=== PATIENT | male | born 1935 | race Caucasian/White ===

== ENCOUNTER 2018-02-13 16:25 | Emergency (ER) | payer MEDICARE, OTHER, SELFPAY ==
[2018-02-13 16:32] VITALS: BP 156/96; PULSE 71; RESP 20; TEMP 36.6; O2SAT 97
--- NOTE | 2018-02-13 16:36 | DI.RAD.S_ITS ---
PROCEDURE: XR HIP W PEL IF DONE LT 2V INDICATIONS: Fall with lateral hip pain TECHNIQUE: AP pelvis with lateral view(s) of the left hip(s). COMPARISON: None. FINDINGS: Bones: No fractures or dislocations. Pelvic ring appears intact. No suspicious bony lesions. Soft tissues: The visualized bowel gas pattern is normal. No suspicious soft tissue calcifications. IMPRESSION: No acute fracture. No osseous lesion. If clinical suspicion and/or symptoms persist, further assessment with repeat plainfilms, or advanced imaging (e.g., CT, MRI, or bone scan) may be helpful for further assessment. Dictated by: Chase Rich M.D. on 02/13/2018 at 17:01 Approved by: Chase Rich M.D. on 02/13/2018 at 17:01
--- NOTE | 2018-02-13 16:41 | ED.LOWEXIN ---
HPI - Extremity Injury (Lower) General Chief Complaint: Extremity Injury, Lower Stated Complaint: GLF, left side hip pain Time Seen by Provider: 02/13/18 16:32 Source: patient Mode of arrival: ambulatory Limitations: no limitations History of Present Illness HPI Narrative: 82-year-old male here for evaluation of left hip injury after sustaining a fall at a restaurant just prior to arrival. Patient states that he slipped on a wet floor landing on his left hip. Did not hit his head. No loss consciousness. Was able to get up with help afterwards. Has only been ambulatory with help afterwards. Related Data Home Medications Medication Instructions Recorded Confirmed alfuzosin 10 mg PO QDAY #0 09/25/16 amlodipine [Norvasc] 5 mg PO QDAY #0 09/25/16 chlorthalidone 25 mg PO QDAY #0 09/25/16 prazosin [Minipress] 1 mg NG TID #0 09/25/16 Previous Rx's Medication Instructions Recorded azithromycin [Zithromax] 250 - 500 mg PO QDAY #6 tab 05/19/17 Allergies Allergy/AdvReac Type Severity Reaction Status Date / Time iodine [IODINE] Allergy Unknown Verified 02/13/18 17:07 morphine [MORPHINE] Allergy Unknown Verified 02/13/18 17:07 shellfish derived Allergy Unknown Verified 02/13/18 17:07 [SHELLFISH DERIVED] Review of Systems Constitutional Denies frequent falls, Denies headache(s) and Denies lethargy ENT Ears, Nose, Mouth, and Throat: Denies headache(s) Cardiovascular Denies chest pain and Denies dyspnea Respiratory Denies dyspnea Gastrointestinal Gastrointestinal: Denies abdominal pain Musculoskeletal Denies back pain, Denies myalgias, Denies deformity, Reports arthralgias (Left hip), Denies numbness and Denies tingling Integumentary/Breasts Denies lesions and Denies rash Neurologic Denies frequent falls, Denies headache(s), Denies numbness and Denies tingling Hematologic/Lymphatic Comments: Not on anticoagulation PFSH Medical History Hypertension (Acute) Surgical History History of lumbar surgery (Acute) Social History marital status: lives independently: Yes Exam Initial Vital Signs Initial Vital Signs: Vital Signs Temperature 97.9 F 02/13/18 16:32 Pulse Rate 71 02/13/18 16:32 Respiratory Rate 20 02/13/18 16:32 Blood Pressure 156/96 H 12/02/18 16:32 Pulse Oximetry 97 02/13/18 16:32 Const General: cooperative, healthy appearing, comfortable, well developed, well groomed and No acute distress Orientation: alert, awake and oriented x3 HENMT Head: normal to inspection and normocephalic Resp Effort & Inspection: normal respiratory effort Cardio Rate: regular rate GI Inspection: non-distended Palpation: soft, No firm and No tender Back/Spine/Pelvis Back: No CVA tenderness Cervical Spine: No cervical spinal tenderness Thoracic/Lumbar Spine: No thoracic spinal tenderness and No lumbar spinal tenderness Sacroiliac Joints: tender to palpation left Skin Lesions: no lesions Rashes: no rashes Neuro General: alert, awake and oriented x3 Cognition: normal cognition Sensory Exam: no sensory deficits noted Extrem General: normal to inspection and capillary refill normal Left lower extremity: normal to inspection, normal capillary refill and edema Other: Tender to palpation over the SI joint and over the greater trochanter on the left. No gross deformities. No right hip tenderness. Course Orders Ordered: ED Orders 02/13/18 16:36 XR hip w pel if done LT 2V Stat Discontinued Medications Ibuprofen (Advil) 800 mg PO NOW ONE Stop: 02/13/18 17:06 Last Admin: 02/13/18 17:08 Dose: 800 mg Vital Signs - 8 hr 02/13/18 16:32 Temperature 97.9 F Pulse Rate 71 Respiratory Rate 20 Blood Pressure 156/96 H Pulse Oximetry 97 MDM - Extremity Injury (Lower) Imaging Data XR hip: Radiologist's impression: PROCEDURE: XR HIP W PEL IF DONE LT 2V INDICATIONS: Fall with lateral hip pain TECHNIQUE: AP pelvis with lateral view(s) of the left hip(s). COMPARISON: None. FINDINGS: Bones: No fractures or dislocations. Pelvic ring appears intact. No suspicious bony lesions. Soft tissues: The visualized bowel gas pattern is normal. No suspicious soft tissue calcifications. IMPRESSION: No acute fracture. No osseous lesion. If clinical suspicion and/or symptoms persist, further assessment with repeat plainfilms, or advanced imaging (e.g., CT, MRI, or bone scan) may be helpful for further assessment. Dictated by: Chase Rich M.D. on 02/13/2018 at 17:01 Approved by: Chase Rich M.D. on 02/13/2018 at 17:0 MDM Narrative Medical decision making narrative: No fractures on the x-ray. Patient was able to stand and put weight on his left hip at bedside. Will hold on CT scan. He was given ibuprofen here in the emergency department. Will hold on further workup for now. Patient was given care instructions and return precautions. Discharge Plan Departure Patient Disposition: Home Clinical Impression: Contusion of hip, left Instructions: DI for Contusion Activity Restrictions/Additional Instructions: No fractures were seen on the x-rays today. You can place weight on your leg as needed and as tolerated. Your only limited by your discomfort. Take ibuprofen for any discomfort. Return to the emergency department for any new or worsening symptoms Prescriptions: No Action amlodipine [Norvasc] 5 MG tablet 5 mg PO QDAY Qty: 0 RF: 0 alfuzosin 10 MG tablet extended release 24 hr 10 mg PO QDAY Qty: 0 RF: 0 prazosin [Minipress] 1 MG capsule 1 mg NG TID Qty: 0 RF: 0 chlorthalidone 25 MG tablet 25 mg PO QDAY Qty: 0 RF: 0 azithromycin [Zithromax] 250 MG tablet 250 - 500 mg PO QDAY Qty: 6 RF: 0
[2018-02-13] MEDS: IBUPROFEN 400 MG TABLET 800 MG PO (17:08)
--- NOTE | 2018-02-13 17:13 | PC.NURSE ---
slipped and fell on wet floor, occured at 240pm today at [employer] [facility] in [place]. denies loc, denies neck , with tenderness with left hip and lumbar area. pt able to stand from wheelchair to strecther. distal cms intact. spouse at bs.
[2018-02-13 17:14] VITALS: BP 124/63; PULSE 67; RESP 16; O2SAT 100
== END 2018-02-13 17:23 | disposition home or self-care (01) ==
PROVIDERS: Emergency Provider Emergency Medicine; Family Provider Internal Medicine; PCP Internal Medicine
DX: S70.02XA Contusion of left hip, initial encounter (principal); W01.0XXA Fall on same level from slipping, tripping and stumbling without subsequent striking against object, initial encounter
CPT/HCPCS: 73502; 99282; 99283

== ENCOUNTER → 2018-03-01 09:41 | Outpatient (CLI) | payer MEDICARE, OTHER, SELFPAY ==
--- NOTE | 2018-03-01 | DI.RAD.S_ITS ---
PROCEDURE: XR SHOULDER LT MIN 2V INDICATIONS: PAIN IN LEFT SHOULDER TECHNIQUE: 3 views of the shoulder were acquired. COMPARISON: None. FINDINGS: Bones: No fractures or dislocations. No suspicious bony lesions. Visualized ribs appear intact. Subcentimeter loose body projects in the axillary pouch. There is moderate acromioclavicular and glenohumeral degenerative joint disease. Soft tissues: No suspicious soft tissue calcifications. IMPRESSION: Moderate left shoulder joint degeneration. Loose body projects in the axillary pouch. Dictated by: Filippo Medrano M.D. on 03/01/2018 at 12:14 Approved by: Filippo Medrano M.D. on 03/01/2018 at 12:18
--- NOTE | 2018-03-01 | DI.CT.S_ITS ---
PROCEDURE: CT LE LT W CON INDICATIONS: PAIN IN LEFT HIP TECHNIQUE: Noncontrast 3 mm axial sections acquired through the bony pelvis. Additional 3 mm axial sections acquired through the symptomatic hip joint, with coronal and sagittal reformats. COMPARISON: None. FINDINGS: Image quality: Excellent. No fracture or focal osseous destruction. Bilateral chronic L5 pars defects. Anatomic alignment of the sacroiliac joints and pubic symphysis, as well as the hip joints. 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 There is diffuse osteopenia. Intrapelvic contents grossly unremarkable. Incidental colonic diverticulosis. IMPRESSION: No definite or displaced fracture seen. If the patient's pain and symptoms persist, recommend further evaluation with dedicated MRI. Dictated by: Filippo Medrano M.D. on 03/01/2018 at 12:36 Approved by: Filippo Medrano M.D. on 03/01/2018 at 13:05
== END ==
PROVIDERS: PCP Internal Medicine; Visit Provider Student in an Organized Health Care Education/Training Program
DX: M25.552 Pain in left hip (principal); M25.512 Pain in left shoulder; M19.012 Primary osteoarthritis, left shoulder
CPT/HCPCS: 73030; 73700

== ENCOUNTER → 2018-04-22 10:10 | Outpatient (CLI) | payer OTHER, SELFPAY ==
--- NOTE | 2018-04-22 10:11 | DI.RAD.S_ITS ---
PROCEDURE: FL BARIUM SWALLOW INDICATIONS: dysphagia.Post Heller myotomy/diverticulectomy/toupet fundop COMPARISON: None. FINDINGS: Function: There is decreased esophageal peristalsis. There is delayed esophageal clearance. No elicited gastroesophageal reflux. Morphology: Air-contrast images demonstrate numerous lower esophageal diverticula Single contrast views show no esophageal strictures, extrinsic mass effects. Limited images of the stomach demonstrate normal appearance. IMPRESSION: Esophageal dysmotility. Numerous mid to lower esophageal diverticula. Dictated by: Filippo Medrano M.D. on 04/22/2018 at 11:04 Approved by: Filippo Medrano M.D. on 04/22/2018 at 11:08
== END ==
PROVIDERS: PCP Internal Medicine; Visit Provider Specialist
DX: R13.10 Dysphagia, unspecified (principal); K22.4 Dyskinesia of esophagus; K22.5 Diverticulum of esophagus, acquired
CPT/HCPCS: 74220

== ENCOUNTER → 2018-06-11 14:13 | Outpatient (CLI) | payer MEDICARE, OTHER, SELFPAY ==
--- NOTE | 2018-06-11 | DI.MRI.S_ITS ---
PROCEDURE: MR LUMBAR SPINE WO CON INDICATIONS: SPINAL STENOSIS TECHNIQUE: Noncontrast sagittal T1 spin echo and T2 fast echo, sagittal STIR, axial T1 and T2 fast spin echo through the lumbar spine. In cases with scoliosis, additional coronal T2 fast spin echo may be performed. COMPARISON: None. FINDINGS: Image quality: Excellent. Alignment and Curvature: No plain films are available for comparison, for numbering purposes. Thus, for the purposes of this examination, 5 lumbar type vertebral bodies will be presumed, as denoted on the montage panel. This should be confirmed and correlated with plain films, prior to any lumbar spinal intervention. There is mild, grade 1 retrolisthesis of L2 on L3. Mild grade 1 anterolisthesis of L4 on L5. Mild grade 1 anterolisthesis of L5 on S1. Bone Marrow: Marrow is of normal overall signal. No acute vertebral body compression fractures. Schmorl's node invaginates the superior L4 endplate. Mild reactive signal within the endplates adjacent to the L3-L4, L4-L5, and L5-S1 intervertebral discs. Patient appears to be status post left L5-S1 hemilaminotomy. Spinal Cord: Conus medullaris terminates at the mid L2 level. Visualized cord demonstrates normal signal and size. Paraspinous Soft Tissues: No paravertebral masses. L1-L2: Moderate disc desiccation. No significant canal, nor foraminal stenosis. L2-L3: Moderate disc desiccation. Mild diffuse disc bulge. Mild facet hypertrophy. Mild canal stenosis. Mild bilateral foraminal stenosis. L3-L4: Mild disc height loss. Mild disc desiccation. Mild diffuse disc bulge with small superimposed left far lateral protrusion. Mild facet and ligament flavum hypertrophy. Mild canal stenosis. Moderate left and mild right foraminal stenosis. L4-L5: Moderate disc desiccation. Mild diffuse disc bulge with small superimposed broad-based right posterolateral protrusion. Mild bilateral facet and ligament flavum hypertrophy. Mild canal stenosis. Moderate subarticular right and mild left foraminal stenosis. L5-S1: Severe disc height loss and desiccation. Mild diffuse disc bulge. Moderate bilateral facet hypertrophy. Mild canal stenosis. Moderate bilateral foraminal stenosis. IMPRESSION: 1. 5 lumbar type vertebral bodies were presumed for the current report. Plain films of the lumbar spine are recommended for confirmation, prior to any lumbar spinal intervention. 2. Multilevel degenerative disc and facet disease, as well as ligamentum flavum hypertrophy and epidural lipomatosis. 3. Mild multilevel canal stenoses. 4. Multilevel foraminal stenoses, worst on the left at L3-L4, on the right at L4-L5, and bilaterally at L5-S1, where there are moderate foraminal stenoses present. Dictated by: Chase Rich M.D. on 06/13/2018 at 8:39 Approved by: Chase Rich M.D. on 06/13/2018 at 8:43
== END ==
PROVIDERS: PCP Internal Medicine; Visit Provider Internal Medicine
DX: M48.062 Spinal stenosis, lumbar region with neurogenic claudication (principal); M48.07 Spinal stenosis, lumbosacral region; M51.36 Other intervertebral disc degeneration, lumbar region; M51.37 Other intervertebral disc degeneration, lumbosacral region; E88.2 Lipomatosis, not elsewhere classified
CPT/HCPCS: 72148

== ENCOUNTER 2018-10-04 08:57 | Outpatient (CLI) | payer MEDICARE, OTHER, SELFPAY ==
[2018-10-04] VITALS (8 sets, daily range): BP systolic 126–150; BP diastolic 51–75; PULSE 55–63; RESP 16; TEMP 36.1; O2SAT 98–100
--- NOTE | 2018-10-04 09:00 | DI.RAD.S_ITS ---
PROCEDURE: PAIN L/SI FACET INJ/BLK 1STL INDICATIONS: SPONDYLOSIS FINDINGS: Fluoroscopic spot filming was performed to verify placement of spinal needles at the left L4-L5 and L5-S1 level(s), as labeled on the films. Appropriate location(s) of the needle tip(s) was confirmed by injection of iodinated contrast. IMPRESSION: Fluoroscopy for pain management. Dictated by: Sophia Huff M.D. on 10/04/2018 at 11:24 Approved by: Sophia Huff M.D. on 10/04/2018 at 11:25
[2018-10-04] MEDS: MIDAZOLAM 5 MG/5 ML VIAL IV (09:57)
[2018-10-04] MEDS: BETAMETHASONE 30 MG/5 ML MDV 12 MG INJ (09:59)
[2018-10-04] MEDS: LIDOCAINE 1% 20 ML INJ 10 ML INJ (09:59)
--- NOTE | 2018-10-04 10:00 | PC.NURSE ---
ASSISTING PT OFF TABLE AND TRANSPORTING TO POST PROC AREA IN STABLE CONDITION
--- NOTE | 2018-10-04 10:05 | PC.NURSE ---
Pt returned via wheelchair awake and alert and able to transfer from w/c to chair with standby assist. Resumed monitoring from Jana STEWARD.
[2018-10-04] MEDS: BUPIVACAINE 0.5% (PF) VIAL 2 ML INJ (10:08)
--- NOTE | 2018-10-04 10:16 | P.PCN_ITS ---
Procedures Date/Time Date of procedure: 10/04/18 Time of procedure: 10:15 General Procedure description: PREOP DIAGNOSIS 1. FACET ARTHROPATHY, 2. AXIAL LBP, 3. MULTILEVEL DDD, POST OP DIAGNOSIS 1. FACET ARTHROPATHY, 2. AXIAL LBP, 3. MULTILEVEL DDD, PROCEDURES 1. FLUORSCOPICALLY GUIDED CONTRAST CONTROLLED FACET JOINT INJECTIONS LEFT L4/5, L5/S1 SURGEON: Kuldip Glaser, DO INDICATIONS Pa is referred by for treatment of Axial LBP FINDINGS Multilevel Facet Arthropathy with Clinically significant axial LBP DESCRIPTION OF PROCEDURE Fluoroscopically guided, contrast-controlled left L4/5, L5/S1 facet joint inje ctions. Following review of allergy and review of potential side effects and complications, including, but not necessarily limited to, infection, allergic reaction, local tissue breakdown, stroke, temporary or permanent nerve injury, paralysis, and possible , the patient indicated that the patient understood and agreed to proceed. An informed consent document was signed by the patient, witnessed by a nurse, and placed in the patient's chart. Additionally, other treatment options including medications, modalities, and physical therapy were reviewed with the patient. After review of previous anaesthesic history and IV conscious sedation the patient was deemed safe to proceed with todays procedure with IV conscious sedation as ASA class II designation. Safety time-out was performed to confirm patient ID, procedure to be performed and site of procedure. IV sedation was accomplished with a combination of 2mg of Versed was administered by the RN after DO order, titrated to patient comfort during the course of the procedure while the patient remained responsive to all verbal commands. In the prone position, following sterile prep and drape of the lumbar region, the posterior aspect of the left L4/5, L5/S1 facet joints were identified fluoroscopically. The skin was anesthetized via a 25-gauge 1.5-inch needle with 1% lidocaine solution into the corresponding facet joints. At this point, a 22- gauge 3.5-inch spinal needle was atraumatically introduced and advanced under fluoroscopic guidance into the corresponding facet joints. Following negative aspiration, injections of approximately 0.2-cc of Isovue 200 confirmed interarticular placement without vascular uptake. Radiological data, including multiple fluoroscopic views of the lumbosacral spine, reveal a spinal needle at the left L4/5, L5/S1 facet joints. Subsequent views show flow of contrast material both superiorly and inferiorly within the joint space without vascular or intrathecal uptake. At this point, a total of 0.5 cc including a mixture of 0.25cc Marcaine and 0.25cc betamethasone was injected without complication into each of the corresponding facet joints. The procedure tolerated the procedure well without signs or symptoms of complications prior to transfer to the recovery area continued monitoring without incident. The patient was then transferred to the recovery area where they were observed for an appropriate period of time after the injection. The patient reported a VAS score of 7 prior to the procedure and a post-procedure VAS of 0. Total Fluoroscopy Time: 12.7 seconds Total Conscious Sedation Time: 24min POST OP INSTRUCTIONS The patient was provided a Pain Log to continue to record their response to the target-specific procedure prior to follow-up visit with their referring physician. Additionally, specific post-injection care instructions and a contact number to our office were provided if concerns arise regarding possible complications associated with the procedure are suspected. Kuldip Glaser, Complications: none
== END 2018-10-04 10:34 ==
LOC: RAD 08:59
PROVIDERS: PCP Internal Medicine; Visit Provider Physical Medicine & Rehabilitation
DX: M96.1 Postlaminectomy syndrome, not elsewhere classified (principal); M47.896 Other spondylosis, lumbar region
CPT/HCPCS: 64493; 64494; 99152; J0702; J2250; J3010

== ENCOUNTER → 2019-06-11 09:23 | Outpatient (CLI) | payer MEDICARE, OTHER, SELFPAY ==
--- NOTE | 2019-06-11 | DI.RAD.S_ITS ---
PROCEDURE: XR KNEE LT 3V INDICATIONS: PAIN IN LEFT KNEE TECHNIQUE: 3 views of the knee were acquired. COMPARISON: None. FINDINGS: Bones: No fractures or dislocations. No suspicious bony lesions. The joint spaces are relatively well-preserved. Minimal degenerative change is seen. Soft tissues: No joint effusion. No suspicious soft tissue calcifications. IMPRESSION: Unremarkable plain films for age. If there is strong clinical suspicion for internal derangement of this joint, please consider a dedicated MRI for further evaluation (assuming that there is no contraindication to MRI). Dictated by: Humza Gonsales M.D. on 06/11/2019 at 9:05 Approved by: Humza Gonsales M.D. on 06/11/2019 at 9:06
== END ==
PROVIDERS: PCP Internal Medicine; Referring Provider Physician Assistant; Visit Provider Physician Assistant
DX: M25.562 Pain in left knee (principal)
CPT/HCPCS: 73562

== ENCOUNTER 2019-11-06 08:25 | Emergency (ER) | payer OTHER, MEDICARE, SELFPAY ==
[2019-11-06] VITALS (10 sets, daily range): BP systolic 136–172; BP diastolic 64–80; PULSE 58–62; RESP 20–22; TEMP 36.7; O2SAT 96–100
--- NOTE | 2019-11-06 08:49 | DI.CT.S_ITS ---
PROCEDURE: CT HEAD/BRAIN WO CON INDICATIONS: Left side weakness, onset 4pm 11/04 TECHNIQUE: Noncontrast 4.5 mm thick angled axial sections acquired from the foramen magnum to the vertex, with coronal and sagittal reformats. For radiation dose reduction, the following was used: automated exposure control, adjustment of mA and/or kV according to patient size. COMPARISON: None. FINDINGS: Image quality: Excellent. CSF spaces: Basal cisterns are patent. No extra-axial fluid collections. The ventricles are symmetric in size and shape. Brain: No acute intracranial hemorrhage or mass effect. There is cerebral volume loss for age, with resultant ventricular and sulcal prominence. There are periventricular and deep white matter chronic small vessel ischemic changes. There is intracranial internal carotid artery and vertebral artery atherosclerosis. Skull and face: Calvarium and visualized facial bones appear intact, without suspicious lesions. Sinuses: Visualized sinuses and mastoids are clear. IMPRESSION: 1. No acute intracranial hemorrhage or mass effect. No focal parenchymal edema is seen. 2. Chronic microvascular ischemic changes. 3. 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 Dictated by: Patrick Mckinney M.D. on 11/06/2019 at 9:22 Approved by: Patrick Mckinney M.D. on 11/06/2019 at 9:26
--- NOTE | 2019-11-06 08:56 | ED_ITS ---
HPI - Neuro Symptoms/Deficit General Chief Complaint: Neuro Symptoms/Deficit Stated Complaint: Balance is off, head is hazy Time Seen by Provider: 11/06/19 08:30 Source: patient and family Mode of arrival: Ambulatory Limitations: no limitations History of Present Illness HPI Narrative: 84-year-old gentleman who presents today complaining of left- sided weakness in the upper extremity, worsening balance issues and a feeling that his head is slightly hazy. Describes no fevers, chills, cough, dyspnea, palpitations, chest pain, shortness of breath, abdominal pain, nausea/vomiting/diarrhea. Notes that yesterday at approximately 4:00 p.m. in the afternoon he had a fall. He slumped to the ground suffered no injury unknown whether he hit his head or not his did not see the incident but shortly thereafter he was able to get up unaccompanied and he felt that he may have simply stumbled over a piece of driftwood on the lawn. As he went to bed last night he reports feeling just fine and awoke with symptoms as described above. On Anticoagulants: No Related Data Home Medications Medication Instructions Recorded Confirmed prazosin [Minipress] 1 mg NG TID #0 09/25/16 06/11/19 amlodipine 5 mg tablet 10 mg PO QDAY #0 tab 03/30/18 06/11/19 atorvastatin 10 mg tablet 10 mg PO DAILY 03/30/18 06/11/19 carvedilol 12.5 mg tablet 12.5 mg PO BID 03/30/18 06/11/19 losartan 50 mg tablet 50 mg PO BID tab 03/30/18 06/11/19 terbinafine HCl 250 mg tablet 250 mg PO DAILY 03/30/18 06/11/19 trazodone 100 mg tablet 100 mg PO DAILY 03/30/18 06/11/19 venlafaxine 37.5 mg 37.5 mg PO BID cap 03/30/18 06/11/19 capsule,extended release 24 hr epinephrine 0.3 mg/0.3 mL 0.3 mg IM ONCE PRN 08/10/18 06/11/19 injection, auto-injector Previous Rx's Medication Instructions Recorded sulconazole 1 applictn TOP BID #60 gram 11/06/19 Allergies Allergy/AdvReac Type Severity Reaction Status Date / Time bee venom protein (honey bee) Allergy Severe Anaphylaxis Verified 06/11/19 10:04 iodine [IODINE] Allergy Unknown Verified 06/11/19 10:04 morphine [MORPHINE] Allergy Unknown Verified 06/11/19 10:04 shellfish derived Allergy Unknown Verified 06/11/19 10:04 [SHELLFISH DERIVED] bupropion [From Wellbutrin] AdvReac Intermediate Depression Verified 06/11/19 10:04 hydrochlorothiazide AdvReac Unknown Verified 06/11/19 10:04 [From Dyazide] triamterene [From Dyazide] AdvReac Unknown Verified 06/11/19 10:04 Celecoxib Allergy N/V Uncoded 06/11/19 10:04 Review of Systems Review of Systems Narrative: Remainder of review of systems including constitutional, ENT, cardiovascular, respiratory, GI, , musculoskeletal, skin, neurologic and psychiatric systems reviewed and are unremarkable except as noted in HPI. Patient History Medical History Acid reflux (Chronic) Facet arthropathy, lumbosacral (Acute) Hernia (Resolved) Hypertension (Acute) Intramural diverticulosis of esophagus (Resolved) PTSD (post-traumatic stress disorder) (Chronic) Surgical History History of lumbar surgery (Acute) Family History Father Hypertension Grandfather Cancer Social History marital status: lives independently: Yes Smoking Status: Never smoker Smoking Status: Never smoker alcohol intake frequency: 0-2 drinks per day Substance Use Type: does not use Exam Narrative Exam Narrative: General: Healthy appearing, in no acute distress. Able to give a complete and coherent history. Well-nourished well-developed HEENT: Moist mucous membranes, normal sclera with reactive pupils, no facial droop Neck: No JVD, supple Respiratory: Lungs are clear to auscultation, no wheezing no rales no rhonchi. Full and symmetrical air movement Cardiac: Regular rate and rhythm no murmurs no bruits Abdomen: Soft nontender good bowel tones, no flank pain Skin: Warm and dry, large plaque around the umbilicus with serpiginous edges with scaling at the edges central clearing consistent with tinea corporis exacerbated by significant tanning to surrounding skin Neurologic: Slight weakness to left upper extremity question weakness left lower extremity. Ataxia difficulties with left arm and left leg. No sensory deficits. He describes a fuzzy feeling but objective cognitive testing is unremarkable. Extremities: No trauma, well perfused Psych: Cooperative, appropriate insight and affect NIH Stroke Scale/Score (NIHSS) from [employer] on 11/06/2019 RESULT SUMMARY: 3 points NIH Stroke Scale INPUTS: 1A: Level of consciousness ?> 0 = Alert; keenly responsive 1B: Ask month and age ?> 0 = Both questions right 1C: 'Blink eyes' & 'squeeze hands' ?> 0 = Performs both tasks 2: Horizontal extraocular movements ?> 0 = Normal 3: Visual bah ?> 0 = No visual loss 4: Facial palsy ?> 0 = Normal symmetry 5A: Left arm motor drift ?> 1 = Drift, but doesn't hit bed 5B: Right arm motor drift ?> 0 = No drift for 10 seconds 6A: Left leg motor drift ?> 0 = No drift for 5 seconds 6B: Right leg motor drift ?> 0 = No drift for 5 seconds 7: Limb Ataxia ?> 2 = Ataxia in 2 Limbs 8: Sensation ?> 0 = Normal; no sensory loss 9: Language/aphasia ?> 0 = Normal; no aphasia 10: Dysarthria ?> 0 = Normal 11: Extinction/inattention ?> 0 = No abnormality Initial Vital Signs Initial Vital Signs: Vital Signs Temperature 98.0 F 11/06/19 08:36 Pulse Rate 61 11/06/19 08:36 Respiratory Rate 20 11/06/19 08:36 Blood Pressure 172/80 H 11/06/19 08:36 Pulse Oximetry 99 11/06/19 08:36 Course Orders Ordered: ED Orders 11/06/19 08:49 CT head/brain wo con Stat Urinalysis and Microscopic Stat Urine Drug Screen, Rapid Stat 11/06/19 09:00 Complete Blood Count AUTO DIFF Stat Comprehensive Metabolic Panel Stat Ethanol (ETOH) Stat Partial Thromboplastin Time Stat Prothrombin Time INR Stat Troponin & CK Cardiac Panel Stat 11/06/19 09:44 MR stroke Stat Sodium Chloride (Normal Saline 0.9%) 1,000 mls @ 150 mls/hr IV CONT KANG Last Admin: 11/06/19 09:48 Dose: 150 mls/hr Documented by: HEATHER Vital Signs Vital signs: Vital Signs - 8 hr 11/06/19 08:36 11/06/19 09:46 11/06/19 10:00 Temperature 98.0 F Pulse Rate 61 62 Respiratory Rate 20 20 22 Blood Pressure 172/80 H Pulse Oximetry 99 11/06/19 11:20 11/06/19 11:21 11/06/19 11:30 Temperature Pulse Rate 62 61 58 L Respiratory Rate Blood Pressure 136/64 137/67 Pulse Oximetry 96 98 100 11/06/19 12:00 11/06/19 12:30 11/06/19 13:00 Temperature Pulse Rate 59 L 58 L 60 Respiratory Rate Blood Pressure 156/73 H 161/72 H 157/72 H Pulse Oximetry 100 100 100 11/06/19 13:30 Temperature Pulse Rate 61 Respiratory Rate Blood Pressure 165/74 H Pulse Oximetry 99 MDM - Neuro Symptoms/Deficit Medical Records Attestation: I reviewed the patient's medical records. Lab Data Attestation: I reviewed the patient's lab results. Result diagrams: 11/06/19 09:00 11/06/19 09:00 Labs: Lab Results 11/06/19 11/06/19 11/06/19 Range/Units 09:00 09:00 09:00 WBC 7.3 (4.5-11.0) X10^3/uL RBC 4.06 L (4.5-5.9) X10^6/uL Hgb 12.1 L (13.5-17.5) g/dL Hct 35.8 L (41-53) % MCV 88.2 (80-100) fL MCH 29.9 (26-34) PG MCHC 33.8 (30-36) % RDW 13.7 (11.6-14.8) % Plt Count 279 (150-400) X10^3/uL Neut % (Auto) 73.6 (50-75) % Lymph % (Auto) 15.7 L (25-40) % [place] % (Auto) 9.0 (3-14) % Eos % (Auto) 1.1 L (2-4) % Baso % (Auto) 0.6 (0-2) % Neut # (Auto) 5400 (5181-4625) /uL Lymph # (Auto) 1200 (9088-5370) /uL [place] # (Auto) 700 (0-900) /uL Eos # (Auto) 100 (0-450) /uL Baso # (Auto) 0 (0-100) /uL PT 12.8 H (10.1-12.7) SECONDS INR 1.1 (0.9-1.3) APTT 33 (26.4-36.2) SECONDS Sodium 139 (137-145) mmol/L Potassium 4.3 (3.4-5.1) mmol/L Chloride 108 H (98-107) mmol/L Carbon Dioxide 26 (22-32) mmol/L BUN 27 H (9-20) mg/dL Creatinine 0.95 (0.66-1.25) mg/dL Estimated GFR > 60.0 (>60) mL/min BUN/Creatinine Ratio 28.4 H (6-22) Glucose 91 (80-110) mg/dL Calcium 8.8 (8.4-10.2) mg/dL Total Bilirubin 0.5 (0.2-1.3) mg/dL AST 21 (17-59) IU/L ALT 20 (<50) IU/L Alkaline Phosphatase 85 (38-126) U/L Total Creatine Kinase 30 L (55-170) U/L CK-MB (CK-2) TNP CK-MB (CK-2) Rel Index TNP Troponin I < 0.012 (0.01-0.034) ng/mL Total Protein 6.9 (6.3-8.2) g/dL Albumin 4.0 (3.5-5.0) g/dL Globulin 2.9 (1.7-4.1) g/dL Albumin/Globulin Ratio 1.4 (1.0-2.8) Ethyl Alcohol < 10 ( - 10) mg/dL Urine Dip Bedside Urine Glucose Negative Bedside Urine Bilirubin - Negative Bedside Urine Ketone - Negative Urine Specific [place] 1.020 Bedside Urine Occult Blood - Negative Bedside Urine pH 6.0 Bedside Urine Protein +/- 15 Bedside Urine Urobilinogen +/- 1mg Bedside Urine Nitrite - Negative Bedside Urine Leukocytes - Negative Esterase Imaging Data CT scan - head: Radiologist's Impression: FINDINGS: Image quality: Excellent. CSF spaces: Basal cisterns are patent. No extra-axial fluid collections. The ventricles are symmetric in size and shape. Brain: No acute intracranial hemorrhage or mass effect. There is cerebral volume loss for age, with resultant ventricular and sulcal prominence. There are pe riventricular and deep white matter chronic small vessel ischemic changes. There is intracranial internal carotid artery and vertebral artery atherosclerosis. Skull and face: Calvarium and visualized facial bones appear intact, without suspicious lesions. Sinuses: Visualized sinuses and mastoids are clear. IMPRESSION: 1. No acute intracranial hemorrhage or mass effect. No focal parenchymal edema is seen. 2. Chronic microvascular ischemic changes. 3. 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 Dictated by: Patrick Mckinney M.D. on 11/06/2019 at 9:22 Stroke MRI: Radiologist's Impression: IMPRESSION: BRAIN MRI: No findings of acute or subacute infarction can be seen. Remote right peritrigonal region infarction. Note is made of age-appropriate brain parenchymal volume loss and chronic small vessel ischemic changes. No masses or abnormal enhancement can be seen. BRAIN MR ANGIOGRAM: Apparent approximately 50% narrowing can be seen involving the right proximal P2 segment. [id number] anomaly incidentally noted, with a hypoplastic left A1 segment. NECK MR ANGIOGRAM: Within the arteries of the neck, no hemodynamically significant stenosis can be seen. Dictated by: Humza Gonsales M.D. on 11/06/2019 at 11:12 ECG Data Attestation: I personally reviewed and interpreted this ECG as follows: Interpretation: Sinus [place] at a rate of 58 Mild left axis deviation, normal intervals No acute ischemic changes MDM Narrative Medical decision making narrative: Pleasant 84-year-old gentleman presents with haziness minor left-sided weakness after a fall/episode yesterday at 4:00 p.m. that resolved completely with symptoms noted again this morning upon awakening. Most likely initial diagnosis is a stroke with onset 4:[address] scan of the head and stroke orders are all initiated. He has a severe iodine allergy within near anaphylactic reaction to CT contrast at the [facility] a number of years ago so follow-up CT a is not going to be appropriate in this situation. 942am no intracranial hemorrhage. Severe contrast allergy so no CT a. Will move to stroke MR protocol and plans for admission with most likely diagnosis being CVA. Because of the uncertain diagnosis, low NIH score with mild symptoms and the onset sometime around 4:00 p.m. yesterday he is not a tPA candidate 145pm MRI results are she unremarkable in do not suggest an acute or subacute stroke for his current symptoms. At this time with no evidence of acute intracranial pathology or stroke, no signs of infection or significant cardiac event, I believe he is safe for home discharge. Stroke Core Measures Exclusion Criteria TPA in CVA: Unknown Onset of Symptoms Discharge Plan Departure Patient Disposition: Home Clinical Impression: Tinea corporis Fall Qualifiers: Encounter type: initial encounter Qualified Code(s): W19.XXXA - Unspecified fall, initial encounter Concussion Qualifiers: Encounter type: initial encounter Loss of consciousness presence/duration: with LOC of 30 min or less Qualified Code(s): S06.0X1A - Concussion with loss of consciousness of 30 minutes or less, initial encounter Instructions: DI for Concussion, DI for Stroke-Ischemic, DI for Tinea Corporis Activity Restrictions/Additional Instructions: Thank you for coming in today. I am happy to let you know that there is no bleeding inside your head and the MRI suggests no stroke. To treat at discoloration around her belly button I am going to prescribe an antifungal cream, sulconazole, to use 2x/day for 2 2weeks. I believe that this is a mild fungal infection. Once the infection is gone that skin can begin to take hand again but the skin likely will look the same until you of completely lost your oliva and then are exposed to the sun again Please make sure that you are doing all you can to avoid falling. I suspect that the fall yesterday caused a mild concussion and shook things up enough to explain the findings that you are noticing today with the head fullness and the arm weakness. Prescriptions: New sulconazole 1 % cream 1 applictn TOP BID Qty: 60 RF: 0 No Action prazosin [Minipress] 1 MG capsule 1 mg NG TID Qty: 0 RF: 0 amlodipine [Norvasc] 5 mg tablet 10 mg PO QDAY Qty: 0 RF: 0 venlafaxine 37.5 mg capsule,extended release 24hr 37.5 mg PO BID RF: 0 trazodone 100 mg tablet 100 mg PO DAILY RF: 0 terbinafine HCl 250 mg tablet 250 mg PO DAILY RF: 0 losartan 50 mg tablet 50 mg PO BID RF: 0 carvedilol 12.5 mg tablet 12.5 mg PO BID RF: 0 atorvastatin 10 mg tablet 10 mg PO DAILY RF: 0 epinephrine [EpiPen] 0.3 mg/0.3 mL auto-injector 0.3 mg IM ONCE PRNRF: 0 Referrals: Kleber Mann MD [Primary Care Provider] -
[2019-11-06 09:15] LABS: Add Manual Diff / Slide Review NO; Basophils Absolute Auto 0 /uL (0-100); Basophils Percent Auto 0.6 % (0-2); Eosinophils Absolute Auto 100 /uL (0-450); Eosinophils Percent Auto 1.1 % (2-4); Hematocrit 35.8 % (41-53); Hemoglobin 12.1 g/dL (13.5-17.5); Lymphocytes Absolute Auto 1200 /uL (1100-4500); Lymphocytes Percent Auto 15.7 % (25-40); Mean Corpuscular HGB Conc 33.8 % (30-36); Mean Corpuscular Hemoglobin 29.9 PG (26-34); Mean Corpuscular Volume 88.2 fL (80-100); Monocytes Absolute Auto 700 /uL (0-900); Neutrophils Absolute Auto 5400 /uL (1500-7000); Neutrophils Percent Auto 73.6 % (50-75); Platelet Count 279 X10^3/uL (150-400); Red Blood Cell Count 4.06 X10^6/uL (4.5-5.9); Red Cell Distribution Width 13.7 % (11.6-14.8); White Blood Cell Count 7.3 X10^3/uL (4.5-11.0)
[2019-11-06 09:20] LABS: INR 1.1 (0.9-1.3); Prothrombin Time 12.8 SECONDS (10.1-12.7)
--- NOTE | 2019-11-06 09:22 | PC.NURSE ---
pt resting in bed vs on rn cardiac rehab family at bedside pt speaking in full sentences is aa0x3 denies pain.
[2019-11-06 09:23] LABS: PTT Partial Thromboplastin Tim 33 SECONDS (26.4-36.2)
[2019-11-06 09:25] LABS: Alanine Aminotransferase 20 IU/L (<50); Albumin Globulin Ratio 1.4 (1.0-2.8); Alkaline Phosphatase 85 U/L (38-126); Aspartate Aminotransferase 21 IU/L (17-59); BUN Creatinine Ratio 28.4 (6-22); Bilirubin Total 0.5 mg/dL (0.2-1.3); Blood Urea Nitrogen 27 mg/dL (9-20); Calcium 8.8 mg/dL (8.4-10.2); Carbon Dioxide 26 mmol/L (22-32); Chloride 108 mmol/L (98-107); Creatine Kinase 30 U/L (55-170); Estimated Glomerular Filt Rate > 60.0 mL/min (>60); Ethanol (ETOH) < 10 mg/dL; Globulin 2.9 g/dL (1.7-4.1); Glucose 91 mg/dL (80-110); HEMOLYSIS < 15 (0-50); Potassium 4.3 mmol/L (3.4-5.1); Sodium 139 mmol/L (137-145); Total Protein 6.9 g/dL (6.3-8.2)
[2019-11-06 09:36] LABS: Troponin I < 0.012 ng/mL (0.01-0.034)
--- NOTE | 2019-11-06 09:44 | DI.MRI.S_ITS ---
PROCEDURE: MR STROKE Pre- and post-contrast brain MRI, non-contrast brain MR angiogram, pre- and postcontrast neck MR angiogram INDICATIONS: stroke suspected TECHNIQUE: Brain: Noncontrast axial T1 spin echo, axial T2 fast spin echo, sagittal and axial FLAIR, coronal T2 fast spin echo, axial gradient echo, axial diffusion and ADC through the brain. After the administration of contrast, axial 3D VIBE of the cranial vasculature and brain. Brain MRA: Non-contrast 3-D time of flight MR angiogram, with multiple tjhrvov-exsjybkxq-aucgqluemq (MIP) reformats performed. Neck MRA: Axial and sagittal TruFISP through the neck. Coronal dynamic MR angiogram during administration of contrast in the arterial and venous phases, with 3-dimenstional xiabdjq-gcnxgclap-clotokkkom (MIP) reformats constructed from subtraction images. COMPARISON: [facility], CT, CT HEAD/BRAIN WO CON, 11/06/2019, 9:07. FINDINGS: Image quality: Excellent. BRAIN: CSF spaces: Ventricles are normal in size and shape. Basal cisterns are patent. No extra-axial fluid collections. Brain: No intracranial bleeds or mass effects. Swift-white matter interface is normal. Diffusion weighted images show no acute ischemic insults. Brainstem appears normal. A remote infarction can be seen involving the right peritrigonal region, with volume loss and encephalomalacia. Generalized brain parenchymal volume loss and chronic small vessel ischemic change can be seen. Normal intravascular flow voids are present. No abnormal intracranial enhancement. Skull and face: Calvarial marrow signal is normal. Orbits appear normal. Note is made of bilateral lens replacements. Sinuses: Sinuses and mastoids are clear. BRAIN MR ANGIOGRAM: Anterior circulation: Intracranial internal carotid arteries are normal in size and enhancement. There is a hypoplastic left A1 segment, with a corresponding robust right A1 segment. The flow within the paired anterior cerebral arteries is otherwise normal and symmetric. This is considered to be a normal developmental variant of the [place] of [place], of typically no clinical consequence. The flow within the middle cerebral arteries is normal and symmetric. The anterior communicating artery is seen. No stenoses, occlusions, or aneurysms. Posterior circulation: The visualized portions of the vertebral arteries demonstrate normal caliber, and join to form a normal appearing basilar artery. There is an apparent 50% narrowing seen involving the right proximal P2 segment, as on series 11, image 111 and on series 37 image 12. The flow within the posterior cerebral arteries is otherwise normal and symmetric. No stenoses, occlusions, or aneurysms. NECK MR ANGIOGRAM: Carotids: Great vessels demonstrate a conventional anatomy as they arise from the aortic arch. The origins of the common carotid arteries appear patent. The calibers and courses of both common carotid arteries are normal. The bifurcation regions appear normal bilaterally. The internal carotid arteries demonstrate normal course and caliber. Posterior circulation: The origins of the vertebral arteries appear patent. More superior portions of both vertebral arteries demonstrate normal course and caliber, and join to form a normal appearing basilar artery. Miscellaneous: Subclavian arteries appear patent. Pre-contrast images through the neck show no soft tissue abnormalities. IMPRESSION: BRAIN MRI: No findings of acute or subacute infarction can be seen. Remote right peritrigonal region infarction. Note is made of age-appropriate brain parenchymal volume loss and chronic small vessel ischemic changes. No masses or abnormal enhancement can be seen. BRAIN MR ANGIOGRAM: Apparent approximately 50% narrowing can be seen involving the right proximal P2 segment. Ezfyrt-br-[id number] anomaly incidentally noted, with a hypoplastic left A1 segment. NECK MR ANGIOGRAM: Within the arteries of the neck, no hemodynamically significant stenosis can be seen. Dictated by: Humza Gonsales M.D. on 11/06/2019 at 11:12 Approved by: Humza Gonsales M.D. on 11/06/2019 at 11:19
[2019-11-06] MEDS: SODIUM CHLORIDE 0.9% 1,000 ML 150 ML IV (09:48)
--- NOTE | 2019-11-06 09:48 | PC.NURSE ---
ivf infusing as per mdo
--- NOTE | 2019-11-06 11:06 | PC.NURSE ---
pt in mri
--- NOTE | 2019-11-06 11:18 | PC.NURSE ---
pt back from mri
== END 2019-11-06 14:20 | disposition home or self-care (01) ==
PROVIDERS: Emergency Provider Emergency Medicine; PCP Internal Medicine
DX: S06.0X1A Concussion with loss of consciousness of 30 minutes or less, initial encounter (principal); W19.XXXA Unspecified fall, initial encounter; B35.4 Tinea corporis
CPT/HCPCS: 70450; 70548; 70553; 80053; 80320; 81003; 82550; 84484; 85025; 85610; 85730; 93005; 96360; 96361; 99284

== ENCOUNTER → 2020-01-15 09:27 | Outpatient (CLI) | payer MEDICARE, OTHER, SELFPAY ==
--- NOTE | 2020-01-15 09:29 | DI.RAD.S_ITS ---
PROCEDURE: XR LUMBAR SPINE MIN 4V INDICATIONS: lbp TECHNIQUE: 5 views of the lumbar spine were acquired. COMPARISON: [facility], XA, PAIN L/SI FACET INJ/BLK 1STL, 10/04/2018, 9:58. [facility], MR, MR LUMBAR SPINE WO CON, 06/11/2018, 15:01. FINDINGS: Bones: 5 nonrib-bearing vertebrae are present. There is normal bony alignment. No acute vertebral body compression fractures. Moderate multilevel lumbar spondylosis throughout the imaged lumbar spine with severe mid and lower lumbar facet arthropathy. No suspicious bony lesions. Overall, findings appear to have progressed compared to previous evaluation. Soft tissues: Overlying bowel gas pattern is normal. No suspicious soft tissue calcifications. Oblique images: No pars defects. IMPRESSION: Moderate-severe multilevel lumbar spondylosis which appears to have progressed compared to MRI dated June 11, 2018. Appearance may be in part due to differences in imaging modality. No acute compression deformities. Dictated by: Arnie Morales M.D. on 01/15/2020 at 9:53 Approved by: Arnie Morales M.D. on 01/15/2020 at 10:04
== END ==
PROVIDERS: PCP Internal Medicine; Referring Provider Physical Medicine & Rehabilitation; Visit Provider Physical Medicine & Rehabilitation
DX: M47.817 Spondylosis without myelopathy or radiculopathy, lumbosacral region (principal); M47.816 Spondylosis without myelopathy or radiculopathy, lumbar region; M70.62 Trochanteric bursitis, left hip
CPT/HCPCS: 72110; 99214

== ENCOUNTER 2020-01-18 12:00 | Outpatient (RCR) | payer OTHER, SELFPAY ==
--- NOTE | 2019-04-12 16:54 | PT.OIE ---
Current Diagnoses Pain in unspecified hip (04/12/19) Muscle weakness (generalized) (04/12/19) Other abnormalities of gait and mobility (04/12/19) Past Medical History (Last Updated 03/13/19 @ 17:12 by Kuldip Glaser DO) Acid reflux (Chronic) Facet arthropathy, lumbosacral (Acute) Hernia (Resolved) Hypertension (Acute) Intramural diverticulosis of esophagus (Resolved) PTSD (post-traumatic stress disorder) (Chronic) Past Surgical History (Last Reviewed 03/13/19 @ 17:12 by Kuldip Glaser DO) History of lumbar surgery (Acute) Visit Care Team Role Provider Type Kleber Mann MD Primary Care Provider Physician Specialty: Internal Medicine Address: [address] [place] [address], [id number] Email: [email or web address] Tenisha Gutierrez Attending Provider Non-Staff Specialty: Medical Address: [address] [place] [address], [address] Phone: Email: Physical Therapy Initial Evaluation PT-OP-A Visit Information Start: 04/12/19 15:53 Freq: Status: Active Protocol: Document 04/12/19 15:54 AW (Rec: 04/12/19 16:53 AW [id number]) Out-Patient Physical Therapy Visit Information Visit Information Visit Type Initial Evaluation Visit Start Time 14:30 Visit Stop Time 15:15 Total Visit Minutes 45 Visit Number 1 Number of IMPORT/EXPORT FREIGHT FORWARDER Visits 0 Evaluation Information Evaluation Date 04/12/19 PT-OP-B Current Condition Start: 04/12/19 15:53 Freq: Status: Active Protocol: Document 04/12/19 15:54 AW (Rec: 04/12/19 16:53 AW [id number]) Current Condition History of Current Condition Onset Date 02/13/2018 Current Complaints left posterolateral hip pain History of Current Condition On 02/13/2018, Rafael fell on his left hip in a restaurant bathroom. He reports no falls since the precipitating event. Treatment since that time has included PT for the hip and facet injections for low back pain which he feels is resolved. He is under the care of Dr. Glaser. He reports his hip pain is 5/10 at worst and points to his posterolateral hip when describing it. Pain is worst when initiating movement, such as when waking up in the morning and when taking first steps after sitting for a while. He states his pain is sharp and he occasionally feels achiness in the posterior leg down to mid -thigh, but denies shooting pain. He is unable to sleep on his left side due to pain. Prior Treatments and Tests - [facility] PT until ~6 months ago - L4-5, L5-S1 facet joint injections for LBP on 10/04/18 - remote history of lumbar lami - unknown levels Future Testing and Treatments Planned None known Treatment Goals Patient/Caregiver Goals Pt would like to return to prior level of function, specifically being able to pick things up from the floor and carry without pain and to walk more than a block without hip pain. Prior Functional Status Baseline Function- ADL's Independent Baseline Function- Mobility Independent Baseline Function- Gait no AD Baseline Function- Work/School retired Baseline Function- Recreation/Hobbies Able to help out around the house without limitation. Current Functional Impairments (Reported) Functional Limitations- Mobility/Gait Antalgic with decreased LLE stance time Functional Limitations- Recreation/ Difficulty participating in Hobbies househole duties. Personal Factors Other Personal Factors That May Effect + motivated Therapy/Recovery + prior positive experience with PT PT-OP-C Subjective Start: 04/12/19 15:53 Freq: Status: Active Protocol: Document 04/12/19 15:54 AW (Rec: 04/12/19 16:53 AW [id number]) Patient Questionnaires Lower Extremity Functional Scale LEFS Score 31/72 (2 items not answered) LEFS Impairment 40 to 59% Impaired (Score 32- 47) PT-OP-F Manual Assessment Start: 04/12/19 15:53 Freq: Status: Active Protocol: Document 04/12/19 15:54 AW (Rec: 04/12/19 16:53 AW [id number]) Manual Assessments Soft Tissue Assessment Soft Tissue Mobility Assessment No tenderness to palpation at greater trochanter, ischial tuberosity, lateral hip musculature. Increased density noted with left glute med and deep rotators. Joint Mobility Assessment Joint Mobility Assessment No restriction noted in bilateral anterior, posterior, inferior glides. PT-OP-G Mobility & Gait Start: 04/12/19 15:53 Freq: Status: Active Protocol: Document 04/12/19 15:54 AW (Rec: 04/12/19 16:53 AW [id number]) OP Gait Assessment Gait Gait Assistance Required: Independent Assistive Devices Assistive Device None Gait Deviations General Gait Pattern Antalgic,Decreased Stride Length,Decreased Feet Clearance,Narrow Based Gait, Step-to Gait Factors Limiting Gait Function Factors Limiting Gait Function Decreased Strength,Limited Range of Motion,Pain,Poor Balance Comments Gait Comments Pt walks with decreased LLE stance time and mildly scissoring, antalgic gait. PT-OP-K Range of Motion Start: 04/12/19 15:53 Freq: Status: Active Protocol: Document 04/12/19 15:54 AW (Rec: 04/12/19 16:53 AW [id number]) Lumbar Spine Range of Motion Lumbar Spine Active Comments WNL and pain free Hip Goniometric Range of Motion Hip Left Active Flexion w/Knee Flexed 115 Extension 15 Right Active Flexion w/Knee Flexed 124 Extension 15 Hip ROM Limitations Hip ROM Limitations Soft Tissue Tightness,Pain Comments Pt with limited limited internal rotation bilaterally (L more affected than R), indicating short deep external rotators. PT-OP-L Special Tests Start: 04/12/19 15:53 Freq: Status: Active Protocol: Document 04/12/19 15:54 AW (Rec: 04/12/19 16:53 AW [id number]) Special Tests Hip Special Tests Straight Leg Raise Comments 90/90 test for hamstring length: R lacking 30 degrees, L lacking 45 degrees Pillo Test Results positive bilaterally Comments bilateral thighs in abduction and >1 off table with leg straight Scour Test Test Results negative bilaterally Neural Special Tests- Lower Body Sciatic Nerve Tension Test Results negative Comments slump test negative bilaterally PT-OP-M Strength Start: 04/12/19 15:53 Freq: Status: Active Protocol: Document 04/12/19 15:54 AW (Rec: 04/12/19 16:53 AW [id number]) Hip Strength Hip Manual Muscle Testing Left Flexion (L2) 4 Good Extension (S1) 4 Good Abduction 3 Fair Adduction 3+ Fair+ External Rotation 4 Good Internal Rotation 4 Good Comments Painful all planes Right Flexion (L2) 4+ Good+ Extension (S1) 4+ Good+ Abduction 4- Good- Adduction 4- Good- External Rotation 4+ Good+ Internal Rotation 4+ Good+ Knee Strength Knee Manual Muscle Testing Right Flexion (S2) 4 Good Extension (L3) 4+ Good+ Left Flexion (S2) 4 Good Extension (L3) 4+ Good+ PT-OP-T Assessment and Plan Start: 04/12/19 15:53 Freq: Status: Active Protocol: Document 04/12/19 15:54 AW (Rec: 04/12/19 16:53 AW [id number]) Physical Therapy Assessment Rehab Potential Rehabilitation Potential Excellent Evaluation Complexity Number of Personal Factors/Comorbidities 1-2 Number of Body Systems Impaired 1-2 Clinical Presentation at Evaluation Stable Impairments Impairments Activity Tolerance,Balance, Gait,Pain,Posture,ROM,Soft Tissue Mobility,Strength Goals Five Impairment sleep Short Term Goal (STG) Pt will report ability to lie on left hip >1 hour without increase in pain STG Duration 05/03/2019 Primary Teacher Goal (LTG) Pt will report ability to lie on left hip >3 hours without increase in pain LTG Duration 06/21/2019 Four Impairment strength Primary Teacher Goal (LTG) Pt will demonstrate pain-free left hip strength within one- half grade of right hip strength. LTG Duration 06/21/2019 Three Impairment ROM Primary Teacher Goal (LTG) Pt will have left hip AROM within 5 degrees of right hip AROM. LTG Duration 06/21/2019 Two Impairment 43% impairment on LEFS Short Term Goal (STG) Pt will score 30% impairment or less on LEFS to demonstrate decreased difficulty with daily activities STG Duration 05/03/2019 Primary Teacher Goal (LTG) Pt will score 20% impairment or less on LEFS to demonstrate decreased difficulty with daily activities LTG Duration 06/21/2019 One Impairment participation in home duties Short Term Goal (STG) Pt will be able to lift a 10- pound bag of groceries from knee height in either hand and carry 50 feet without increase in pain STG Duration 05/03/2019 Jail Goal (LTG) Pt will be able to lift a 10- pound bag of groceries from the ground in either hand and carry 50 feet without increase in pain LTG Duration 06/21/2019 Assessment Summary Assessment Rafael is an 84 yo man presenting to outpatient PT with complaints of left hip pain which was precipitated by a fall on his left hip in February 2018. He has increased density of the left gluteal and external rotation musculature with point tenderness, decreased left hip strength in all planes, and painful end-range flexion and rotation. Single-leg stance is limited to 2 seconds bilaterally, he is observed with right hip drop in left stance phase of gait, and has decreaed left leg stance time. He will benefit from skilled physical therapy to address these impairments for return to prior level of function. Physical Therapy Plan Frequency and Duration Frequency of Treatment 2x/Week Duration of Treatment 8 weeks Plan of Care Start Date 04/12/19 Plan of Care End Date 06/21/19 Therapeutic Interventions Therapeutic Interventions Balance Training,Gait Training ,Home Exercise Program,Manual Therapy,Neuromuscular Re- education,Patient/Caregiver Education,Soft Tissue Mobilization,Taping, Therapeutic Activities, Therapeutic Exercises Modalities Cold Pack/Ice Massage,Electric Stimulation,Hot Packs Next Visit Focus/Plan Next Note Type Treatment Note Next Visit Plan teach self-release for tight glutes/ERs; manual therapy/STM as tolerated; initiate global hip strengthening
--- NOTE | 2019-04-12 16:55 | PT.OPPOC ---
Physical, Occupational & Speech Therapy At [facility] Current Diagnoses Pain in unspecified hip (04/12/19) Muscle weakness (generalized) (04/12/19) Other abnormalities of gait and mobility (04/12/19) Visit Care Team Role Provider Type Kleber Mann MD Primary Care Provider Physician Specialty: Internal Medicine Address: [address] [place] [address], [address] Email: [email or web address] Tenisha Gutierrez Attending Provider Non-Staff Specialty: Medical Address: [address] [place] [address], [place], [address] Phone: Email: Plan Of Care PT-OP-T Assessment and Plan Start: 04/12/19 15:53 Freq: Status: Active Protocol: Document 04/12/19 15:54 AW (Rec: 04/12/19 16:53 AW [id number]) Physical Therapy Assessment Rehab Potential Rehabilitation Potential Excellent Evaluation Complexity Number of Personal Factors/Comorbidities 1-2 Number of Body Systems Impaired 1-2 Clinical Presentation at Evaluation Stable Impairments Impairments Activity Tolerance,Balance, Gait,Pain,Posture,ROM,Soft Tissue Mobility,Strength Goals Five Impairment sleep Short Term Goal (STG) Pt will report ability to lie on left hip >1 hour without increase in pain STG Duration 05/03/2019 Tube Dispatcher Goal (LTG) Pt will report ability to lie on left hip >3 hours without increase in pain LTG Duration 06/21/2019 Four Impairment strength Tube Dispatcher Goal (LTG) Pt will demonstrate pain-free left hip strength within one- half grade of right hip strength. LTG Duration 06/21/2019 Three Impairment ROM Snf Goal (LTG) Pt will have left hip AROM within 5 degrees of right hip AROM. LTG Duration 06/21/2019 Two Impairment 43% impairment on LEFS Short Term Goal (STG) Pt will score 30% impairment or less on LEFS to demonstrate decreased difficulty with daily activities STG Duration 05/03/2019 Tube Dispatcher Goal (LTG) Pt will score 20% impairment or less on LEFS to demonstrate decreased difficulty with daily activities LTG Duration 06/21/2019 One Impairment participation in home duties Short Term Goal (STG) Pt will be able to lift a 10- pound bag of groceries from knee height in either hand and carry 50 feet without increase in pain STG Duration 05/03/2019 Tube Dispatcher Goal (LTG) Pt will be able to lift a 10- pound bag of groceries from the ground in either hand and carry 50 feet without increase in pain LTG Duration 06/21/2019 Assessment Summary Assessment Rafael is an 84 yo man presenting to outpatient PT with complaints of left hip pain which was precipitated by a fall on his left hip in February 2018. He has increased density of the left gluteal and external rotation musculature with point tenderness, decreased left hip strength in all planes, and painful end-range flexion and rotation. Single-leg stance is limited to 2 seconds bilaterally, he is observed with right hip drop in left stance phase of gait, and has decreaed left leg stance time. He will benefit from skilled physical therapy to address these impairments for return to prior level of function. Physical Therapy Plan Frequency and Duration Frequency of Treatment 2x/Week Duration of Treatment 8 weeks Plan of Care Start Date 04/12/19 Plan of Care End Date 06/21/19 Therapeutic Interventions Therapeutic Interventions Balance Training,Gait Training ,Home Exercise Program,Manual Therapy,Neuromuscular Re- education,Patient/Caregiver Education,Soft Tissue Mobilization,Taping, Therapeutic Activities, Therapeutic Exercises Modalities Cold Pack/Ice Massage,Electric Stimulation,Hot Packs Next Visit Focus/Plan Next Note Type Treatment Note Next Visit Plan teach self-release for tight glutes/ERs; manual therapy/STM as tolerated; initiate global hip strengthening Plan of Care Dates Plan of Care Start Date 04/12/19 Plan of Care End Date 06/21/19 Electronically Signed by: Lore Bah, PT 04/12/19 [id number] Please Sign and Return: I have reviewed this Plan of Care and certify that the skilled therapy services above are required to meet the patient?s needs. Physician Signature Date Printed Name and Credentials Clinical Instructor Signature Printed Name and Credentials
--- NOTE | 2019-04-19 15:20 | PT.OTN ---
Current Diagnoses Pain in unspecified hip (04/19/19) Muscle weakness (generalized) (04/19/19) Other abnormalities of gait and mobility (04/19/19) Physical Therapy Treatment Note PT-OP-A Visit Information Start: 04/12/19 15:53 Freq: Status: Active Protocol: Document 04/19/19 15:20 DLM (Rec: 04/19/19 16:36 DLM [id number]) Out-Patient Physical Therapy Visit Information Visit Information Visit Type Treatment Note Visit Start Time 15:20 Visit Stop Time 16:05 Total Visit Minutes 45 Visit Number 2 Number of MANAGER SOCIAL Visits 0 Evaluation Information Evaluation Date 04/12/19 Precautions Precautions hx lumbar surgery PT-OP-B Current Condition Start: 04/12/19 15:53 Freq: Status: Active Protocol: Document 04/12/19 15:54 AW (Rec: 04/12/19 16:53 AW [id number]) Current Condition History of Current Condition Onset Date 02/13/2018 Current Complaints left posterolateral hip pain History of Current Condition On 02/13/2018, Rafael fell on his left hip in a restaurant bathroom. He reports no falls since the precipitating event. Treatment since that time has included PT for the hip and facet injections for low back pain which he feels is resolved. He is under the care of Dr. Glaser. He reports his hip pain is 5/10 at worst and points to his posterolateral hip when describing it. Pain is worst when initiating movement, such as when waking up in the morning and when taking first steps after sitting for a while. He states his pain is sharp and he occasionally feels achiness in the posterior leg down to mid -thigh, but denies shooting pain. He is unable to sleep on his left side due to pain. Prior Treatments and Tests - [facility] PT until ~6 months ago - L4-5, L5-S1 facet joint injections for LBP on 10/04/18 - remote history of lumbar lami - unknown levels Future Testing and Treatments Planned None known Treatment Goals Patient/Caregiver Goals Pt would like to return to prior level of function, specifically being able to pick things up from the floor and carry without pain and to walk more than a block without hip pain. Prior Functional Status Baseline Function- ADL's Independent Baseline Function- Mobility Independent Baseline Function- Gait no AD Baseline Function- Work/School retired Baseline Function- Recreation/Hobbies Able to help out around the house without limitation. Current Functional Impairments (Reported) Functional Limitations- Mobility/Gait Antalgic with decreased LLE stance time Functional Limitations- Recreation/ Difficulty participating in Hobbies househole duties. Personal Factors Other Personal Factors That May Effect + motivated Therapy/Recovery + prior positive experience with PT PT-OP-C Subjective Start: 04/12/19 15:53 Freq: Status: Active Protocol: Document 04/19/19 15:20 DLM (Rec: 04/19/19 16:36 DLM [id number]) OP-PT Subjective Patient Comments Patient Comments He still has soreness left hip area Patient Reported Progress Same PT-OP-F Manual Assessment Start: 04/12/19 15:53 Freq: Status: Active Protocol: Document 04/12/19 15:54 AW (Rec: 04/12/19 16:53 AW [id number]) Manual Assessments Soft Tissue Assessment Soft Tissue Mobility Assessment No tenderness to palpation at greater trochanter, ischial tuberosity, lateral hip musculature. Increased density noted with left glute med and deep rotators. Joint Mobility Assessment Joint Mobility Assessment No restriction noted in bilateral anterior, posterior, inferior glides. PT-OP-G Mobility & Gait Start: 04/12/19 15:53 Freq: Status: Active Protocol: Document 04/12/19 15:54 AW (Rec: 04/12/19 16:53 AW [id number]) OP Gait Assessment Gait Gait Assistance Required: Independent Assistive Devices Assistive Device None Gait Deviations General Gait Pattern Antalgic,Decreased Stride Length,Decreased Feet Clearance,Narrow Based Gait, Step-to Gait Factors Limiting Gait Function Factors Limiting Gait Function Decreased Strength,Limited Range of Motion,Pain,Poor Balance Comments Gait Comments Pt walks with decreased LLE stance time and mildly scissoring, antalgic gait. PT-OP-K Range of Motion Start: 04/12/19 15:53 Freq: Status: Active Protocol: Document 04/12/19 15:54 AW (Rec: 04/12/19 16:53 AW [id number]) Lumbar Spine Range of Motion Lumbar Spine Active Comments WNL and pain free Hip Goniometric Range of Motion Hip Left Active Flexion w/Knee Flexed 115 Extension 15 Right Active Flexion w/Knee Flexed 124 Extension 15 Hip ROM Limitations Hip ROM Limitations Soft Tissue Tightness,Pain Comments Pt with limited limited internal rotation bilaterally (L more affected than R), indicating short deep external rotators. PT-OP-L Special Tests Start: 04/12/19 15:53 Freq: Status: Active Protocol: Document 04/12/19 15:54 AW (Rec: 04/12/19 16:53 AW [id number]) Special Tests Hip Special Tests Straight Leg Raise Comments 90/90 test for hamstring length: R lacking 30 degrees, L lacking 45 degrees Pillo Test Results positive bilaterally Comments bilateral thighs in abduction and >1 off table with leg straight Scour Test Test Results negative bilaterally Neural Special Tests- Lower Body Sciatic Nerve Tension Test Results negative Comments slump test negative bilaterally PT-OP-M Strength Start: 04/12/19 15:53 Freq: Status: Active Protocol: Document 04/12/19 15:54 AW (Rec: 04/12/19 16:53 AW [id number]) Hip Strength Hip Manual Muscle Testing Left Flexion (L2) 4 Good Extension (S1) 4 Good Abduction 3 Fair Adduction 3+ Fair+ External Rotation 4 Good Internal Rotation 4 Good Comments Painful all planes Right Flexion (L2) 4+ Good+ Extension (S1) 4+ Good+ Abduction 4- Good- Adduction 4- Good- External Rotation 4+ Good+ Internal Rotation 4+ Good+ Knee Strength Knee Manual Muscle Testing Right Flexion (S2) 4 Good Extension (L3) 4+ Good+ Left Flexion (S2) 4 Good Extension (L3) 4+ Good+ PT-OP-Q Treatments Start: 04/12/19 15:53 Freq: Status: Active Protocol: Document 04/19/19 15:20 DLM (Rec: 04/19/19 16:36 DLM [id number]) Therapeutic Exercises Supine Exercises Bridging Reps/Minutes x 10 reps Hip Abduction Supine Exercise Name hooklying Side bilateral Resistance L2 exercise band Reps/Minutes x 10 reps Hip Adduction Supine Exercise Name hooklying Side bilateral Resistance isometric Equipment Used ball between knees Reps/Minutes 5 sec hold x 10 reps Lower Trunk Rotation Supine Exercise Name Hooklying Side bilateral Reps/Minutes 3 reps each side Hip ER Stretch Supine Exercise Name Hooklying with ankle over knee Side bilateral Resistance stretch Reps/Minutes 3 reps each side, 20 sec hold Comments press down on knee Single Knee to Chest Supine Exercise Name stretch Side bilateral Reps/Minutes 3 reps each, 20 sec hold Sidelying Exercises Hip Abduction Side left Reps/Minutes 2 x 10 reps Manual Therapy Treatment Soft Tissue Mobilization 1 Body Location left buttock area Mobilization Type Cross-Friction,Strumming, Sustained Pressure,Trigger Point Release Intensity/Depth Moderate Body Position Prone PT-OP-R Modalities Start: 04/12/19 15:53 Freq: Status: Active Protocol: Document 04/19/19 15:20 DLM (Rec: 04/19/19 16:36 DLM [id number]) Electric Stimulation Electric Stimulation Interferential Current (IFC) Body Location sacral/buttock area Duration (Minutes) 15 Intensity 13 Patient Position Hooklying Combined With Heat/Cold Hot Pack PT-OP-T Assessment and Plan Start: 04/12/19 15:53 Freq: Status: Active Protocol: Document 04/19/19 15:20 DLM (Rec: 04/19/19 16:36 DLM [id number]) Physical Therapy Assessment Impairments Impairments Activity Tolerance,Balance, Gait,Pain,Posture,ROM,Soft Tissue Mobility,Strength Goals Five Impairment sleep Short Term Goal (STG) Pt will report ability to lie on left hip >1 hour without increase in pain STG Duration 05/03/2019 Jail Goal (LTG) Pt will report ability to lie on left hip >3 hours without increase in pain LTG Duration 06/21/2019 Four Impairment strength Jail Goal (LTG) Pt will demonstrate pain-free left hip strength within one- half grade of right hip strength. LTG Duration 06/21/2019 Three Impairment ROM Power And Recovery Supervisor Goal (LTG) Pt will have left hip AROM within 5 degrees of right hip AROM. LTG Duration 06/21/2019 Two Impairment 43% impairment on LEFS Short Term Goal (STG) Pt will score 30% impairment or less on LEFS to demonstrate decreased difficulty with daily activities STG Duration 05/03/2019 Jail Goal (LTG) Pt will score 20% impairment or less on LEFS to demonstrate decreased difficulty with daily activities LTG Duration 06/21/2019 One Impairment participation in home duties Short Term Goal (STG) Pt will be able to lift a 10- pound bag of groceries from knee height in either hand and carry 50 feet without increase in pain STG Duration 05/03/2019 Jail Goal (LTG) Pt will be able to lift a 10- pound bag of groceries from the ground in either hand and carry 50 feet without increase in pain LTG Duration 06/21/2019 Progress Towards Goals Progress Towards Goals Progressing Toward Goals Assessment Summary Assessment He tolerated his exercises well. Significant decrease in left hip ER noted during exercises compared to right. Pt eager to try Estim to assist with pain management. Pt needs supervision while rolling over on mat to assist with safety. Will assess response to treatment next visit. Physical Therapy Plan Frequency and Duration Frequency of Treatment 2x/Week Duration of Treatment 8 weeks Plan of Care Start Date 04/12/19 Plan of Care End Date 06/21/19 Therapeutic Interventions Therapeutic Interventions Balance Training,Gait Training ,Home Exercise Program,Manual Therapy,Neuromuscular Re- education,Patient/Caregiver Education,Soft Tissue Mobilization,Taping, Therapeutic Activities, Therapeutic Exercises Modalities Cold Pack/Ice Massage,Electric Stimulation,Hot Packs Next Visit Focus/Plan Next Note Type Treatment Note Next Visit Plan provide HEP if tolerating ex well, continue manual therapy
--- NOTE | 2019-04-21 09:00 | PT.OTN ---
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 He reports no falls since the precipitating event. Treatment since that time has included PT for the hip and facet injections for low back pain which he feels is resolved. He is under the care of Dr. Glaser. He reports his hip pain is 5/10 at worst and points to his posterolateral hip when describing it. Pain is worst when initiating movement, such as when waking up in the morning and when taking first steps after sitting for a while. He states his pain is sharp and he occasionally feels achiness in the posterior leg down to mid -thigh, but denies shooting pain. He is unable to sleep on his left side due to pain. Prior Treatments and Tests - [facility] PT until ~6 months ago - L4-5, L5-S1 facet joint injections for LBP on 10/04/18 - remote history of lumbar lami - unknown levels Future Testing and Treatments Planned None known Treatment Goals Patient/Caregiver Goals Pt would like to return to prior level of function, specifically being able to pick things up from the floor and carry without pain and to walk more than a block without hip pain. Prior Functional Status Baseline Function- ADL's Independent Baseline Function- Mobility Independent Baseline Function- Gait no AD Baseline Function- Work/School retired Baseline Function- Recreation/Hobbies Able to help out around the house without limitation. Current Functional Impairments (Reported) Functional Limitations- Mobility/Gait Antalgic with decreased LLE stance time Functional Limitations- Recreation/ Difficulty participating in Hobbies househole duties. Personal Factors Other Personal Factors That May Effect + motivated Therapy/Recovery + prior positive experience with PT PT-OP-C Subjective Start: 04/12/19 15:53 Freq: Status: Active Protocol: Document 04/21/19 08:18 SP (Rec: 04/21/19 09:16 SP [id number]) OP-PT Subjective Patient Comments Patient Comments Pt reports little sore L hip. No adverse affect to last tx. PT-OP-F Manual Assessment Start: 04/12/19 15:53 Freq: Status: Active Protocol: Document 04/12/19 15:54 AW (Rec: 04/12/19 16:53 AW [id number]) Manual Assessments Soft Tissue Assessment Soft Tissue Mobility Assessment No tenderness to palpation at greater trochanter, ischial tuberosity, lateral hip musculature. Increased density noted with left glute med and deep rotators. Joint Mobility Assessment Joint Mobility Assessment No restriction noted in bilateral anterior, posterior, inferior glides. PT-OP-G Mobility & Gait Start: 04/12/19 15:53 Freq: Status: Active Protocol: Document 04/12/19 15:54 AW (Rec: 04/12/19 16:53 AW [id number]) OP Gait Assessment Gait Gait Assistance Required: Independent Assistive Devices Assistive Device None Gait Deviations General Gait Pattern Antalgic,Decreased Stride Length,Decreased Feet Clearance,Narrow Based Gait, Step-to Gait Factors Limiting Gait Function Factors Limiting Gait Function Decreased Strength,Limited Range of Motion,Pain,Poor Balance Comments Gait Comments Pt walks with decreased LLE stance time and mildly scissoring, antalgic gait. PT-OP-K Range of Motion Start: 04/12/19 15:53 Freq: Status: Active Protocol: Document 04/12/19 15:54 AW (Rec: 04/12/19 16:53 AW [id number]) Lumbar Spine Range of Motion Lumbar Spine Active Comments WNL and pain free Hip Goniometric Range of Motion Hip Left Active Flexion w/Knee Flexed 115 Extension 15 Right Active Flexion w/Knee Flexed 124 Extension 15 Hip ROM Limitations Hip ROM Limitations Soft Tissue Tightness,Pain Comments Pt with limited limited internal rotation bilaterally (L more affected than R), indicating short deep external rotators. PT-OP-L Special Tests Start: 04/12/19 15:53 Freq: Status: Active Protocol: Document 04/12/19 15:54 AW (Rec: 04/12/19 16:53 AW [id number]) Special Tests Hip Special Tests Straight Leg Raise Comments 90/90 test for hamstring length: R lacking 30 degrees, L lacking 45 degrees Pillo Test Results positive bilaterally Comments bilateral thighs in abduction and >1 off table with leg straight Scour Test Test Results negative bilaterally Neural Special Tests- Lower Body Sciatic Nerve Tension Test Results negative Comments slump test negative bilaterally PT-OP-M Strength Start: 04/12/19 15:53 Freq: Status: Active Protocol: Document 04/12/19 15:54 AW (Rec: 04/12/19 16:53 AW [id number]) Hip Strength Hip Manual Muscle Testing Left Flexion (L2) 4 Good Extension (S1) 4 Good Abduction 3 Fair Adduction 3+ Fair+ External Rotation 4 Good Internal Rotation 4 Good Comments Painful all planes Right Flexion (L2) 4+ Good+ Extension (S1) 4+ Good+ Abduction 4- Good- Adduction 4- Good- External Rotation 4+ Good+ Internal Rotation 4+ Good+ Knee Strength Knee Manual Muscle Testing Right Flexion (S2) 4 Good Extension (L3) 4+ Good+ Left Flexion (S2) 4 Good Extension (L3) 4+ Good+ PT-OP-Q Treatments Start: 04/12/19 15:53 Freq: Status: Active Protocol: Document 04/21/19 08:18 SP (Rec: 04/21/19 09:16 SP [id number]) Therapeutic Exercises Supine Exercises Bridging Reps/Minutes x 10 reps Hip Abduction Supine Exercise Name hooklying Side bilateral Resistance L2 exercise band Reps/Minutes x 10 reps Hip Adduction Supine Exercise Name hooklying Side bilateral Resistance isometric Equipment Used ball between knees Reps/Minutes 5 sec hold x 10 reps Lower Trunk Rotation Supine Exercise Name Hooklying Side bilateral Reps/Minutes 3 reps each side Hip ER Stretch Supine Exercise Name Hooklying with ankle over knee Side bilateral Resistance stretch Reps/Minutes 3 reps each side, 20 sec hold Comments press down on knee Single Knee to Chest Supine Exercise Name stretch Side bilateral Reps/Minutes 3 reps each, 20 sec hold Sidelying Exercises Hip Abduction Side left Reps/Minutes 2 x 10 reps PT-OP-R Modalities Start: 04/12/19 15:53 Freq: Status: Active Protocol: Document 04/19/19 15:20 DLM (Rec: 04/19/19 16:36 DLM [id number]) Electric Stimulation Electric Stimulation Interferential Current (IFC) Body Location sacral/buttock area Duration (Minutes) 15 Intensity 13 Patient Position Hooklying Combined With Heat/Cold Hot Pack PT-OP-T Assessment and Plan Start: 04/12/19 15:53 Freq: Status: Active Protocol: Document 04/21/19 08:18 SP (Rec: 04/21/19 09:16 SP [id number]) Physical Therapy Assessment Goals Five Impairment sleep Short Term Goal (STG) Pt will report ability to lie on left hip >1 hour without increase in pain STG Duration 05/03/2019 Group Home Goal (LTG) Pt will report ability to lie on left hip >3 hours without increase in pain LTG Duration 06/21/2019 Four Impairment strength Lining Strap Closer Goal (LTG) Pt will demonstrate pain-free left hip strength within one- half grade of right hip strength. LTG Duration 06/21/2019 Three Impairment ROM Group Home Goal (LTG) Pt will have left hip AROM within 5 degrees of right hip AROM. LTG Duration 06/21/2019 Two Impairment 43% impairment on LEFS Short Term Goal (STG) Pt will score 30% impairment or less on LEFS to demonstrate decreased difficulty with daily activities STG Duration 05/03/2019 Group Home Goal (LTG) Pt will score 20% impairment or less on LEFS to demonstrate decreased difficulty with daily activities LTG Duration 06/21/2019 One Impairment participation in home duties Short Term Goal (STG) Pt will be able to lift a 10- pound bag of groceries from knee height in either hand and carry 50 feet without increase in pain STG Duration 05/03/2019 Group Home Goal (LTG) Pt will be able to lift a 10- pound bag of groceries from the ground in either hand and carry 50 feet without increase in pain LTG Duration 06/21/2019 Assessment Summary Assessment HEP review and added hand outs for recall and performance, no adverse affects. Pt reported felt L glut working, tolerable and ball at wall and stretching was helpful to make looser. Pt stated does attend standing class at [facility]. Cued for slow muscular control and proper form. Physical Therapy Plan Frequency and Duration Frequency of Treatment 2x/Week Duration of Treatment 8 weeks Plan of Care Start Date 04/12/19 Plan of Care End Date 06/21/19 Therapeutic Interventions Therapeutic Interventions Balance Training,Gait Training ,Home Exercise Program,Manual Therapy,Neuromuscular Re- education,Patient/Caregiver Education,Soft Tissue Mobilization,Taping, Therapeutic Activities, Therapeutic Exercises Modalities Cold Pack/Ice Massage,Electric Stimulation,Hot Packs Next Visit Focus/Plan Next Note Type Treatment Note Next Visit Plan Assess HEP response and recall . COntinue per PT POC: provide HEP if tolerating ex well, continue manual therapy
--- NOTE | 2019-05-01 09:45 | PT.OTN ---
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 He reports no falls since the precipitating event. Treatment since that time has included PT for the hip and facet injections for low back pain which he feels is resolved. He is under the care of Dr. Glaser. He reports his hip pain is 5/10 at worst and points to his posterolateral hip when describing it. Pain is worst when initiating movement, such as when waking up in the morning and when taking first steps after sitting for a while. He states his pain is sharp and he occasionally feels achiness in the posterior leg down to mid -thigh, but denies shooting pain. He is unable to sleep on his left side due to pain. Prior Treatments and Tests - [facility] PT until ~6 months ago - L4-5, L5-S1 facet joint injections for LBP on 10/04/18 - remote history of lumbar lami - unknown levels Future Testing and Treatments Planned None known Treatment Goals Patient/Caregiver Goals Pt would like to return to prior level of function, specifically being able to pick things up from the floor and carry without pain and to walk more than a block without hip pain. Prior Functional Status Baseline Function- ADL's Independent Baseline Function- Mobility Independent Baseline Function- Gait no AD Baseline Function- Work/School retired Baseline Function- Recreation/Hobbies Able to help out around the house without limitation. Current Functional Impairments (Reported) Functional Limitations- Mobility/Gait Antalgic with decreased LLE stance time Functional Limitations- Recreation/ Difficulty participating in Hobbies househole duties. Personal Factors Other Personal Factors That May Effect + motivated Therapy/Recovery + prior positive experience with PT PT-OP-C Subjective Start: 04/12/19 15:53 Freq: Status: Active Protocol: Document 05/01/19 09:10 SP (Rec: 05/01/19 10:12 SP [id number]) OP-PT Subjective Patient Comments Patient Comments Pt reports little work out and uncomfortable soreness after last tx and still today. Stated there was one day didn' t do exercises but otherwise doing well with them. Pt states does use can out in public some days to help with balance. Patient Reported Progress Same PT-OP-F Manual Assessment Start: 04/12/19 15:53 Freq: Status: Active Protocol: Document 04/12/19 15:54 AW (Rec: 04/12/19 16:53 AW [id number]) Manual Assessments Soft Tissue Assessment Soft Tissue Mobility Assessment No tenderness to palpation at greater trochanter, ischial tuberosity, lateral hip musculature. Increased density noted with left glute med and deep rotators. Joint Mobility Assessment Joint Mobility Assessment No restriction noted in bilateral anterior, posterior, inferior glides. PT-OP-G Mobility & Gait Start: 04/12/19 15:53 Freq: Status: Active Protocol: Document 04/12/19 15:54 AW (Rec: 04/12/19 16:53 AW [id number]) OP Gait Assessment Gait Gait Assistance Required: Independent Assistive Devices Assistive Device None Gait Deviations General Gait Pattern Antalgic,Decreased Stride Length,Decreased Feet Clearance,Narrow Based Gait, Step-to Gait Factors Limiting Gait Function Factors Limiting Gait Function Decreased Strength,Limited Range of Motion,Pain,Poor Balance Comments Gait Comments Pt walks with decreased LLE stance time and mildly scissoring, antalgic gait. PT-OP-K Range of Motion Start: 04/12/19 15:53 Freq: Status: Active Protocol: Document 04/12/19 15:54 AW (Rec: 04/12/19 16:53 AW [id number]) Lumbar Spine Range of Motion Lumbar Spine Active Comments WNL and pain free Hip Goniometric Range of Motion Hip Left Active Flexion w/Knee Flexed 115 Extension 15 Right Active Flexion w/Knee Flexed 124 Extension 15 Hip ROM Limitations Hip ROM Limitations Soft Tissue Tightness,Pain Comments Pt with limited limited internal rotation bilaterally (L more affected than R), indicating short deep external rotators. PT-OP-L Special Tests Start: 04/12/19 15:53 Freq: Status: Active Protocol: Document 04/12/19 15:54 AW (Rec: 04/12/19 16:53 AW [id number]) Special Tests Hip Special Tests Straight Leg Raise Comments 90/90 test for hamstring length: R lacking 30 degrees, L lacking 45 degrees Pillo Test Results positive bilaterally Comments bilateral thighs in abduction and >1 off table with leg straight Scour Test Test Results negative bilaterally Neural Special Tests- Lower Body Sciatic Nerve Tension Test Results negative Comments slump test negative bilaterally PT-OP-M Strength Start: 04/12/19 15:53 Freq: Status: Active Protocol: Document 04/12/19 15:54 AW (Rec: 04/12/19 16:53 AW [id number]) Hip Strength Hip Manual Muscle Testing Left Flexion (L2) 4 Good Extension (S1) 4 Good Abduction 3 Fair Adduction 3+ Fair+ External Rotation 4 Good Internal Rotation 4 Good Comments Painful all planes Right Flexion (L2) 4+ Good+ Extension (S1) 4+ Good+ Abduction 4- Good- Adduction 4- Good- External Rotation 4+ Good+ Internal Rotation 4+ Good+ Knee Strength Knee Manual Muscle Testing Right Flexion (S2) 4 Good Extension (L3) 4+ Good+ Left Flexion (S2) 4 Good Extension (L3) 4+ Good+ PT-OP-Q Treatments Start: 04/12/19 15:53 Freq: Status: Active Protocol: Document 05/01/19 09:10 SP (Rec: 05/01/19 10:12 SP [id number]) Therapeutic Exercises Supine Exercises Bridging Supine Exercise Name Review HEP Reps/Minutes x 10 reps Comments cued PPT, heel press glut facilitation with not full LS arch end range Single Knee to Chest Supine Exercise Name stretch Side bilateral Reps/Minutes 2 reps each, 20 sec hold Comments review HEP Sidelying Exercises Hip Abduction Sidelying Exercise Name Review HEP Side left Reps/Minutes 2 x 10 reps Comments cued proper form (side perpendicular to table, hip IR heel lift) Standing Exercises stagger stance Standing Exercise Name add HEP Equipment Used corner, chair Reps/Minutes 10 sec Comments LOB L but self recover holding chair hip abd, ext TB Standing Exercise Name add HEP Resistance YTB Reps/Minutes x5 Comments cued slow glut facilitation Lateral band walk Standing Exercise Name PT ONLY Resistance 1 tb Reps/Minutes 20ft x 2 laps Comments slow eccentric adduction pace for increased stability PT-OP-R Modalities Start: 04/12/19 15:53 Freq: Status: Active Protocol: Document 04/19/19 15:20 DLM (Rec: 04/19/19 16:36 DLM [id number]) Electric Stimulation Electric Stimulation Interferential Current (IFC) Body Location sacral/buttock area Duration (Minutes) 15 Intensity 13 Patient Position Hooklying Combined With Heat/Cold Hot Pack PT-OP-T Assessment and Plan Start: 04/12/19 15:53 Freq: Status: Active Protocol: Document 05/01/19 09:10 SP (Rec: 05/01/19 10:12 SP [id number]) Physical Therapy Assessment Goals Five Impairment sleep Short Term Goal (STG) Pt will report ability to lie on left hip >1 hour without increase in pain STG Duration 05/03/2019 [facility] Goal (LTG) Pt will report ability to lie on left hip >3 hours without increase in pain LTG Duration 06/21/2019 Four Impairment strength [employer] Goal (LTG) Pt will demonstrate pain-free left hip strength within one- half grade of right hip strength. LTG Duration 06/21/2019 Three Impairment ROM [facility] Goal (LTG) Pt will have left hip AROM within 5 degrees of right hip AROM. LTG Duration 06/21/2019 Two Impairment 43% impairment on LEFS Short Term Goal (STG) Pt will score 30% impairment or less on LEFS to demonstrate decreased difficulty with daily activities STG Duration 05/03/2019 [facility] [employer] [facility] Goal (LTG) Pt will score 20% impairment or less on LEFS to demonstrate decreased difficulty with daily activities LTG Duration 06/21/2019 One Impairment participation in home duties Short Term Goal (STG) Pt will be able to lift a 10- pound bag of groceries from knee height in either hand and carry 50 feet without increase in pain STG Duration 05/03/2019 [facility] Goal (LTG) Pt will be able to lift a 10- pound bag of groceries from the ground in either hand and carry 50 feet without increase in pain LTG Duration 06/21/2019 Assessment Summary Assessment 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 Pt responded well to HEP, cued PPT awareness for decrease LB recruitment and proper form, good glut facilitation during hip abd against resistance (no hip depression opposite side), unsteady band walk eccentric adducation, continue in PT but not safe for home. Modified tandem (stagger stance) back to corner and chair in front with hands hover safe for home performance, cued even BLE wt distribution with glut engagement held 10 sec. No adverse reaction to tx today, muscle soreness. Physical Therapy Plan Frequency and Duration Frequency of Treatment 2x/Week Duration of Treatment 8 weeks Plan of Care Start Date 04/12/19 Plan of Care End Date 06/21/19 Therapeutic Interventions Therapeutic Interventions Balance Training,Gait Training ,Home Exercise Program,Manual Therapy,Neuromuscular Re- education,Patient/Caregiver Education,Soft Tissue Mobilization,Taping, Therapeutic Activities, Therapeutic Exercises Modalities Cold Pack/Ice Massage,Electric Stimulation,Hot Packs Next Visit Focus/Plan Next Note Type Treatment Note Next Visit Plan Assess HEP response and recall , continue L>R hip strengthening and balance for safety during gait to lessen need for cane at times. COntinue per PT POC: provide HEP if tolerating ex well, continue manual therapy
--- NOTE | 2019-05-03 10:00 | PT.OTN ---
Current Diagnoses Pain in unspecified hip (05/03/19) Muscle weakness (generalized) (05/03/19) Other abnormalities of gait and mobility (05/03/19) Physical Therapy Treatment Note PT-OP-A Visit Information Start: 04/12/19 15:53 Freq: Status: Active Protocol: Document 05/03/19 08:41 AW (Rec: 05/03/19 11:01 AW [id number]) Out-Patient Physical Therapy Visit Information Visit Information Visit Type Treatment Note Visit Start Time 09:00 Visit Stop Time 09:45 Total Visit Minutes 45 Visit Number 5 Number of ASPHALT RAKER Visits 0 PT-OP-B Current Condition Start: 04/12/19 15:53 Freq: Status: Active Protocol: Document 04/12/19 15:54 AW (Rec: 04/12/19 16:53 AW [id number]) Current Condition History of Current Condition Onset Date 02/13/2018 Current Complaints left posterolateral hip pain History of Current Condition On 02/13/2018, Rafael fell on his left hip in a restaurant bathroom. He reports no falls since the precipitating event. Treatment since that time has included PT for the hip and facet injections for low back pain which he feels is resolved. He is under the care of Dr. Glaser. He reports his hip pain is 5/10 at worst and points to his posterolateral hip when describing it. Pain is worst when initiating movement, such as when waking up in the morning and when taking first steps after sitting for a while. He states his pain is sharp and he occasionally feels achiness in the posterior leg down to mid -thigh, but denies shooting pain. He is unable to sleep on his left side due to pain. Prior Treatments and Tests - [place] PT until ~6 months ago - L4-5, L5-S1 facet joint injections for LBP on 10/04/18 - remote history of lumbar lami - unknown levels Future Testing and Treatments Planned None known Treatment Goals Patient/Caregiver Goals Pt would like to return to prior level of function, specifically being able to pick things up from the floor and carry without pain and to walk more than a block without hip pain. Prior Functional Status Baseline Function- ADL's Independent Baseline Function- Mobility Independent Baseline Function- Gait no AD Baseline Function- Work/School retired Baseline Function- Recreation/Hobbies Able to help out around the house without limitation. Current Functional Impairments (Reported) Functional Limitations- Mobility/Gait Antalgic with decreased LLE stance time Functional Limitations- Recreation/ Difficulty participating in Hobbies househole duties. Personal Factors Other Personal Factors That May Effect + motivated Therapy/Recovery + prior positive experience with PT PT-OP-C Subjective Start: 04/12/19 15:53 Freq: Status: Active Protocol: Document 05/03/19 08:41 AW (Rec: 05/03/19 11:01 AW [id number]) OP-PT Subjective Patient Comments Patient Comments Pt continues to have trouble sleeping. 20 min max on left side. Pt states he feels he is using the cane less frequently. PT-OP-F Manual Assessment Start: 04/12/19 15:53 Freq: Status: Active Protocol: Document 04/12/19 15:54 AW (Rec: 04/12/19 16:53 AW [id number]) Manual Assessments Soft Tissue Assessment Soft Tissue Mobility Assessment No tenderness to palpation at greater trochanter, ischial tuberosity, lateral hip musculature. Increased density noted with left glute med and deep rotators. Joint Mobility Assessment Joint Mobility Assessment No restriction noted in bilateral anterior, posterior, inferior glides. PT-OP-G Mobility & Gait Start: 04/12/19 15:53 Freq: Status: Active Protocol: Document 04/12/19 15:54 AW (Rec: 04/12/19 16:53 AW [id number]) OP Gait Assessment Gait Gait Assistance Required: Independent Assistive Devices Assistive Device None Gait Deviations General Gait Pattern Antalgic,Decreased Stride Length,Decreased Feet Clearance,Narrow Based Gait, Step-to Gait Factors Limiting Gait Function Factors Limiting Gait Function Decreased Strength,Limited Range of Motion,Pain,Poor Balance Comments Gait Comments Pt walks with decreased LLE stance time and mildly scissoring, antalgic gait. PT-OP-K Range of Motion Start: 04/12/19 15:53 Freq: Status: Active Protocol: Document 04/12/19 15:54 AW (Rec: 04/12/19 16:53 AW [id number]) Lumbar Spine Range of Motion Lumbar Spine Active Comments WNL and pain free Hip Goniometric Range of Motion Hip Left Active Flexion w/Knee Flexed 115 Extension 15 Right Active Flexion w/Knee Flexed 124 Extension 15 Hip ROM Limitations Hip ROM Limitations Soft Tissue Tightness,Pain Comments Pt with limited limited internal rotation bilaterally (L more affected than R), indicating short deep external rotators. PT-OP-L Special Tests Start: 04/12/19 15:53 Freq: Status: Active Protocol: Document 04/12/19 15:54 AW (Rec: 04/12/19 16:53 AW [id number]) Special Tests Hip Special Tests Straight Leg Raise Comments 90/90 test for hamstring length: R lacking 30 degrees, L lacking 45 degrees Pillo Test Results positive bilaterally Comments bilateral thighs in abduction and >1 off table with leg straight Scour Test Test Results negative bilaterally Neural Special Tests- Lower Body Sciatic Nerve Tension Test Results negative Comments slump test negative bilaterally PT-OP-M Strength Start: 04/12/19 15:53 Freq: Status: Active Protocol: Document 04/12/19 15:54 AW (Rec: 04/12/19 16:53 AW [id number]) Hip Strength Hip Manual Muscle Testing Left Flexion (L2) 4 Good Extension (S1) 4 Good Abduction 3 Fair Adduction 3+ Fair+ External Rotation 4 Good Internal Rotation 4 Good Comments Painful all planes Right Flexion (L2) 4+ Good+ Extension (S1) 4+ Good+ Abduction 4- Good- Adduction 4- Good- External Rotation 4+ Good+ Internal Rotation 4+ Good+ Knee Strength Knee Manual Muscle Testing Right Flexion (S2) 4 Good Extension (L3) 4+ Good+ Left Flexion (S2) 4 Good Extension (L3) 4+ Good+ PT-OP-Q Treatments Start: 04/12/19 15:53 Freq: Status: Active Protocol: Document 05/03/19 08:41 AW (Rec: 05/03/19 11:01 AW [id number]) Cardio Equipment Recumbent Bicycle Duration (Minutes) 5 Resistance 6 Seat Position 5 Gym Equipment Shuttle Recovery Unilateral Squats Details unilateral squat Resistance 50# Shuttle Recovery Platform Stable Reps/Time 10 reps x 3 Therapeutic Exercises Supine Exercises Bridging Supine Exercise Name bridging with adduction Side bilateral Equipment Used green ball between knees Reps/Minutes 10 reps x 2 Hip Adduction Supine Exercise Name hooklying Side bilateral Resistance isometric Equipment Used ball between knees Reps/Minutes 5 sec hold x 10 reps Lower Trunk Rotation Supine Exercise Name Hooklying Side bilateral Reps/Minutes 3 reps each side Hip ER Stretch Supine Exercise Name Hooklying with ankle over knee Side bilateral Resistance stretch Reps/Minutes 3 reps each side, 20 sec hold Comments press down on knee Standing Exercises isometric glute med wall push Standing Exercise Name isometric glute med wall push Side left Reps/Minutes 10 reps Comments cues for upright posture, 3 sec hold hip hike Standing Exercise Name hip hike Side left Equipment Used 6 step Reps/Minutes 15 reps Comments cues for frontal plane movement only hip abd, ext TB Standing Exercise Name add HEP Resistance YTB Reps/Minutes 10 reps each plane x 2 Comments cued slow glut facilitation, upright posture Lateral band walk Standing Exercise Name PT ONLY Resistance 1 tb Reps/Minutes 20ft x 4 laps Comments slow eccentric adduction pace for increased stability PT-OP-R Modalities Start: 04/12/19 15:53 Freq: Status: Active Protocol: Document 04/19/19 15:20 DLM (Rec: 04/19/19 16:36 DLM [id number]) Electric Stimulation Electric Stimulation Interferential Current (IFC) Body Location sacral/buttock area Duration (Minutes) 15 Intensity 13 Patient Position Hooklying Combined With Heat/Cold Hot Pack PT-OP-T Assessment and Plan Start: 04/12/19 15:53 Freq: Status: Active Protocol: Document 05/03/19 08:41 AW (Rec: 05/03/19 11:01 AW [id number]) Physical Therapy Assessment Goals Five Impairment sleep Short Term Goal (STG) Pt will report ability to lie on left hip >1 hour without increase in pain 05/03/19 NOT MET Pt unable to tolerate >30 minutes left sidelying STG Duration 05/03/2019 Primary Operator Goal (LTG) Pt will report ability to lie on left hip >3 hours without increase in pain LTG Duration 06/21/2019 Three Impairment ROM Snf Goal (LTG) Pt will have left hip AROM within 5 degrees of right hip AROM. LTG Duration 06/21/2019 Two Impairment 43% impairment on LEFS Short Term Goal (STG) Pt will score 30% impairment or less on LEFS to demonstrate decreased difficulty with daily activities 05/03/19 PROGRESSING Pt scored 37.5% impairment STG Duration 05/03/2019 Primary Operator Goal (LTG) Pt will score 20% impairment or less on LEFS to demonstrate decreased difficulty with daily activities LTG Duration 06/21/2019 One Impairment participation in home duties Short Term Goal (STG) Pt will be able to lift a 10- pound bag of groceries from knee height in either hand and carry 50 feet without increase in pain STG Duration 05/03/2019 Primary Operator Goal (LTG) Pt will be able to lift a 10- pound bag of groceries from the ground in either hand and carry 50 feet without increase in pain LTG Duration 06/21/2019 Assessment Summary Assessment Pt tolerated increased focus on left hip strengthening and stretching for rotators. He shows good effort with all activities. Updated his HEP to include hip ER stretch twice daily with handout provided. Physical Therapy Plan Frequency and Duration Frequency of Treatment 2x/Week Duration of Treatment 8 weeks Plan of Care Start Date 04/12/19 Plan of Care End Date 06/21/19 Therapeutic Interventions Therapeutic Interventions Balance Training,Gait Training ,Home Exercise Program,Manual Therapy,Neuromuscular Re- education,Patient/Caregiver Education,Soft Tissue Mobilization,Taping, Therapeutic Activities, Therapeutic Exercises Modalities Cold Pack/Ice Massage,Electric Stimulation,Hot Packs Next Visit Focus/Plan Next Note Type Treatment Note Next Visit Plan Continue L>R hip strengthening and balance for safety during gait to lessen need for cane at times. Assess remaining short term goals. Initiate ther act, including lifting 10 # from knee height COntinue per PT POC: provide HEP if tolerating ex well, continue manual therapy
--- NOTE | 2019-05-08 10:01 | PT.OTN ---
Current Diagnoses Pain in unspecified hip (05/08/19) Muscle weakness (generalized) (05/08/19) Other abnormalities of gait and mobility (05/08/19) Physical Therapy Treatment Note PT-OP-A Visit Information Start: 04/12/19 15:53 Freq: Status: Active Protocol: Document 05/08/19 09:06 SP (Rec: 05/08/19 12:16 SP [id number]) Out-Patient Physical Therapy Visit Information Visit Information Visit Type Treatment Note Visit Start Time 09:06 Visit Stop Time 10:01 Total Visit Minutes 55 Visit Number 6 Number of BILINGUAL INSIDE SALES REPRESENTATIVE Visits 1 PT-OP-B Current Condition Start: 04/12/19 15:53 Freq: Status: Active Protocol: Document 04/12/19 15:54 AW (Rec: 04/12/19 16:53 AW [id number]) Current Condition History of Current Condition Onset Date 02/13/2018 Current Complaints left posterolateral hip pain History of Current Condition On 02/13/2018, Rafael fell on his left hip in a restaurant bathroom. He reports no falls since the precipitating event. Treatment since that time has included PT for the hip and facet injections for low back pain which he feels is resolved. He is under the care of Dr. Glaser. He reports his hip pain is 5/10 at worst and points to his posterolateral hip when describing it. Pain is worst when initiating movement, such as when waking up in the morning and when taking first steps after sitting for a while. He states his pain is sharp and he occasionally feels achiness in the posterior leg down to mid -thigh, but denies shooting pain. He is unable to sleep on his left side due to pain. Prior Treatments and Tests - [place] PT until ~6 months ago - L4-5, L5-S1 facet joint injections for LBP on 10/04/18 - remote history of lumbar lami - unknown levels Future Testing and Treatments Planned None known Treatment Goals Patient/Caregiver Goals Pt would like to return to prior level of function, specifically being able to pick things up from the floor and carry without pain and to walk more than a block without hip pain. Prior Functional Status Baseline Function- ADL's Independent Baseline Function- Mobility Independent Baseline Function- Gait no AD Baseline Function- Work/School retired Baseline Function- Recreation/Hobbies Able to help out around the house without limitation. Current Functional Impairments (Reported) Functional Limitations- Mobility/Gait Antalgic with decreased LLE stance time Functional Limitations- Recreation/ Difficulty participating in Hobbies househole duties. Personal Factors Other Personal Factors That May Effect + motivated Therapy/Recovery + prior positive experience with PT PT-OP-C Subjective Start: 04/12/19 15:53 Freq: Status: Active Protocol: Document 05/08/19 09:06 SP (Rec: 05/08/19 12:16 SP [id number]) OP-PT Subjective Patient Comments Patient Comments Pt. states he had pain in L hip following last tx. Pain contiuned to today's tx. Pt more antalgic gait with increased wt shift over LE stance time with no AD with him. PT-OP-F Manual Assessment Start: 04/12/19 15:53 Freq: Status: Active Protocol: Document 04/12/19 15:54 AW (Rec: 04/12/19 16:53 AW [id number]) Manual Assessments Soft Tissue Assessment Soft Tissue Mobility Assessment No tenderness to palpation at greater trochanter, ischial tuberosity, lateral hip musculature. Increased density noted with left glute med and deep rotators. Joint Mobility Assessment Joint Mobility Assessment No restriction noted in bilateral anterior, posterior, inferior glides. PT-OP-G Mobility & Gait Start: 04/12/19 15:53 Freq: Status: Active Protocol: Document 04/12/19 15:54 AW (Rec: 04/12/19 16:53 AW [id number]) OP Gait Assessment Gait Gait Assistance Required: Independent Assistive Devices Assistive Device None Gait Deviations General Gait Pattern Antalgic,Decreased Stride Length,Decreased Feet Clearance,Narrow Based Gait, Step-to Gait Factors Limiting Gait Function Factors Limiting Gait Function Decreased Strength,Limited Range of Motion,Pain,Poor Balance Comments Gait Comments Pt walks with decreased LLE stance time and mildly scissoring, antalgic gait. PT-OP-K Range of Motion Start: 04/12/19 15:53 Freq: Status: Active Protocol: Document 04/12/19 15:54 AW (Rec: 04/12/19 16:53 AW [id number]) Lumbar Spine Range of Motion Lumbar Spine Active Comments WNL and pain free Hip Goniometric Range of Motion Hip Left Active Flexion w/Knee Flexed 115 Extension 15 Right Active Flexion w/Knee Flexed 124 Extension 15 Hip ROM Limitations Hip ROM Limitations Soft Tissue Tightness,Pain Comments Pt with limited limited internal rotation bilaterally (L more affected than R), indicating short deep external rotators. PT-OP-L Special Tests Start: 04/12/19 15:53 Freq: Status: Active Protocol: Document 04/12/19 15:54 AW (Rec: 04/12/19 16:53 AW [id number]) Special Tests Hip Special Tests Straight Leg Raise Comments 90/90 test for hamstring length: R lacking 30 degrees, L lacking 45 degrees Pillo Test Results positive bilaterally Comments bilateral thighs in abduction and >1 off table with leg straight Scour Test Test Results negative bilaterally Neural Special Tests- Lower Body Sciatic Nerve Tension Test Results negative Comments slump test negative bilaterally PT-OP-M Strength Start: 04/12/19 15:53 Freq: Status: Active Protocol: Document 04/12/19 15:54 AW (Rec: 04/12/19 16:53 AW [id number]) Hip Strength Hip Manual Muscle Testing Left Flexion (L2) 4 Good Extension (S1) 4 Good Abduction 3 Fair Adduction 3+ Fair+ External Rotation 4 Good Internal Rotation 4 Good Comments Painful all planes Right Flexion (L2) 4+ Good+ Extension (S1) 4+ Good+ Abduction 4- Good- Adduction 4- Good- External Rotation 4+ Good+ Internal Rotation 4+ Good+ Knee Strength Knee Manual Muscle Testing Right Flexion (S2) 4 Good Extension (L3) 4+ Good+ Left Flexion (S2) 4 Good Extension (L3) 4+ Good+ PT-OP-Q Treatments Start: 04/12/19 15:53 Freq: Status: Active Protocol: Document 05/08/19 09:06 SP (Rec: 05/08/19 12:16 SP [id number]) Cardio Equipment Recumbent Bicycle Duration (Minutes) 6 Resistance 6 Seat Position 6 Gym Equipment Shuttle Recovery Unilateral Squats Details unilateral squat, cues for slow pace and knee ext locking Resistance 50# Shuttle Recovery Platform Stable Reps/Time 10 reps x 3 each leg Therapeutic Exercises Standing Exercises Air squats Equipment Used back to corner, contact chair in front Reps/Minutes 20 x 2 Comments cue for slow muscular controlpace, knees not locking into ext when upright Step up & down Standing Exercise Name PT ONLY- CGA- Min A (assist LOb recovery) Side bilateral Equipment Used cane R hand, 6 step Reps/Minutes 2x5 leading each leg Comments cued trunk flexion COG over [place] hip hike Standing Exercise Name hip hike Side bilateral Equipment Used 6 step Reps/Minutes 5 reps Comments cues for knee locking stagger stance Equipment Used corner, chair Reps/Minutes 10 sec Comments LOB L but self recover holding chair Lateral band walk Standing Exercise Name PT ONLY Resistance Ytb Equipment Used contact rail more today Reps/Minutes 20ft x 3 laps Comments slow eccentric adduction pace for increased stability PT-OP-R Modalities Start: 04/12/19 15:53 Freq: Status: Active Protocol: Document 05/08/19 09:06 SP (Rec: 05/08/19 12:16 SP [id number]) Hot Pack/Cold Pack Treatment L hip Patient Position Sidelying Treatment Duration (minutes) 10 Patient Tolerance Good Comments feels little better PT-OP-T Assessment and Plan Start: 04/12/19 15:53 Freq: Status: Active Protocol: Document 05/08/19 09:06 SP (Rec: 05/08/19 12:16 SP [id number]) Physical Therapy Assessment Goals Five Impairment sleep Short Term Goal (STG) Pt will report ability to lie on left hip >1 hour without increase in pain 05/03/19 NOT MET Pt unable to tolerate >30 minutes left sidelying STG Duration 05/03/2019 Long-Term Goal (LTG) Pt will report ability to lie on left hip >3 hours without increase in pain LTG Duration 06/21/2019 Four Impairment strength Long-Term Goal (LTG) Pt will demonstrate pain-free left hip strength within one- half grade of right hip strength. LTG Duration 06/21/2019 Three Impairment ROM Marketing Information Analyst Goal (LTG) Pt will have left hip AROM within 5 degrees of right hip AROM. LTG Duration 06/21/2019 Two Impairment 43% impairment on LEFS Short Term Goal (STG) Pt will score 30% impairment or less on LEFS to demonstrate decreased difficulty with daily activities 05/03/19 PROGRESSING Pt scored 37.5% impairment STG Duration 05/03/2019 Marketing Information Analyst Goal (LTG) Pt will score 20% impairment or less on LEFS to demonstrate decreased difficulty with daily activities LTG Duration 06/21/2019 One Impairment participation in home duties Short Term Goal (STG) Pt will be able to lift a 10- pound bag of groceries from knee height in either hand and carry 50 feet without increase in pain STG Duration 05/03/2019 Marketing Information Analyst Goal (LTG) Pt will be able to lift a 10- pound bag of groceries from the ground in either hand and carry 50 feet without increase in pain LTG Duration 06/21/2019 Assessment Summary Assessment Pt demonstration of decreased balance today and suggested for safety using SPC for balance during gait and home step mgt into/ out of house with verbal confirmatiion. Pt tolerated tx well, pt required Min A for recovery LOB during step downs (bottom step HR for support) and step up/downs 6 step use of HR then progressed to SPC for support and cued slow pacing and trunk COG over [place]. Noted patient's L knee > R locking/unlocking quad weakness during shuttle recovery and step up/downs but improved post cuing. LOB with CGA and chair support during NBOS in corner improved post cue for even BLE wt distribution and glut facilitation but stated to leave this activity in PT treatments for safety at this time with verbal confirmation. Physical Therapy Plan Frequency and Duration Frequency of Treatment 2x/Week Duration of Treatment 8 weeks Plan of Care Start Date 04/12/19 Plan of Care End Date 06/21/19 Therapeutic Interventions Therapeutic Interventions Balance Training,Gait Training ,Home Exercise Program,Manual Therapy,Neuromuscular Re- education,Patient/Caregiver Education,Soft Tissue Mobilization,Taping, Therapeutic Activities, Therapeutic Exercises Modalities Cold Pack/Ice Massage,Electric Stimulation,Hot Packs Next Visit Focus/Plan Next Note Type Treatment Note Next Visit Plan Assess response to balance, step up/downs and shuttle recovery and MHP last tx. Next tx assess manual need. Continue per PT POC: L>R hip strengthening and balance for safety during gait to lessen need for cane at times. Assess remaining short term goals. Initiate ther act, including lifting 10 # from knee height COntinue per PT POC: provide HEP if tolerating ex well, continue manual therapy
--- NOTE | 2019-05-10 12:54 | PT.OTN ---
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 He reports no falls since the precipitating event. Treatment since that time has included PT for the hip and facet injections for low back pain which he feels is resolved. He is under the care of Dr. Glaser. He reports his hip pain is 5/10 at worst and points to his posterolateral hip when describing it. Pain is worst when initiating movement, such as when waking up in the morning and when taking first steps after sitting for a while. He states his pain is sharp and he occasionally feels achiness in the posterior leg down to mid -thigh, but denies shooting pain. He is unable to sleep on his left side due to pain. Prior Treatments and Tests - [facility] PT until ~6 months ago - L4-5, L5-S1 facet joint injections for LBP on 10/04/18 - remote history of lumbar lami - unknown levels Future Testing and Treatments Planned None known Treatment Goals Patient/Caregiver Goals Pt would like to return to prior level of function, specifically being able to pick things up from the floor and carry without pain and to walk more than a block without hip pain. Prior Functional Status Baseline Function- ADL's Independent Baseline Function- Mobility Independent Baseline Function- Gait no AD Baseline Function- Work/School retired Baseline Function- Recreation/Hobbies Able to help out around the house without limitation. Current Functional Impairments (Reported) Functional Limitations- Mobility/Gait Antalgic with decreased LLE stance time Functional Limitations- Recreation/ Difficulty participating in Hobbies househole duties. Personal Factors Other Personal Factors That May Effect + motivated Therapy/Recovery + prior positive experience with PT PT-OP-C Subjective Start: 04/12/19 15:53 Freq: Status: Active Protocol: Document 05/10/19 08:56 AW (Rec: 05/10/19 12:54 AW [id number]) OP-PT Subjective Patient Comments Patient Comments Pt feels more fatigued after treatment but does not feel it is interfering with his daily activities. Pt has been keeping a SPC in the car and using it in the community ~30% of the time but less so at home. PT-OP-F Manual Assessment Start: 04/12/19 15:53 Freq: Status: Active Protocol: Document 04/12/19 15:54 AW (Rec: 04/12/19 16:53 AW [id number]) Manual Assessments Soft Tissue Assessment Soft Tissue Mobility Assessment No tenderness to palpation at greater trochanter, ischial tuberosity, lateral hip musculature. Increased density noted with left glute med and deep rotators. Joint Mobility Assessment Joint Mobility Assessment No restriction noted in bilateral anterior, posterior, inferior glides. PT-OP-G Mobility & Gait Start: 04/12/19 15:53 Freq: Status: Active Protocol: Document 04/12/19 15:54 AW (Rec: 04/12/19 16:53 AW [id number]) OP Gait Assessment Gait Gait Assistance Required: Independent Assistive Devices Assistive Device None Gait Deviations General Gait Pattern Antalgic,Decreased Stride Length,Decreased Feet Clearance,Narrow Based Gait, Step-to Gait Factors Limiting Gait Function Factors Limiting Gait Function Decreased Strength,Limited Range of Motion,Pain,Poor Balance Comments Gait Comments Pt walks with decreased LLE stance time and mildly scissoring, antalgic gait. PT-OP-K Range of Motion Start: 04/12/19 15:53 Freq: Status: Active Protocol: Document 04/12/19 15:54 AW (Rec: 04/12/19 16:53 AW [id number]) Lumbar Spine Range of Motion Lumbar Spine Active Comments WNL and pain free Hip Goniometric Range of Motion Hip Left Active Flexion w/Knee Flexed 115 Extension 15 Right Active Flexion w/Knee Flexed 124 Extension 15 Hip ROM Limitations Hip ROM Limitations Soft Tissue Tightness,Pain Comments Pt with limited limited internal rotation bilaterally (L more affected than R), indicating short deep external rotators. PT-OP-L Special Tests Start: 04/12/19 15:53 Freq: Status: Active Protocol: Document 04/12/19 15:54 AW (Rec: 04/12/19 16:53 AW [id number]) Special Tests Hip Special Tests Straight Leg Raise Comments 90/90 test for hamstring length: R lacking 30 degrees, L lacking 45 degrees Pillo Test Results positive bilaterally Comments bilateral thighs in abduction and >1 off table with leg straight Scour Test Test Results negative bilaterally Neural Special Tests- Lower Body Sciatic Nerve Tension Test Results negative Comments slump test negative bilaterally PT-OP-M Strength Start: 04/12/19 15:53 Freq: Status: Active Protocol: Document 04/12/19 15:54 AW (Rec: 04/12/19 16:53 AW [id number]) Hip Strength Hip Manual Muscle Testing Left Flexion (L2) 4 Good Extension (S1) 4 Good Abduction 3 Fair Adduction 3+ Fair+ External Rotation 4 Good Internal Rotation 4 Good Comments Painful all planes Right Flexion (L2) 4+ Good+ Extension (S1) 4+ Good+ Abduction 4- Good- Adduction 4- Good- External Rotation 4+ Good+ Internal Rotation 4+ Good+ Knee Strength Knee Manual Muscle Testing Right Flexion (S2) 4 Good Extension (L3) 4+ Good+ Left Flexion (S2) 4 Good Extension (L3) 4+ Good+ PT-OP-Q Treatments Start: 04/12/19 15:53 Freq: Status: Active Protocol: Document 05/10/19 08:56 AW (Rec: 05/10/19 12:54 AW [id number]) Cardio Equipment Recumbent Bicycle Duration (Minutes) 6 Resistance 6 Seat Position 6 Gym Equipment Shuttle Recovery Bilateral Squats Details bilateral squat Resistance 75# Shuttle Recovery Platform Unstable Reps/Time 10 reps x 2 Unilateral Squats Details unilateral squat Resistance 62.5 Shuttle Recovery Platform Stable Reps/Time 10 reps x 2 each leg Therapeutic Exercises Supine Exercises Bridging Supine Exercise Name bridging with adduction Side bilateral Equipment Used green ball between knees Reps/Minutes 10 reps x 2 Comments 5 sec hold Standing Exercises Air squats Standing Exercise Name sit to stand Equipment Used black table at lowest height; ball between knees Reps/Minutes 10 reps x 2 Comments cues for fwd trunk translation Step up & down Standing Exercise Name PT ONLY- CGA Side bilateral Equipment Used cane R hand, 6 step Reps/Minutes 2x5 leading each leg Comments cued trunk flexion COG over EAGLE Gait Training Gait Activity 1 Description level surface Device Used SPC Level of Assistance SBA Surface level, tile and carpet Distance/Duration 300 feet Treatment Focus sequencing Comments After brief demo, pt able to sequence gait with SPC, able to nearly normalize step lengths. PT-OP-R Modalities Start: 04/12/19 15:53 Freq: Status: Active Protocol: Document 05/10/19 08:56 AW (Rec: 05/10/19 12:54 AW [id number]) Hot Pack/Cold Pack Treatment L hip Location left hip Patient Position Sidelying Treatment Duration (minutes) 10 Patient Tolerance Good PT-OP-T Assessment and Plan Start: 04/12/19 15:53 Freq: Status: Active Protocol: Document 05/10/19 08:56 AW (Rec: 05/10/19 12:54 AW [id number]) Physical Therapy Assessment Goals Five Impairment sleep Short Term Goal (STG) Pt will report ability to lie on left hip >1 hour without increase in pain 05/03/19 NOT MET Pt unable to tolerate >30 minutes left sidelying STG Duration 05/03/2019 [facility] Goal (LTG) Pt will report ability to lie on left hip >3 hours without increase in pain LTG Duration 06/21/2019 Four Impairment strength [facility] Goal (LTG) Pt will demonstrate pain-free left hip strength within one- half grade of right hip strength. LTG Duration 06/21/2019 Three Impairment ROM [facility] Goal (LTG) Pt will have left hip AROM within 5 degrees of right hip AROM. LTG Duration 06/21/2019 Two Impairment 43% impairment on LEFS Short Term Goal (STG) Pt will score 30% impairment or less on LEFS to demonstrate decreased difficulty with daily activities 05/03/19 PROGRESSING Pt scored 37.5% impairment STG Duration 05/03/2019 Vamp Seamer Goal (LTG) Pt will score 20% impairment or less on LEFS to demonstrate decreased difficulty with daily activities LTG Duration 06/21/2019 One Impairment participation in home duties Short Term Goal (STG) Pt will be able to lift a 10- pound bag of groceries from knee height in either hand and carry 50 feet without increase in pain STG Duration 05/03/2019 Vamp Seamer Goal (LTG) Pt will be able to lift a 10- pound bag of groceries from the ground in either hand and carry 50 feet without increase in pain LTG Duration 06/21/2019 Assessment Summary Assessment Pt has been using SPC more in the community. He responded well this date to gait training with SPC with pt able to sequence appropriately. Encouraged pt to practice on level surface at home with the goal of increasing familiarity with gait pattern. Physical Therapy Plan Frequency and Duration Frequency of Treatment 2x/Week Duration of Treatment 8 weeks Plan of Care Start Date 04/12/19 Plan of Care End Date 06/21/19 Therapeutic Interventions Therapeutic Interventions Balance Training,Gait Training ,Home Exercise Program,Manual Therapy,Neuromuscular Re- education,Patient/Caregiver Education,Soft Tissue Mobilization,Taping, Therapeutic Activities, Therapeutic Exercises Modalities Cold Pack/Ice Massage,Electric Stimulation,Hot Packs Next Visit Focus/Plan Next Note Type Treatment Note Next Visit Plan Assess response to balance, step up/downs and shuttle recovery and MHP last tx. Next tx assess manual need. Continue per PT POC: L>R hip strengthening and balance for safety during gait to lessen need for cane at times. Assess remaining short term goals. Initiate ther act, including lifting 10 # from knee height COntinue per PT POC: provide HEP if tolerating ex well, continue manual therapy
--- NOTE | 2019-05-15 12:54 | PT-OP ANOTE ---
Pt stopped by to cancel this morning's appt due to needing to go to bank and stop a check. 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 Reminded next appt 05/17/19 at 9am.
--- NOTE | 2019-05-22 10:03 | PT.OTN ---
Current Diagnoses Pain in unspecified hip (05/22/19) Muscle weakness (generalized) (05/22/19) Other abnormalities of gait and mobility (05/22/19) Physical Therapy Treatment Note PT-OP-A Visit Information Start: 04/12/19 15:53 Freq: Status: Active Protocol: Document 05/22/19 09:03 SP (Rec: 05/22/19 11:43 SP [id number]) Out-Patient Physical Therapy Visit Information Visit Information Visit Type Treatment Note Visit Start Time 09:03 Visit Stop Time 10:03 Total Visit Minutes 60 Visit Number 11/27 Number of CHEF FRENCH Visits 1 PT-OP-B Current Condition Start: 04/12/19 15:53 Freq: Status: Active Protocol: Document 04/12/19 15:54 AW (Rec: 04/12/19 16:53 AW [id number]) Current Condition History of Current Condition Onset Date 02/13/2018 Current Complaints left posterolateral hip pain History of Current Condition On 02/13/2018, Rafael fell on his left hip in a restaurant bathroom. He reports no falls since the precipitating event. Treatment since that time has included PT for the hip and facet injections for low back pain which he feels is resolved. He is under the care of Dr. Glaser. He reports his hip pain is 5/10 at worst and points to his posterolateral hip when describing it. Pain is worst when initiating movement, such as when waking up in the morning and when taking first steps after sitting for a while. He states his pain is sharp and he occasionally feels achiness in the posterior leg down to mid -thigh, but denies shooting pain. He is unable to sleep on his left side due to pain. Prior Treatments and Tests - [facility] PT until ~6 months ago - L4-5, L5-S1 facet joint injections for LBP on 10/04/18 - remote history of lumbar lami - unknown levels Future Testing and Treatments Planned None known Treatment Goals Patient/Caregiver Goals Pt would like to return to prior level of function, specifically being able to pick things up from the floor and carry without pain and to walk more than a block without hip pain. Prior Functional Status Baseline Function- ADL's Independent Baseline Function- Mobility Independent Baseline Function- Gait no AD Baseline Function- Work/School retired Baseline Function- Recreation/Hobbies Able to help out around the house without limitation. Current Functional Impairments (Reported) Functional Limitations- Mobility/Gait Antalgic with decreased LLE stance time Functional Limitations- Recreation/ Difficulty participating in Hobbies househole duties. Personal Factors Other Personal Factors That May Effect + motivated Therapy/Recovery + prior positive experience with PT PT-OP-C Subjective Start: 04/12/19 15:53 Freq: Status: Active Protocol: Document 05/22/19 09:03 SP (Rec: 05/22/19 11:43 SP [id number]) OP-PT Subjective Patient Comments Patient Comments Pt demonstrated increase over wt shift gait challenging balance upon arrival with no AD. Pt stated SPC in the car. Pt reported doing well today, little L glut soreness but otherwise doing well. PT-OP-F Manual Assessment Start: 04/12/19 15:53 Freq: Status: Active Protocol: Document 04/12/19 15:54 AW (Rec: 04/12/19 16:53 AW [id number]) Manual Assessments Soft Tissue Assessment Soft Tissue Mobility Assessment No tenderness to palpation at greater trochanter, ischial tuberosity, lateral hip musculature. Increased density noted with left glute med and deep rotators. Joint Mobility Assessment Joint Mobility Assessment No restriction noted in bilateral anterior, posterior, inferior glides. PT-OP-G Mobility & Gait Start: 04/12/19 15:53 Freq: Status: Active Protocol: Document 04/12/19 15:54 AW (Rec: 04/12/19 16:53 AW [id number]) OP Gait Assessment Gait Gait Assistance Required: Independent Assistive Devices Assistive Device None Gait Deviations General Gait Pattern Antalgic,Decreased Stride Length,Decreased Feet Clearance,Narrow Based Gait, Step-to Gait Factors Limiting Gait Function Factors Limiting Gait Function Decreased Strength,Limited Range of Motion,Pain,Poor Balance Comments Gait Comments Pt walks with decreased LLE stance time and mildly scissoring, antalgic gait. PT-OP-K Range of Motion Start: 04/12/19 15:53 Freq: Status: Active Protocol: Document 04/12/19 15:54 AW (Rec: 04/12/19 16:53 AW [id number]) Lumbar Spine Range of Motion Lumbar Spine Active Comments WNL and pain free Hip Goniometric Range of Motion Hip Left Active Flexion w/Knee Flexed 115 Extension 15 Right Active Flexion w/Knee Flexed 124 Extension 15 Hip ROM Limitations Hip ROM Limitations Soft Tissue Tightness,Pain Comments Pt with limited limited internal rotation bilaterally (L more affected than R), indicating short deep external rotators. PT-OP-L Special Tests Start: 04/12/19 15:53 Freq: Status: Active Protocol: Document 04/12/19 15:54 AW (Rec: 04/12/19 16:53 AW [id number]) Special Tests Hip Special Tests Straight Leg Raise Comments 90/90 test for hamstring length: R lacking 30 degrees, L lacking 45 degrees Pillo Test Results positive bilaterally Comments bilateral thighs in abduction and >1 off table with leg straight Scour Test Test Results negative bilaterally Neural Special Tests- Lower Body Sciatic Nerve Tension Test Results negative Comments slump test negative bilaterally PT-OP-M Strength Start: 04/12/19 15:53 Freq: Status: Active Protocol: Document 04/12/19 15:54 AW (Rec: 04/12/19 16:53 AW [id number]) Hip Strength Hip Manual Muscle Testing Left Flexion (L2) 4 Good Extension (S1) 4 Good Abduction 3 Fair Adduction 3+ Fair+ External Rotation 4 Good Internal Rotation 4 Good Comments Painful all planes Right Flexion (L2) 4+ Good+ Extension (S1) 4+ Good+ Abduction 4- Good- Adduction 4- Good- External Rotation 4+ Good+ Internal Rotation 4+ Good+ Knee Strength Knee Manual Muscle Testing Right Flexion (S2) 4 Good Extension (L3) 4+ Good+ Left Flexion (S2) 4 Good Extension (L3) 4+ Good+ PT-OP-Q Treatments Start: 04/12/19 15:53 Freq: Status: Active Protocol: Document 05/22/19 09:03 SP (Rec: 05/22/19 11:43 SP [id number]) Cardio Equipment Recumbent Bicycle Duration (Minutes) 8 Resistance 6 Seat Position 5 Gym Equipment Shuttle Recovery Bilateral Squats Details bilateral squat Resistance 100# Shuttle Recovery Platform Unstable Reps/Time 10 reps x 2 Unilateral Squats Details unilateral squat Resistance 50 Shuttle Recovery Platform Stable Reps/Time 10 reps x 2 each leg Therapeutic Exercises Supine Exercises Bridging Supine Exercise Name bridging with adduction Side bilateral Equipment Used green ball between knees Reps/Minutes 10 reps x 2 Comments 5 sec hold Standing Exercises L hip self STM ball wall Standing Exercise Name L PF/glut Side left Equipment Used raquetball, wall Reps/Minutes 1 min Comments sustained compression and slow roll to tolerance for L glut discomfort Air squats Standing Exercise Name sit to stand Equipment Used treatment table at 18 and 16 Reps/Minutes 10 reps x 2 Comments cues for fwd trunk translation Step up & down Standing Exercise Name PT ONLY- CGA Side bilateral Equipment Used cane R hand, 6 step Reps/Minutes 2x5 leading each leg Comments cued trunk flexion COG over EAGLE Gait Training Gait Activity gait f/b/side/high knee stepping Description f/b/side/ high knee stepping Device Used SPC initially then no AD Level of Assistance CGA- SBA Surface floor w/ mirror self feedback Distance/Duration 20 ft x2 laps each Treatment Focus improved quality COG over EAGLE balance stair mgt Device Used SPC (initialy set L HR 4 steps ) in RUE x4 sets Level of Assistance CGA-SBA Surface 4 stairs Distance/Duration x6 sets Treatment Focus step to gait using SPC in RUE COG over EAGLE Comments improved balance step to gait, SPC step ahead ascend/ same step descend to maintain upright posture, instructed leading LLE up/RLE descend patterning to assimualate home 2 front steps. 1 Description level surface Device Used SPC RUE Level of Assistance SBA Surface level, tile and carpet Distance/Duration 170 feet x2 Treatment Focus sequencing Comments After brief demo, pt able to sequence gait with SPC, able to nearly normalize step lengths. Cued trunk flexion over EAGLE for decrease retro lean with LE and SPC advancement. PT-OP-R Modalities Start: 04/12/19 15:53 Freq: Status: Active Protocol: Document 05/22/19 09:03 SP (Rec: 05/22/19 11:43 SP [id number]) Hot Pack/Cold Pack Treatment L hip Location left hip Patient Position Sidelying Treatment Duration (minutes) 15 Patient Tolerance Good PT-OP-T Assessment and Plan Start: 04/12/19 15:53 Freq: Status: Active Protocol: Document 05/22/19 09:03 SP (Rec: 05/22/19 11:43 SP [id number]) Physical Therapy Assessment Goals Five Impairment sleep Short Term Goal (STG) Pt will report ability to lie on left hip >1 hour without increase in pain 05/03/19 NOT MET Pt unable to tolerate >30 minutes left sidelying STG Duration 05/03/2019 Brine Tank Separator Operator Goal (LTG) Pt will report ability to lie on left hip >3 hours without increase in pain LTG Duration 06/21/2019 Four Impairment strength Halfway Goal (LTG) Pt will demonstrate pain-free left hip strength within one- half grade of right hip strength. LTG Duration 06/21/2019 Three Impairment ROM Brine Tank Separator Operator Goal (LTG) Pt will have left hip AROM within 5 degrees of right hip AROM. LTG Duration 06/21/2019 Two Impairment 43% impairment on LEFS Short Term Goal (STG) Pt will score 30% impairment or less on LEFS to demonstrate decreased difficulty with daily activities 05/03/19 PROGRESSING Pt scored 37.5% impairment STG Duration 05/03/2019 Halfway Goal (LTG) Pt will score 20% impairment or less on LEFS to demonstrate decreased difficulty with daily activities LTG Duration 06/21/2019 One Impairment participation in home duties Short Term Goal (STG) Pt will be able to lift a 10- pound bag of groceries from knee height in either hand and carry 50 feet without increase in pain STG Duration 05/03/2019 Brine Tank Separator Operator Goal (LTG) Pt will be able to lift a 10- pound bag of groceries from the ground in either hand and carry 50 feet without increase in pain LTG Duration 06/21/2019 Assessment Summary Assessment Pt required decreased resistance during SL shuttle recovery today, it's to hard today, wont be able to walk if do to much as did before. Pt improved stability COG over EAGLE with decreased over wt shift with use of SPC pattern initially then no AD with mirror self visual feedback post ther ex, stair, gait activities. Cued patient COG over mid foot with heel toe gait with glut facilitation during midstance. Physical Therapy Plan Frequency and Duration Frequency of Treatment 2x/Week Duration of Treatment 8 weeks Plan of Care Start Date 04/12/19 Plan of Care End Date 06/21/19 Therapeutic Interventions Therapeutic Interventions Balance Training,Gait Training ,Home Exercise Program,Manual Therapy,Neuromuscular Re- education,Patient/Caregiver Education,Soft Tissue Mobilization,Taping, Therapeutic Activities, Therapeutic Exercises Modalities Cold Pack/Ice Massage,Electric Stimulation,Hot Packs Next Visit Focus/Plan Next Note Type Treatment Note Next Visit Plan Assess response to balance, step up/downs, stair, gait, shuttle recovery and self ball roll L glut at wall with MHP end of last tx. Continue per PT POC: L>R hip strengthening and balance for safety during gait to lessen need for cane at times. Assess remaining short term goals. Initiate ther act, including lifting 10 # from knee height COntinue per PT POC: provide HEP if tolerating ex well, continue manual therapy
--- NOTE | 2019-05-24 09:59 | PT.OTN ---
Current Diagnoses Pain in unspecified hip (05/24/19) Muscle weakness (generalized) (05/24/19) Other abnormalities of gait and mobility (05/24/19) Physical Therapy Treatment Note PT-OP-A Visit Information Start: 04/12/19 15:53 Freq: Status: Active Protocol: Document 05/24/19 08:56 AW (Rec: 05/24/19 09:58 AW [id number]) Out-Patient Physical Therapy Visit Information Visit Information Visit Type Treatment Note Visit Start Time 09:00 Visit Stop Time 10:03 Total Visit Minutes 63 PT-OP-B Current Condition Start: 04/12/19 15:53 Freq: Status: Active Protocol: Document 04/12/19 15:54 AW (Rec: 04/12/19 16:53 AW [id number]) Current Condition History of Current Condition Onset Date 02/13/2018 Current Complaints left posterolateral hip pain History of Current Condition On 02/13/2018, Rafael fell on his left hip in a restaurant bathroom. He reports no falls since the precipitating event. Treatment since that time has included PT for the hip and facet injections for low back pain which he feels is resolved. He is under the care of Dr. Glaser. He reports his hip pain is 5/10 at worst and points to his posterolateral hip when describing it. Pain is worst when initiating movement, such as when waking up in the morning and when taking first steps after sitting for a while. He states his pain is sharp and he occasionally feels achiness in the posterior leg down to mid -thigh, but denies shooting pain. He is unable to sleep on his left side due to pain. Prior Treatments and Tests - [facility] until ~6 months ago - L4-5, L5-S1 facet joint injections for LBP on 10/04/18 - remote history of lumbar lami - unknown levels Future Testing and Treatments Planned None known Treatment Goals Patient/Caregiver Goals Pt would like to return to prior level of function, specifically being able to pick things up from the floor and carry without pain and to walk more than a block without hip pain. Prior Functional Status Baseline Function- ADL's Independent Baseline Function- Mobility Independent Baseline Function- Gait no AD Baseline Function- Work/School retired Baseline Function- Recreation/Hobbies Able to help out around the house without limitation. Current Functional Impairments (Reported) Functional Limitations- Mobility/Gait Antalgic with decreased LLE stance time Functional Limitations- Recreation/ Difficulty participating in Hobbies househole duties. Personal Factors Other Personal Factors That May Effect + motivated Therapy/Recovery + prior positive experience with PT PT-OP-C Subjective Start: 04/12/19 15:53 Freq: Status: Active Protocol: Document 05/24/19 08:56 AW (Rec: 05/24/19 09:58 AW [id number]) OP-PT Subjective Patient Comments Patient Comments Pt has concerns about coronavirus and would like to reduce visits to once per week . He is appreciating subtle improvements in his hip pain and function. He continues to keep the SPC in his truck but reports using it less frequently PT-OP-F Manual Assessment Start: 04/12/19 15:53 Freq: Status: Active Protocol: Document 04/12/19 15:54 AW (Rec: 04/12/19 16:53 AW [id number]) Manual Assessments Soft Tissue Assessment Soft Tissue Mobility Assessment No tenderness to palpation at greater trochanter, ischial tuberosity, lateral hip musculature. Increased density noted with left glute med and deep rotators. Joint Mobility Assessment Joint Mobility Assessment No restriction noted in bilateral anterior, posterior, inferior glides. PT-OP-G Mobility & Gait Start: 04/12/19 15:53 Freq: Status: Active Protocol: Document 04/12/19 15:54 AW (Rec: 04/12/19 16:53 AW [id number]) OP Gait Assessment Gait Gait Assistance Required: Independent Assistive Devices Assistive Device None Gait Deviations General Gait Pattern Antalgic,Decreased Stride Length,Decreased Feet Clearance,Narrow Based Gait, Step-to Gait Factors Limiting Gait Function Factors Limiting Gait Function Decreased Strength,Limited Range of Motion,Pain,Poor Balance Comments Gait Comments Pt walks with decreased LLE stance time and mildly scissoring, antalgic gait. PT-OP-K Range of Motion Start: 04/12/19 15:53 Freq: Status: Active Protocol: Document 04/12/19 15:54 AW (Rec: 04/12/19 16:53 AW [id number]) Lumbar Spine Range of Motion Lumbar Spine Active Comments WNL and pain free Hip Goniometric Range of Motion Hip Left Active Flexion w/Knee Flexed 115 Extension 15 Right Active Flexion w/Knee Flexed 124 Extension 15 Hip ROM Limitations Hip ROM Limitations Soft Tissue Tightness,Pain Comments Pt with limited limited internal rotation bilaterally (L more affected than R), indicating short deep external rotators. PT-OP-L Special Tests Start: 04/12/19 15:53 Freq: Status: Active Protocol: Document 04/12/19 15:54 AW (Rec: 04/12/19 16:53 AW [id number]) Special Tests Hip Special Tests Straight Leg Raise Comments 90/90 test for hamstring length: R lacking 30 degrees, L lacking 45 degrees Pillo Test Results positive bilaterally Comments bilateral thighs in abduction and >1 off table with leg straight Scour Test Test Results negative bilaterally Neural Special Tests- Lower Body Sciatic Nerve Tension Test Results negative Comments slump test negative bilaterally PT-OP-M Strength Start: 04/12/19 15:53 Freq: Status: Active Protocol: Document 04/12/19 15:54 AW (Rec: 04/12/19 16:53 AW [id number]) Hip Strength Hip Manual Muscle Testing Left Flexion (L2) 4 Good Extension (S1) 4 Good Abduction 3 Fair Adduction 3+ Fair+ External Rotation 4 Good Internal Rotation 4 Good Comments Painful all planes Right Flexion (L2) 4+ Good+ Extension (S1) 4+ Good+ Abduction 4- Good- Adduction 4- Good- External Rotation 4+ Good+ Internal Rotation 4+ Good+ Knee Strength Knee Manual Muscle Testing Right Flexion (S2) 4 Good Extension (L3) 4+ Good+ Left Flexion (S2) 4 Good Extension (L3) 4+ Good+ PT-OP-Q Treatments Start: 04/12/19 15:53 Freq: Status: Active Protocol: Document 05/24/19 08:56 AW (Rec: 05/24/19 09:58 AW [id number]) Cardio Equipment Recumbent Bicycle Duration (Minutes) 8 Resistance 6 Seat Position 5 Gym Equipment Cable Column (Body Solid) Hip Abduction Details hip abduction Resistance 30 Reps/Time 8 reps x 2 Shuttle Recovery Bilateral Squats Details bilateral squat Resistance 100# Shuttle Recovery Platform Unstable Reps/Time 10 reps x 2 Unilateral Squats Details unilateral squat Resistance 62.5 Shuttle Recovery Platform Stable Reps/Time 10 reps x 2 each leg Shuttle Balance 1 Details blue pegs Reps/Duration 12 minutes Comments WBOS, NBOS, stagger stance, sideways stance with emphasis on trunk control and glute engagement Sport Cord red cord Exercise Details lateral Cord/Resistance red Reps/Duration 2 laps each direction Comments cues for slow controlled movement, controlling rotation impulse Therapeutic Exercises Supine Exercises single leg bridge Supine Exercise Name single leg bridge Side bilateral Reps/Minutes 5 reps each side Comments cues and manual facilitation for neutral hip rotation/ Bridging Supine Exercise Name bridging with adduction Side bilateral Equipment Used green ball between knees Reps/Minutes 10 reps x 2 Comments 5 sec hold Standing Exercises anti-rotation/paloff press Standing Exercise Name anti-rotation/paloff press Side bilateral Resistance level 1 Equipment Used TB Reps/Minutes 15 reps each side PT-OP-R Modalities Start: 04/12/19 15:53 Freq: Status: Active Protocol: Document 05/24/19 08:56 AW (Rec: 05/24/19 09:58 AW [id number]) Hot Pack/Cold Pack Treatment L hip Location left hip Patient Position Sidelying Treatment Duration (minutes) 15 Patient Tolerance Good Comments [facility] PT-OP-T Assessment and Plan Start: 04/12/19 15:53 Freq: Status: Active Protocol: Document 05/24/19 08:56 AW (Rec: 05/24/19 09:58 AW [id number]) Physical Therapy Assessment Goals Five Impairment sleep Short Term Goal (STG) Pt will report ability to lie on left hip >1 hour without increase in pain 05/03/19 NOT MET Pt unable to tolerate >30 minutes left sidelying STG Duration 05/03/2019 Longterm Goal (LTG) Pt will report ability to lie on left hip >3 hours without increase in pain LTG Duration 06/21/2019 Four Impairment strength Signs [employer] Displays Salesperson Goal (LTG) Pt will demonstrate pain-free left hip strength within one- half grade of right hip strength. LTG Duration 06/21/2019 Three Impairment ROM Longterm Goal (LTG) Pt will have left hip AROM within 5 degrees of right hip AROM. LTG Duration 06/21/2019 Two Impairment 43% impairment on LEFS Short Term Goal (STG) Pt will score 30% impairment or less on LEFS to demonstrate decreased difficulty with daily activities 05/03/19 PROGRESSING Pt scored 37.5% impairment STG Duration 05/03/2019 Longterm Goal (LTG) Pt will score 20% impairment or less on LEFS to demonstrate decreased difficulty with daily activities LTG Duration 06/21/2019 One Impairment participation in home duties Short Term Goal (STG) Pt will be able to lift a 10- pound bag of groceries from knee height in either hand and carry 50 feet without increase in pain STG Duration 05/03/2019 Signs And Displays Salesperson Goal (LTG) Pt will be able to lift a 10- pound bag of groceries from the ground in either hand and carry 50 feet without increase in pain LTG Duration 06/21/2019 Progress Towards Goals Progress Towards Goals Progressing Toward Goals Assessment Summary Assessment Pt tolerated increase in hip strengthening load, stating he was only a little bit sore after Wednesday treatment. He is interested in reducing his treatment frequency to once per week which is appropriate in this therapist's opinion given his independence with HEP and subtle gains in strength and gait. Pt has five remaining [facility]-authorized visits. Physical Therapy Plan Frequency and Duration Frequency of Treatment 2x/Week Duration of Treatment 8 weeks Plan of Care Start Date 04/12/19 Plan of Care End Date 06/21/19 Therapeutic Interventions Therapeutic Interventions Balance Training,Gait Training ,Home Exercise Program,Manual Therapy,Neuromuscular Re- education,Patient/Caregiver Education,Soft Tissue Mobilization,Taping, Therapeutic Activities, Therapeutic Exercises Modalities Cold Pack/Ice Massage,Electric Stimulation,Hot Packs Next Visit Focus/Plan Next Note Type Treatment Note Next Visit Plan Review HEP for appropriate load. Advance balance and gait training as tolerated
--- NOTE | 2019-11-01 17:25 | PT.OTRE ---
Current Diagnoses Pain in unspecified hip (11/01/19) Muscle weakness (generalized) (11/01/19) Other abnormalities of gait and mobility (11/01/19) Past Medical History (Last Updated 03/13/19 @ 17:12 by Kuldip Glaser DO) Acid reflux (Chronic) Facet arthropathy, lumbosacral (Acute) Hernia (Resolved) Hypertension (Acute) Intramural diverticulosis of esophagus (Resolved) PTSD (post-traumatic stress disorder) (Chronic) Surgical History (Last Reviewed 03/13/19 @ 17:12 by Kuldip Glaser DO) History of lumbar surgery (Acute) Visit Care Team Role Provider Type Kleber Mann MD Primary Care Provider Physician Specialty: Internal Medicine Address: [address] [place] [address], [id number] Email: [email or web address] Tenisha Gtuierrez Attending Provider Non-Staff Specialty: Medical Address: [address] [place] [address], [id number] Phone: Email: Physical Therapy Re-Evaluation PT-OP-A Visit Information Start: 04/12/19 15:53 Freq: Status: Active Protocol: Document 11/01/19 16:54 AW (Rec: 11/01/19 17:25 AW [email or web address]) Out-Patient Physical Therapy Visit Information Visit Information Visit Type Re-Evaluation Visit Start Time 16:01 Visit Stop Time 16:46 Total Visit Minutes 45 Visit Number 1/15 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 He denies any falls since that time. Treatment has included PT for the hip and facet injections for low back pain which he states is no longer a problem. He was seen for PT at this clinic which abruptly ended in May 2019 due to COVID19 shutdown. Pt reports not much has changed, either negatively or positively. Pain is worst when initiating movement after periods of inactivity and is typically localized to the left posterolateral hip. Pt describes occasional pain down the posterior left leg which extends below the knee but he has had no such episodes recently. Pt has been unable to sleep on his left side due to pain. Prior Treatments and Tests - One prior episode of PT. - L4-L5 facet injections for LBP - last one year ago - remote history of lumbar laminectomy Future Testing and Treatments Planned none identified Treatment Goals Patient/Caregiver Goals Pt would like to return to prior level of function including ability to pick things up from the floor and to carry without pain and to walk more than a few blocks without pain. He would also like to be able to keep up with his at the grocery store. Prior Functional Status Baseline Function- ADL's Independent Baseline Function- Mobility Independent Baseline Function- Gait no AD Baseline Function- Work/School retired Baseline Function- Recreation/Hobbies Able to help out around the house without limitation. Current Functional Impairments (Reported) Functional Limitations- Mobility/Gait Antalgic with decreased LLE stance time Functional Limitations- Recreation/ Difficulty participating in Hobbies household duties. Personal Factors Other Personal Factors That May Effect + motivated Therapy/Recovery + previous positive experience with PT PT-OP-C Subjective Start: 04/12/19 15:53 Freq: Status: Active Protocol: Document 11/01/19 16:54 AW (Rec: 11/01/19 17:25 AW [email or web address]) OP-PT Subjective Patient Comments Patient Comments Not much has changed for the better or the worse, but I felt I was making progress before COVID shut down the clinic. Patient Reported Progress Same PT-OP-D Balance Start: 04/12/19 15:53 Freq: Status: Active Protocol: Document 11/01/19 16:54 AW (Rec: 11/01/19 17:25 AW [email or web address]) Balance Tests Single Limb Standing Single Limb- Right <2 seconds Single Limb- Left 1 second Tandem Tandem Standing unable to assume position PT-OP-F Manual Assessment Start: 04/12/19 15:53 Freq: Status: Active Protocol: Document 11/01/19 16:54 AW (Rec: 11/01/19 17:25 AW [email or web address]) Manual Assessments Soft Tissue Assessment Soft Tissue Mobility Assessment No tenderness to palpation at greater trochanter, ischial tuberosity, lateral hip musculature. Increased density noted with left glute med and deep rotators. Joint Mobility Assessment Joint Mobility Assessment Good hip joint play bilaterally without restriction. PT-OP-G Mobility & Gait Start: 04/12/19 15:53 Freq: Status: Active Protocol: Document 11/01/19 16:54 AW (Rec: 11/01/19 17:25 AW [email or web address]) OP Gait Assessment Gait Gait Assistance Required: Independent Distance (Feet) 100 Assistive Devices Assistive Device None Gait Deviations General Gait Pattern Antalgic,Decreased Stride Length,Decreased Feet Clearance,Flexed Trunk,Lateral Trunk Lean Factors Limiting Gait Function Factors Limiting Gait Function Decreased Activity Tolerance, Decreased Strength,Pain,Poor Balance,Poor Safety Awareness Comments Gait Comments Decreased LLE stance time and poor weight shifting to the right side. Left lateral lean due to left hip pain. PT-OP-K Range of Motion Start: 04/12/19 15:53 Freq: Status: Active Protocol: Document 11/01/19 16:54 AW (Rec: 11/01/19 17:25 AW [email or web address]) Lumbar Spine Range of Motion Lumbar Spine Active Comments WNL and pain free Hip Goniometric Range of Motion Hip Measured in Degrees Left Active Flexion w/Knee Flexed 115 Extension 15 Right Active Flexion w/Knee Flexed 124 Extension 15 Hip ROM Limitations Hip ROM Limitations Soft Tissue Tightness,Pain Comments Pt with limited limited internal rotation bilaterally (L more affected than R), indicating short deep external rotators. PT-OP-L Special Tests Start: 04/12/19 15:53 Freq: Status: Active Protocol: Document 11/01/19 16:54 AW (Rec: 11/01/19 17:25 AW [email or web address]) Special Tests Hip Special Tests Straight Leg Raise Comments 90/90 test for hamstring length: R lacking 30 degrees, L lacking 45 degrees Pillo Test Results positive bilaterally Comments bilateral thighs in abduction and >1 off table with leg straight Scour Test Test Results negative bilaterally Neural Special Tests- Lower Body Sciatic Nerve Tension Test Results negative Comments slump test negative bilaterally PT-OP-M Strength Start: 04/12/19 15:53 Freq: Status: Active Protocol: Document 11/01/19 16:54 AW (Rec: 11/01/19 17:25 AW [email or web address]) Hip Strength Hip Manual Muscle Testing Left Flexion (L2) 4 Good Extension (S1) 4- Good- Abduction 4- Good- Adduction 4- Good- External Rotation 4 Good Internal Rotation 4 Good Comments Painful all planes Right Flexion (L2) 4+ Good+ Extension (S1) 4- Good- Abduction 4- Good- Adduction 4- Good- External Rotation 4+ Good+ Internal Rotation 4+ Good+ Knee Strength Knee Manual Muscle Testing Right Flexion (S2) 4+ Good+ Extension (L3) 4+ Good+ Left Flexion (S2) 4+ Good+ Extension (L3) 4+ Good+ PT-OP-Q Treatments Start: 04/12/19 15:53 Freq: Status: Active Protocol: Document 11/01/19 16:54 AW (Rec: 11/01/19 17:25 AW [email or web address]) Therapeutic Exercises Supine Exercises supine piriformis stretch Supine Exercise Name supine piriformis stretch Side bilateral Reps/Minutes 30 sec hold x 4 Comments cued to pull knee toward opposite shoulder Bridging Supine Exercise Name bridging with adduction Side bilateral Equipment Used pillow between knees Reps/Minutes 10 reps x 2 Comments 5 sec hold Single Knee to Chest Supine Exercise Name stretch Side bilateral Reps/Minutes 2 reps each, 20 sec hold Manual Therapy Treatment Soft Tissue Mobilization 1 Body Location left buttock area Mobilization Type Cross-Friction,Strumming, Sustained Pressure,Trigger Point Release Intensity/Depth Moderate Body Position Sidelying PT-OP-R Modalities Start: 04/12/19 15:53 Freq: Status: Active Protocol: Document 05/24/19 08:56 AW (Rec: 05/24/19 09:58 AW [id number]) Hot Pack/Cold Pack Treatment L hip Location left hip Patient Position Sidelying Treatment Duration (minutes) 15 Patient Tolerance Good Comments [facility] PT-OP-T Assessment and Plan Start: 04/12/19 15:53 Freq: Status: Active Protocol: Document 11/01/19 16:54 AW (Rec: 11/01/19 17:25 AW [email or web address]) Physical Therapy Assessment Rehab Potential Rehabilitation Potential Good Evaluation Complexity Number of Personal Factors/Comorbidities 1-2 Number of Body Systems Impaired 1-2 Clinical Presentation at Evaluation Stable Impairments Impairments Activity Tolerance,Balance, Gait,Pain,Posture,ROM,Soft Tissue Mobility,Strength Goals Five Impairment sleep Short Term Goal (STG) Pt will report ability to lie on left hip >1 hour without increase in pain STG Duration 11/29/2019 Correction Goal (LTG) Pt will report ability to lie on left hip >3 hours without increase in pain LTG Duration 12/27/2019 Four Impairment strength Correction Goal (LTG) Pt will demonstrate pain-free left hip strength within one- half grade of right hip strength. LTG Duration 12/27/2019 Three Impairment ROM Correction Goal (LTG) Pt will have left hip AROM within 5 degrees of right hip AROM. LTG Duration 12/27/2019 One Impairment participation in home duties Short Term Goal (STG) Pt will be able to lift a 10- pound bag of groceries from knee height in either hand and carry 50 feet without increase in pain STG Duration 11/29/2019 Correction Goal (LTG) Pt will be able to lift a 10- pound bag of groceries from the ground in either hand and carry 50 feet without increase in pain LTG Duration 12/27/2019 Assessment Summary Assessment Rafael returns to outpatient PT with complaints of left hip pain similar to his episode of care which was interrupted due to COVID19 restrictions. His symptoms were precipitated by a fall on his left hip in February 2018. He has increased density of the left gluteal and external rotation musculature with point tenderness, decreased left hip strength in all planes, and painful end-range flexion and rotation. Single-leg stance is limited to 2 seconds bilaterally, he is observedwith right hip drop in left stance phase of gait, and has decreased left leg stance time. He will benefit from skilled physical therapy to address these impairments for return to prior level of function and improved ability to participate in household management. Physical Therapy Plan Frequency and Duration Frequency of Treatment 2x/Week Duration of Treatment 8 weeks Plan of Care Start Date 11/01/19 Plan of Care End Date 12/27/19 Therapeutic Interventions Therapeutic Interventions Balance Training,Gait Training ,Home Exercise Program,Manual Therapy,Neuromuscular Re- education,Patient/Caregiver Education,Soft Tissue Mobilization,Taping, Therapeutic Activities, Therapeutic Exercises Modalities Cold Pack/Ice Massage,Electric Stimulation,Hot Packs Next Visit Focus/Plan Next Note Type Treatment Note Next Visit Plan Review and add to HEP - stretching for hip extension and rotation, hip strengthening. Initiate balance and gait training as tolerated
--- NOTE | 2019-11-01 17:26 | PT.OPPOC ---
Physical, Occupational & Speech Therapy At [facility] Current Diagnoses Pain in unspecified hip (11/01/19) Muscle weakness (generalized) (11/01/19) Other abnormalities of gait and mobility (11/01/19) Visit Care Team Role Provider Type Kleber Mann MD Primary Care Provider Physician Specialty: Internal Medicine Address: [address] [place] [address], [id number] Email: [email or web address] Tenisha Gutierrez Attending Provider Non-Staff Specialty: Medical Address: [address] [place] [address], [place], [address] Phone: Email: Plan Of Care PT-OP-T Assessment and Plan Start: 04/12/19 15:53 Freq: Status: Active Protocol: Document 11/01/19 16:54 AW (Rec: 11/01/19 17:25 AW [email or web address]) Physical Therapy Assessment Rehab Potential Rehabilitation Potential Good Evaluation Complexity Number of Personal Factors/Comorbidities 1-2 Number of Body Systems Impaired 1-2 Clinical Presentation at Evaluation Stable Impairments Impairments Activity Tolerance,Balance, Gait,Pain,Posture,ROM,Soft Tissue Mobility,Strength Goals Five Impairment sleep Short Term Goal (STG) Pt will report ability to lie on left hip >1 hour without increase in pain STG Duration 11/29/2019 Slug Press Operator Goal (LTG) Pt will report ability to lie on left hip >3 hours without increase in pain LTG Duration 12/27/2019 Four Impairment strength Longterm Goal (LTG) Pt will demonstrate pain-free left hip strength within one- half grade of right hip strength. LTG Duration 12/27/2019 Three Impairment ROM Slug Press Operator Goal (LTG) Pt will have left hip AROM within 5 degrees of right hip AROM. LTG Duration 12/27/2019 One Impairment participation in home duties Short Term Goal (STG) Pt will be able to lift a 10- pound bag of groceries from knee height in either hand and carry 50 feet without increase in pain STG Duration 11/29/2019 Slug Press Operator Goal (LTG) Pt will be able to lift a 10- pound bag of groceries from the ground in either hand and carry 50 feet without increase in pain LTG Duration 12/27/2019 Assessment Summary Assessment Rafael returns to outpatient PT with complaints of left hip pain similar to his episode of care which was interrupted due to COVID19 restrictions. His symptoms were precipitated by a fall on his left hip in February 2018. He has increased density of the left gluteal and external rotation musculature with point tenderness, decreased left hip strength in all planes, and painful end-range flexion and rotation. Single-leg stance is limited to 2 seconds bilaterally, he is observedwith right hip drop in left stance phase of gait, and has decreased left leg stance time. He will benefit from skilled physical therapy to address these impairments for return to prior level of function and improved ability to participate in household management. Physical Therapy Plan Frequency and Duration Frequency of Treatment 2x/Week Duration of Treatment 8 weeks Plan of Care Start Date 11/01/19 Plan of Care End Date 12/27/19 Therapeutic Interventions Therapeutic Interventions Balance Training,Gait Training ,Home Exercise Program,Manual Therapy,Neuromuscular Re- education,Patient/Caregiver Education,Soft Tissue Mobilization,Taping, Therapeutic Activities, Therapeutic Exercises Modalities Cold Pack/Ice Massage,Electric Stimulation,Hot Packs Next Visit Focus/Plan Next Note Type Treatment Note Next Visit Plan Review and add to HEP - stretching for hip extension and rotation, hip strengthening. Initiate balance and gait training as tolerated Plan of Care Dates Plan of Care Start Date 11/01/19 Plan of Care End Date 12/27/19 Electronically Signed by: Lore Bah, PT 11/01/19 8550 Please Sign and Return: I have reviewed this Plan of Care and certify that the skilled therapy services above are required to meet the patient?s needs. Physician Signature Date Printed Name and Credentials Clinical Instructor Signature Printed Name and Credentials
--- NOTE | 2019-11-03 10:31 | PT.OTN ---
Current Diagnoses Pain in unspecified hip (11/03/19) Muscle weakness (generalized) (11/03/19) Other abnormalities of gait and mobility (11/03/19) Physical Therapy Treatment Note PT-OP-A Visit Information Start: 04/12/19 15:53 Freq: Status: Active Protocol: Document 11/03/19 09:45 DCW (Rec: 11/03/19 10:31 DCW [id number]) Out-Patient Physical Therapy Visit Information Visit Information Visit Type Treatment Note Visit Start Time 09:45 Visit Stop Time 10:30 Total Visit Minutes 45 Visit Number 04/29 Number of WATER CONTROL STATION ENGINEER Visits 0 Precautions Precautions hx lumbar surgery PT-OP-B Current Condition Start: 04/12/19 15:53 Freq: Status: Active Protocol: Document 11/01/19 16:54 AW (Rec: 11/01/19 17:25 AW [email or web address]) Current Condition History of Current Condition Onset Date 02/13/2018 Current Complaints left posterolateral hip pain History of Current Condition Rafael fell on his left hip in February 2018. He denies any falls since that time. Treatment has included PT for the hip and facet injections for low back pain which he states is no longer a problem. He was seen for PT at this clinic which abruptly ended in May 2019 due to COVID19 shutdown. Pt reports not much has changed, either negatively or positively. Pain is worst when initiating movement after periods of inactivity and is typically localized to the left posterolateral hip. Pt describes occasional pain down the posterior left leg which extends below the knee but he has had no such episodes recently. Pt has been unable to sleep on his left side due to pain. Prior Treatments and Tests - One prior episode of PT. - L4-L5 facet injections for LBP - last one year ago - remote history of lumbar laminectomy Future Testing and Treatments Planned none identified Treatment Goals Patient/Caregiver Goals Pt would like to return to prior level of function including ability to pick things up from the floor and to carry without pain and to walk more than a few blocks without pain. He would also like to be able to keep up with his at the grocery store. Prior Functional Status Baseline Function- ADL's Independent Baseline Function- Mobility Independent Baseline Function- Gait no AD Baseline Function- Work/School retired Baseline Function- Recreation/Hobbies Able to help out around the house without limitation. Current Functional Impairments (Reported) Functional Limitations- Mobility/Gait Antalgic with decreased LLE stance time Functional Limitations- Recreation/ Difficulty participating in Hobbies household duties. Personal Factors Other Personal Factors That May Effect + motivated Therapy/Recovery + previous positive experience with PT PT-OP-C Subjective Start: 04/12/19 15:53 Freq: Status: Active Protocol: Document 11/03/19 09:45 DCW (Rec: 11/03/19 10:31 DCW [id number]) OP-PT Subjective Patient Comments Patient Comments Pt reports he's having left hip pain today. PT-OP-D Balance Start: 04/12/19 15:53 Freq: Status: Active Protocol: Document 11/01/19 16:54 AW (Rec: 11/01/19 17:25 AW [email or web address]) Balance Tests Single Limb Standing Single Limb- Right <2 seconds Single Limb- Left 1 second Tandem Tandem Standing unable to assume position PT-OP-F Manual Assessment Start: 04/12/19 15:53 Freq: Status: Active Protocol: Document 11/01/19 16:54 AW (Rec: 11/01/19 17:25 AW [email or web address]) Manual Assessments Soft Tissue Assessment Soft Tissue Mobility Assessment No tenderness to palpation at greater trochanter, ischial tuberosity, lateral hip musculature. Increased density noted with left glute med and deep rotators. Joint Mobility Assessment Joint Mobility Assessment Good hip joint play bilaterally without restriction. PT-OP-G Mobility & Gait Start: 04/12/19 15:53 Freq: Status: Active Protocol: Document 11/01/19 16:54 AW (Rec: 11/01/19 17:25 AW [email or web address]) OP Gait Assessment Gait Gait Assistance Required: Independent Distance (Feet) 100 Assistive Devices Assistive Device None Gait Deviations General Gait Pattern Antalgic,Decreased Stride Length,Decreased Feet Clearance,Flexed Trunk,Lateral Trunk Lean Factors Limiting Gait Function Factors Limiting Gait Function Decreased Activity Tolerance, Decreased Strength,Pain,Poor Balance,Poor Safety Awareness Comments Gait Comments Decreased LLE stance time and poor weight shifting to the right side. Left lateral lean due to left hip pain. PT-OP-K Range of Motion Start: 04/12/19 15:53 Freq: Status: Active Protocol: Document 11/01/19 16:54 AW (Rec: 11/01/19 17:25 AW [email or web address]) Lumbar Spine Range of Motion Lumbar Spine Active Comments WNL and pain free Hip Goniometric Range of Motion Hip Left Active Flexion w/Knee Flexed 115 Extension 15 Right Active Flexion w/Knee Flexed 124 Extension 15 Hip ROM Limitations Hip ROM Limitations Soft Tissue Tightness,Pain Comments Pt with limited limited internal rotation bilaterally (L more affected than R), indicating short deep external rotators. PT-OP-L Special Tests Start: 04/12/19 15:53 Freq: Status: Active Protocol: Document 11/01/19 16:54 AW (Rec: 11/01/19 17:25 AW [email or web address]) Special Tests Hip Special Tests Straight Leg Raise Comments 90/90 test for hamstring length: R lacking 30 degrees, L lacking 45 degrees Pillo Test Results positive bilaterally Comments bilateral thighs in abduction and >1 off table with leg straight Scour Test Test Results negative bilaterally Neural Special Tests- Lower Body Sciatic Nerve Tension Test Results negative Comments slump test negative bilaterally PT-OP-M Strength Start: 04/12/19 15:53 Freq: Status: Active Protocol: Document 11/01/19 16:54 AW (Rec: 11/01/19 17:25 AW [email or web address]) Hip Strength Hip Manual Muscle Testing Left Flexion (L2) 4 Good Extension (S1) 4- Good- Abduction 4- Good- Adduction 4- Good- External Rotation 4 Good Internal Rotation 4 Good Comments Painful all planes Right Flexion (L2) 4+ Good+ Extension (S1) 4- Good- Abduction 4- Good- Adduction 4- Good- External Rotation 4+ Good+ Internal Rotation 4+ Good+ Knee Strength Knee Manual Muscle Testing Right Flexion (S2) 4+ Good+ Extension (L3) 4+ Good+ Left Flexion (S2) 4+ Good+ Extension (L3) 4+ Good+ PT-OP-Q Treatments Start: 04/12/19 15:53 Freq: Status: Active Protocol: Document 11/03/19 09:45 DCW (Rec: 11/03/19 10:31 DCW [id number]) Cardio Equipment Recumbent Bicycle Duration (Minutes) 6 Resistance 6 Seat Position 5 Gym Equipment Shuttle Recovery Bilateral Squats Details bilateral squat Resistance 87# Shuttle Recovery Platform Unstable Reps/Time 10x1, 5x1 Unilateral Squats Details unilateral squat Resistance 50# Shuttle Recovery Platform Stable Reps/Time 10 reps x 2 each leg Shuttle Balance 1 Details blue pegs Reps/Duration 12 minutes Comments WBOS, NBOS, stagger stance, sideways stance with emphasis on trunk control and glute engagement Sport Cord red cord Exercise Details lateral Cord/Resistance red Reps/Duration 3 laps each direction Comments cues for slow controlled movement, controlling rotation impulse Therapeutic Exercises Supine Exercises supine piriformis stretch Supine Exercise Name supine piriformis stretch Side bilateral Reps/Minutes 30 x 2 Comments knee toward opposite shoulder Manual Therapy Treatment Soft Tissue Mobilization 1 Body Location left buttock area Mobilization Type Cross-Friction,Strumming, Sustained Pressure,Trigger Point Release Intensity/Depth Moderate Body Position Sidelying PT-OP-R Modalities Start: 04/12/19 15:53 Freq: Status: Active Protocol: Document 11/03/19 09:45 DCW (Rec: 11/03/19 10:31 DCW [id number]) Hot Pack/Cold Pack Treatment L hip Location left hip Patient Position Sidelying Treatment Duration (minutes) 10 Patient Tolerance Good Comments [facility] PT-OP-T Assessment and Plan Start: 04/12/19 15:53 Freq: Status: Active Protocol: Document 11/03/19 09:45 DCW (Rec: 11/03/19 10:31 DCW [id number]) Physical Therapy Assessment Impairments Impairments Activity Tolerance,Balance, Gait,Pain,Posture,ROM,Soft Tissue Mobility,Strength Goals Five Impairment sleep Short Term Goal (STG) Pt will report ability to lie on left hip >1 hour without increase in pain STG Duration 11/29/2019 Correction Goal (LTG) Pt will report ability to lie on left hip >3 hours without increase in pain LTG Duration 12/27/2019 Four Impairment strength Correction Goal (LTG) Pt will demonstrate pain-free left hip strength within one- half grade of right hip strength. LTG Duration 12/27/2019 Three Impairment ROM Correction Goal (LTG) Pt will have left hip AROM within 5 degrees of right hip AROM. LTG Duration 12/27/2019 One Impairment participation in home duties Short Term Goal (STG) Pt will be able to lift a 10- pound bag of groceries from knee height in either hand and carry 50 feet without increase in pain STG Duration 11/29/2019 Home Appliance Technician Goal (LTG) Pt will be able to lift a 10- pound bag of groceries from the ground in either hand and carry 50 feet without increase in pain LTG Duration 12/27/2019 Assessment Summary Assessment Pt experiencing general soreness and weakness in left hip today with most activities , but responded well to STM and piriformis stretching. Physical Therapy Plan Frequency and Duration Frequency of Treatment 2x/Week Duration of Treatment 8 weeks Plan of Care Start Date 11/01/19 Plan of Care End Date 12/27/19 Therapeutic Interventions Therapeutic Interventions Balance Training,Gait Training ,Home Exercise Program,Manual Therapy,Neuromuscular Re- education,Patient/Caregiver Education,Soft Tissue Mobilization,Taping, Therapeutic Activities, Therapeutic Exercises Modalities Cold Pack/Ice Massage,Electric Stimulation,Hot Packs Next Visit Focus/Plan Next Note Type Treatment Note Next Visit Plan Review and add to HEP - stretching for hip extension and rotation, hip strengthening. Initiate balance and gait training as tolerated
--- NOTE | 2019-11-06 16:16 | PT-OP ANOTE ---
Cancelled PT appointment due to in hospital with c/o dizziness
--- NOTE | 2019-11-14 12:40 | PT.OTN ---
Current Diagnoses Pain in unspecified hip (11/14/19) Muscle weakness (generalized) (11/14/19) Other abnormalities of gait and mobility (11/14/19) Physical Therapy Treatment Note PT-OP-A Visit Information Start: 04/12/19 15:53 Freq: Status: Active Protocol: Document 11/14/19 12:00 DCW (Rec: 11/14/19 12:37 DCW [id number]) Out-Patient Physical Therapy Visit Information Visit Information Visit Type Treatment Note Visit Start Time 12:00 Visit Stop Time 12:45 Total Visit Minutes 45 Visit Number 3/15 Number of SUBSTATION OPERATOR CHIEF Visits 0 Precautions Precautions hx lumbar surgery PT-OP-B Current Condition Start: 04/12/19 15:53 Freq: Status: Active Protocol: Document 11/01/19 16:54 AW (Rec: 11/01/19 17:25 AW [email or web address]) Current Condition History of Current Condition Onset Date 02/13/2018 Current Complaints left posterolateral hip pain History of Current Condition Rafael fell on his left hip in February 2018. He denies any falls since that time. Treatment has included PT for the hip and facet injections for low back pain which he states is no longer a problem. He was seen for PT at this clinic which abruptly ended in May 2019 due to COVID19 shutdown. Pt reports not much has changed, either negatively or positively. Pain is worst when initiating movement after periods of inactivity and is typically localized to the left posterolateral hip. Pt describes occasional pain down the posterior left leg which extends below the knee but he has had no such episodes recently. Pt has been unable to sleep on his left side due to pain. Prior Treatments and Tests - One prior episode of PT. - L4-L5 facet injections for LBP - last one year ago - remote history of lumbar laminectomy Future Testing and Treatments Planned none identified Treatment Goals Patient/Caregiver Goals Pt would like to return to prior level of function including ability to pick things up from the floor and to carry without pain and to walk more than a few blocks without pain. He would also like to be able to keep up with his at the grocery store. Prior Functional Status Baseline Function- ADL's Independent Baseline Function- Mobility Independent Baseline Function- Gait no AD Baseline Function- Work/School retired Baseline Function- Recreation/Hobbies Able to help out around the house without limitation. Current Functional Impairments (Reported) Functional Limitations- Mobility/Gait Antalgic with decreased LLE stance time Functional Limitations- Recreation/ Difficulty participating in Hobbies household duties. Personal Factors Other Personal Factors That May Effect + motivated Therapy/Recovery + previous positive experience with PT PT-OP-C Subjective Start: 04/12/19 15:53 Freq: Status: Active Protocol: Document 11/14/19 12:00 DCW (Rec: 11/14/19 12:37 DCW [id number]) OP-PT Subjective Patient Comments Patient Comments Pt reports that everything is fine following his recent trip to the ER, he was very happy with how everything went , no further symptoms to speak of. PT-OP-D Balance Start: 04/12/19 15:53 Freq: Status: Active Protocol: Document 11/01/19 16:54 AW (Rec: 11/01/19 17:25 AW [email or web address]) Balance Tests Single Limb Standing Single Limb- Right <2 seconds Single Limb- Left 1 second Tandem Tandem Standing unable to assume position PT-OP-F Manual Assessment Start: 04/12/19 15:53 Freq: Status: Active Protocol: Document 11/01/19 16:54 AW (Rec: 11/01/19 17:25 AW [email or web address]) Manual Assessments Soft Tissue Assessment Soft Tissue Mobility Assessment No tenderness to palpation at greater trochanter, ischial tuberosity, lateral hip musculature. Increased density noted with left glute med and deep rotators. Joint Mobility Assessment Joint Mobility Assessment Good hip joint play bilaterally without restriction. PT-OP-G Mobility & Gait Start: 04/12/19 15:53 Freq: Status: Active Protocol: Document 11/01/19 16:54 AW (Rec: 11/01/19 17:25 AW [email or web address]) OP Gait Assessment Gait Gait Assistance Required: Independent Distance (Feet) 100 Assistive Devices Assistive Device None Gait Deviations General Gait Pattern Antalgic,Decreased Stride Length,Decreased Feet Clearance,Flexed Trunk,Lateral Trunk Lean Factors Limiting Gait Function Factors Limiting Gait Function Decreased Activity Tolerance, Decreased Strength,Pain,Poor Balance,Poor Safety Awareness Comments Gait Comments Decreased LLE stance time and poor weight shifting to the right side. Left lateral lean due to left hip pain. PT-OP-K Range of Motion Start: 04/12/19 15:53 Freq: Status: Active Protocol: Document 11/01/19 16:54 AW (Rec: 11/01/19 17:25 AW [email or web address]) Lumbar Spine Range of Motion Lumbar Spine Active Comments WNL and pain free Hip Goniometric Range of Motion Hip Left Active Flexion w/Knee Flexed 115 Extension 15 Right Active Flexion w/Knee Flexed 124 Extension 15 Hip ROM Limitations Hip ROM Limitations Soft Tissue Tightness,Pain Comments Pt with limited limited internal rotation bilaterally (L more affected than R), indicating short deep external rotators. PT-OP-L Special Tests Start: 04/12/19 15:53 Freq: Status: Active Protocol: Document 11/01/19 16:54 AW (Rec: 11/01/19 17:25 AW [email or web address]) Special Tests Hip Special Tests Straight Leg Raise Comments 90/90 test for hamstring length: R lacking 30 degrees, L lacking 45 degrees Pillo Test Results positive bilaterally Comments bilateral thighs in abduction and >1 off table with leg straight Scour Test Test Results negative bilaterally Neural Special Tests- Lower Body Sciatic Nerve Tension Test Results negative Comments slump test negative bilaterally PT-OP-M Strength Start: 04/12/19 15:53 Freq: Status: Active Protocol: Document 11/01/19 16:54 AW (Rec: 11/01/19 17:25 AW [email or web address]) Hip Strength Hip Manual Muscle Testing Left Flexion (L2) 4 Good Extension (S1) 4- Good- Abduction 4- Good- Adduction 4- Good- External Rotation 4 Good Internal Rotation 4 Good Comments Painful all planes Right Flexion (L2) 4+ Good+ Extension (S1) 4- Good- Abduction 4- Good- Adduction 4- Good- External Rotation 4+ Good+ Internal Rotation 4+ Good+ Knee Strength Knee Manual Muscle Testing Right Flexion (S2) 4+ Good+ Extension (L3) 4+ Good+ Left Flexion (S2) 4+ Good+ Extension (L3) 4+ Good+ PT-OP-Q Treatments Start: 04/12/19 15:53 Freq: Status: Active Protocol: Document 11/14/19 12:00 DCW (Rec: 11/14/19 12:37 DCW [id number]) Gym Equipment Shuttle Recovery Bilateral Squats Details bilateral squat Resistance 87# Shuttle Recovery Platform Unstable Reps/Time 10x2 Unilateral Squats Details unilateral squat Resistance 50# Shuttle Recovery Platform Stable Reps/Time 10 reps x 2 each leg Shuttle Balance 1 Details Red Comments Wide EAGLE, Narrow EAGLE, Staggered Therapeutic Exercises Supine Exercises supine piriformis stretch Supine Exercise Name supine piriformis stretch Side bilateral Reps/Minutes 30 x 2 Comments knee toward opposite shoulder Manual Therapy Treatment Soft Tissue Mobilization 1 Body Location left buttock area Mobilization Type Cross-Friction,Strumming, Sustained Pressure,Trigger Point Release Intensity/Depth Moderate Body Position Sidelying PT-OP-R Modalities Start: 04/12/19 15:53 Freq: Status: Active Protocol: Document 11/14/19 12:00 DCW (Rec: 11/14/19 12:37 DCW [id number]) Hot Pack/Cold Pack Treatment L hip Location left hip Patient Position Sidelying Treatment Duration (minutes) 10 Patient Tolerance Good Comments MHP PT-OP-T Assessment and Plan Start: 04/12/19 15:53 Freq: Status: Active Protocol: Document 11/14/19 12:00 DCW (Rec: 11/14/19 12:37 DCW [id number]) Physical Therapy Assessment Impairments Impairments Activity Tolerance,Balance, Gait,Pain,Posture,ROM,Soft Tissue Mobility,Strength Goals Five Impairment sleep Short Term Goal (STG) Pt will report ability to lie on left hip >1 hour without increase in pain STG Duration 11/29/2019 Manager Market Goal (LTG) Pt will report ability to lie on left hip >3 hours without increase in pain LTG Duration 12/27/2019 Four Impairment strength Group Home Goal (LTG) Pt will demonstrate pain-free left hip strength within one- half grade of right hip strength. LTG Duration 12/27/2019 Three Impairment ROM Group Home Goal (LTG) Pt will have left hip AROM within 5 degrees of right hip AROM. LTG Duration 12/27/2019 One Impairment participation in home duties Short Term Goal (STG) Pt will be able to lift a 10- pound bag of groceries from knee height in either hand and carry 50 feet without increase in pain STG Duration 11/29/2019 Manager Market Goal (LTG) Pt will be able to lift a 10- pound bag of groceries from the ground in either hand and carry 50 feet without increase in pain LTG Duration 12/27/2019 Assessment Summary Assessment Pt L hip much better today, no longer limiting activity. Tolerated TherEx well today. Physical Therapy Plan Frequency and Duration Frequency of Treatment 2x/Week Duration of Treatment 8 weeks Plan of Care Start Date 11/01/19 Plan of Care End Date 12/27/19 Therapeutic Interventions Therapeutic Interventions Balance Training,Gait Training ,Home Exercise Program,Manual Therapy,Neuromuscular Re- education,Patient/Caregiver Education,Soft Tissue Mobilization,Taping, Therapeutic Activities, Therapeutic Exercises Modalities Cold Pack/Ice Massage,Electric Stimulation,Hot Packs Next Visit Focus/Plan Next Note Type Treatment Note Next Visit Plan Review and add to HEP - stretching for hip extension and rotation, hip strengthening. Initiate balance and gait training as tolerated
--- NOTE | 2019-11-17 09:58 | PT.OTN ---
Current Diagnoses Pain in unspecified hip (11/17/19) Muscle weakness (generalized) (11/17/19) Other abnormalities of gait and mobility (11/17/19) Physical Therapy Treatment Note PT-OP-A Visit Information Start: 04/12/19 15:53 Freq: Status: Active Protocol: Document 11/17/19 09:02 DCW (Rec: 11/17/19 09:57 DCW [id number]) Out-Patient Physical Therapy Visit Information Visit Information Visit Type Treatment Note Visit Start Time 09:02 Visit Stop Time 09:52 Total Visit Minutes 50 Visit Number 4/15 Number of VICE PRESIDENT OF RECRUITING Visits 0 Precautions Precautions hx lumbar surgery PT-OP-B Current Condition Start: 04/12/19 15:53 Freq: Status: Active Protocol: Document 11/01/19 16:54 AW (Rec: 11/01/19 17:25 AW [email or web address]) Current Condition History of Current Condition Onset Date 02/13/2018 Current Complaints left posterolateral hip pain History of Current Condition Rafael fell on his left hip in February 2018. He denies any falls since that time. Treatment has included PT for the hip and facet injections for low back pain which he states is no longer a problem. He was seen for PT at this clinic which abruptly ended in May 2019 due to COVID19 shutdown. Pt reports not much has changed, either negatively or positively. Pain is worst when initiating movement after periods of inactivity and is typically localized to the left posterolateral hip. Pt describes occasional pain down the posterior left leg which extends below the knee but he has had no such episodes recently. Pt has been unable to sleep on his left side due to pain. Prior Treatments and Tests - One prior episode of PT. - L4-L5 facet injections for LBP - last one year ago - remote history of lumbar laminectomy Future Testing and Treatments Planned none identified Treatment Goals Patient/Caregiver Goals Pt would like to return to prior level of function including ability to pick things up from the floor and to carry without pain and to walk more than a few blocks without pain. He would also like to be able to keep up with his at the grocery store. Prior Functional Status Baseline Function- ADL's Independent Baseline Function- Mobility Independent Baseline Function- Gait no AD Baseline Function- Work/School retired Baseline Function- Recreation/Hobbies Able to help out around the house without limitation. Current Functional Impairments (Reported) Functional Limitations- Mobility/Gait Antalgic with decreased LLE stance time Functional Limitations- Recreation/ Difficulty participating in Hobbies household duties. Personal Factors Other Personal Factors That May Effect + motivated Therapy/Recovery + previous positive experience with PT PT-OP-C Subjective Start: 04/12/19 15:53 Freq: Status: Active Protocol: Document 11/17/19 09:02 DCW (Rec: 11/17/19 09:57 DCW [id number]) OP-PT Subjective Patient Comments Patient Comments Pt reports he is pretty tired after working himself hard yesterday doing gardening work in his yard. PT-OP-D Balance Start: 04/12/19 15:53 Freq: Status: Active Protocol: Document 11/01/19 16:54 AW (Rec: 11/01/19 17:25 AW [email or web address]) Balance Tests Single Limb Standing Single Limb- Right <2 seconds Single Limb- Left 1 second Tandem Tandem Standing unable to assume position PT-OP-F Manual Assessment Start: 04/12/19 15:53 Freq: Status: Active Protocol: Document 11/01/19 16:54 AW (Rec: 11/01/19 17:25 AW [email or web address]) Manual Assessments Soft Tissue Assessment Soft Tissue Mobility Assessment No tenderness to palpation at greater trochanter, ischial tuberosity, lateral hip musculature. Increased density noted with left glute med and deep rotators. Joint Mobility Assessment Joint Mobility Assessment Good hip joint play bilaterally without restriction. PT-OP-G Mobility & Gait Start: 04/12/19 15:53 Freq: Status: Active Protocol: Document 11/01/19 16:54 AW (Rec: 11/01/19 17:25 AW [email or web address]) OP Gait Assessment Gait Gait Assistance Required: Independent Distance (Feet) 100 Assistive Devices Assistive Device None Gait Deviations General Gait Pattern Antalgic,Decreased Stride Length,Decreased Feet Clearance,Flexed Trunk,Lateral Trunk Lean Factors Limiting Gait Function Factors Limiting Gait Function Decreased Activity Tolerance, Decreased Strength,Pain,Poor Balance,Poor Safety Awareness Comments Gait Comments Decreased LLE stance time and poor weight shifting to the right side. Left lateral lean due to left hip pain. PT-OP-K Range of Motion Start: 04/12/19 15:53 Freq: Status: Active Protocol: Document 08/19/20 16:54 AW (Rec: 11/01/19 17:25 AW [email or web address]) Lumbar Spine Range of Motion Lumbar Spine Active Comments WNL and pain free Hip Goniometric Range of Motion Hip Left Active Flexion w/Knee Flexed 115 Extension 15 Right Active Flexion w/Knee Flexed 124 Extension 15 Hip ROM Limitations Hip ROM Limitations Soft Tissue Tightness,Pain Comments Pt with limited limited internal rotation bilaterally (L more affected than R), indicating short deep external rotators. PT-OP-L Special Tests Start: 04/12/19 15:53 Freq: Status: Active Protocol: Document 11/01/19 16:54 AW (Rec: 11/01/19 17:25 AW [email or web address]) Special Tests Hip Special Tests Straight Leg Raise Comments 90/90 test for hamstring length: R lacking 30 degrees, L lacking 45 degrees Pillo Test Results positive bilaterally Comments bilateral thighs in abduction and >1 off table with leg straight Scour Test Test Results negative bilaterally Neural Special Tests- Lower Body Sciatic Nerve Tension Test Results negative Comments slump test negative bilaterally PT-OP-M Strength Start: 04/12/19 15:53 Freq: Status: Active Protocol: Document 11/01/19 16:54 AW (Rec: 11/01/19 17:25 AW [email or web address]) Hip Strength Hip Manual Muscle Testing Left Flexion (L2) 4 Good Extension (S1) 4- Good- Abduction 4- Good- Adduction 4- Good- External Rotation 4 Good Internal Rotation 4 Good Comments Painful all planes Right Flexion (L2) 4+ Good+ Extension (S1) 4- Good- Abduction 4- Good- Adduction 4- Good- External Rotation 4+ Good+ Internal Rotation 4+ Good+ Knee Strength Knee Manual Muscle Testing Right Flexion (S2) 4+ Good+ Extension (L3) 4+ Good+ Left Flexion (S2) 4+ Good+ Extension (L3) 4+ Good+ PT-OP-Q Treatments Start: 04/12/19 15:53 Freq: Status: Active Protocol: Document 11/17/19 09:02 DCW (Rec: 11/17/19 09:57 DCW [id number]) Cardio Equipment Recumbent Bicycle Duration (Minutes) 6 Resistance 6 Seat Position 7 Gym Equipment Shuttle Recovery Bilateral Squats Details bilateral squat Resistance 100# Shuttle Recovery Platform Unstable Reps/Time 10x2 Unilateral Squats Details unilateral squat Resistance 50# Shuttle Recovery Platform Stable Reps/Time 10 reps x 2 each leg Shuttle Balance 1 Details Red Comments Staggered stance, Lateral weight shift Sport Cord red cord Exercise Details lateral Cord/Resistance red Reps/Duration 3 laps each direction Comments cues for slow controlled movement, controlling rotation impulse Manual Therapy Treatment Soft Tissue Mobilization 1 Body Location left buttock area Mobilization Type Cross-Friction,Strumming, Sustained Pressure,Trigger Point Release Intensity/Depth Moderate Body Position Sidelying PT-OP-R Modalities Start: 04/12/19 15:53 Freq: Status: Active Protocol: Document 11/17/19 09:02 DCW (Rec: 11/17/19 09:57 DCW [id number]) Hot Pack/Cold Pack Treatment L hip Location left hip Patient Position Sidelying Treatment Duration (minutes) 10 Patient Tolerance Good Comments P PT-OP-T Assessment and Plan Start: 04/12/19 15:53 Freq: Status: Active Protocol: Document 11/17/19 09:02 DCW (Rec: 11/17/19 09:57 DCW [id number]) Physical Therapy Assessment Impairments Impairments Activity Tolerance,Balance, Gait,Pain,Posture,ROM,Soft Tissue Mobility,Strength Goals Five Impairment sleep Short Term Goal (STG) Pt will report ability to lie on left hip >1 hour without increase in pain STG Duration 11/29/2019 Electron Beam Photo Mask Maker Goal (LTG) Pt will report ability to lie on left hip >3 hours without increase in pain LTG Duration 12/27/2019 Four Impairment strength Electron Beam Photo Mask Maker Goal (LTG) Pt will demonstrate pain-free left hip strength within one- half grade of right hip strength. LTG Duration 12/27/2019 Three Impairment ROM Electron Beam Photo Mask Maker Goal (LTG) Pt will have left hip AROM within 5 degrees of right hip AROM. LTG Duration 12/27/2019 One Impairment participation in home duties Short Term Goal (STG) Pt will be able to lift a 10- pound bag of groceries from knee height in either hand and carry 50 feet without increase in pain STG Duration 11/29/2019 Electron Beam Photo Mask Maker Goal (LTG) Pt will be able to lift a 10- pound bag of groceries from the ground in either hand and carry 50 feet without increase in pain LTG Duration 12/27/2019 Assessment Summary Assessment Pt slightly more sore today, but overall doing very well, even tolerating his yardwork with significantly less pain. Continue to focus on hip strength and stability, as well as STM to decrease tone. Physical Therapy Plan Frequency and Duration Frequency of Treatment 2x/Week Duration of Treatment 8 weeks Plan of Care Start Date 11/01/19 Plan of Care End Date 12/27/19 Therapeutic Interventions Therapeutic Interventions Balance Training,Gait Training ,Home Exercise Program,Manual Therapy,Neuromuscular Re- education,Patient/Caregiver Education,Soft Tissue Mobilization,Taping, Therapeutic Activities, Therapeutic Exercises Modalities Cold Pack/Ice Massage,Electric Stimulation,Hot Packs Next Visit Focus/Plan Next Note Type Treatment Note Next Visit Plan Review and add to HEP - stretching for hip extension and rotation, hip strengthening. Initiate balance and gait training as tolerated
--- NOTE | 2019-11-23 12:48 | PT.OTN ---
Current Diagnoses Pain in unspecified hip (11/23/19) Muscle weakness (generalized) (11/23/19) Other abnormalities of gait and mobility (11/23/19) Physical Therapy Treatment Note PT-OP-A Visit Information Start: 04/12/19 15:53 Freq: Status: Active Protocol: Document 11/23/19 12:02 DCW (Rec: 11/23/19 12:48 DCW [id number]) Out-Patient Physical Therapy Visit Information Visit Information Visit Type Treatment Note Visit Start Time 12:02 Visit Stop Time 12:52 Total Visit Minutes 50 Visit Number 08/27 Number of BRUSH TRIMMING MACHINE SETTER Visits 0 Precautions Precautions hx lumbar surgery PT-OP-B Current Condition Start: 04/12/19 15:53 Freq: Status: Active Protocol: Document 11/01/19 16:54 AW (Rec: 11/01/19 17:25 AW [email or web address]) Current Condition History of Current Condition Onset Date 02/13/2018 Current Complaints left posterolateral hip pain History of Current Condition Rafael fell on his left hip in February 2018. He denies any falls since that time. Treatment has included PT for the hip and facet injections for low back pain which he states is no longer a problem. He was seen for PT at this clinic which abruptly ended in May 2019 due to COVID19 shutdown. Pt reports not much has changed, either negatively or positively. Pain is worst when initiating movement after periods of inactivity and is typically localized to the left posterolateral hip. Pt describes occasional pain down the posterior left leg which extends below the knee but he has had no such episodes recently. Pt has been unable to sleep on his left side due to pain. Prior Treatments and Tests - One prior episode of PT. - L4-L5 facet injections for LBP - last one year ago - remote history of lumbar laminectomy Future Testing and Treatments Planned none identified Treatment Goals Patient/Caregiver Goals Pt would like to return to prior level of function including ability to pick things up from the floor and to carry without pain and to walk more than a few blocks without pain. He would also like to be able to keep up with his at the grocery store. Prior Functional Status Baseline Function- ADL's Independent Baseline Function- Mobility Independent Baseline Function- Gait no AD Baseline Function- Work/School retired Baseline Function- Recreation/Hobbies Able to help out around the house without limitation. Current Functional Impairments (Reported) Functional Limitations- Mobility/Gait Antalgic with decreased LLE stance time Functional Limitations- Recreation/ Difficulty participating in Hobbies household duties. Personal Factors Other Personal Factors That May Effect + motivated Therapy/Recovery + previous positive experience with PT PT-OP-C Subjective Start: 04/12/19 15:53 Freq: Status: Active Protocol: Document 11/23/19 12:02 DCW (Rec: 11/23/19 12:48 DCW [id number]) OP-PT Subjective Patient Comments Patient Comments I was a little sore after all the trigger point stuff you were doing last time, but I'm alright today. PT-OP-D Balance Start: 04/12/19 15:53 Freq: Status: Active Protocol: Document 11/01/19 16:54 AW (Rec: 11/01/19 17:25 AW [email or web address]) Balance Tests Single Limb Standing Single Limb- Right <2 seconds Single Limb- Left 1 second Tandem Tandem Standing unable to assume position PT-OP-F Manual Assessment Start: 04/12/19 15:53 Freq: Status: Active Protocol: Document 11/01/19 16:54 AW (Rec: 11/01/19 17:25 AW [email or web address]) Manual Assessments Soft Tissue Assessment Soft Tissue Mobility Assessment No tenderness to palpation at greater trochanter, ischial tuberosity, lateral hip musculature. Increased density noted with left glute med and deep rotators. Joint Mobility Assessment Joint Mobility Assessment Good hip joint play bilaterally without restriction. PT-OP-G Mobility & Gait Start: 04/12/19 15:53 Freq: Status: Active Protocol: Document 11/01/19 16:54 AW (Rec: 11/01/19 17:25 AW [email or web address]) OP Gait Assessment Gait Gait Assistance Required: Independent Distance (Feet) 100 Assistive Devices Assistive Device None Gait Deviations General Gait Pattern Antalgic,Decreased Stride Length,Decreased Feet Clearance,Flexed Trunk,Lateral Trunk Lean Factors Limiting Gait Function Factors Limiting Gait Function Decreased Activity Tolerance, Decreased Strength,Pain,Poor Balance,Poor Safety Awareness Comments Gait Comments Decreased LLE stance time and poor weight shifting to the right side. Left lateral lean due to left hip pain. PT-OP-K Range of Motion Start: 04/12/19 15:53 Freq: Status: Active Protocol: Document 11/01/19 16:54 AW (Rec: 08/19/20 17:25 AW [email or web address]) Lumbar Spine Range of Motion Lumbar Spine Active Comments WNL and pain free Hip Goniometric Range of Motion Hip Left Active Flexion w/Knee Flexed 115 Extension 15 Right Active Flexion w/Knee Flexed 124 Extension 15 Hip ROM Limitations Hip ROM Limitations Soft Tissue Tightness,Pain Comments Pt with limited limited internal rotation bilaterally (L more affected than R), indicating short deep external rotators. PT-OP-L Special Tests Start: 04/12/19 15:53 Freq: Status: Active Protocol: Document 11/01/19 16:54 AW (Rec: 11/01/19 17:25 AW [email or web address]) Special Tests Hip Special Tests Straight Leg Raise Comments 90/90 test for hamstring length: R lacking 30 degrees, L lacking 45 degrees Pillo Test Results positive bilaterally Comments bilateral thighs in abduction and >1 off table with leg straight Scour Test Test Results negative bilaterally Neural Special Tests- Lower Body Sciatic Nerve Tension Test Results negative Comments slump test negative bilaterally PT-OP-M Strength Start: 04/12/19 15:53 Freq: Status: Active Protocol: Document 11/01/19 16:54 AW (Rec: 11/01/19 17:25 AW [email or web address]) Hip Strength Hip Manual Muscle Testing Left Flexion (L2) 4 Good Extension (S1) 4- Good- Abduction 4- Good- Adduction 4- Good- External Rotation 4 Good Internal Rotation 4 Good Comments Painful all planes Right Flexion (L2) 4+ Good+ Extension (S1) 4- Good- Abduction 4- Good- Adduction 4- Good- External Rotation 4+ Good+ Internal Rotation 4+ Good+ Knee Strength Knee Manual Muscle Testing Right Flexion (S2) 4+ Good+ Extension (L3) 4+ Good+ Left Flexion (S2) 4+ Good+ Extension (L3) 4+ Good+ PT-OP-Q Treatments Start: 04/12/19 15:53 Freq: Status: Active Protocol: Document 11/23/19 12:02 DCW (Rec: 11/23/19 12:48 DCW [id number]) Cardio Equipment Recumbent Bicycle Duration (Minutes) 6 Resistance 6 Seat Position 7 Gym Equipment Shuttle Recovery Bilateral Squats Details bilateral squat Resistance 100# Shuttle Recovery Platform Unstable Reps/Time 10x2 Unilateral Squats Details unilateral squat Resistance 50# Shuttle Recovery Platform Stable Reps/Time 10 reps x 2 each leg Shuttle Balance 1 Details Red Comments Staggered stance, Lateral weight shift Sport Cord red cord Exercise Details lateral Cord/Resistance red Reps/Duration 3 laps each direction Comments cues for slow controlled movement, controlling rotation impulse Manual Therapy Treatment Soft Tissue Mobilization 1 Body Location left buttock area Mobilization Type Cross-Friction,Strumming, Sustained Pressure,Trigger Point Release Intensity/Depth Moderate Body Position Sidelying PT-OP-R Modalities Start: 04/12/19 15:53 Freq: Status: Active Protocol: Document 11/23/19 12:02 DCW (Rec: 11/23/19 12:48 DCW [id number]) Hot Pack/Cold Pack Treatment L hip Location left hip Patient Position Sidelying Treatment Duration (minutes) 10 Patient Tolerance Good Comments P PT-OP-T Assessment and Plan Start: 04/12/19 15:53 Freq: Status: Active Protocol: Document 11/23/19 12:02 DCW (Rec: 11/23/19 12:48 DCW [id number]) Physical Therapy Assessment Impairments Impairments Activity Tolerance,Balance, Gait,Pain,Posture,ROM,Soft Tissue Mobility,Strength Goals Five Impairment sleep Short Term Goal (STG) Pt will report ability to lie on left hip >1 hour without increase in pain STG Duration 11/29/2019 [facility] Goal (LTG) Pt will report ability to lie on left hip >3 hours without increase in pain LTG Duration 12/27/2019 Four Impairment strength [facility] Goal (LTG) Pt will demonstrate pain-free left hip strength within one- half grade of right hip strength. LTG Duration 12/27/2019 Three Impairment ROM [facility] Goal (LTG) Pt will have left hip AROM within 5 degrees of right hip AROM. LTG Duration 12/27/2019 One Impairment participation in home duties Short Term Goal (STG) Pt will be able to lift a 10- pound bag of groceries from knee height in either hand and carry 50 feet without increase in pain STG Duration 11/29/2019 [facility] Goal (LTG) Pt will be able to lift a 10- pound bag of groceries from the ground in either hand and carry 50 feet without increase in pain LTG Duration 12/27/2019 Assessment Summary Assessment Pt tolerated treatment very well today, no complaints of pain or difficulty during his session today. Responding well to [facility] Physical Therapy Plan Frequency and Duration Frequency of Treatment 2x/Week Duration of Treatment 8 weeks Plan of Care Start Date 11/01/19 Plan of Care End Date 12/27/19 Therapeutic Interventions Therapeutic Interventions Balance Training,Gait Training ,Home Exercise Program,Manual Therapy,Neuromuscular Re- education,Patient/Caregiver Education,Soft Tissue Mobilization,Taping, Therapeutic Activities, Therapeutic Exercises Modalities Cold Pack/Ice Massage,Electric Stimulation,Hot Packs Next Visit Focus/Plan Next Note Type Treatment Note Next Visit Plan Review and add to HEP - stretching for hip extension and rotation, hip strengthening. Initiate balance and gait training as tolerated
--- NOTE | 2019-11-28 16:46 | PT.OTN ---
Current Diagnoses Pain in unspecified hip (11/28/19) Muscle weakness (generalized) (11/28/19) Other abnormalities of gait and mobility (11/28/19) Physical Therapy Treatment Note PT-OP-A Visit Information Start: 04/12/19 15:53 Freq: Status: Active Protocol: Document 11/28/19 16:00 DCW (Rec: 11/28/19 16:46 DCW [id number]) Out-Patient Physical Therapy Visit Information Visit Information Visit Type Treatment Note Visit Start Time 16:00 Visit Stop Time 16:45 Total Visit Minutes 45 Visit Number 09/26 Number of HEALTH CARE LAW SPECIALIST Visits 0 Precautions Precautions hx lumbar surgery PT-OP-B Current Condition Start: 04/12/19 15:53 Freq: Status: Active Protocol: Document 11/01/19 16:54 AW (Rec: 11/01/19 17:25 AW [email or web address]) Current Condition History of Current Condition Onset Date 02/13/2018 Current Complaints left posterolateral hip pain History of Current Condition Rafael fell on his left hip in February 2018. He denies any falls since that time. Treatment has included PT for the hip and facet injections for low back pain which he states is no longer a problem. He was seen for PT at this clinic which abruptly ended in May 2019 due to COVID19 shutdown. Pt reports not much has changed, either negatively or positively. Pain is worst when initiating movement after periods of inactivity and is typically localized to the left posterolateral hip. Pt describes occasional pain down the posterior left leg which extends below the knee but he has had no such episodes recently. Pt has been unable to sleep on his left side due to pain. Prior Treatments and Tests - One prior episode of PT. - L4-L5 facet injections for LBP - last one year ago - remote history of lumbar laminectomy Future Testing and Treatments Planned none identified Treatment Goals Patient/Caregiver Goals Pt would like to return to prior level of function including ability to pick things up from the floor and to carry without pain and to walk more than a few blocks without pain. He would also like to be able to keep up with his at the grocery store. Prior Functional Status Baseline Function- ADL's Independent Baseline Function- Mobility Independent Baseline Function- Gait no AD Baseline Function- Work/School retired Baseline Function- Recreation/Hobbies Able to help out around the house without limitation. Current Functional Impairments (Reported) Functional Limitations- Mobility/Gait Antalgic with decreased LLE stance time Functional Limitations- Recreation/ Difficulty participating in Hobbies household duties. Personal Factors Other Personal Factors That May Effect + motivated Therapy/Recovery + previous positive experience with PT PT-OP-C Subjective Start: 04/12/19 15:53 Freq: Status: Active Protocol: Document 11/28/19 16:00 DCW (Rec: 11/28/19 16:46 DCW [id number]) OP-PT Subjective Patient Comments Patient Comments I think I'm getting better, but I think I'm going to be stuck with at least some of this pain for a while. PT-OP-D Balance Start: 04/12/19 15:53 Freq: Status: Active Protocol: Document 11/01/19 16:54 AW (Rec: 11/01/19 17:25 AW [email or web address]) Balance Tests Single Limb Standing Single Limb- Right <2 seconds Single Limb- Left 1 second Tandem Tandem Standing unable to assume position PT-OP-F Manual Assessment Start: 04/12/19 15:53 Freq: Status: Active Protocol: Document 11/01/19 16:54 AW (Rec: 11/01/19 17:25 AW [email or web address]) Manual Assessments Soft Tissue Assessment Soft Tissue Mobility Assessment No tenderness to palpation at greater trochanter, ischial tuberosity, lateral hip musculature. Increased density noted with left glute med and deep rotators. Joint Mobility Assessment Joint Mobility Assessment Good hip joint play bilaterally without restriction. PT-OP-G Mobility & Gait Start: 04/12/19 15:53 Freq: Status: Active Protocol: Document 11/01/19 16:54 AW (Rec: 11/01/19 17:25 AW [email or web address]) OP Gait Assessment Gait Gait Assistance Required: Independent Distance (Feet) 100 Assistive Devices Assistive Device None Gait Deviations General Gait Pattern Antalgic,Decreased Stride Length,Decreased Feet Clearance,Flexed Trunk,Lateral Trunk Lean Factors Limiting Gait Function Factors Limiting Gait Function Decreased Activity Tolerance, Decreased Strength,Pain,Poor Balance,Poor Safety Awareness Comments Gait Comments Decreased LLE stance time and poor weight shifting to the right side. Left lateral lean due to left hip pain. PT-OP-K Range of Motion Start: 04/12/19 15:53 Freq: Status: Active Protocol: Document 11/01/19 16:54 AW (Rec: 11/01/19 17:25 AW [email or web address]) Lumbar Spine Range of Motion Lumbar Spine Active Comments WNL and pain free Hip Goniometric Range of Motion Hip Left Active Flexion w/Knee Flexed 115 Extension 15 Right Active Flexion w/Knee Flexed 124 Extension 15 Hip ROM Limitations Hip ROM Limitations Soft Tissue Tightness,Pain Comments Pt with limited limited internal rotation bilaterally (L more affected than R), indicating short deep external rotators. PT-OP-L Special Tests Start: 04/12/19 15:53 Freq: Status: Active Protocol: Document 11/01/19 16:54 AW (Rec: 11/01/19 17:25 AW [email or web address]) Special Tests Hip Special Tests Straight Leg Raise Comments 90/90 test for hamstring length: R lacking 30 degrees, L lacking 45 degrees Pillo Test Results positive bilaterally Comments bilateral thighs in abduction and >1 off table with leg straight Scour Test Test Results negative bilaterally Neural Special Tests- Lower Body Sciatic Nerve Tension Test Results negative Comments slump test negative bilaterally PT-OP-M Strength Start: 04/12/19 15:53 Freq: Status: Active Protocol: Document 11/01/19 16:54 AW (Rec: 11/01/19 17:25 AW [email or web address]) Hip Strength Hip Manual Muscle Testing Left Flexion (L2) 4 Good Extension (S1) 4- Good- Abduction 4- Good- Adduction 4- Good- External Rotation 4 Good Internal Rotation 4 Good Comments Painful all planes Right Flexion (L2) 4+ Good+ Extension (S1) 4- Good- Abduction 4- Good- Adduction 4- Good- External Rotation 4+ Good+ Internal Rotation 4+ Good+ Knee Strength Knee Manual Muscle Testing Right Flexion (S2) 4+ Good+ Extension (L3) 4+ Good+ Left Flexion (S2) 4+ Good+ Extension (L3) 4+ Good+ PT-OP-Q Treatments Start: 04/12/19 15:53 Freq: Status: Active Protocol: Document 11/28/19 16:00 DCW (Rec: 11/28/19 16:46 DCW [id number]) Cardio Equipment Recumbent Stepper (Sci-Fit) Duration (Minutes) 6 Resistance 5 Seat Position 12 Gym Equipment Shuttle Recovery Bilateral Squats Details bilateral squat Resistance 100# Shuttle Recovery Platform Unstable Reps/Time 10x2 Unilateral Squats Details unilateral squat Resistance 62# Shuttle Recovery Platform Stable Reps/Time 10 reps x 2 each leg Sport Cord red cord Exercise Details lateral Cord/Resistance red Reps/Duration 3 laps each direction Comments cues for slow controlled movement, controlling rotation impulse Therapeutic Exercises Supine Exercises supine piriformis stretch Supine Exercise Name supine piriformis stretch Side bilateral Reps/Minutes 30 x 2 Comments knee toward opposite shoulder Manual Therapy Treatment Soft Tissue Mobilization 1 Body Location left buttock area Mobilization Type Cross-Friction,Strumming, Sustained Pressure,Trigger Point Release Intensity/Depth Moderate Body Position Sidelying PT-OP-R Modalities Start: 04/12/19 15:53 Freq: Status: Active Protocol: Document 11/23/19 12:02 DCW (Rec: 11/23/19 12:48 DCW [id number]) Hot Pack/Cold Pack Treatment L hip Location left hip Patient Position Sidelying Treatment Duration (minutes) 10 Patient Tolerance Good Comments MHP PT-OP-T Assessment and Plan Start: 04/12/19 15:53 Freq: Status: Active Protocol: Document 11/28/19 16:00 DCW (Rec: 11/28/19 16:46 DCW [id number]) Physical Therapy Assessment Impairments Impairments Activity Tolerance,Balance, Gait,Pain,Posture,ROM,Soft Tissue Mobility,Strength Goals Five Impairment sleep Short Term Goal (STG) Pt will report ability to lie on left hip >1 hour without increase in pain STG Duration 11/29/2019 [facility] Goal (LTG) Pt will report ability to lie on left hip >3 hours without increase in pain LTG Duration 12/27/2019 Four Impairment strength Cardiology Manager Goal (LTG) Pt will demonstrate pain-free left hip strength within one- half grade of right hip strength. LTG Duration 12/27/2019 Three Impairment ROM Cardiology Manager Goal (LTG) Pt will have left hip AROM within 5 degrees of right hip AROM. LTG Duration 12/27/2019 One Impairment participation in home duties Short Term Goal (STG) Pt will be able to lift a 10- pound bag of groceries from knee height in either hand and carry 50 feet without increase in pain STG Duration 11/29/2019 [facility] Living Goal (LTG) Pt will be able to lift a 10- pound bag of groceries from the ground in either hand and carry 50 feet without increase in pain LTG Duration 12/27/2019 Assessment Summary Assessment Pt continuing to progress well , decreasing tone and stiffness in hip and low back. Pt should benefit from focus on improving strength in extensors and external rotators. Physical Therapy Plan Frequency and Duration Frequency of Treatment 2x/Week Duration of Treatment 8 weeks Plan of Care Start Date 11/01/19 Plan of Care End Date 12/27/19 Therapeutic Interventions Therapeutic Interventions Balance Training,Gait Training ,Home Exercise Program,Manual Therapy,Neuromuscular Re- education,Patient/Caregiver Education,Soft Tissue Mobilization,Taping, Therapeutic Activities, Therapeutic Exercises Modalities Cold Pack/Ice Massage,Electric Stimulation,Hot Packs Next Visit Focus/Plan Next Note Type Treatment Note Next Visit Plan Strengthening for hip extension and rotation. Continue increasing balance and gait challenges as tolerated
--- NOTE | 2019-12-01 12:28 | PT-OP ANOTE ---
Did not show
--- NOTE | 2019-12-05 16:00 | PT.OTN ---
Current Diagnoses Pain in unspecified hip (12/05/19) Muscle weakness (generalized) (12/05/19) Other abnormalities of gait and mobility (12/05/19) Physical Therapy Treatment Note PT-OP-A Visit Information Start: 04/12/19 15:53 Freq: Status: Active Protocol: Document 12/05/19 15:15 DCW (Rec: 12/05/19 15:59 DCW [id number]) Out-Patient Physical Therapy Visit Information Visit Information Visit Type Treatment Note Visit Start Time 15:15 Visit Stop Time 16:05 Total Visit Minutes 50 Visit Number 10/27 Number of SMOOTH STUCCO RESURFACER Visits 0 Precautions Precautions hx lumbar surgery PT-OP-B Current Condition Start: 04/12/19 15:53 Freq: Status: Active Protocol: Document 11/01/19 16:54 AW (Rec: 11/01/19 17:25 AW [email or web address]) Current Condition History of Current Condition Onset Date 02/13/2018 Current Complaints left posterolateral hip pain History of Current Condition Rafael fell on his left hip in February 2018. He denies any falls since that time. Treatment has included PT for the hip and facet injections for low back pain which he states is no longer a problem. He was seen for PT at this clinic which abruptly ended in May 2019 due to COVID19 shutdown. Pt reports not much has changed, either negatively or positively. Pain is worst when initiating movement after periods of inactivity and is typically localized to the left posterolateral hip. Pt describes occasional pain down the posterior left leg which extends below the knee but he has had no such episodes recently. Pt has been unable to sleep on his left side due to pain. Prior Treatments and Tests - One prior episode of PT. - L4-L5 facet injections for LBP - last one year ago - remote history of lumbar laminectomy Future Testing and Treatments Planned none identified Treatment Goals Patient/Caregiver Goals Pt would like to return to prior level of function including ability to pick things up from the floor and to carry without pain and to walk more than a few blocks without pain. He would also like to be able to keep up with his at the grocery store. Prior Functional Status Baseline Function- ADL's Independent Baseline Function- Mobility Independent Baseline Function- Gait no AD Baseline Function- Work/School retired Baseline Function- Recreation/Hobbies Able to help out around the house without limitation. Current Functional Impairments (Reported) Functional Limitations- Mobility/Gait Antalgic with decreased LLE stance time Functional Limitations- Recreation/ Difficulty participating in Hobbies household duties. Personal Factors Other Personal Factors That May Effect + motivated Therapy/Recovery + previous positive experience with PT PT-OP-C Subjective Start: 04/12/19 15:53 Freq: Status: Active Protocol: Document 12/05/19 15:15 DCW (Rec: 12/05/19 15:59 DCW [id number]) OP-PT Subjective Patient Comments Patient Comments Pt very apologetic for missing his last appointment, [facility], and just completely missed his appointment. PT-OP-D Balance Start: 04/12/19 15:53 Freq: Status: Active Protocol: Document 11/01/19 16:54 AW (Rec: 11/01/19 17:25 AW [email or web address]) Balance Tests Single Limb Standing Single Limb- Right <2 seconds Single Limb- Left 1 second Tandem Tandem Standing unable to assume position PT-OP-F Manual Assessment Start: 04/12/19 15:53 Freq: Status: Active Protocol: Document 11/01/19 16:54 AW (Rec: 11/01/19 17:25 AW [email or web address]) Manual Assessments Soft Tissue Assessment Soft Tissue Mobility Assessment No tenderness to palpation at greater trochanter, ischial tuberosity, lateral hip musculature. Increased density noted with left glute med and deep rotators. Joint Mobility Assessment Joint Mobility Assessment Good hip joint play bilaterally without restriction. PT-OP-G Mobility & Gait Start: 04/12/19 15:53 Freq: Status: Active Protocol: Document 11/01/19 16:54 AW (Rec: 11/01/19 17:25 AW [email or web address]) OP Gait Assessment Gait Gait Assistance Required: Independent Distance (Feet) 100 Assistive Devices Assistive Device None Gait Deviations General Gait Pattern Antalgic,Decreased Stride Length,Decreased Feet Clearance,Flexed Trunk,Lateral Trunk Lean Factors Limiting Gait Function Factors Limiting Gait Function Decreased Activity Tolerance, Decreased Strength,Pain,Poor Balance,Poor Safety Awareness Comments Gait Comments Decreased LLE stance time and poor weight shifting to the right side. Left lateral lean due to left hip pain. PT-OP-K Range of Motion Start: 04/12/19 15:53 Freq: Status: Active Protocol: Document 11/01/19 16:54 AW (Rec: 11/01/19 17:25 AW [email or web address]) Lumbar Spine Range of Motion Lumbar Spine Active Comments WNL and pain free Hip Goniometric Range of Motion Hip Left Active Flexion w/Knee Flexed 115 Extension 15 Right Active Flexion w/Knee Flexed 124 Extension 15 Hip ROM Limitations Hip ROM Limitations Soft Tissue Tightness,Pain Comments Pt with limited limited internal rotation bilaterally (L more affected than R), indicating short deep external rotators. PT-OP-L Special Tests Start: 04/12/19 15:53 Freq: Status: Active Protocol: Document 11/01/19 16:54 AW (Rec: 11/01/19 17:25 AW [email or web address]) Special Tests Hip Special Tests Straight Leg Raise Comments 90/90 test for hamstring length: R lacking 30 degrees, L lacking 45 degrees Pillo Test Results positive bilaterally Comments bilateral thighs in abduction and >1 off table with leg straight Scour Test Test Results negative bilaterally Neural Special Tests- Lower Body Sciatic Nerve Tension Test Results negative Comments slump test negative bilaterally PT-OP-M Strength Start: 04/12/19 15:53 Freq: Status: Active Protocol: Document 11/01/19 16:54 AW (Rec: 11/01/19 17:25 AW [email or web address]) Hip Strength Hip Manual Muscle Testing Left Flexion (L2) 4 Good Extension (S1) 4- Good- Abduction 4- Good- Adduction 4- Good- External Rotation 4 Good Internal Rotation 4 Good Comments Painful all planes Right Flexion (L2) 4+ Good+ Extension (S1) 4- Good- Abduction 4- Good- Adduction 4- Good- External Rotation 4+ Good+ Internal Rotation 4+ Good+ Knee Strength Knee Manual Muscle Testing Right Flexion (S2) 4+ Good+ Extension (L3) 4+ Good+ Left Flexion (S2) 4+ Good+ Extension (L3) 4+ Good+ PT-OP-Q Treatments Start: 04/12/19 15:53 Freq: Status: Active Protocol: Document 12/05/19 15:15 DCW (Rec: 12/05/19 15:59 DCW [id number]) Cardio Equipment Recumbent Elliptical (Biodex) Duration (Minutes) 6 Resistance 4 Seat Position 10 Gym Equipment Shuttle Recovery Bilateral Squats Details bilateral squat Resistance 100# Shuttle Recovery Platform Unstable Reps/Time x20 Unilateral Squats Details unilateral squat Resistance 62# Shuttle Recovery Platform Stable Reps/Time 10 reps x 2 each leg Shuttle Balance 1 Details Red Comments Staggered stance Therapeutic Exercises Standing Exercises Lateral band walk Standing Exercise Name Resisted side-stepping Resistance Green Equipment Used T-band Reps/Minutes length of rail x4 Manual Therapy Treatment Soft Tissue Mobilization 1 Body Location left buttock area Mobilization Type Cross-Friction,Strumming, Sustained Pressure,Trigger Point Release Intensity/Depth Moderate Body Position Sidelying PT-OP-R Modalities Start: 04/12/19 15:53 Freq: Status: Active Protocol: Document 12/05/19 15:15 DCW (Rec: 12/05/19 16:00 DCW [id number]) Hot Pack/Cold Pack Treatment L hip Location left hip Patient Position Sidelying Treatment Duration (minutes) 10 Patient Tolerance Good Comments MHP PT-OP-T Assessment and Plan Start: 04/12/19 15:53 Freq: Status: Active Protocol: Document 12/05/19 15:15 DCW (Rec: 12/05/19 15:59 DCW [id number]) Physical Therapy Assessment Impairments Impairments Activity Tolerance,Balance, Gait,Pain,Posture,ROM,Soft Tissue Mobility,Strength Goals Five Impairment sleep Short Term Goal (STG) Pt will report ability to lie on left hip >1 hour without increase in pain STG Duration 11/29/2019 Senior Living Goal (LTG) Pt will report ability to lie on left hip >3 hours without increase in pain LTG Duration 12/27/2019 Four Impairment strength Senior Living Goal (LTG) Pt will demonstrate pain-free left hip strength within one- half grade of right hip strength. LTG Duration 12/27/2019 Three Impairment ROM Senior Living Goal (LTG) Pt will have left hip AROM within 5 degrees of right hip AROM. LTG Duration 12/27/2019 One Impairment participation in home duties Short Term Goal (STG) Pt will be able to lift a 10- pound bag of groceries from knee height in either hand and carry 50 feet without increase in pain STG Duration 11/29/2019 Senior Living Goal (LTG) Pt will be able to lift a 10- pound bag of groceries from the ground in either hand and carry 50 feet without increase in pain LTG Duration 12/27/2019 Assessment Summary Assessment Pt doing very well, making good progress with mobility and pain. Physical Therapy Plan Frequency and Duration Frequency of Treatment 2x/Week Duration of Treatment 8 weeks Plan of Care Start Date 11/01/19 Plan of Care End Date 12/27/19 Therapeutic Interventions Therapeutic Interventions Balance Training,Gait Training ,Home Exercise Program,Manual Therapy,Neuromuscular Re- education,Patient/Caregiver Education,Soft Tissue Mobilization,Taping, Therapeutic Activities, Therapeutic Exercises Modalities Cold Pack/Ice Massage,Electric Stimulation,Hot Packs Next Visit Focus/Plan Next Note Type Treatment Note Next Visit Plan Strengthening for hip extension and rotation. Continue increasing balance and gait challenges as tolerated
--- NOTE | 2019-12-08 15:58 | PT.OTN ---
Current Diagnoses Pain in unspecified hip (12/08/19) Muscle weakness (generalized) (12/08/19) Other abnormalities of gait and mobility (12/08/19) Physical Therapy Treatment Note PT-OP-A Visit Information Start: 04/12/19 15:53 Freq: Status: Active Protocol: Document 12/08/19 15:15 DCW (Rec: 12/08/19 15:58 DCW [id number]) Out-Patient Physical Therapy Visit Information Visit Information Visit Type Treatment Note Visit Start Time 15:15 Visit Stop Time 16:05 Total Visit Minutes 50 Visit Number 11/27 Number of LIMNOLOGY TEACHER Visits 0 Precautions Precautions hx lumbar surgery PT-OP-B Current Condition Start: 04/12/19 15:53 Freq: Status: Active Protocol: Document 11/01/19 16:54 AW (Rec: 11/01/19 17:25 AW [email or web address]) Current Condition History of Current Condition Onset Date 02/13/2018 Current Complaints left posterolateral hip pain History of Current Condition Rafael fell on his left hip in February 2018. He denies any falls since that time. Treatment has included PT for the hip and facet injections for low back pain which he states is no longer a problem. He was seen for PT at this clinic which abruptly ended in May 2019 due to COVID19 shutdown. Pt reports not much has changed, either negatively or positively. Pain is worst when initiating movement after periods of inactivity and is typically localized to the left posterolateral hip. Pt describes occasional pain down the posterior left leg which extends below the knee but he has had no such episodes recently. Pt has been unable to sleep on his left side due to pain. Prior Treatments and Tests - One prior episode of PT. - L4-L5 facet injections for LBP - last one year ago - remote history of lumbar laminectomy Future Testing and Treatments Planned none identified Treatment Goals Patient/Caregiver Goals Pt would like to return to prior level of function including ability to pick things up from the floor and to carry without pain and to walk more than a few blocks without pain. He would also like to be able to keep up with his at the grocery store. Prior Functional Status Baseline Function- ADL's Independent Baseline Function- Mobility Independent Baseline Function- Gait no AD Baseline Function- Work/School retired Baseline Function- Recreation/Hobbies Able to help out around the house without limitation. Current Functional Impairments (Reported) Functional Limitations- Mobility/Gait Antalgic with decreased LLE stance time Functional Limitations- Recreation/ Difficulty participating in Hobbies household duties. Personal Factors Other Personal Factors That May Effect + motivated Therapy/Recovery + previous positive experience with PT PT-OP-C Subjective Start: 04/12/19 15:53 Freq: Status: Active Protocol: Document 12/08/19 15:15 DCW (Rec: 12/08/19 15:58 DCW [id number]) OP-PT Subjective Patient Comments Patient Comments Pt is pretty good today. PT-OP-D Balance Start: 04/12/19 15:53 Freq: Status: Active Protocol: Document 11/01/19 16:54 AW (Rec: 11/01/19 17:25 AW [email or web address]) Balance Tests Single Limb Standing Single Limb- Right <2 seconds Single Limb- Left 1 second Tandem Tandem Standing unable to assume position PT-OP-F Manual Assessment Start: 04/12/19 15:53 Freq: Status: Active Protocol: Document 11/01/19 16:54 AW (Rec: 11/01/19 17:25 AW [email or web address]) Manual Assessments Soft Tissue Assessment Soft Tissue Mobility Assessment No tenderness to palpation at greater trochanter, ischial tuberosity, lateral hip musculature. Increased density noted with left glute med and deep rotators. Joint Mobility Assessment Joint Mobility Assessment Good hip joint play bilaterally without restriction. PT-OP-G Mobility & Gait Start: 04/12/19 15:53 Freq: Status: Active Protocol: Document 11/01/19 16:54 AW (Rec: 11/01/19 17:25 AW [email or web address]) OP Gait Assessment Gait Gait Assistance Required: Independent Distance (Feet) 100 Assistive Devices Assistive Device None Gait Deviations General Gait Pattern Antalgic,Decreased Stride Length,Decreased Feet Clearance,Flexed Trunk,Lateral Trunk Lean Factors Limiting Gait Function Factors Limiting Gait Function Decreased Activity Tolerance, Decreased Strength,Pain,Poor Balance,Poor Safety Awareness Comments Gait Comments Decreased LLE stance time and poor weight shifting to the right side. Left lateral lean due to left hip pain. PT-OP-K Range of Motion Start: 04/12/19 15:53 Freq: Status: Active Protocol: Document 11/01/19 16:54 AW (Rec: 11/01/19 17:25 AW [email or web address]) Lumbar Spine Range of Motion Lumbar Spine Active Comments WNL and pain free Hip Goniometric Range of Motion Hip Left Active Flexion w/Knee Flexed 115 Extension 15 Right Active Flexion w/Knee Flexed 124 Extension 15 Hip ROM Limitations Hip ROM Limitations Soft Tissue Tightness,Pain Comments Pt with limited limited internal rotation bilaterally (L more affected than R), indicating short deep external rotators. PT-OP-L Special Tests Start: 04/12/19 15:53 Freq: Status: Active Protocol: Document 11/01/19 16:54 AW (Rec: 11/01/19 17:25 AW [email or web address]) Special Tests Hip Special Tests Straight Leg Raise Comments 90/90 test for hamstring length: R lacking 30 degrees, L lacking 45 degrees Pillo Test Results positive bilaterally Comments bilateral thighs in abduction and >1 off table with leg straight Scour Test Test Results negative bilaterally Neural Special Tests- Lower Body Sciatic Nerve Tension Test Results negative Comments slump test negative bilaterally PT-OP-M Strength Start: 04/12/19 15:53 Freq: Status: Active Protocol: Document 11/01/19 16:54 AW (Rec: 11/01/19 17:25 AW [email or web address]) Hip Strength Hip Manual Muscle Testing Left Flexion (L2) 4 Good Extension (S1) 4- Good- Abduction 4- Good- Adduction 4- Good- External Rotation 4 Good Internal Rotation 4 Good Comments Painful all planes Right Flexion (L2) 4+ Good+ Extension (S1) 4- Good- Abduction 4- Good- Adduction 4- Good- External Rotation 4+ Good+ Internal Rotation 4+ Good+ Knee Strength Knee Manual Muscle Testing Right Flexion (S2) 4+ Good+ Extension (L3) 4+ Good+ Left Flexion (S2) 4+ Good+ Extension (L3) 4+ Good+ PT-OP-Q Treatments Start: 04/12/19 15:53 Freq: Status: Active Protocol: Document 12/08/19 15:15 DCW (Rec: 12/08/19 15:58 DCW [id number]) Cardio Equipment Recumbent Elliptical (Biodex) Duration (Minutes) 6 Resistance 4 Seat Position 10 Gym Equipment Shuttle Recovery Bilateral Squats Details bilateral squat Resistance 100# Shuttle Recovery Platform Unstable Reps/Time x20 Unilateral Squats Details unilateral squat Resistance 62# Shuttle Recovery Platform Stable Reps/Time 10 reps x 2 each leg Shuttle Balance 1 Details Red Comments Staggered stance Therapeutic Exercises Standing Exercises Lunge Standing Exercise Name Lunge onto BOSU Side bilateral Equipment Used Blue BOSU Lateral band walk Standing Exercise Name Resisted side-stepping Resistance Green Equipment Used T-band Reps/Minutes length of rail x4 Manual Therapy Treatment Soft Tissue Mobilization 1 Body Location left buttock area Mobilization Type Cross-Friction,Strumming, Sustained Pressure,Trigger Point Release Intensity/Depth Moderate Body Position Sidelying PT-OP-R Modalities Start: 04/12/19 15:53 Freq: Status: Active Protocol: Document 12/08/19 15:15 DCW (Rec: 12/08/19 15:58 DCW [id number]) Hot Pack/Cold Pack Treatment L hip Location left hip Patient Position Sidelying Treatment Duration (minutes) 10 Patient Tolerance Good Comments P PT-OP-T Assessment and Plan Start: 04/12/19 15:53 Freq: Status: Active Protocol: Document 12/08/19 15:15 DCW (Rec: 12/08/19 15:58 DCW [id number]) Physical Therapy Assessment Impairments Impairments Activity Tolerance,Balance, Gait,Pain,Posture,ROM,Soft Tissue Mobility,Strength Goals Five Impairment sleep Short Term Goal (STG) Pt will report ability to lie on left hip >1 hour without increase in pain STG Duration 11/29/2019 Kiln Firer Helper Goal (LTG) Pt will report ability to lie on left hip >3 hours without increase in pain LTG Duration 12/27/2019 Four Impairment strength Kiln Firer Helper Goal (LTG) Pt will demonstrate pain-free left hip strength within one- half grade of right hip strength. LTG Duration 12/27/2019 Three Impairment ROM Kiln Firer Helper Goal (LTG) Pt will have left hip AROM within 5 degrees of right hip AROM. LTG Duration 12/27/2019 One Impairment participation in home duties Short Term Goal (STG) Pt will be able to lift a 10- pound bag of groceries from knee height in either hand and carry 50 feet without increase in pain STG Duration 11/29/2019 Kiln Firer Helper Goal (LTG) Pt will be able to lift a 10- pound bag of groceries from the ground in either hand and carry 50 feet without increase in pain LTG Duration 12/27/2019 Assessment Summary Assessment Pt showing a little more antalgia today during ambulation, unclear of any specific cause, although he did admit he did a lot of walking today. Pt overall tolerated treatment well, no new complaints. Physical Therapy Plan Frequency and Duration Frequency of Treatment 2x/Week Duration of Treatment 8 weeks Plan of Care Start Date 11/01/19 Plan of Care End Date 12/27/19 Therapeutic Interventions Therapeutic Interventions Balance Training,Gait Training ,Home Exercise Program,Manual Therapy,Neuromuscular Re- education,Patient/Caregiver Education,Soft Tissue Mobilization,Taping, Therapeutic Activities, Therapeutic Exercises Modalities Cold Pack/Ice Massage,Electric Stimulation,Hot Packs Next Visit Focus/Plan Next Note Type Treatment Note Next Visit Plan Strengthening for hip extension and rotation. Continue increasing balance and gait challenges as tolerated
--- NOTE | 2019-12-14 16:01 | PT.OTN ---
Current Diagnoses Pain in unspecified hip (12/14/19) Muscle weakness (generalized) (12/14/19) Other abnormalities of gait and mobility (12/14/19) Physical Therapy Treatment Note PT-OP-A Visit Information Start: 04/12/19 15:53 Freq: Status: Active Protocol: Document 12/14/19 15:15 DCW (Rec: 12/14/19 16:01 DCW [id number]) Out-Patient Physical Therapy Visit Information Visit Information Visit Type Treatment Note Visit Start Time 15:15 Visit Stop Time 16:00 Total Visit Minutes 45 Visit Number 12/27 Number of COMPUTER PROGRAMMER CHIEF Visits 0 Precautions Precautions hx lumbar surgery PT-OP-B Current Condition Start: 04/12/19 15:53 Freq: Status: Active Protocol: Document 11/01/19 16:54 AW (Rec: 11/01/19 17:25 AW [email or web address]) Current Condition History of Current Condition Onset Date 02/13/2018 Current Complaints left posterolateral hip pain History of Current Condition Rafael fell on his left hip in February 2018. He denies any falls since that time. Treatment has included PT for the hip and facet injections for low back pain which he states is no longer a problem. He was seen for PT at this clinic which abruptly ended in May 2019 due to COVID19 shutdown. Pt reports not much has changed, either negatively or positively. Pain is worst when initiating movement after periods of inactivity and is typically localized to the left posterolateral hip. Pt describes occasional pain down the posterior left leg which extends below the knee but he has had no such episodes recently. Pt has been unable to sleep on his left side due to pain. Prior Treatments and Tests - One prior episode of PT. - L4-L5 facet injections for LBP - last one year ago - remote history of lumbar laminectomy Future Testing and Treatments Planned none identified Treatment Goals Patient/Caregiver Goals Pt would like to return to prior level of function including ability to pick things up from the floor and to carry without pain and to walk more than a few blocks without pain. He would also like to be able to keep up with his at the grocery store. Prior Functional Status Baseline Function- ADL's Independent Baseline Function- Mobility Independent Baseline Function- Gait no AD Baseline Function- Work/School retired Baseline Function- Recreation/Hobbies Able to help out around the house without limitation. Current Functional Impairments (Reported) Functional Limitations- Mobility/Gait Antalgic with decreased LLE stance time Functional Limitations- Recreation/ Difficulty participating in Hobbies household duties. Personal Factors Other Personal Factors That May Effect + motivated Therapy/Recovery + previous positive experience with PT PT-OP-C Subjective Start: 04/12/19 15:53 Freq: Status: Active Protocol: Document 12/14/19 15:15 DCW (Rec: 12/14/19 16:01 DCW [id number]) OP-PT Subjective Patient Comments Patient Comments I can still hardly lay on my left side because of the pain. It gets up to a 5-6/10 when I 'm laying on it. PT-OP-D Balance Start: 04/12/19 15:53 Freq: Status: Active Protocol: Document 11/01/19 16:54 AW (Rec: 11/01/19 17:25 AW [email or web address]) Balance Tests Single Limb Standing Single Limb- Right <2 seconds Single Limb- Left 1 second Tandem Tandem Standing unable to assume position PT-OP-F Manual Assessment Start: 04/12/19 15:53 Freq: Status: Active Protocol: Document 11/01/19 16:54 AW (Rec: 11/01/19 17:25 AW [email or web address]) Manual Assessments Soft Tissue Assessment Soft Tissue Mobility Assessment No tenderness to palpation at greater trochanter, ischial tuberosity, lateral hip musculature. Increased density noted with left glute med and deep rotators. Joint Mobility Assessment Joint Mobility Assessment Good hip joint play bilaterally without restriction. PT-OP-G Mobility & Gait Start: 04/12/19 15:53 Freq: Status: Active Protocol: Document 11/01/19 16:54 AW (Rec: 11/01/19 17:25 AW [email or web address]) OP Gait Assessment Gait Gait Assistance Required: Independent Distance (Feet) 100 Assistive Devices Assistive Device None Gait Deviations General Gait Pattern Antalgic,Decreased Stride Length,Decreased Feet Clearance,Flexed Trunk,Lateral Trunk Lean Factors Limiting Gait Function Factors Limiting Gait Function Decreased Activity Tolerance, Decreased Strength,Pain,Poor Balance,Poor Safety Awareness Comments Gait Comments Decreased LLE stance time and poor weight shifting to the right side. Left lateral lean due to left hip pain. PT-OP-K Range of Motion Start: 04/12/19 15:53 Freq: Status: Active Protocol: Document 11/01/19 16:54 AW (Rec: 11/01/19 17:25 AW [email or web address]) Lumbar Spine Range of Motion Lumbar Spine Active Comments WNL and pain free Hip Goniometric Range of Motion Hip Left Active Flexion w/Knee Flexed 115 Extension 15 Right Active Flexion w/Knee Flexed 124 Extension 15 Hip ROM Limitations Hip ROM Limitations Soft Tissue Tightness,Pain Comments Pt with limited limited internal rotation bilaterally (L more affected than R), indicating short deep external rotators. PT-OP-L Special Tests Start: 04/12/19 15:53 Freq: Status: Active Protocol: Document 11/01/19 16:54 AW (Rec: 11/01/19 17:25 AW [email or web address]) Special Tests Hip Special Tests Straight Leg Raise Comments 90/90 test for hamstring length: R lacking 30 degrees, L lacking 45 degrees Pillo Test Results positive bilaterally Comments bilateral thighs in abduction and >1 off table with leg straight Scour Test Test Results negative bilaterally Neural Special Tests- Lower Body Sciatic Nerve Tension Test Results negative Comments slump test negative bilaterally PT-OP-M Strength Start: 04/12/19 15:53 Freq: Status: Active Protocol: Document 11/01/19 16:54 AW (Rec: 11/01/19 17:25 AW [email or web address]) Hip Strength Hip Manual Muscle Testing Left Flexion (L2) 4 Good Extension (S1) 4- Good- Abduction 4- Good- Adduction 4- Good- External Rotation 4 Good Internal Rotation 4 Good Comments Painful all planes Right Flexion (L2) 4+ Good+ Extension (S1) 4- Good- Abduction 4- Good- Adduction 4- Good- External Rotation 4+ Good+ Internal Rotation 4+ Good+ Knee Strength Knee Manual Muscle Testing Right Flexion (S2) 4+ Good+ Extension (L3) 4+ Good+ Left Flexion (S2) 4+ Good+ Extension (L3) 4+ Good+ PT-OP-Q Treatments Start: 04/12/19 15:53 Freq: Status: Active Protocol: Document 12/14/19 15:15 DCW (Rec: 12/14/19 16:01 DCW [id number]) Cardio Equipment Recumbent Elliptical (Biodex) Duration (Minutes) 6 Resistance 4 Seat Position 10 Gym Equipment Shuttle Recovery Bilateral Squats Details bilateral squat Resistance 100# Shuttle Recovery Platform Unstable Reps/Time x20 Unilateral Squats Details unilateral squat Resistance 62# Shuttle Recovery Platform Stable Reps/Time 10 reps x 2 each leg Shuttle Balance 1 Details Red Comments Staggered stance Therapeutic Exercises Standing Exercises Lateral band walk Standing Exercise Name Resisted side-stepping Resistance Green Equipment Used T-band Reps/Minutes length of rail x4 Manual Therapy Treatment Soft Tissue Mobilization 1 Body Location left buttock area Mobilization Type Cross-Friction,Strumming, Sustained Pressure,Trigger Point Release Intensity/Depth Moderate Body Position Sidelying PT-OP-R Modalities Start: 04/12/19 15:53 Freq: Status: Active Protocol: Document 12/08/19 15:15 DCW (Rec: 12/08/19 15:58 DCW [id number]) Hot Pack/Cold Pack Treatment L hip Location left hip Patient Position Sidelying Treatment Duration (minutes) 10 Patient Tolerance Good Comments MHP PT-OP-T Assessment and Plan Start: 04/12/19 15:53 Freq: Status: Active Protocol: Document 12/14/19 15:15 DCW (Rec: 12/14/19 16:01 DCW [id number]) Physical Therapy Assessment Impairments Impairments Activity Tolerance,Balance, Gait,Pain,Posture,ROM,Soft Tissue Mobility,Strength Goals Five Impairment sleep Short Term Goal (STG) Pt will report ability to lie on left hip >1 hour without increase in pain STG Duration 11/29/2019 Roof Truss Machine Tender Goal (LTG) Pt will report ability to lie on left hip >3 hours without increase in pain LTG Duration 12/27/2019 Four Impairment strength Senior Living Goal (LTG) Pt will demonstrate pain-free left hip strength within one- half grade of right hip strength. LTG Duration 12/27/2019 Three Impairment ROM Senior Living Goal (LTG) Pt will have left hip AROM within 5 degrees of right hip AROM. LTG Duration 12/27/2019 One Impairment participation in home duties Short Term Goal (STG) Pt will be able to lift a 10- pound bag of groceries from knee height in either hand and carry 50 feet without increase in pain STG Duration 11/29/2019 Senior Living Goal (LTG) Pt will be able to lift a 10- pound bag of groceries from the ground in either hand and carry 50 feet without increase in pain LTG Duration 12/27/2019 Assessment Summary Assessment Pt still presenting with increased antalgia with gait today. Overall feels like he is doing better, but complaints are still fairly similar to initial complaints. Physical Therapy Plan Frequency and Duration Frequency of Treatment 2x/Week Duration of Treatment 8 weeks Plan of Care Start Date 11/01/19 Plan of Care End Date 12/27/19 Therapeutic Interventions Therapeutic Interventions Balance Training,Gait Training ,Home Exercise Program,Manual Therapy,Neuromuscular Re- education,Patient/Caregiver Education,Soft Tissue Mobilization,Taping, Therapeutic Activities, Therapeutic Exercises Modalities Cold Pack/Ice Massage,Electric Stimulation,Hot Packs Next Visit Focus/Plan Next Note Type Treatment Note Next Visit Plan Strengthening for hip extension and rotation. Continue increasing balance and gait challenges as tolerated
--- NOTE | 2019-12-19 11:17 | PT.OTN ---
Current Diagnoses Pain in unspecified hip (12/19/19) Muscle weakness (generalized) (12/19/19) Other abnormalities of gait and mobility (12/19/19) Physical Therapy Treatment Note PT-OP-A Visit Information Start: 04/12/19 15:53 Freq: Status: Active Protocol: Document 12/19/19 10:35 DCW (Rec: 12/19/19 11:16 DCW [id number]) Out-Patient Physical Therapy Visit Information Visit Information Visit Type Treatment Note Visit Start Time 10:35 Visit Stop Time 11:15 Total Visit Minutes 40 Visit Number 01/27 Number of HEAD BANDER AND LINER OPERATOR Visits 0 Precautions Precautions hx lumbar surgery PT-OP-B Current Condition Start: 04/12/19 15:53 Freq: Status: Active Protocol: Document 11/01/19 16:54 AW (Rec: 11/01/19 17:25 AW [email or web address]) Current Condition History of Current Condition Onset Date 02/13/2018 Current Complaints left posterolateral hip pain History of Current Condition Rafael fell on his left hip in February 2018. He denies any falls since that time. Treatment has included PT for the hip and facet injections for low back pain which he states is no longer a problem. He was seen for PT at this clinic which abruptly ended in May 2019 due to COVID19 shutdown. Pt reports not much has changed, either negatively or positively. Pain is worst when initiating movement after periods of inactivity and is typically localized to the left posterolateral hip. Pt describes occasional pain down the posterior left leg which extends below the knee but he has had no such episodes recently. Pt has been unable to sleep on his left side due to pain. Prior Treatments and Tests - One prior episode of PT. - L4-L5 facet injections for LBP - last one year ago - remote history of lumbar laminectomy Future Testing and Treatments Planned none identified Treatment Goals Patient/Caregiver Goals Pt would like to return to prior level of function including ability to pick things up from the floor and to carry without pain and to walk more than a few blocks without pain. He would also like to be able to keep up with his at the grocery store. Prior Functional Status Baseline Function- ADL's Independent Baseline Function- Mobility Independent Baseline Function- Gait no AD Baseline Function- Work/School retired Baseline Function- Recreation/Hobbies Able to help out around the house without limitation. Current Functional Impairments (Reported) Functional Limitations- Mobility/Gait Antalgic with decreased LLE stance time Functional Limitations- Recreation/ Difficulty participating in Hobbies household duties. Personal Factors Other Personal Factors That May Effect + motivated Therapy/Recovery + previous positive experience with PT PT-OP-C Subjective Start: 04/12/19 15:53 Freq: Status: Active Protocol: Document 12/19/19 10:35 DCW (Rec: 12/19/19 11:16 DCW [id number]) OP-PT Subjective Patient Comments Patient Comments I'm actually doing pretty good today. PT-OP-D Balance Start: 04/12/19 15:53 Freq: Status: Active Protocol: Document 11/01/19 16:54 AW (Rec: 11/01/19 17:25 AW [email or web address]) Balance Tests Single Limb Standing Single Limb- Right <2 seconds Single Limb- Left 1 second Tandem Tandem Standing unable to assume position PT-OP-F Manual Assessment Start: 04/12/19 15:53 Freq: Status: Active Protocol: Document 11/01/19 16:54 AW (Rec: 11/01/19 17:25 AW [email or web address]) Manual Assessments Soft Tissue Assessment Soft Tissue Mobility Assessment No tenderness to palpation at greater trochanter, ischial tuberosity, lateral hip musculature. Increased density noted with left glute med and deep rotators. Joint Mobility Assessment Joint Mobility Assessment Good hip joint play bilaterally without restriction. PT-OP-G Mobility & Gait Start: 04/12/19 15:53 Freq: Status: Active Protocol: Document 11/01/19 16:54 AW (Rec: 11/01/19 17:25 AW [email or web address]) OP Gait Assessment Gait Gait Assistance Required: Independent Distance (Feet) 100 Assistive Devices Assistive Device None Gait Deviations General Gait Pattern Antalgic,Decreased Stride Length,Decreased Feet Clearance,Flexed Trunk,Lateral Trunk Lean Factors Limiting Gait Function Factors Limiting Gait Function Decreased Activity Tolerance, Decreased Strength,Pain,Poor Balance,Poor Safety Awareness Comments Gait Comments Decreased LLE stance time and poor weight shifting to the right side. Left lateral lean due to left hip pain. PT-OP-K Range of Motion Start: 04/12/19 15:53 Freq: Status: Active Protocol: Document 11/01/19 16:54 AW (Rec: 11/01/19 17:25 AW [email or web address]) Lumbar Spine Range of Motion Lumbar Spine Active Comments WNL and pain free Hip Goniometric Range of Motion Hip Left Active Flexion w/Knee Flexed 115 Extension 15 Right Active Flexion w/Knee Flexed 124 Extension 15 Hip ROM Limitations Hip ROM Limitations Soft Tissue Tightness,Pain Comments Pt with limited limited internal rotation bilaterally (L more affected than R), indicating short deep external rotators. PT-OP-L Special Tests Start: 04/12/19 15:53 Freq: Status: Active Protocol: Document 11/01/19 16:54 AW (Rec: 11/01/19 17:25 AW [email or web address]) Special Tests Hip Special Tests Straight Leg Raise Comments 90/90 test for hamstring length: R lacking 30 degrees, L lacking 45 degrees Pillo Test Results positive bilaterally Comments bilateral thighs in abduction and >1 off table with leg straight Scour Test Test Results negative bilaterally Neural Special Tests- Lower Body Sciatic Nerve Tension Test Results negative Comments slump test negative bilaterally PT-OP-M Strength Start: 04/12/19 15:53 Freq: Status: Active Protocol: Document 11/01/19 16:54 AW (Rec: 11/01/19 17:25 AW [email or web address]) Hip Strength Hip Manual Muscle Testing Left Flexion (L2) 4 Good Extension (S1) 4- Good- Abduction 4- Good- Adduction 4- Good- External Rotation 4 Good Internal Rotation 4 Good Comments Painful all planes Right Flexion (L2) 4+ Good+ Extension (S1) 4- Good- Abduction 4- Good- Adduction 4- Good- External Rotation 4+ Good+ Internal Rotation 4+ Good+ Knee Strength Knee Manual Muscle Testing Right Flexion (S2) 4+ Good+ Extension (L3) 4+ Good+ Left Flexion (S2) 4+ Good+ Extension (L3) 4+ Good+ PT-OP-Q Treatments Start: 04/12/19 15:53 Freq: Status: Active Protocol: Document 12/19/19 10:35 DCW (Rec: 12/19/19 11:16 DCW [id number]) Cardio Equipment Recumbent Stepper (Sci-Fit) Duration (Minutes) 6 Resistance 3 Seat Position 11 Gym Equipment Shuttle Recovery Bilateral Squats Details bilateral squat Resistance 100# Shuttle Recovery Platform Unstable Reps/Time x20 Unilateral Squats Details unilateral squat Resistance 62# Shuttle Recovery Platform Stable Reps/Time 10 reps x 2 each leg Therapeutic Exercises Sidelying Exercises Reverse Clamshell Sidelying Exercise Name Reverse Clamshell Side bilateral Reps/Minutes 2x10 Clamshell Sidelying Exercise Name Clamshell Side bilateral Reps/Minutes 2x10 Manual Therapy Treatment Soft Tissue Mobilization 1 Body Location left buttock area Mobilization Type Cross-Friction,Strumming, Sustained Pressure,Trigger Point Release Intensity/Depth Moderate Body Position Sidelying PT-OP-R Modalities Start: 04/12/19 15:53 Freq: Status: Active Protocol: Document 12/08/19 15:15 DCW (Rec: 12/08/19 15:58 DCW [id number]) Hot Pack/Cold Pack Treatment L hip Location left hip Patient Position Sidelying Treatment Duration (minutes) 10 Patient Tolerance Good Comments MHP PT-OP-T Assessment and Plan Start: 04/12/19 15:53 Freq: Status: Active Protocol: Document 12/19/19 10:35 DCW (Rec: 12/19/19 11:16 DCW [id number]) Physical Therapy Assessment Impairments Impairments Activity Tolerance,Balance, Gait,Pain,Posture,ROM,Soft Tissue Mobility,Strength Goals Five Impairment sleep Short Term Goal (STG) Pt will report ability to lie on left hip >1 hour without increase in pain STG Duration 11/29/2019 Assisted Goal (LTG) Pt will report ability to lie on left hip >3 hours without increase in pain LTG Duration 12/27/2019 Four Impairment strength Assisted Goal (LTG) Pt will demonstrate pain-free left hip strength within one- half grade of right hip strength. LTG Duration 12/27/2019 Three Impairment ROM Assisted Goal (LTG) Pt will have left hip AROM within 5 degrees of right hip AROM. LTG Duration 12/27/2019 One Impairment participation in home duties Short Term Goal (STG) Pt will be able to lift a 10- pound bag of groceries from knee height in either hand and carry 50 feet without increase in pain STG Duration 11/29/2019 New Order Clerk Goal (LTG) Pt will be able to lift a 10- pound bag of groceries from the ground in either hand and carry 50 feet without increase in pain LTG Duration 12/27/2019 Assessment Summary Assessment Pt doing better today, tolerated treatment well, minimal complaints of pain or stiffness. Physical Therapy Plan Frequency and Duration Frequency of Treatment 2x/Week Duration of Treatment 8 weeks Plan of Care Start Date 11/01/19 Plan of Care End Date 12/27/19 Therapeutic Interventions Therapeutic Interventions Balance Training,Gait Training ,Home Exercise Program,Manual Therapy,Neuromuscular Re- education,Patient/Caregiver Education,Soft Tissue Mobilization,Taping, Therapeutic Activities, Therapeutic Exercises Modalities Cold Pack/Ice Massage,Electric Stimulation,Hot Packs Next Visit Focus/Plan Next Note Type Progress Note Next Visit Plan Strengthening for hip extension and rotation. Continue increasing balance and gait challenges as tolerated
--- NOTE | 2019-12-21 12:44 | PT.OTN ---
Current Diagnoses Pain in unspecified hip (12/21/19) Muscle weakness (generalized) (12/21/19) Other abnormalities of gait and mobility (12/21/19) Physical Therapy Treatment Note PT-OP-A Visit Information Start: 04/12/19 15:53 Freq: Status: Active Protocol: Document 12/21/19 12:00 DCW (Rec: 12/21/19 12:44 DCW [id number]) Out-Patient Physical Therapy Visit Information Visit Information Visit Type Treatment Note Visit Start Time 12:00 Visit Stop Time 12:50 Total Visit Minutes 50 Visit Number 02/26 Number of TRACK HELPER Visits 0 Precautions Precautions hx lumbar surgery PT-OP-B Current Condition Start: 04/12/19 15:53 Freq: Status: Active Protocol: Document 11/01/19 16:54 AW (Rec: 11/01/19 17:25 AW [email or web address]) Current Condition History of Current Condition Onset Date 02/13/2018 Current Complaints left posterolateral hip pain History of Current Condition Rafael fell on his left hip in February 2018. He denies any falls since that time. Treatment has included PT for the hip and facet injections for low back pain which he states is no longer a problem. He was seen for PT at this clinic which abruptly ended in May 2019 due to COVID19 shutdown. Pt reports not much has changed, either negatively or positively. Pain is worst when initiating movement after periods of inactivity and is typically localized to the left posterolateral hip. Pt describes occasional pain down the posterior left leg which extends below the knee but he has had no such episodes recently. Pt has been unable to sleep on his left side due to pain. Prior Treatments and Tests - One prior episode of PT. - L4-L5 facet injections for LBP - last one year ago - remote history of lumbar laminectomy Future Testing and Treatments Planned none identified Treatment Goals Patient/Caregiver Goals Pt would like to return to prior level of function including ability to pick things up from the floor and to carry without pain and to walk more than a few blocks without pain. He would also like to be able to keep up with his at the grocery store. Prior Functional Status Baseline Function- ADL's Independent Baseline Function- Mobility Independent Baseline Function- Gait no AD Baseline Function- Work/School retired Baseline Function- Recreation/Hobbies Able to help out around the house without limitation. Current Functional Impairments (Reported) Functional Limitations- Mobility/Gait Antalgic with decreased LLE stance time Functional Limitations- Recreation/ Difficulty participating in Hobbies household duties. Personal Factors Other Personal Factors That May Effect + motivated Therapy/Recovery + previous positive experience with PT PT-OP-C Subjective Start: 04/12/19 15:53 Freq: Status: Active Protocol: Document 12/21/19 12:00 DCW (Rec: 12/21/19 12:44 DCW [id number]) OP-PT Subjective Patient Comments Patient Comments Pt overall doing pretty well, still experiences some hip and back problems with extended walking and when sleeping at night. PT-OP-D Balance Start: 04/12/19 15:53 Freq: Status: Active Protocol: Document 11/01/19 16:54 AW (Rec: 11/01/19 17:25 AW [email or web address]) Balance Tests Single Limb Standing Single Limb- Right <2 seconds Single Limb- Left 1 second Tandem Tandem Standing unable to assume position PT-OP-F Manual Assessment Start: 04/12/19 15:53 Freq: Status: Active Protocol: Document 11/01/19 16:54 AW (Rec: 11/01/19 17:25 AW [email or web address]) Manual Assessments Soft Tissue Assessment Soft Tissue Mobility Assessment No tenderness to palpation at greater trochanter, ischial tuberosity, lateral hip musculature. Increased density noted with left glute med and deep rotators. Joint Mobility Assessment Joint Mobility Assessment Good hip joint play bilaterally without restriction. PT-OP-G Mobility & Gait Start: 04/12/19 15:53 Freq: Status: Active Protocol: Document 11/01/19 16:54 AW (Rec: 11/01/19 17:25 AW [email or web address]) OP Gait Assessment Gait Gait Assistance Required: Independent Distance (Feet) 100 Assistive Devices Assistive Device None Gait Deviations General Gait Pattern Antalgic,Decreased Stride Length,Decreased Feet Clearance,Flexed Trunk,Lateral Trunk Lean Factors Limiting Gait Function Factors Limiting Gait Function Decreased Activity Tolerance, Decreased Strength,Pain,Poor Balance,Poor Safety Awareness Comments Gait Comments Decreased LLE stance time and poor weight shifting to the right side. Left lateral lean due to left hip pain. PT-OP-K Range of Motion Start: 04/12/19 15:53 Freq: Status: Active Protocol: Document 11/01/19 16:54 AW (Rec: 11/01/19 17:25 AW [email or web address]) Lumbar Spine Range of Motion Lumbar Spine Active Comments WNL and pain free Hip Goniometric Range of Motion Hip Left Active Flexion w/Knee Flexed 115 Extension 15 Right Active Flexion w/Knee Flexed 124 Extension 15 Hip ROM Limitations Hip ROM Limitations Soft Tissue Tightness,Pain Comments Pt with limited limited internal rotation bilaterally (L more affected than R), indicating short deep external rotators. PT-OP-L Special Tests Start: 04/12/19 15:53 Freq: Status: Active Protocol: Document 11/01/19 16:54 AW (Rec: 11/01/19 17:25 AW [email or web address]) Special Tests Hip Special Tests Straight Leg Raise Comments 90/90 test for hamstring length: R lacking 30 degrees, L lacking 45 degrees Pillo Test Results positive bilaterally Comments bilateral thighs in abduction and >1 off table with leg straight Scour Test Test Results negative bilaterally Neural Special Tests- Lower Body Sciatic Nerve Tension Test Results negative Comments slump test negative bilaterally PT-OP-M Strength Start: 04/12/19 15:53 Freq: Status: Active Protocol: Document 11/01/19 16:54 AW (Rec: 11/01/19 17:25 AW [email or web address]) Hip Strength Hip Manual Muscle Testing Left Flexion (L2) 4 Good Extension (S1) 4- Good- Abduction 4- Good- Adduction 4- Good- External Rotation 4 Good Internal Rotation 4 Good Comments Painful all planes Right Flexion (L2) 4+ Good+ Extension (S1) 4- Good- Abduction 4- Good- Adduction 4- Good- External Rotation 4+ Good+ Internal Rotation 4+ Good+ Knee Strength Knee Manual Muscle Testing Right Flexion (S2) 4+ Good+ Extension (L3) 4+ Good+ Left Flexion (S2) 4+ Good+ Extension (L3) 4+ Good+ PT-OP-Q Treatments Start: 04/12/19 15:53 Freq: Status: Active Protocol: Document 12/21/19 12:00 DCW (Rec: 12/21/19 12:44 DCW [id number]) Cardio Equipment Recumbent Elliptical (Biodex) Duration (Minutes) 6 Resistance 5 Seat Position 9 Gym Equipment Shuttle Recovery Bilateral Squats Details bilateral squat Resistance 100# Shuttle Recovery Platform Unstable Reps/Time 2x10 Unilateral Squats Details unilateral squat Resistance 62# Shuttle Recovery Platform Stable Reps/Time 10 reps x 2 each leg Shuttle Balance 1 Details Red Comments Staggered stance Therapeutic Exercises Standing Exercises Lateral band walk Standing Exercise Name Resisted side-stepping, fwd, bkwd Resistance Green Equipment Used T-band Reps/Minutes length of rail x4 Manual Therapy Treatment Soft Tissue Mobilization 1 Body Location left buttock area Mobilization Type Cross-Friction,Strumming, Sustained Pressure,Trigger Point Release Intensity/Depth Moderate Body Position Sidelying PT-OP-R Modalities Start: 04/12/19 15:53 Freq: Status: Active Protocol: Document 12/21/19 12:00 DCW (Rec: 12/21/19 12:44 DCW [id number]) Hot Pack/Cold Pack Treatment L hip Location left hip Patient Position Sidelying Treatment Duration (minutes) 10 Patient Tolerance Good Comments MHP PT-OP-T Assessment and Plan Start: 04/12/19 15:53 Freq: Status: Active Protocol: Document 12/21/19 12:00 DCW (Rec: 12/21/19 12:44 DCW [id number]) Physical Therapy Assessment Impairments Impairments Activity Tolerance,Balance, Gait,Pain,Posture,ROM,Soft Tissue Mobility,Strength Goals Five Impairment sleep Short Term Goal (STG) Pt will report ability to lie on left hip >1 hour without increase in pain STG Duration 11/29/2019 Social Service Liaison Goal (LTG) Pt will report ability to lie on left hip >3 hours without increase in pain LTG Duration 12/27/2019 Four Impairment strength Prison Goal (LTG) Pt will demonstrate pain-free left hip strength within one- half grade of right hip strength. LTG Duration 12/27/2019 Three Impairment ROM Social Service Liaison Goal (LTG) Pt will have left hip AROM within 5 degrees of right hip AROM. LTG Duration 12/27/2019 One Impairment participation in home duties Short Term Goal (STG) Pt will be able to lift a 10- pound bag of groceries from knee height in either hand and carry 50 feet without increase in pain STG Duration 11/29/2019 Social Service Liaison Goal (LTG) Pt will be able to lift a 10- pound bag of groceries from the ground in either hand and carry 50 feet without increase in pain LTG Duration 12/27/2019 Assessment Summary Assessment Pt still complains of some occasional pain, mainly with walking. Has been experiencing it less frequently. Pt tolerated activities today with no difficulty. Physical Therapy Plan Frequency and Duration Frequency of Treatment 2x/Week Duration of Treatment 8 weeks Plan of Care Start Date 11/01/19 Plan of Care End Date 12/27/19 Therapeutic Interventions Therapeutic Interventions Balance Training,Gait Training ,Home Exercise Program,Manual Therapy,Neuromuscular Re- education,Patient/Caregiver Education,Soft Tissue Mobilization,Taping, Therapeutic Activities, Therapeutic Exercises Modalities Cold Pack/Ice Massage,Electric Stimulation,Hot Packs Next Visit Focus/Plan Next Note Type Progress Note Next Visit Plan Strengthening for hip extension and rotation. Continue increasing balance and gait challenges as tolerated
--- NOTE | 2019-12-29 12:50 | PT.OTN ---
Current Diagnoses Pain in unspecified hip (12/29/19) Muscle weakness (generalized) (12/29/19) Other abnormalities of gait and mobility (12/29/19) Physical Therapy Treatment Note PT-OP-A Visit Information Start: 04/12/19 15:53 Freq: Status: Active Protocol: Document 12/29/19 12:00 DCW (Rec: 12/29/19 12:50 DCW [id number]) Out-Patient Physical Therapy Visit Information Visit Information Visit Type Progress Note Visit Start Time 12:00 Visit Stop Time 12:50 Total Visit Minutes 50 Visit Number 13/15 Number of RADIO MACHINIST Visits 0 Precautions Precautions hx lumbar surgery PT-OP-B Current Condition Start: 04/12/19 15:53 Freq: Status: Active Protocol: Document 11/01/19 16:54 AW (Rec: 11/01/19 17:25 AW [email or web address]) Current Condition History of Current Condition Onset Date 02/13/2018 Current Complaints left posterolateral hip pain History of Current Condition Rafael fell on his left hip in February 2018. He denies any falls since that time. Treatment has included PT for the hip and facet injections for low back pain which he states is no longer a problem. He was seen for PT at this clinic which abruptly ended in May 2019 due to COVID19 shutdown. Pt reports not much has changed, either negatively or positively. Pain is worst when initiating movement after periods of inactivity and is typically localized to the left posterolateral hip. Pt describes occasional pain down the posterior left leg which extends below the knee but he has had no such episodes recently. Pt has been unable to sleep on his left side due to pain. Prior Treatments and Tests - One prior episode of PT. - L4-L5 facet injections for LBP - last one year ago - remote history of lumbar laminectomy Future Testing and Treatments Planned none identified Treatment Goals Patient/Caregiver Goals Pt would like to return to prior level of function including ability to pick things up from the floor and to carry without pain and to walk more than a few blocks without pain. He would also like to be able to keep up with his at the grocery store. Prior Functional Status Baseline Function- ADL's Independent Baseline Function- Mobility Independent Baseline Function- Gait no AD Baseline Function- Work/School retired Baseline Function- Recreation/Hobbies Able to help out around the house without limitation. Current Functional Impairments (Reported) Functional Limitations- Mobility/Gait Antalgic with decreased LLE stance time Functional Limitations- Recreation/ Difficulty participating in Hobbies household duties. Personal Factors Other Personal Factors That May Effect + motivated Therapy/Recovery + previous positive experience with PT PT-OP-C Subjective Start: 04/12/19 15:53 Freq: Status: Active Protocol: Document 12/29/19 12:00 DCW (Rec: 12/29/19 12:50 DCW [id number]) OP-PT Subjective Patient Comments Patient Comments Pt reports he is doing better in a lot of ways, and feels more knowledgeable, but still feels limited with ambulating and getting into/out of his truck. PT-OP-D Balance Start: 04/12/19 15:53 Freq: Status: Active Protocol: Document 12/29/19 12:00 DCW (Rec: 12/29/19 12:32 DCW [id number]) Balance Tests Single Limb Standing Single Limb- Right 2 seconds Single Limb- Left 3 seconds Tandem Tandem Standing 2 seconds PT-OP-F Manual Assessment Start: 04/12/19 15:53 Freq: Status: Active Protocol: Document 12/29/19 12:00 DCW (Rec: 12/29/19 12:32 DCW [id number]) Manual Assessments Soft Tissue Assessment Soft Tissue Mobility Assessment Continues to display increased tone along left hip rotators and glute med PT-OP-G Mobility & Gait Start: 04/12/19 15:53 Freq: Status: Active Protocol: Document 12/29/19 12:00 DCW (Rec: 12/29/19 12:32 DCW [id number]) OP Gait Assessment Gait Gait Assistance Required: Independent Distance (Feet) 340 Assistive Devices Assistive Device None Gait Deviations General Gait Pattern Antalgic,Decreased Stride Length,Decreased Feet Clearance,Flexed Trunk,Lateral Trunk Lean Factors Limiting Gait Function Factors Limiting Gait Function Decreased Activity Tolerance, Decreased Strength,Pain,Poor Balance,Poor Safety Awareness Comments Gait Comments Decreased LLE stance time and poor weight shifting to the right side. Left lateral lean due to left hip pain. PT-OP-K Range of Motion Start: 04/12/19 15:53 Freq: Status: Active Protocol: Document 12/29/19 12:00 DCW (Rec: 12/29/19 12:32 DCW [id number]) Hip Goniometric Range of Motion Hip Left Active Flexion w/Knee Flexed 119 Extension 15 Internal Rotation 18 External Rotation 32 Right Active Flexion w/Knee Flexed 122 Extension 15 Internal Rotation 25 External Rotation 40 Hip ROM Limitations Hip ROM Limitations Soft Tissue Tightness,Pain Comments Pt with limited limited internal rotation bilaterally (L more affected than R), indicating short deep external rotators. PT-OP-L Special Tests Start: 04/12/19 15:53 Freq: Status: Active Protocol: Document 12/29/19 12:00 DCW (Rec: 12/29/19 12:32 DCW [id number]) Special Tests Hip Special Tests Straight Leg Raise Comments 90/90 test for hamstring length: R lacking 32 degrees, L lacking 30 degrees Pillo Test Results positive bilaterally Comments bilateral thighs in abduction and >1 off table with leg straight PT-OP-M Strength Start: 04/12/19 15:53 Freq: Status: Active Protocol: Document 12/29/19 12:00 DCW (Rec: 12/29/19 12:32 DCW [id number]) Hip Strength Hip Manual Muscle Testing Left Flexion (L2) 4+ Good+ Extension (S1) 4+ Good+ Abduction 4 Good Adduction 4 Good External Rotation 5 Normal Internal Rotation 4+ Good+ Right Flexion (L2) 4+ Good+ Extension (S1) 5 Normal Abduction 4+ Good+ Adduction 4+ Good+ External Rotation 5 Normal Internal Rotation 5 Normal Knee Strength Knee Manual Muscle Testing Right Flexion (S2) 5 Normal Extension (L3) 5 Normal Left Flexion (S2) 5 Normal Extension (L3) 4+ Good+ PT-OP-Q Treatments Start: 04/12/19 15:53 Freq: Status: Active Protocol: Document 12/29/19 12:00 DCW (Rec: 12/29/19 12:50 DCW [id number]) Gym Equipment Shuttle Recovery Bilateral Squats Details bilateral squat Resistance 100# Shuttle Recovery Platform Unstable Reps/Time 2x10 Unilateral Squats Details unilateral squat Resistance 62# Shuttle Recovery Platform Stable Reps/Time 10 reps x 2 each leg Manual Therapy Treatment Soft Tissue Mobilization 1 Body Location left buttock area Mobilization Type Cross-Friction,Strumming, Sustained Pressure,Trigger Point Release Intensity/Depth Moderate Body Position Sidelying PT-OP-R Modalities Start: 04/12/19 15:53 Freq: Status: Active Protocol: Document 12/29/19 12:00 DCW (Rec: 12/29/19 12:50 DCW [id number]) Hot Pack/Cold Pack Treatment L hip Location left hip Patient Position Sidelying Treatment Duration (minutes) 10 Patient Tolerance Good Comments MHP PT-OP-T Assessment and Plan Start: 04/12/19 15:53 Freq: Status: Active Protocol: Document 12/29/19 12:00 DCW (Rec: 12/29/19 12:50 DCW [id number]) Physical Therapy Assessment Impairments Impairments Activity Tolerance,Balance, Gait,Pain,Posture,ROM,Soft Tissue Mobility,Strength Goals Five Impairment sleep Short Term Goal (STG) Pt will report ability to lie on left hip >1 hour without increase in pain STG Duration 01/29/20 Longterm Goal (LTG) Pt will report ability to lie on left hip >3 hours without increase in pain LTG Duration 02/28/2020 Four Impairment strength Hair Rooting Machine Operator Goal (LTG) Pt will demonstrate pain-free left hip strength within one- half grade of right hip strength. LTG Duration Met Three Impairment ROM Longterm Goal (LTG) Pt will have left hip AROM within 5 degrees of right hip AROM. LTG Duration Met One Impairment participation in home duties Short Term Goal (STG) Pt will be able to lift a 10- pound bag of groceries from knee height in either hand and carry 50 feet without increase in pain STG Duration 01/29/20 Hair Rooting Machine Operator Goal (LTG) Pt will be able to lift a 10- pound bag of groceries from the ground in either hand and carry 50 feet without increase in pain LTG Duration 02/28/2020 Assessment Summary Assessment Pt has made progress in most areas, such as ROM and strength, however still exhibits an antalgic gait with a limited stance time on the left secondary to pain, and is still unable to spend any time lying on his left side. Pt would likely benefit from continued therapy in order to decrease pain and improve gait and balance on left leg. Physical Therapy Plan Frequency and Duration Frequency of Treatment 2x/Week Duration of Treatment 2 months Plan of Care Start Date 12/29/19 Plan of Care End Date 02/28/20 Therapeutic Interventions Therapeutic Interventions Balance Training,Gait Training ,Home Exercise Program,Manual Therapy,Neuromuscular Re- education,Patient/Caregiver Education,Soft Tissue Mobilization,Taping, Therapeutic Activities, Therapeutic Exercises Modalities Cold Pack/Ice Massage,Electric Stimulation,Hot Packs Next Visit Focus/Plan Next Note Type Treatment Note Next Visit Plan Strengthening for hip extension and rotation. Continue increasing balance and gait challenges as tolerated
--- NOTE | 2019-12-29 12:51 | PT.OPPOC ---
Physical, Occupational & Speech Therapy At [facility] Current Diagnoses Pain in unspecified hip (12/29/19) Muscle weakness (generalized) (12/29/19) Other abnormalities of gait and mobility (12/29/19) Visit Care Team Role Provider Type Kleber Mann MD Primary Care Provider Physician Specialty: Internal Medicine Address: [address] [place] [address], [address] Email: [email or web address] Tenisha Gutierrez Attending Provider Non-Staff Specialty: Medical Address: [address] [place] [address], [place], [address] Phone: Email: Plan Of Care PT-OP-T Assessment and Plan Start: 04/12/19 15:53 Freq: Status: Active Protocol: Document 12/29/19 12:00 DCW (Rec: 12/29/19 12:50 DCW [id number]) Physical Therapy Assessment Impairments Impairments Activity Tolerance,Balance, Gait,Pain,Posture,ROM,Soft Tissue Mobility,Strength Goals Five Impairment sleep Short Term Goal (STG) Pt will report ability to lie on left hip >1 hour without increase in pain STG Duration 01/29/20 Nursing Home Goal (LTG) Pt will report ability to lie on left hip >3 hours without increase in pain LTG Duration 02/28/2020 Four Impairment strength Roller Maker Goal (LTG) Pt will demonstrate pain-free left hip strength within one- half grade of right hip strength. LTG Duration Met Three Impairment ROM Nursing Home Goal (LTG) Pt will have left hip AROM within 5 degrees of right hip AROM. LTG Duration Met One Impairment participation in home duties Short Term Goal (STG) Pt will be able to lift a 10- pound bag of groceries from knee height in either hand and carry 50 feet without increase in pain STG Duration 01/29/20 Roller Maker Goal (LTG) Pt will be able to lift a 10- pound bag of groceries from the ground in either hand and carry 50 feet without increase in pain LTG Duration 02/28/2020 Assessment Summary Assessment Pt has made progress in most areas, such as ROM and strength, however still exhibits an antalgic gait with a limited stance time on the left secondary to pain, and is still unable to spend any time lying on his left side. Pt would likely benefit from continued therapy in order to decrease pain and improve gait and balance on left leg. Physical Therapy Plan Frequency and Duration Frequency of Treatment 2x/Week Duration of Treatment 2 months Plan of Care Start Date 12/29/19 Plan of Care End Date 02/28/20 Therapeutic Interventions Therapeutic Interventions Balance Training,Gait Training ,Home Exercise Program,Manual Therapy,Neuromuscular Re- education,Patient/Caregiver Education,Soft Tissue Mobilization,Taping, Therapeutic Activities, Therapeutic Exercises Modalities Cold Pack/Ice Massage,Electric Stimulation,Hot Packs Next Visit Focus/Plan Next Note Type Treatment Note Next Visit Plan Strengthening for hip extension and rotation. Continue increasing balance and gait challenges as tolerated Plan of Care Dates Plan of Care Start Date 12/29/19 Plan of Care End Date 02/28/20 Electronically Signed by: Rodrigue Crocker, PT 12/29/19 2086 Please Sign and Return: I have reviewed this Plan of Care and certify that the skilled therapy services above are required to meet the patient?s needs. Physician Signature Date Printed Name and Credentials Clinical Instructor Signature Printed Name and Credentials
--- NOTE | 2020-01-12 10:32 | PT.OTN ---
Current Diagnoses Pain in unspecified hip (01/12/20) Muscle weakness (generalized) (01/12/20) Other abnormalities of gait and mobility (01/12/20) Physical Therapy Treatment Note PT-OP-A Visit Information Start: 04/12/19 15:53 Freq: Status: Active Protocol: Document 01/12/20 09:45 DCW (Rec: 01/12/20 10:32 DCW [id number]) Out-Patient Physical Therapy Visit Information Visit Information Visit Type Treatment Note Visit Start Time 09:45 Visit Stop Time 10:35 Total Visit Minutes 50 Visit Number 14/15 Number of PLUG SHAPER HAND Visits 0 Precautions Precautions hx lumbar surgery PT-OP-B Current Condition Start: 04/12/19 15:53 Freq: Status: Active Protocol: Document 11/01/19 16:54 AW (Rec: 11/01/19 17:25 AW [id number]) Current Condition History of Current Condition Onset Date 02/13/2018 Current Complaints left posterolateral hip pain History of Current Condition Rafael fell on his left hip in February 2018. He denies any falls since that time. Treatment has included PT for the hip and facet injections for low back pain which he states is no longer a problem. He was seen for PT at this clinic which abruptly ended in May 2019 due to COVID19 shutdown. Pt reports not much has changed, either negatively or positively. Pain is worst when initiating movement after periods of inactivity and is typically localized to the left posterolateral hip. Pt describes occasional pain down the posterior left leg which extends below the knee but he has had no such episodes recently. Pt has been unable to sleep on his left side due to pain. Prior Treatments and Tests - One prior episode of PT. - L4-L5 facet injections for LBP - last one year ago - remote history of lumbar laminectomy Future Testing and Treatments Planned none identified Treatment Goals Patient/Caregiver Goals Pt would like to return to prior level of function including ability to pick things up from the floor and to carry without pain and to walk more than a few blocks without pain. He would also like to be able to keep up with his at the grocery store. Prior Functional Status Baseline Function- ADL's Independent Baseline Function- Mobility Independent Baseline Function- Gait no AD Baseline Function- Work/School retired Baseline Function- Recreation/Hobbies Able to help out around the house without limitation. Current Functional Impairments (Reported) Functional Limitations- Mobility/Gait Antalgic with decreased LLE stance time Functional Limitations- Recreation/ Difficulty participating in Hobbies household duties. Personal Factors Other Personal Factors That May Effect + motivated Therapy/Recovery + previous positive experience with PT PT-OP-C Subjective Start: 04/12/19 15:53 Freq: Status: Active Protocol: Document 01/12/20 09:45 DCW (Rec: 01/12/20 10:32 DCW [id number]) OP-PT Subjective Patient Comments Patient Comments Pt notes he is a little stiff and sore today, is hopeful that he will be getting an injection on Wednesday when he has a follow-up with his PCP. PT-OP-D Balance Start: 04/12/19 15:53 Freq: Status: Active Protocol: Document 12/29/19 12:00 DCW (Rec: 12/29/19 12:32 DCW [id number]) Balance Tests Single Limb Standing Single Limb- Right 2 seconds Single Limb- Left 3 seconds Tandem Tandem Standing 2 seconds PT-OP-F Manual Assessment Start: 04/12/19 15:53 Freq: Status: Active Protocol: Document 12/29/19 12:00 DCW (Rec: 12/29/19 12:32 DCW [id number]) Manual Assessments Soft Tissue Assessment Soft Tissue Mobility Assessment Continues to display increased tone along left hip rotators and glute med PT-OP-G Mobility & Gait Start: 04/12/19 15:53 Freq: Status: Active Protocol: Document 12/29/19 12:00 DCW (Rec: 12/29/19 12:32 DCW [id number]) OP Gait Assessment Gait Gait Assistance Required: Independent Distance (Feet) 340 Assistive Devices Assistive Device None Gait Deviations General Gait Pattern Antalgic,Decreased Stride Length,Decreased Feet Clearance,Flexed Trunk,Lateral Trunk Lean Factors Limiting Gait Function Factors Limiting Gait Function Decreased Activity Tolerance, Decreased Strength,Pain,Poor Balance,Poor Safety Awareness Comments Gait Comments Decreased LLE stance time and poor weight shifting to the right side. Left lateral lean due to left hip pain. PT-OP-K Range of Motion Start: 04/12/19 15:53 Freq: Status: Active Protocol: Document 12/29/19 12:00 DCW (Rec: 12/29/19 12:32 DCW [id number]) Hip Goniometric Range of Motion Hip Left Active Flexion w/Knee Flexed 119 Extension 15 Internal Rotation 18 External Rotation 32 Right Active Flexion w/Knee Flexed 122 Extension 15 Internal Rotation 25 External Rotation 40 Hip ROM Limitations Hip ROM Limitations Soft Tissue Tightness,Pain Comments Pt with limited limited internal rotation bilaterally (L more affected than R), indicating short deep external rotators. PT-OP-L Special Tests Start: 04/12/19 15:53 Freq: Status: Active Protocol: Document 12/29/19 12:00 DCW (Rec: 12/29/19 12:32 DCW [id number]) Special Tests Hip Special Tests Straight Leg Raise Comments 90/90 test for hamstring length: R lacking 32 degrees, L lacking 30 degrees Pillo Test Results positive bilaterally Comments bilateral thighs in abduction and >1 off table with leg straight PT-OP-M Strength Start: 04/12/19 15:53 Freq: Status: Active Protocol: Document 12/29/19 12:00 DCW (Rec: 12/29/19 12:32 DCW [id number]) Hip Strength Hip Manual Muscle Testing Left Flexion (L2) 4+ Good+ Extension (S1) 4+ Good+ Abduction 4 Good Adduction 4 Good External Rotation 5 Normal Internal Rotation 4+ Good+ Right Flexion (L2) 4+ Good+ Extension (S1) 5 Normal Abduction 4+ Good+ Adduction 4+ Good+ External Rotation 5 Normal Internal Rotation 5 Normal Knee Strength Knee Manual Muscle Testing Right Flexion (S2) 5 Normal Extension (L3) 5 Normal Left Flexion (S2) 5 Normal Extension (L3) 4+ Good+ PT-OP-Q Treatments Start: 04/12/19 15:53 Freq: Status: Active Protocol: Document 01/12/20 09:45 DCW (Rec: 01/12/20 10:32 DCW [id number]) Cardio Equipment Recumbent Elliptical ([employer]) Duration (Minutes) 6 Resistance 5 Seat Position 9 Gym Equipment Shuttle Recovery Bilateral Squats Details bilateral squat Resistance 100# Shuttle Recovery Platform Unstable Reps/Time 2x10 Unilateral Squats Details unilateral squat Resistance 62# Shuttle Recovery Platform Stable Reps/Time x10 each leg Shuttle Balance 1 Details Red Comments Staggered stance Therapeutic Exercises Standing Exercises Lateral band walk Standing Exercise Name Resisted side-stepping, fwd, bkwd Resistance Green Equipment Used T-band Reps/Minutes length of rail x4 Manual Therapy Treatment Soft Tissue Mobilization 1 Body Location left buttock area Mobilization Type Cross-Friction,Strumming, Sustained Pressure,Trigger Point Release Intensity/Depth Moderate Body Position Sidelying PT-OP-R Modalities Start: 04/12/19 15:53 Freq: Status: Active Protocol: Document 01/12/20 09:45 DCW (Rec: 01/12/20 10:32 DCW [id number]) Hot Pack/Cold Pack Treatment L hip Location left hip Patient Position Sidelying Treatment Duration (minutes) 10 Patient Tolerance Good Comments MHP PT-OP-T Assessment and Plan Start: 04/12/19 15:53 Freq: Status: Active Protocol: Document 01/12/20 09:45 DCW (Rec: 01/12/20 10:32 DCW [id number]) Physical Therapy Assessment Impairments Impairments Activity Tolerance,Balance, Gait,Pain,Posture,ROM,Soft Tissue Mobility,Strength Goals Five Impairment sleep Short Term Goal (STG) Pt will report ability to lie on left hip >1 hour without increase in pain STG Duration 01/29/20 [employer] Licensee Goal (LTG) Pt will report ability to lie on left hip >3 hours without increase in pain LTG Duration 02/28/2020 Four Impairment strength [employer]e Goal (LTG) Pt will demonstrate pain-free left hip strength within one- half grade of right hip strength. LTG Duration Met Three Impairment ROM [employer] Licensee Goal (LTG) Pt will have left hip AROM within 5 degrees of right hip AROM. LTG Duration Met One Impairment participation in home duties Short Term Goal (STG) Pt will be able to lift a 10- pound bag of groceries from knee height in either hand and carry 50 feet without increase in pain STG Duration 01/29/20 Real Estate Agency Licensee Goal (LTG) Pt will be able to lift a 10- pound bag of groceries from the ground in either hand and carry 50 feet without increase in pain LTG Duration 02/28/2020 Assessment Summary Assessment Pt has one appointment remaining on current insurance authorization, will likely discharge from skilled therapy following his appointment next week. Pt largely unchanged from two weeks ago, still maintains that his hip is limiting his mobility. Physical Therapy Plan Frequency and Duration Frequency of Treatment 2x/Week Duration of Treatment 2 months Plan of Care Start Date 12/29/19 Plan of Care End Date 02/28/20 Therapeutic Interventions Therapeutic Interventions Balance Training,Gait Training ,Home Exercise Program,Manual Therapy,Neuromuscular Re- education,Patient/Caregiver Education,Soft Tissue Mobilization,Taping, Therapeutic Activities, Therapeutic Exercises Modalities Cold Pack/Ice Massage,Electric Stimulation,Hot Packs Next Visit Focus/Plan Next Note Type Treatment Note Next Visit Plan Strengthening for hip extension and rotation. Continue increasing balance and gait challenges as tolerated
--- NOTE | 2020-01-18 12:47 | PT.OTN ---
Current Diagnoses Pain in unspecified hip (01/18/20) Muscle weakness (generalized) (01/18/20) Other abnormalities of gait and mobility (01/18/20) Physical Therapy Treatment Note PT-OP-A Visit Information Start: 04/12/19 15:53 Freq: Status: Active Protocol: Document 01/18/20 12:00 DCW (Rec: 01/18/20 12:47 DCW [id number]) Out-Patient Physical Therapy Visit Information Visit Information Visit Type Treatment Note Visit Start Time 12:00 Visit Stop Time 12:50 Total Visit Minutes 50 Visit Number 15/ Number of HOT TOP LINER HELPER Visits 0 Precautions Precautions hx lumbar surgery PT-OP-B Current Condition Start: 04/12/19 15:53 Freq: Status: Active Protocol: Document 11/01/19 16:54 AW (Rec: 11/01/19 17:25 AW [id number]) Current Condition History of Current Condition Onset Date 02/13/2018 Current Complaints left posterolateral hip pain History of Current Condition Rafael fell on his left hip in February 2018. He denies any falls since that time. Treatment has included PT for the hip and facet injections for low back pain which he states is no longer a problem. He was seen for PT at this clinic which abruptly ended in May 2019 due to COVID19 shutdown. Pt reports not much has changed, either negatively or positively. Pain is worst when initiating movement after periods of inactivity and is typically localized to the left posterolateral hip. Pt describes occasional pain down the posterior left leg which extends below the knee but he has had no such episodes recently. Pt has been unable to sleep on his left side due to pain. Prior Treatments and Tests - One prior episode of PT. - L4-L5 facet injections for LBP - last one year ago - remote history of lumbar laminectomy Future Testing and Treatments Planned none identified Treatment Goals Patient/Caregiver Goals Pt would like to return to prior level of function including ability to pick things up from the floor and to carry without pain and to walk more than a few blocks without pain. He would also like to be able to keep up with his at the grocery store. Prior Functional Status Baseline Function- ADL's Independent Baseline Function- Mobility Independent Baseline Function- Gait no AD Baseline Function- Work/School retired Baseline Function- Recreation/Hobbies Able to help out around the house without limitation. Current Functional Impairments (Reported) Functional Limitations- Mobility/Gait Antalgic with decreased LLE stance time Functional Limitations- Recreation/ Difficulty participating in Hobbies household duties. Personal Factors Other Personal Factors That May Effect + motivated Therapy/Recovery + previous positive experience with PT PT-OP-C Subjective Start: 04/12/19 15:53 Freq: Status: Active Protocol: Document 01/18/20 12:00 DCW (Rec: 01/18/20 12:47 DCW [id number]) OP-PT Subjective Patient Comments Patient Comments Pt admits that trying a heavier weight last session caused some increased pain. PT-OP-D Balance Start: 04/12/19 15:53 Freq: Status: Active Protocol: Document 12/29/19 12:00 DCW (Rec: 12/29/19 12:32 DCW [id number]) Balance Tests Single Limb Standing Single Limb- Right 2 seconds Single Limb- Left 3 seconds Tandem Tandem Standing 2 seconds PT-OP-F Manual Assessment Start: 04/12/19 15:53 Freq: Status: Active Protocol: Document 12/29/19 12:00 DCW (Rec: 12/29/19 12:32 DCW [id number]) Manual Assessments Soft Tissue Assessment Soft Tissue Mobility Assessment Continues to display increased tone along left hip rotators and glute med PT-OP-G Mobility & Gait Start: 04/12/19 15:53 Freq: Status: Active Protocol: Document 12/29/19 12:00 DCW (Rec: 12/29/19 12:32 DCW [id number]) OP Gait Assessment Gait Gait Assistance Required: Independent Distance (Feet) 340 Assistive Devices Assistive Device None Gait Deviations General Gait Pattern Antalgic,Decreased Stride Length,Decreased Feet Clearance,Flexed Trunk,Lateral Trunk Lean Factors Limiting Gait Function Factors Limiting Gait Function Decreased Activity Tolerance, Decreased Strength,Pain,Poor Balance,Poor Safety Awareness Comments Gait Comments Decreased LLE stance time and poor weight shifting to the right side. Left lateral lean due to left hip pain. PT-OP-K Range of Motion Start: 04/12/19 15:53 Freq: Status: Active Protocol: Document 12/29/19 12:00 DCW (Rec: 12/29/19 12:32 DCW [id number]) Hip Goniometric Range of Motion Hip Left Active Flexion w/Knee Flexed 119 Extension 15 Internal Rotation 18 External Rotation 32 Right Active Flexion w/Knee Flexed 122 Extension 15 Internal Rotation 25 External Rotation 40 Hip ROM Limitations Hip ROM Limitations Soft Tissue Tightness,Pain Comments Pt with limited limited internal rotation bilaterally (L more affected than R), indicating short deep external rotators. PT-OP-L Special Tests Start: 04/12/19 15:53 Freq: Status: Active Protocol: Document 12/29/19 12:00 DCW (Rec: 12/29/19 12:32 DCW [id number]) Special Tests Hip Special Tests Straight Leg Raise Comments 90/90 test for hamstring length: R lacking 32 degrees, L lacking 30 degrees Pillo Test Results positive bilaterally Comments bilateral thighs in abduction and >1 off table with leg straight PT-OP-M Strength Start: 04/12/19 15:53 Freq: Status: Active Protocol: Document 12/29/19 12:00 DCW (Rec: 12/29/19 12:32 DCW [id number]) Hip Strength Hip Manual Muscle Testing Left Flexion (L2) 4+ Good+ Extension (S1) 4+ Good+ Abduction 4 Good Adduction 4 Good External Rotation 5 Normal Internal Rotation 4+ Good+ Right Flexion (L2) 4+ Good+ Extension (S1) 5 Normal Abduction 4+ Good+ Adduction 4+ Good+ External Rotation 5 Normal Internal Rotation 5 Normal Knee Strength Knee Manual Muscle Testing Right Flexion (S2) 5 Normal Extension (L3) 5 Normal Left Flexion (S2) 5 Normal Extension (L3) 4+ Good+ PT-OP-Q Treatments Start: 04/12/19 15:53 Freq: Status: Active Protocol: Document 01/18/20 12:00 DCW (Rec: 01/18/20 12:47 DCW [id number]) Cardio Equipment Recumbent Elliptical ([employer]) Duration (Minutes) 6 Resistance 5 Seat Position 9 Gym Equipment Shuttle Recovery Bilateral Squats Details bilateral squat Resistance 87# Shuttle Recovery Platform Stable Reps/Time 2x10 Unilateral Squats Details unilateral squat Resistance 50# Shuttle Recovery Platform Stable Reps/Time x10 each leg Shuttle Balance 1 Details Red Comments Staggered stance Therapeutic Exercises Standing Exercises Lateral band walk Standing Exercise Name Resisted side-stepping, fwd, bkwd Resistance Green Equipment Used T-band Reps/Minutes length of rail x4 Manual Therapy Treatment Soft Tissue Mobilization 1 Body Location left buttock area Mobilization Type Cross-Friction,Strumming, Sustained Pressure,Trigger Point Release Intensity/Depth Moderate Body Position Sidelying PT-OP-R Modalities Start: 04/12/19 15:53 Freq: Status: Active Protocol: Document 01/18/20 12:00 DCW (Rec: 01/18/20 12:47 DCW [id number]) Hot Pack/Cold Pack Treatment L hip Location left hip Patient Position Sidelying Treatment Duration (minutes) 10 Patient Tolerance Good Comments MHP PT-OP-T Assessment and Plan Start: 04/12/19 15:53 Freq: Status: Active Protocol: Document 01/18/20 12:00 DCW (Rec: 01/18/20 12:47 DCW [id number]) Physical Therapy Assessment Impairments Impairments Activity Tolerance,Balance, Gait,Pain,Posture,ROM,Soft Tissue Mobility,Strength Goals Five Impairment sleep Short Term Goal (STG) Pt will report ability to lie on left hip >1 hour without increase in pain STG Duration 01/29/20 Ironer Machine Goal (LTG) Pt will report ability to lie on left hip >3 hours without increase in pain LTG Duration 02/28/2020 Four Impairment strength Snf Goal (LTG) Pt will demonstrate pain-free left hip strength within one- half grade of right hip strength. LTG Duration Met Three Impairment ROM Snf Goal (LTG) Pt will have left hip AROM within 5 degrees of right hip AROM. LTG Duration Met One Impairment participation in home duties Short Term Goal (STG) Pt will be able to lift a 10- pound bag of groceries from knee height in either hand and carry 50 feet without increase in pain STG Duration 01/29/20 Snf Goal (LTG) Pt will be able to lift a 10- pound bag of groceries from the ground in either hand and carry 50 feet without increase in pain LTG Duration 02/28/2020 Assessment Summary Assessment Pt continues to be symptomatic and have difficulty with ambulation. Unfortunately, pt has a hard limit on insurance authorization, and needs a new referral from his PCP to continue. Per pt, this will not happen for a number of months, and he is agreeable to discharge at this time, with hopesa that he will be able to return at some point next year. Physical Therapy Plan Frequency and Duration Frequency of Treatment 2x/Week Duration of Treatment 2 months Plan of Care Start Date 12/29/19 Plan of Care End Date 02/28/20 Therapeutic Interventions Therapeutic Interventions Balance Training,Gait Training ,Home Exercise Program,Manual Therapy,Neuromuscular Re- education,Patient/Caregiver Education,Soft Tissue Mobilization,Taping, Therapeutic Activities, Therapeutic Exercises Modalities Cold Pack/Ice Massage,Electric Stimulation,Hot Packs Discharge Physical Therapy Discharge Reasons Patient Request Next Visit Focus/Plan Next Note Type Discharge Summary
== END 2020-01-22 08:31 ==
LOC: PHYS 12:00
PROVIDERS: PCP Internal Medicine; Visit Provider Internal Medicine
DX: M25.559 Pain in unspecified hip (principal); R26.89 Other abnormalities of gait and mobility; M62.81 Muscle weakness (generalized)
CPT/HCPCS: 97010; 97014; 97110; 97112; 97116; 97140; 97161; 97164; G0283

== ENCOUNTER → 2020-08-07 15:20 | Outpatient (CLI) | payer MEDICARE, OTHER, SELFPAY ==
[2020-08-07 16:28] LABS: Alanine Aminotransferase 22 IU/L (<50); Albumin Globulin Ratio 1.5 (1.0-2.8); Alkaline Phosphatase 76 U/L (38-126); Aspartate Aminotransferase 23 IU/L (17-59); BUN Creatinine Ratio 20.9 (6-22); Bilirubin Total 0.4 mg/dL (0.2-1.3); Blood Urea Nitrogen 19 mg/dL (9-20); Calcium 8.8 mg/dL (8.4-10.2); Carbon Dioxide 27 mmol/L (22-32); Chloride 108 mmol/L (98-107); Estimated Glomerular Filt Rate > 60.0 mL/min (>60); Globulin 2.7 g/dL (1.7-4.1); Glucose 102 mg/dL (80-110); HEMOLYSIS < 15 (0-50); Potassium 4.2 mmol/L (3.4-5.1); Sodium 141 mmol/L (137-145); Total Protein 6.7 g/dL (6.3-8.2)
== END ==
PROVIDERS: PCP Internal Medicine; Referring Provider Internal Medicine; Visit Provider Internal Medicine
DX: I10 Essential (primary) hypertension (principal)
CPT/HCPCS: 36415; 80053

== ENCOUNTER 2020-08-29 15:00 | Emergency (ER) | payer OTHER, MEDICARE, SELFPAY ==
[2020-08-29 15:28] VITALS: BP 119/62; PULSE 64; RESP 16; TEMP 36.6; O2SAT 97; BMI 25.5
--- NOTE | 2020-08-29 15:52 | PC.NURSE ---
Also c/o lower L back pain. Pt is ambulatory.
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
== END 2020-08-29 16:47 | disposition home or self-care (01) ==
PROVIDERS: Emergency Provider Emergency Medicine; PCP Internal Medicine
DX: S16.1XXA Strain of muscle, fascia and tendon at neck level, initial encounter (principal); S39.012A Strain of muscle, fascia and tendon of lower back, initial encounter; V89.2XXA Person injured in unspecified motor-vehicle accident, traffic, initial encounter
CPT/HCPCS: 99281

== ENCOUNTER 2020-10-11 12:34 | Emergency (ER) | payer MEDICARE, OTHER, SELFPAY ==
[2020-10-11 13:01] VITALS: BP 155/71; PULSE 61; RESP 16; TEMP 36.9; O2SAT 97; BMI 28.1
--- NOTE | 2020-10-11 13:01 | DI.US.S_ITS ---
PROCEDURE: US PERIPH VENOUS LOW EXTREM LT INDICATIONS: PAIN AND SWELLING POSTERIOR KNEE TECHNIQUE: Real-time imaging, as well as color and pulse Doppler interrogation, were performed of the lower extremity deep veins from the inguinal ligament to the popliteal fossa. COMPARISON: None. FINDINGS: The common femoral, femoral and popliteal veins are normally compressible, and free of intraluminal thrombus. Color and pulse Doppler demonstrate normal phasic intraluminal flow. There is normal augmentation response to distal compression maneuver. Duplicated mid femoral vein incidentally noted. IMPRESSION: 1. No evidence of deep venous thrombosis in the left lower extremity Dictated by: Yoan Alba M.D. on 10/11/2020 at 13:52 Approved by: Yoan Alba M.D. on 10/11/2020 at 13:53
--- NOTE | 2020-10-11 13:20 | ED.LOWEXIN ---
HPI - Extremity Injury (Lower) General Chief Complaint: Extremity Injury, Lower Stated Complaint: Left Leg Pain Time Seen by Provider: 10/11/20 12:43 History of Present Illness HPI Narrative: 85-year-old male nonsmoker with history of hypertension and hyperlipidemia presents with a chief complaint of a sudden-onset left posterior knee pain while out mowing the lawn earlier today. He denies any injury, states he did not fall, bent awkwardly or twist. He has increased pain with ambulation and improvement with rest. He denies numbness, tingling or weakness. He has had no fever chills. He states that he has never had a blood clot, denies any recent travel and no history of cancer. Related Data Home Medications Medication Instructions Recorded Confirmed amlodipine 5 mg tablet (Norvasc) 10 mg PO QDAY #0 tab 03/30/18 07/24/20 atorvastatin 10 mg tablet 10 mg PO DAILY 03/30/18 07/24/20 carvedilol 12.5 mg tablet 12.5 mg PO BID 03/30/18 07/24/20 losartan 50 mg tablet 50 mg PO BID tab 03/30/18 07/24/20 terbinafine HCl 250 mg tablet 250 mg PO DAILY 03/30/18 07/24/20 venlafaxine 37.5 mg 37.5 mg PO BID cap 03/30/18 07/24/20 capsule,extended release 24 hr epinephrine 0.3 mg/0.3 mL 0.3 mg IM ONCE PRN 08/10/18 07/24/20 injection, auto-injector (EpiPen) omeprazole 20 mg capsule,delayed 20 mg PO BID 02/28/20 07/24/20 release Previous Rx's Medication Instructions Recorded sulconazole 1 % topical cream 1 applictn TOP BID #60 gram 11/06/19 hydroxyzine pamoate 25 mg capsule 25 mg PO TID PRN #60 cap 02/28/20 (Vistaril) diazepam 5 mg tablet (Valium) 5 mg PO TID PRN #10 tab 08/29/20 Allergies Allergy/AdvReac Type Severity Reaction Status Date / Time bee venom protein (honey bee) Allergy Severe Anaphylaxis Verified 08/29/20 15:28 Sulfa (Sulfonamide Allergy Severe Difficulty Verified 08/29/20 15:28 Antibiotics) Breathing iodine [IODINE] Allergy Unknown Verified 08/29/20 15:28 morphine [MORPHINE] Allergy Unknown Verified 08/29/20 15:28 shellfish derived Allergy Unknown Verified 08/29/20 15:28 [SHELLFISH DERIVED] bupropion [From Wellbutrin] AdvReac Intermediate Depression Verified 08/29/20 15:28 hydrochlorothiazide AdvReac Unknown Verified 08/29/20 15:28 [From Dyazide] triamterene [From Dyazide] AdvReac Unknown Verified 08/29/20 15:28 Celecoxib Allergy N/V Uncoded 07/24/20 13:07 Review of Systems Review of Systems Narrative: GENERAL: Denies chills, fatigue, malaise, fever, sweats. HEENT: Denies sinus pain, ear pain, sore throat, difficulty swallowing, dizziness. RESPIRATORY: Denies dyspnea, cough, wheezing, hemoptysis, sputum. CARDIOVASCULAR: Denies chest pain, palpitations, orthopnea, edema, GASTROINTESTINAL: Denies nausea, vomiting, abdominal pain, diarrhea, constipation, melena. : Denies dysuria, frequency, incontinence, hematuria, urinary retention. MUSCULOSKELETAL: denies weakness, joint pain, or bony pain SKIN: Denies rash, skin lesions, or other NEUROLOGIC: Denies weakness, headache, numbness, change in speech, confusion, seizures, incoordination. PSYCHIATRIC: No concerning psychosocial issues. 12 point review of systems is negative except for those stated above Patient History Medical History (Updated 10/11/20 @ 14:26 by Franck Cooney DO) Acid reflux Facet arthropathy, lumbosacral Hernia Hypertension Intramural diverticulosis of esophagus PTSD (post-traumatic stress disorder) Surgical History History of lumbar surgery Family History Father Hypertension Grandfather Cancer Social History marital status: lives independently: Yes Smoking Status: Never smoker Smoking Status: Never smoker alcohol intake frequency: 0-2 drinks per day Substance Use Type: does not use Exam Narrative Exam Narrative: GEN: AOx3 and in mild distress EYES: Pupils are equal, round, and reactive to light and accommodation. Extraoccular muscles are intact bilaterally. There is no subconjunctival hemorrhage or exudate. CHEST: Lungs are clear to auscultation bilaterally and free of wheezes, rales, or rhonchi. Heart rate is regular rhythm, there are no murmurs, clicks, rubs, or gallops. There is no chest wall tenderness. ABD: Abdomen is soft and nontender. There is no guarding or rebound. Bowel sounds are normal in all 4 quadrants. There is no mass or organomegaly. EXT: Patient has no obvious external manifestation of injury, no effusion, redness or warmth. No bony point tenderness. No ligamentous instability, no medial or lateral joint line tenderness. Mild pain to palp of popliteal fossa. Full strength of hamstrings. Pain on ambulation in popliteal fossa SKIN: Warm, pink, and dry. No erythema or rash Initial Vital Signs Initial Vital Signs: Vital Signs Temperature 98.4 F 10/11/20 13:01 Pulse Rate 61 10/11/20 13:01 Respiratory Rate 16 10/11/20 13:01 Blood Pressure 155/71 H 10/11/20 13:01 Pulse Oximetry 97 10/11/20 13:01 Course Orders Ordered: ED Orders 10/11/20 13:01 US periph venous low extrem lt Stat Vital Signs Vital signs: Vital Signs - 8 hr 10/11/20 13:01 10/11/20 13:53 10/11/20 14:00 Temperature 98.4 F Pulse Rate 61 64 64 Respiratory Rate 16 Blood Pressure 155/71 H Pulse Oximetry 97 99 98 10/11/20 14:30 Temperature Pulse Rate 64 Respiratory Rate Blood Pressure Pulse Oximetry 98 MDM - Extremity Injury (Lower) Imaging Data US - DVT: Radiologist's Impression: [address] [id number] ReportSigned Patient: Pa Zuniga WMR#: [id number]: 1935cct:[id number]/Sex: 85 / MDate of Service: 10/11/20Loc: EDAccession Number: [id number] Procedure: US periph venous low extrem lt Ordering Provider: Franck Cooney D.O. PROCEDURE: US PERIPH VENOUS LOW EXTREM LT INDICATIONS: PAIN AND SWELLING POSTERIOR KNEE TECHNIQUE: Real-time imaging, as well as color and pulse Doppler interrogation, were performed of the lower extremity deep veins from the inguinal ligament to the popliteal fossa. COMPARISON: None. FINDINGS: The common femoral, femoral and popliteal veins are normally compressible, and free of intraluminal thrombus. Color and pulse Doppler demonstrate normal phasic intraluminal flow. There is normal augmentation response to distal compression maneuver. Duplicated mid femoral vein incidentally noted. IMPRESSION: 1. No evidence of deep venous thrombosis in the left lower extremity Dictated by: Yoan Alba M.D. on 10/11/2020 at 13:52 Approved by: Yoan Alba M.D. on 10/11/2020 at 13:53 [facility] Narrative Medical decision making narrative: patient has no traumatic injury, very reassuring history and physical exam and ultrasound shows no DVT or Fisher cyst. Other diagnoses such as cellulitis an occult fracture considered, however there is no erythema, warmth and minimal swelling. Patient has no bony tenderness whatsoever and no ligamentous instability. Patient admits to being a bit clot see and it seems likely that he misstepped and caused a bit of a sprain or strain. extensive return precautions were discussed and questions were answered to his apparent satisfaction. Discharge Plan Departure Patient Disposition: Home Clinical Impression: Acute knee pain Qualifiers: Laterality: left Qualified Code(s): M25.562 - Pain in left knee Instructions: DI for Knee Pain Activity Restrictions/Additional Instructions: *You have been diagnosed with [left knee pain, physical exam is very reassuring. Ultrasound shows no clot or other abnormal findings such as Fisher cyst.] *What to do: *Please continue to take your regular medications as directed. [ ] New medication prescriptions sent to your pharmacy: [ ] [ ] New medication written as a paper prescription [x ] No new medications given *Please follow up with your primary care provider in 2-3 days, call for an appointment. Let them know you were seen in the Emergency Department and that we ask that you be seen in follow up. We will electronically transmit a record of today's note if your PCP is in our system *If you do not have a primary care provider please contact [facility] Resource line at [phone]. They will ask some questions about your medical history and help get you set up with a doctor in the community. *Return to Emergency Department if you should have any new, worsening or concerning symptoms, such as [fever greater than 101 F, shaking chills, worsening pain, persistent vomiting or other bothersome symptoms] Prescriptions: No Action amlodipine [Norvasc] 5 mg tablet 10 mg PO QDAY Qty: 0 RF: 0 venlafaxine 37.5 mg capsule,extended release 24hr 37.5 mg PO BID RF: 0 terbinafine HCl 250 mg tablet 250 mg PO DAILY RF: 0 losartan 50 mg tablet 50 mg PO BID RF: 0 carvedilol 12.5 mg tablet 12.5 mg PO BID RF: 0 atorvastatin 10 mg tablet 10 mg PO DAILY RF: 0 sulconazole 1 % cream 1 applictn TOP BID Qty: 60 RF: 0 diazepam [Valium] 5 mg tablet 5 mg PO TID PRN (Reason: muscle spasm) Qty: 10 RF: 0 epinephrine [EpiPen] 0.3 mg/0.3 mL auto-injector 0.3 mg IM ONCE PRNRF: 0 omeprazole 20 mg capsule,delayed release(DR/EC) 20 mg PO BID RF: 0 hydroxyzine pamoate [Vistaril] 25 mg capsule 25 mg PO TID PRN (Reason: pain (scale score 4-6)) Qty: 60 RF: 1 Referrals: Kleber Mann MD [Primary Care Provider] -
[2020-10-11 13:53] VITALS: PULSE 64; O2SAT 99
[2020-10-11 14:00] VITALS: PULSE 64; O2SAT 98
[2020-10-11 14:30] VITALS: PULSE 64; O2SAT 98
== END 2020-10-11 14:46 | disposition home or self-care (01) ==
PROVIDERS: Emergency Provider Emergency Medicine; PCP Internal Medicine
DX: M25.562 Pain in left knee (principal)
CPT/HCPCS: 93971; 99283

== ENCOUNTER 2021-02-06 10:30 | Emergency (ER) | payer OTHER, SELFPAY ==
[2021-02-06 10:46] VITALS: BP 145/67; PULSE 66; RESP 18; TEMP 36.7; O2SAT 95; BMI 26.2
--- NOTE | 2021-02-06 10:59 | ED_ITS ---
HPI - Extremity Injury (Upper) General Chief Complaint: Extremity Injury, Upper Stated Complaint: injury to left arm, swelling/bruising Time Seen by Provider: 02/06/21 10:59 Source: patient Mode of arrival: Family Vehicle Limitations: no limitations History of Present Illness HPI narrative: 85-year-old gentleman with a history of hypertension, hyperlipidemia presents with left bicipital pain and bruising. He notes that a week ago he stumbled while out on a walk and landed on his left arm. There is some minor tenderness over the bicipital area and over the intervening week he has noticed periods of increasing pain. Yesterday he began to notice superficial bruising. He is able to use the arm without difficulty. He describes no bony pain or injury and no other difficulties after his stumble a week ago. He has had no to chest pain, palpitations, dyspnea, abdominal pain, vomiting, diarrhea. Related Data Home Medications Medication Instructions Recorded Confirmed amlodipine 5 mg tablet (Norvasc) 10 mg PO QDAY #0 tab 03/30/18 12/11/20 atorvastatin 10 mg tablet 10 mg PO DAILY 03/30/18 12/11/20 carvedilol 12.5 mg tablet 12.5 mg PO BID 03/30/18 12/11/20 losartan 50 mg tablet 50 mg PO BID tab 03/30/18 12/11/20 terbinafine HCl 250 mg tablet 250 mg PO DAILY 03/30/18 12/11/20 venlafaxine 37.5 mg 37.5 mg PO BID cap 03/30/18 12/11/20 capsule,extended release 24 hr epinephrine 0.3 mg/0.3 mL 0.3 mg IM ONCE PRN 08/10/18 12/11/20 injection, auto-injector (EpiPen) omeprazole 20 mg capsule,delayed 20 mg PO BID 02/28/20 12/11/20 release Previous Rx's Medication Instructions Recorded sulconazole 1 % topical cream 1 applictn TOP BID #60 gram 11/06/19 hydroxyzine pamoate 25 mg capsule 25 mg PO TID PRN #60 cap 02/28/20 (Vistaril) piroxicam 20 mg capsule (Feldene) 20 mg PO DAILY #30 cap 10/23/20 Allergies Allergy/AdvReac Type Severity Reaction Status Date / Time bee venom protein (honey bee) Allergy Severe Anaphylaxis Verified 12/11/20 08:17 Sulfa (Sulfonamide Allergy Severe Difficulty Verified 12/11/20 08:17 Antibiotics) Breathing iodine [IODINE] Allergy Unknown Verified 12/11/20 08:17 morphine [MORPHINE] Allergy Unknown Verified 12/11/20 08:17 shellfish derived Allergy Unknown Verified 12/11/20 08:17 [SHELLFISH DERIVED] bupropion [From Wellbutrin] AdvReac Intermediate Depression Verified 12/11/20 08:17 hydrochlorothiazide AdvReac Unknown Verified 12/11/20 08:17 [From Dyazide] triamterene [From Dyazide] AdvReac Unknown Verified 12/11/20 08:17 Celecoxib Allergy N/V Uncoded 12/11/20 08:17 Review of Systems Review of Systems Narrative: Remainder of complete review of systems is otherwise unremarkable except for that included in the HPI. Patient History Medical History (Updated 02/06/21 @ 11:18 by Georgia Petty MD) Acid reflux Biceps muscle tear Facet arthropathy, lumbosacral Hernia Hypertension Intramural diverticulosis of esophagus PTSD (post-traumatic stress disorder) Surgical History History of lumbar surgery Family History Father Hypertension Grandfather Cancer Social History marital status: lives independently: Yes Smoking Status: Former smoker Smoking Status: Former smoker tobacco type: cigarettes alcohol intake frequency: holidays/special occasions only Substance Use Type: does not use Exam Narrative Exam Narrative: General: Alert appropriate in no acute distress Respiratory: Able to speak in full sentences, no obvious respiratory distress Skin: No obvious rashes, warm and dry Neurologic: Grossly intact no obvious asymmetries or abnormalities Psych: appropriate insight and affect, cooperative Extremity: Left bicep with contracted muscle appreciated just proximal to the antecubital fossa. The distal 3rd of the upper arm he does have a 4 x 4 cm bruise developing. He has full range of motion at the elbow. Minimal tenderness. No wrist or shoulder pain. No abrasions or contusions. Neurovascularly intact. Initial Vital Signs Initial Vital Signs: Vital Signs Temperature 98.1 F 11/25/21 10:46 Pulse Rate 66 02/06/21 10:46 Respiratory Rate 18 02/06/21 10:46 Blood Pressure 145/67 H 02/06/21 10:46 Pulse Oximetry 95 02/06/21 10:46 Procedures Orthopedic Splinting/Casting Left arm sling: Time of procedure: 11:19 Side: left Upper Extremity Injury Location: shoulder Upper Extremity Immobilizer: sling/shoulder immobilizer Post splinting neuro exam: intact Post splinting vascular exam: intact Placed by: Nursing Course Vital Signs Vital signs: Vital Signs - 8 hr 02/06/21 10:46 Temperature 98.1 F Pulse Rate 66 Respiratory Rate 18 Blood Pressure 145/67 H Pulse Oximetry 95 Discharge Plan Departure Patient Disposition: Home Clinical Impression: Biceps rupture, proximal Instructions: DI for Arm Pain Activity Restrictions/Additional Instructions: Thank you for coming in today You have torn your bicep muscle on the left side. The bruising that your noticing is blood that is working its way up from deeper in the muscle. This is not an emergency and may not need any additional treatment however I do want you to schedule an appointment with one of our orthopedic surgeons for their opinion on how to best treat this for you. You can use the sling for comfort. Tylenol can also be helpful. [facility] phone number is [phone]. Please call either Wednesday or Wednesday to schedule an appointment for further evaluation of bicipital tendon rupture If you have worsening symptoms or issues, please return to the ER Prescriptions: No Action amlodipine [Norvasc] 5 mg tablet 10 mg PO QDAY Qty: 0 0RF venlafaxine 37.5 mg capsule,extended release 24hr 37.5 mg PO BID 0RF terbinafine HCl 250 mg tablet 250 mg PO DAILY 0RF losartan 50 mg tablet 50 mg PO BID 0RF carvedilol 12.5 mg tablet 12.5 mg PO BID 0RF atorvastatin 10 mg tablet 10 mg PO DAILY 0RF sulconazole 1 % cream 1 applictn TOP BID Qty: 60 0RF epinephrine [EpiPen] 0.3 mg/0.3 mL auto-injector 0.3 mg IM ONCE PRN0RF omeprazole 20 mg capsule,delayed release(DR/EC) 20 mg PO BID 0RF hydroxyzine pamoate [Vistaril] 25 mg capsule 25 mg PO TID PRN (Reason: pain (scale score 4-6)) Qty: 60 1RF piroxicam [Feldene] 20 mg capsule 20 mg PO DAILY Qty: 30 2RF Referrals: Kleber Mann MD [Primary Care Provider] -
== END 2021-02-06 11:19 | disposition home or self-care (01) ==
PROVIDERS: Emergency Provider Emergency Medicine; PCP Internal Medicine
DX: S49.92XA Unspecified injury of left shoulder and upper arm, initial encounter (principal)
CPT/HCPCS: 99282

== ENCOUNTER → 2021-02-13 11:05 | Outpatient (CLI) | payer OTHER, SELFPAY ==
--- NOTE | 2021-02-13 11:09 | DI.MRI.S_ITS ---
PROCEDURE: MR LUMBAR SPINE WO CON INDICATIONS: Spinal stenosis, lumbar region TECHNIQUE: Noncontrast sagittal T1 spin echo and T2 fast echo, sagittal STIR, axial T1 and T2 fast spin echo through the lumbar spine. In cases with scoliosis, additional coronal T2 fast spin echo may be performed. COMPARISON: [facility], MR, MR LUMBAR SPINE WO CON, 06/11/2018, 15:01. FINDINGS: Image quality: Excellent. Alignment and Curvature: Trace anterolisthesis of L5 on S1. Bone Marrow: Marrow is of normal overall signal. No acute vertebral body compression fractures. Schmorl's node involving the superior endplate of L4 as before Spinal Cord: Conus medullaris terminates at the L1 level. Visualized cord demonstrates normal signal and size. Paraspinous Soft Tissues: No paravertebral masses. T12-L1: Normal appearance. L1-L2: Normal appearance. L2-L3: Minimal central canal narrowing. Lateral recesses appear grossly patent. No definite foraminal stenosis. L3-L4: Mild canal narrowing. Partial effacement of both lateral recesses with bilaterally symmetric appearance. Mild bilateral foraminal stenoses which appear grossly unchanged L4-L5: Mild canal narrowing. Prominent ligamentum flavum hypertrophy and facet disease although grossly unchanged appearance Partial effacement of both lateral recesses with bilaterally symmetric appearance. Mild bilateral foraminal stenoses which appear grossly unchanged L5-S1: No canal stenosis. Partial effacement of both lateral recesses with bilaterally symmetric appearance. Moderate bilateral foraminal stenosis with borderline nerve root compression on both sides however grossly unchanged appearance IMPRESSION: Lumbar spondylosis and facet disease as above. No interval progression since 06/11/18 as detailed by spinal level. Dictated by: Filippo Medrano M.D. on 02/13/2021 at 11:51 Approved by: Filippo Medrano M.D. on 02/13/2021 at 11:55
== END ==
PROVIDERS: PCP Internal Medicine; Referring Provider Physical Medicine & Rehabilitation Pain Medicine; Visit Provider Physical Medicine & Rehabilitation Pain Medicine
DX: M48.062 Spinal stenosis, lumbar region with neurogenic claudication (principal); M47.816 Spondylosis without myelopathy or radiculopathy, lumbar region
CPT/HCPCS: 72148

== ENCOUNTER → 2021-05-17 08:37 | Outpatient (CLI) | payer OTHER, SELFPAY ==
--- NOTE | 2021-05-17 | DI.MRI.S_ITS ---
PROCEDURE: MR HEAD/BRAIN WO/W CON INDICATIONS: TIA,GAIT INSTABILITY,MEMORY LOSS TECHNIQUE: Noncontrast axial T1 spin echo, axial T2 fast spin echo, sagittal and axial FLAIR, coronal T2 fast spin echo, axial gradient echo, axial diffusion and ADC through the brain. After the administration of contrast, axial and coronal 3D VIBE or T1 spin echo with fat saturation through the brain. COMPARISON: None. FINDINGS: Image quality: Excellent. CSF Spaces: Basal cisterns are patent. No extra-axial fluid collections. Ventricles are normal in size and shape. Brain: There is global cerebral volume loss along with severe chronic microvascular ischemic change. Remote right frontoparietal infarct adjacent to the atrium of the right lateral ventricle, with encephalomalacia and gliosis. No restricted diffusion to indicate recent ischemia. The major intracranial vascular flow-related signal voids are maintained. Midline structures are normal in configuration. No abnormal intracranial enhancement or susceptibility. Skull and face: Calvarial marrow is normal in signal. Orbits appear normal. Sinuses: Sinuses and mastoids appear clear. IMPRESSION: No acute intracranial abnormality. Severe chronic microvascular ischemic changes with advanced global cerebral volume loss. 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 Dictated by: Jovanny Kumar M.D. on 05/19/2021 at 8:38 Approved by: Jovanny Kumar M.D. on 05/19/2021 at 8:41
== END ==
PROVIDERS: PCP Internal Medicine; Referring Provider Internal Medicine; Visit Provider Internal Medicine
DX: I63.9 Cerebral infarction, unspecified (principal); G93.89 Other specified disorders of brain
CPT/HCPCS: 70553; A9579

== ENCOUNTER → 2022-02-02 13:02 | Outpatient (CLI) | payer OTHER, SELFPAY | PROVIDERS: PCP Internal Medicine; Referring Provider Internal Medicine Geriatric Medicine; Visit Provider Internal Medicine Geriatric Medicine | DX: R26.89 Other abnormalities of gait and mobility (principal); Z13.820 Encounter for screening for osteoporosis; M81.0 Age-related osteoporosis without current pathological fracture | CPT/HCPCS: 77080 ==

== ENCOUNTER → 2022-07-08 09:17 | Outpatient (CLI) | payer MEDICARE, OTHER, SELFPAY ==
--- NOTE | 2022-07-08 09:21 | DI.RAD.S_ITS ---
PROCEDURE: XR FOOT LT MIN 3V INDICATIONS: Left distal first metatarsal pain TECHNIQUE: 3 views of the foot were acquired. COMPARISON: None. FINDINGS: Bones: No fractures or dislocations. No suspicious bony lesions. Severe 1st metatarsophalangeal joint degeneration. Soft tissues: No tibiotalar joint effusion. Achilles tendon appears normal. IMPRESSION: 1. 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 Dictated by: Sophia Huff M.D. on 07/08/2022 at 10:48 Approved by: Sophia Huff M.D. on 07/08/2022 at 10:49
== END ==
PROVIDERS: Family Provider Internal Medicine; PCP Internal Medicine; Referring Provider Physician Assistant; Visit Provider Physician Assistant
DX: M19.072 Primary osteoarthritis, left ankle and foot (principal); M79.672 Pain in left foot; G89.29 Other chronic pain
CPT/HCPCS: 73630

== ENCOUNTER 2022-09-23 11:00 | Outpatient (RCR) | payer OTHER, SELFPAY ==
--- NOTE | 2022-08-04 13:30 | PT.OIE ---
Current Diagnoses Ataxic gait (08/04/22) Unsteadiness on feet (08/04/22) Other abnormalities of gait and mobility (08/04/22) Other reduced mobility (08/04/22) History of falling (08/04/22) Past Medical History (Last Reviewed 07/07/22 @ 16:25 by Lali Ledezma PA-C) Acid reflux Biceps muscle tear Facet arthropathy, lumbosacral Hernia Hypertension Intramural diverticulosis of esophagus PTSD (post-traumatic stress disorder) Past Surgical History (Last Reviewed 07/07/22 @ 16:25 by Lali Ledezma PA-C) History of lumbar surgery Visit Care Team Role Provider Type Tenisha Gutierrez MD Attending Provider Non-Staff Family Provider Primary Care Provider Referring Provider Specialty: Internal Medicine Address: [address] [place] [address],[facility] [address], [place], [address] Email: Physical Therapy Initial Evaluation PT-OP-A Visit Information Start: 08/04/22 17:20 Freq: Status: Active Protocol: Document 08/04/22 12:45 DCW (Rec: 08/04/22 17:36 [facility] [id number]) Out-Patient Physical Therapy Visit Information Visit Information Visit Type Initial Evaluation Visit Start Time 12:45 Visit Stop Time 13:30 Total Visit Minutes 45 Visit Number 1 Number of 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 Pt does have a history of falling, but admits it has been a few years since the last fall, I've become quite cautious. Notes he uses his cane most of the time, although he did not bring it today. Was previously seen at this clinic for instability and hip pain, discharged ~2.5 years ago, and I've just gotten worse since then. Notes he struggles with walking faster due to increased fear of falling, and feels very unstable when walking. Is planning to go on a family trip with his grand kids after his granddaughter gets out of school this year, hoping to drive to [facility] and the [place], is worried about his balance during this trip. PT-OP-C Subjective Start: 08/04/22 17:20 Freq: Status: Active Protocol: Document 08/04/22 12:45 DCW (Rec: 08/04/22 17:36 DCW [id number]) OP-PT Subjective Patient Comments Patient Comments I do usually use a cane, I know it's better for me, I feel more stable with it. Patient Reported Progress Worse PT-OP-D Balance Start: 08/04/22 17:20 Freq: Status: Active Protocol: Document 08/04/22 12:45 DCW (Rec: 08/04/22 17:36 DCW [id number]) Balance Tests Stone Balance Test Stone Balance Test Score 43/56 Stone Impairment Rating 20 to 39% Impaired (Score 34- 44) Stone Balance Assessment Evaluation Sitting to Standing Ability Independent w/out Hands Unsupported Stance Safely- 2 minutes Sitting Unsupported, Feet on Floor Safely- 2 minutes Standing to Sitting Ability Safely, Minimal Hand Use Transfer Ability Safely, Minimal Hand Use Unsupported Stance- Eyes Closed Supervision, 10 seconds Unsupported Stance- Eyes Open Independent, <30 seconds Reaching Forward Standing Safely, 5 inches Pick- Up Object From Floor Supervision Look Behind Shoulder - Standing Shifts Weight Unilateral Turning 360 Degrees Turns slowly, but safely Unsupported Stance, Alternating Feet on 4 Steps w/Supervision Stair Unsupported Tandem Stance Holds Tandem- 30 seconds Unilateral Leg Stance Lifts Leg/Holds > 3 secs Total Score Stone Total Score (out of 56 points) 43 Stone Impairment Rating 20 to 39% Impaired (Score 34- 44) PT-OP-E Functional Tests Start: 08/04/22 17:20 Freq: Status: Active Protocol: Document 08/04/22 12:45 DCW (Rec: 08/04/22 17:36 DCW [id number]) Functional Tests 2 Minute Walk Test Distance 313' Device Used None Comments 2.61 ft/sec Timed Up and Go (TUG) Score 11.74 Comments Three-trial average (12.68, 11 .02, 11.52) TUG Impairment Rating 1 to <20% Impaired (Score 11) PT-OP-G Mobility & Gait Start: 08/04/22 17:20 Freq: Status: Active Protocol: Document 08/04/22 12:45 DCW (Rec: 08/04/22 17:36 DCW [id number]) OP Gait Assessment Gait Gait Assistance Required: Standby Assistance Distance (Feet) 313 Assistive Devices Assistive Device Gait Belt Gait Deviations General Gait Pattern Antalgic,Ataxic,Decreased Feet Clearance,Lateral Trunk Lean, Narrow Based Gait Comments Gait Comments Pt ambulates with significant gait deviation, occasionally exhibits an almost ataxic/ scissoring gait, but not with any regularity. Antalgic L LE, with appears to often result in poor right foot clearance/ scuffing his right shoe on the floor. PT-OP-T Assessment and Plan Start: 08/04/22 17:20 Freq: Status: Active Protocol: Document 08/04/22 12:45 DCW (Rec: 08/05/22 16:00 DCW [id number]) Physical Therapy Assessment Rehab Potential Rehabilitation Potential Fair Evaluation Complexity Number of Personal Factors/Comorbidities 3 or More Number of Body Systems Impaired 3 Clinical Presentation at Evaluation Unstable Impairments Impairments Activity Tolerance,Balance, Functional Activities, Functional Mobility,Gait, Posture,Strength Goals Two Impairment Pt presents with increased falls risk, per Stone (43/56) and DGI () Short Term Goal (STG) Pt to demonstrate decreased risk of falls by increasing Stone Balance score by at least 4 points to 47/56 STG Duration 09/04/22 Usp Goal (LTG) Pt to demonstrate decreased risk of falls by increasing DGI score by at least 4 points to LTG Duration 11/02/22 One Impairment Pt does not have an appropriate home exercise program Short Term Goal (STG) Pt to be independent and compliant with an appropriate HEP STG Duration 09/04/22 Assessment Summary Assessment Pt presents with a history of multi-factorial balance deficiencies. Pt has a distant history of falls, with no recent falls, but scores as an increased falls risk in both Stone (43/56) and DGI (). Exhibits an occasional instability in his gait, resulting in a left-veering path deviation, which almost looks like a scissoring, ataxic gait, but it comes and goes. Additionally displays a frequent right foot drag, likely due to left hip pain, which causes him to oneal his right swing phase. Should benefit from skilled therapy focusing on gait training, balance, LE strength to improve eccentric portion of stand->sit. Physical Therapy Plan Frequency and Duration Frequency of Treatment 2x/Week Plan of Care Start Date 08/04/22 Plan of Care End Date 11/02/22 Therapeutic Interventions Therapeutic Interventions Balance Training,Coordination Training,Gait Training,Home Exercise Program,Joint Mobilizations,Manual Therapy, Neuromuscular Re-education, Patient/Caregiver Education, Self-Care/Home Management,Soft Tissue Mobilization, Therapeutic Activities, Therapeutic Exercises Modalities Cold Pack/Ice Massage,Electric Stimulation,Hot Packs, Ultrasound Next Visit Focus/Plan Next Note Type Treatment Note Next Visit Plan Gait training, balance training, LE strengthening
--- NOTE | 2022-08-04 13:30 | PT.OPPOC ---
Physical, Occupational & Speech Therapy At [facility] Current Diagnoses Ataxic gait (08/04/22) Unsteadiness on feet (08/04/22) Other abnormalities of gait and mobility (08/04/22) Other reduced mobility (08/04/22) History of falling (08/04/22) Visit Care Team Role Provider Type Tenisha Gutierrez MD Attending Provider Non-Staff Family Provider Primary Care Provider Referring Provider Specialty: Internal Medicine Address: [address] [place] [address],[address], [place], [address] Email: Plan Of Care PT-OP-T Assessment and Plan Start: 08/04/22 17:20 Freq: Status: Active Protocol: Document 08/04/22 12:45 DCW (Rec: 08/05/22 16:00 DCW [id number]) Physical Therapy Assessment Rehab Potential Rehabilitation Potential Fair Evaluation Complexity Number of Personal Factors/Comorbidities 3 or More Number of Body Systems Impaired 3 Clinical Presentation at Evaluation Unstable Impairments Impairments Activity Tolerance,Balance, Functional Activities, Functional Mobility,Gait, Posture,Strength Goals Two Impairment Pt presents with increased falls risk, per Stone (43/56) and DGI () Short Term Goal (STG) Pt to demonstrate decreased risk of falls by increasing Stone Balance score by at least 4 points to 47/56 STG Duration 09/04/22 Bindery Supervisor Goal (LTG) Pt to demonstrate decreased risk of falls by increasing DGI score by at least 4 points to LTG Duration 11/02/22 One Impairment Pt does not have an appropriate home exercise program Short Term Goal (STG) Pt to be independent and compliant with an appropriate HEP STG Duration 09/04/22 Assessment Summary Assessment Pt presents with a history of multi-factorial balance deficiencies. Pt has a distant history of falls, with no recent falls, but scores as an increased falls risk in both Stone (43/56) and DGI (). Exhibits an occasional instability in his gait, resulting in a left-veering path deviation, which almost looks like a scissoring, ataxic gait, but it comes and goes. Additionally displays a frequent right foot drag, likely due to left hip pain, which causes him to oneal his right swing phase. Should benefit from skilled therapy focusing on gait training, balance, LE strength to improve eccentric portion of stand->sit. Physical Therapy Plan Frequency and Duration Frequency of Treatment 2x/Week Plan of Care Start Date 08/04/22 Plan of Care End Date 11/02/22 Therapeutic Interventions Therapeutic Interventions Balance Training,Coordination Training,Gait Training,Home Exercise Program,Joint Mobilizations,Manual Therapy, Neuromuscular Re-education, Patient/Caregiver Education, Self-Care/Home Management,Soft Tissue Mobilization, Therapeutic Activities, Therapeutic Exercises Modalities Cold Pack/Ice Massage,Electric Stimulation,Hot Packs, Ultrasound Next Visit Focus/Plan Next Note Type Treatment Note Next Visit Plan Gait training, balance training, LE strengthening Plan of Care Dates Plan of Care Start Date 08/04/22 Plan of Care End Date 11/02/22 Electronically Signed by: Rodrigue Crocker, PT 08/05/22 [id number] If you are in agreement with this Plan of Care, please return a signed and dated copy. I have reviewed this Plan of Care and certify that the skilled therapy services above are required to meet the patient?s needs. Physician Signature Date Printed Name and Credentials Clinical Instructor Signature Printed Name and Credentials
--- NOTE | 2022-08-07 12:59 | PT.OTN ---
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) Unsteadiness on feet (08/07/22) Other abnormalities of gait and mobility (08/07/22) Other reduced mobility (08/07/22) History of falling (08/07/22) Physical Therapy Treatment Note PT-OP-A Visit Information Start: 08/04/22 17:20 Freq: Status: Active Protocol: Document 08/07/22 12:16 DCW (Rec: 08/07/22 12:59 DCW [id number]) Out-Patient Physical Therapy Visit Information Visit Information Visit Type Treatment Note Visit Start Time 12:16 Visit Stop Time 13:00 Total Visit Minutes 44 Visit Number 2 Number of DIE DEVELOPER Visits 0 Evaluation Information Evaluation Date 08/04/22 PT-OP-B Current Condition Start: 08/04/22 17:20 Freq: Status: Active Protocol: Document 08/04/22 12:45 DCW (Rec: 08/04/22 17:36 DCW [id number]) Current Condition History of Current Condition Onset Date Multi-year history Current Complaints Poor balance, fear of falling, gait disturbances History of Current Condition Pt is an 87 year old male presenting with a multi-year history of poor balance, gait difficulty, and instability. Pt does have a history of falling, but admits it has been a few years since the last fall, I've become quite cautious. Notes he uses his cane most of the time, although he did not bring it today. Was previously seen at this clinic for instability and hip pain, discharged ~2.5 years ago, and I've just gotten worse since then. Notes he struggles with walking faster due to increased fear of falling, and feels very unstable when walking. Is planning to go on a family trip with his grandkids after his granddaughter gets out of school this year, hoping to drive to [facility] and the [place], is worried about his balance during this trip. PT-OP-C Subjective Start: 08/04/22 17:20 Freq: Status: Active Protocol: Document 08/07/22 12:16 DCW (Rec: 08/07/22 12:59 DCW [id number]) OP-PT Subjective Patient Comments Patient Comments I'm still waking up. I fell asleep in my chair this morning. PT-OP-D Balance Start: 08/04/22 17:20 Freq: Status: Active Protocol: Document 08/04/22 12:45 DCW (Rec: 08/04/22 17:36 [facility] [id number]) Balance Tests Stone Balance Test Stone Balance Test Score 43/56 Stone Impairment Rating 20 to 39% Impaired (Score 34- 44) Stone Balance Assessment Evaluation Sitting to Standing Ability Independent w/out Hands Unsupported Stance Safely- 2 minutes Sitting Unsupported, Feet on Floor Safely- 2 minutes Standing to Sitting Ability Safely, Minimal Hand Use Transfer Ability Safely, Minimal Hand Use Unsupported Stance- Eyes Closed Supervision, 10 seconds Unsupported Stance- Eyes Open Independent, <30 seconds Reaching Forward Standing Safely, 5 inches Pick- Up Object From Floor Supervision Look Behind Shoulder - Standing Shifts Weight Unilateral Turning 360 Degrees Turns slowly, but safely Unsupported Stance, Alternating Feet on 4 Steps w/Supervision Stair Unsupported Tandem Stance Holds Tandem- 30 seconds Unilateral Leg Stance Lifts Leg/Holds > 3 secs Total Score Stone Total Score (out of 56 points) 43 Stone Impairment Rating 20 to 39% Impaired (Score 34- 44) PT-OP-E Functional Tests Start: 08/04/22 17:20 Freq: Status: Active Protocol: Document 08/04/22 12:45 DCW (Rec: 08/04/22 17:36 [facility] [id number]) Functional Tests 2 Minute Walk Test Distance 313' Device Used None Comments 2.61 ft/sec Timed Up and Go (TUG) Score 11.74 Comments Three-trial average (12.68, 11 .02, 11.52) TUG Impairment Rating 1 to <20% Impaired (Score 11) PT-OP-G Mobility & Gait Start: 08/04/22 17:20 Freq: Status: Active Protocol: Document 08/04/22 12:45 DCW (Rec: 08/04/22 17:36 [facility] [id number]) OP Gait Assessment Gait Gait Assistance Required: Standby Assistance Distance (Feet) 313 Assistive Devices Assistive Device Gait Belt Gait Deviations General Gait Pattern Antalgic,Ataxic,Decreased Feet Clearance,Lateral Trunk Lean, Narrow Based Gait Comments Gait Comments Pt ambulates with significant gait deviation, occasionally exhibits an almost ataxic/ scissoring gait, but not with any regularity. Antalgic L LE, with appears to often result in poor right foot clearance/ scuffing his right shoe on the floor. PT-OP-Q Treatments Start: 08/04/22 17:20 Freq: Status: Active Protocol: Document 08/07/22 12:16 DCW (Rec: 08/07/22 12:59 DCW [id number]) Cardio Equipment Recumbent Elliptical (Biodex) Duration (Minutes) 5 Resistance 5 Seat Position 10 Gym Equipment Shuttle Recovery Bilateral Squats Details bilateral squat Resistance 87# (three new) Shuttle Recovery Platform Stable Reps/Time 2x10 Unilateral Squats Details unilateral squat Resistance 50# (two new) Shuttle Recovery Platform Stable Reps/Time x10 each leg Therapeutic Exercises Sitting Exercises Ankle flexion Sitting Exercise Name 4-way ankle flexion Side bilateral Resistance [place]isco Standing Exercises Toe-taps Standing Exercise Name Toe-taps Side bilateral Resistance 5# Reps/Minutes x20 each Hamstring Curls Standing Exercise Name HS curls Side bilateral Resistance 5# Reps/Minutes 2x10 Hip Extension Standing Exercise Name Hip Extension Side bilateral Resistance Green loop Other Exercises Resisted Ambulation Other Exercise Name Side-stepping Resistance Green loop Neuro Re-Education Treatment Balance Activities Foam Stance Details Foam stance Surface Blue Balance Tandem Stance Details Tandem Stance Equipment // bars PT-OP-T Assessment and Plan Start: 08/04/22 17:20 Freq: Status: Active Protocol: Document 08/07/22 12:16 DCW (Rec: 08/07/22 12:59 DCW [id number]) Physical Therapy Assessment Impairments Impairments Activity Tolerance,Balance, Functional Activities, Functional Mobility,Gait, Posture,Strength Goals Two Impairment Pt presents with increased falls risk, per Stone (43/56) and DGI () Short Term Goal (STG) Pt to demonstrate decreased risk of falls by increasing Stone Balance score by at least 4 points to 47/56 STG Duration 09/04/22 Exhibition Specialist Goal (LTG) Pt to demonstrate decreased risk of falls by increasing DGI score by at least 4 points to / LTG Duration 11/02/22 One Impairment Pt does not have an appropriate home exercise program Short Term Goal (STG) Pt to be independent and compliant with an appropriate HEP STG Duration 09/04/22 Assessment Summary Assessment Pt did very well with TherEx, although clearly struggled more with balance challenges, needed near-constant UE support to maintain balance in tandem, slightly better with foam stance. Physical Therapy Plan Frequency and Duration Frequency of Treatment 2x/Week Plan of Care Start Date 08/04/22 Plan of Care End Date 11/02/22 Therapeutic Interventions Therapeutic Interventions Balance Training,Coordination Training,Gait Training,Home Exercise Program,Joint Mobilizations,Manual Therapy, Neuromuscular Re-education, Patient/Caregiver Education, Self-Care/Home Management,Soft Tissue Mobilization, Therapeutic Activities, Therapeutic Exercises Modalities Cold Pack/Ice Massage,Electric Stimulation,Hot Packs, Ultrasound Next Visit Focus/Plan Next Note Type Treatment Note Next Visit Plan Gait training, balance training, LE strengthening
--- NOTE | 2022-08-14 16:01 | PT.OTN ---
Current Diagnoses Ataxic gait (08/14/22) Unsteadiness on feet (08/14/22) Other abnormalities of gait and mobility (08/14/22) Other reduced mobility (08/14/22) History of falling (08/14/22) Physical Therapy Treatment Note PT-OP-A Visit Information Start: 08/04/22 17:20 Freq: Status: Active Protocol: Document 08/14/22 15:15 DCW (Rec: 08/14/22 16:01 DCW [id number]) Out-Patient Physical Therapy Visit Information Visit Information Visit Type Treatment Note Visit Start Time 15:15 Visit Stop Time 16:00 Total Visit Minutes 45 Visit Number 3 Number of PAPER CONE MACHINE TENDER Visits 0 Evaluation Information Evaluation Date 08/04/22 PT-OP-B Current Condition Start: 08/04/22 17:20 Freq: Status: Active Protocol: Document 08/04/22 12:45 DCW (Rec: 08/04/22 17:36 DCW [id number]) Current Condition History of Current Condition Onset Date Multi-year history Current Complaints Poor balance, fear of falling, gait disturbances History of Current Condition Pt is an 87 year old male presenting with a multi-year history of poor balance, gait difficulty, and instability. Pt does have a history of falling, but admits it has been a few years since the last fall, I've become quite cautious. Notes he uses his cane most of the time, although he did not bring it today. Was previously seen at this clinic for instability and hip pain, discharged ~2.5 years ago, and I've just gotten worse since then. Notes he struggles with walking faster due to increased fear of falling, and feels very unstable when walking. Is planning to go on a family trip with his grandkids after his granddaughter gets out of school this year, hoping to drive to [facility] and the [place], is worried about his balance during this trip. PT-OP-C Subjective Start: 08/04/22 17:20 Freq: Status: Active Protocol: Document 08/14/22 15:15 DCW (Rec: 08/14/22 16:01 DCW [id number]) OP-PT Subjective Patient Comments Patient Comments I had a great night of sleep last night. PT-OP-D Balance Start: 08/04/22 17:20 Freq: Status: Active Protocol: Document 08/04/22 12:45 DCW (Rec: 08/04/22 17:36 [facility] [id number]) Balance Tests Stone Balance Test Stone Balance Test Score 43/56 Stone Impairment Rating 20 to 39% Impaired (Score 34- 44) Stone Balance Assessment Evaluation Sitting to Standing Ability Independent w/out Hands Unsupported Stance Safely- 2 minutes Sitting Unsupported, Feet on Floor Safely- 2 minutes Standing to Sitting Ability Safely, Minimal Hand Use Transfer Ability Safely, Minimal Hand Use Unsupported Stance- Eyes Closed Supervision, 10 seconds Unsupported Stance- Eyes Open Independent, <30 seconds Reaching Forward Standing Safely, 5 inches Pick- Up Object From Floor Supervision Look Behind Shoulder - Standing Shifts Weight Unilateral Turning 360 Degrees Turns slowly, but safely Unsupported Stance, Alternating Feet on 4 Steps w/Supervision Stair Unsupported Tandem Stance Holds Tandem- 30 seconds Unilateral Leg Stance Lifts Leg/Holds > 3 secs Total Score Stone Total Score (out of 56 points) 43 Stone Impairment Rating 20 to 39% Impaired (Score 34- 44) PT-OP-E Functional Tests Start: 08/04/22 17:20 Freq: Status: Active Protocol: Document 08/04/22 12:45 DCW (Rec: 08/04/22 17:36 [facility] [id number]) Functional Tests 2 Minute Walk Test Distance 313' Device Used None Comments 2.61 ft/sec Timed Up and Go (TUG) Score 11.74 Comments Three-trial average (12.68, 11 .02, 11.52) TUG Impairment Rating 1 to <20% Impaired (Score 11) PT-OP-G Mobility & Gait Start: 08/04/22 17:20 Freq: Status: Active Protocol: Document 08/04/22 12:45 DCW (Rec: 08/04/22 17:36 [facility] [id number]) OP Gait Assessment Gait Gait Assistance Required: Standby Assistance Distance (Feet) 313 Assistive Devices Assistive Device Gait Belt Gait Deviations General Gait Pattern Antalgic,Ataxic,Decreased Feet Clearance,Lateral Trunk Lean, Narrow Based Gait Comments Gait Comments Pt ambulates with significant gait deviation, occasionally exhibits an almost ataxic/ scissoring gait, but not with any regularity. Antalgic L LE, with appears to often result in poor right foot clearance/ scuffing his right shoe on the floor. PT-OP-Q Treatments Start: 08/04/22 17:20 Freq: Status: Active Protocol: Document 08/14/22 15:15 DCW (Rec: 08/14/22 16:01 [facility] [id number]) Cardio Equipment Recumbent Elliptical (Biodex) Duration (Minutes) 5 Resistance 5 Seat Position 12 Gym Equipment Shuttle Recovery Bilateral Squats Details bilateral squat Resistance 87# (three new) Shuttle Recovery Platform Stable Reps/Time 2x10 Unilateral Squats Details unilateral squat Resistance 50# (two new) Shuttle Recovery Platform Stable Reps/Time x10 each leg Therapeutic Exercises Standing Exercises Toe-taps Standing Exercise Name Toe-taps Side bilateral Resistance 5# Equipment Used 6 step Reps/Minutes x20 each Hamstring Curls Standing Exercise Name HS curls Side bilateral Resistance 5# Reps/Minutes 2x10 Hip Extension Standing Exercise Name Hip Extension Side bilateral Resistance Green loop Other Exercises Resisted Ambulation Other Exercise Name Side-stepping Resistance Green loop Therapeutic Activity Therapeutic Activity Sit<->Stand Name Sit<->Stand Comments VCs for positioning, nose over toes Neuro Re-Education Treatment Balance Activities Hurdles Details Hurdles Equipment @rail SLS Details SLS Equipment @Rail Tandem Stance Details Tandem Stance Equipment // bars PT-OP-T Assessment and Plan Start: 08/04/22 17:20 Freq: Status: Active Protocol: Document 08/14/22 15:15 DCW (Rec: 08/14/22 16:01 [facility] [id number]) Physical Therapy Assessment Impairments Impairments Activity Tolerance,Balance, Functional Activities, Functional Mobility,Gait, Posture,Strength Goals Two Impairment Pt presents with increased falls risk, per Stone (43/56) and DGI () Short Term Goal (STG) Pt to demonstrate decreased risk of falls by increasing Stone Balance score by at least 4 points to 47/56 STG Duration 09/04/22 Spiritual Care Coordinator Goal (LTG) Pt to demonstrate decreased risk of falls by increasing DGI score by at least 4 points to LTG Duration 11/02/22 One Impairment Pt does not have an appropriate home exercise program Short Term Goal (STG) Pt to be independent and compliant with an appropriate HEP STG Duration 09/04/22 Assessment Summary Assessment Pt picked up on sit<->stand technique very quickly with verbal cuing, happy with increase ease of transfer. Tolerated treatment well, but continues to struggle with balance challenges. Physical Therapy Plan Frequency and Duration Frequency of Treatment 2x/Week Plan of Care Start Date 08/04/22 Plan of Care End Date 11/02/22 Therapeutic Interventions Therapeutic Interventions Balance Training,Coordination Training,Gait Training,Home Exercise Program,Joint Mobilizations,Manual Therapy, Neuromuscular Re-education, Patient/Caregiver Education, Self-Care/Home Management,Soft Tissue Mobilization, Therapeutic Activities, Therapeutic Exercises Modalities Cold Pack/Ice Massage,Electric Stimulation,Hot Packs, Ultrasound Next Visit Focus/Plan Next Note Type Treatment Note Next Visit Plan Gait training, balance training, LE strengthening
--- NOTE | 2022-08-21 16:48 | PT.OTN ---
Current Diagnoses Ataxic gait (08/21/22) Unsteadiness on feet (08/21/22) Other abnormalities of gait and mobility (08/21/22) Other reduced mobility (08/21/22) History of falling (08/21/22) Physical Therapy Treatment Note PT-OP-A Visit Information Start: 08/04/22 17:20 Freq: Status: Active Protocol: Document 08/21/22 16:00 DCW (Rec: 08/21/22 16:48 DCW [id number]) Out-Patient Physical Therapy Visit Information Visit Information Visit Type Treatment Note Visit Start Time 16:00 Visit Stop Time 16:45 Total Visit Minutes 45 Visit Number 4 Number of BUSINESS OFFICE SPECIALIST Visits 0 Evaluation Information Evaluation Date 08/04/22 PT-OP-B Current Condition Start: 08/04/22 17:20 Freq: Status: Active Protocol: Document 08/04/22 12:45 DCW (Rec: 08/04/22 17:36 DCW [id number]) Current Condition History of Current Condition Onset Date Multi-year history Current Complaints Poor balance, fear of falling, gait disturbances History of Current Condition Pt is an 87 year old male presenting with a multi-year history of poor balance, gait difficulty, and instability. Pt does have a history of falling, but admits it has been a few years since the last fall, I've become quite cautious. Notes he uses his cane most of the time, although he did not bring it today. Was previously seen at this clinic for instability and hip pain, discharged ~2.5 years ago, and I've just gotten worse since then. Notes he struggles with walking faster due to increased fear of falling, and feels very unstable when walking. Is planning to go on a family trip with his grandkids after his granddaughter gets out of school this year, hoping to drive to [facility] and the [place], is worried about his balance during this trip. PT-OP-C Subjective Start: 08/04/22 17:20 Freq: Status: Active Protocol: Document 08/21/22 16:00 DCW (Rec: 08/21/22 16:48 DCW [id number]) OP-PT Subjective Patient Comments Patient Comments Pt reports he is feeling pretty good this afternoon. PT-OP-D Balance Start: 08/04/22 17:20 Freq: Status: Active Protocol: Document 08/04/22 12:45 DCW (Rec: 08/04/22 17:36 [facility] [id number]) Balance Tests Stone Balance Test Stone Balance Test Score 43/56 Stone Impairment Rating 20 to 39% Impaired (Score 34- 44) Stone Balance Assessment Evaluation Sitting to Standing Ability Independent w/out Hands Unsupported Stance Safely- 2 minutes Sitting Unsupported, Feet on Floor Safely- 2 minutes Standing to Sitting Ability Safely, Minimal Hand Use Transfer Ability Safely, Minimal Hand Use Unsupported Stance- Eyes Closed Supervision, 10 seconds Unsupported Stance- Eyes Open Independent, <30 seconds Reaching Forward Standing Safely, 5 inches Pick- Up Object From Floor Supervision Look Behind Shoulder - Standing Shifts Weight Unilateral Turning 360 Degrees Turns slowly, but safely Unsupported Stance, Alternating Feet on 4 Steps w/Supervision Stair Unsupported Tandem Stance Holds Tandem- 30 seconds Unilateral Leg Stance Lifts Leg/Holds > 3 secs Total Score Stone Total Score (out of 56 points) 43 Stone Impairment Rating 20 to 39% Impaired (Score 34- 44) PT-OP-E Functional Tests Start: 08/04/22 17:20 Freq: Status: Active Protocol: Document 08/04/22 12:45 DCW (Rec: 08/04/22 17:36 [facility] [id number]) Functional Tests 2 Minute Walk Test Distance 313' Device Used None Comments 2.61 ft/sec Timed Up and Go (TUG) Score 11.74 Comments Three-trial average (12.68, 11 .02, 11.52) TUG Impairment Rating 1 to <20% Impaired (Score 11) PT-OP-G Mobility & Gait Start: 08/04/22 17:20 Freq: Status: Active Protocol: Document 08/04/22 12:45 DCW (Rec: 08/04/22 17:36 [facility] [id number]) OP Gait Assessment Gait Gait Assistance Required: Standby Assistance Distance (Feet) 313 Assistive Devices Assistive Device Gait Belt Gait Deviations General Gait Pattern Antalgic,Ataxic,Decreased Feet Clearance,Lateral Trunk Lean, Narrow Based Gait Comments Gait Comments Pt ambulates with significant gait deviation, occasionally exhibits an almost ataxic/ scissoring gait, but not with any regularity. Antalgic L LE, with appears to often result in poor right foot clearance/ scuffing his right shoe on the floor. PT-OP-Q Treatments Start: 08/04/22 17:20 Freq: Status: Active Protocol: Document 08/21/22 16:00 DCW (Rec: 08/21/22 16:48 [facility] [id number]) Cardio Equipment Recumbent Elliptical (Biodex) Duration (Minutes) 5 Resistance 5 Seat Position 12 Gym Equipment Shuttle Recovery Bilateral Squats Details bilateral squat Resistance 87# (three new) Shuttle Recovery Platform Stable Reps/Time 2x10 Unilateral Squats Details unilateral squat Resistance 50# (two new) Shuttle Recovery Platform Stable Reps/Time x10 each leg Therapeutic Exercises Standing Exercises Toe-taps Standing Exercise Name Toe-taps Side bilateral Resistance 7# Equipment Used 6 step Reps/Minutes x20 each Hamstring Curls Standing Exercise Name HS curls Side bilateral Resistance 7# Reps/Minutes 2x10 Hip Extension Standing Exercise Name Hip Extension Side bilateral Resistance Green loop Other Exercises Resisted Ambulation Other Exercise Name Side-stepping Resistance Green loop Therapeutic Activity Therapeutic Activity Sit<->Stand Name Sit<->Stand Reps/Minutes x10 Comments VCs for positioning, nose over toes Neuro Re-Education Treatment Balance Activities Hurdles Details Hurdles Equipment @rail Comments Fwd, Side-stepping Foam Stance Details Foam stance Surface Blue Balance Tandem Stance Details Tandem Stance Equipment // bars PT-OP-T Assessment and Plan Start: 08/04/22 17:20 Freq: Status: Active Protocol: Document 08/21/22 16:00 DCW (Rec: 08/21/22 16:48 [facility] [id number]) Physical Therapy Assessment Impairments Impairments Activity Tolerance,Balance, Functional Activities, Functional Mobility,Gait, Posture,Strength Goals Two Impairment Pt presents with increased falls risk, per Stone (43/56) and DGI () Short Term Goal (STG) Pt to demonstrate decreased risk of falls by increasing Stone Balance score by at least 4 points to 47/56 STG Duration 09/04/22 Mcc Goal (LTG) Pt to demonstrate decreased risk of falls by increasing DGI score by at least 4 points to LTG Duration 11/02/22 One Impairment Pt does not have an appropriate home exercise program Short Term Goal (STG) Pt to be independent and compliant with an appropriate HEP STG Duration 09/04/22 Assessment Summary Assessment Pt did well with sit<->stand recall, tolerated increased resistance well. Continues to fatigue with requests for rest breaks fairly often. Physical Therapy Plan Frequency and Duration Frequency of Treatment 2x/Week Plan of Care Start Date 08/04/22 Plan of Care End Date 11/02/22 Therapeutic Interventions Therapeutic Interventions Balance Training,Coordination Training,Gait Training,Home Exercise Program,Joint Mobilizations,Manual Therapy, Neuromuscular Re-education, Patient/Caregiver Education, Self-Care/Home Management,Soft Tissue Mobilization, Therapeutic Activities, Therapeutic Exercises Modalities Cold Pack/Ice Massage,Electric Stimulation,Hot Packs, Ultrasound Next Visit Focus/Plan Next Note Type Treatment Note Next Visit Plan Gait training, balance training, LE strengthening
--- NOTE | 2022-08-26 16:57 | PT.OTN ---
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 Pt does have a history of falling, but admits it has been a few years since the last fall, I've become quite cautious. Notes he uses his cane most of the time, although he did not bring it today. Was previously seen at this clinic for instability and hip pain, discharged ~2.5 years ago, and I've just gotten worse since then. Notes he struggles with walking faster due to increased fear of falling, and feels very unstable when walking. Is planning to go on a family trip with his grandkids after his granddaughter gets out of school this year, hoping to drive to [facility] and the [place], is worried about his balance during this trip. PT-OP-C Subjective Start: 08/04/22 17:20 Freq: Status: Active Protocol: Document 08/26/22 14:53 SW (Rec: 08/26/22 16:56 SW [id number]) OP-PT Subjective Patient Comments Patient Comments Pt reports after last session feeling good, I came back. PT-OP-D Balance Start: 08/04/22 17:20 Freq: Status: Active Protocol: Document 08/04/22 12:45 DCW (Rec: 08/04/22 17:36 [facility] [id number]) Balance Tests Stone Balance Test Stone Balance Test Score 43/56 Stone Impairment Rating 20 to 39% Impaired (Score 34- 44) Stone Balance Assessment Evaluation Sitting to Standing Ability Independent w/out Hands Unsupported Stance Safely- 2 minutes Sitting Unsupported, Feet on Floor Safely- 2 minutes Standing to Sitting Ability Safely, Minimal Hand Use Transfer Ability Safely, Minimal Hand Use Unsupported Stance- Eyes Closed Supervision, 10 seconds Unsupported Stance- Eyes Open Independent, <30 seconds Reaching Forward Standing Safely, 5 inches Pick- Up Object From Floor Supervision Look Behind Shoulder - Standing Shifts Weight Unilateral Turning 360 Degrees Turns slowly, but safely Unsupported Stance, Alternating Feet on 4 Steps w/Supervision Stair Unsupported Tandem Stance Holds Tandem- 30 seconds Unilateral Leg Stance Lifts Leg/Holds > 3 secs Total Score Stone Total Score (out of 56 points) 43 Stone Impairment Rating 20 to 39% Impaired (Score 34- 44) PT-OP-E Functional Tests Start: 08/04/22 17:20 Freq: Status: Active Protocol: Document 08/04/22 12:45 DCW (Rec: 08/04/22 17:36 [facility] [id number]) Functional Tests 2 Minute Walk Test Distance 313' Device Used None Comments 2.61 ft/sec Timed Up and Go (TUG) Score 11.74 Comments Three-trial average (12.68, 11 .02, 11.52) TUG Impairment Rating 1 to <20% Impaired (Score 11) PT-OP-G Mobility & Gait Start: 08/04/22 17:20 Freq: Status: Active Protocol: Document 08/04/22 12:45 DCW (Rec: 08/04/22 17:36 [facility] [id number]) OP Gait Assessment Gait Gait Assistance Required: Standby Assistance Distance (Feet) 313 Assistive Devices Assistive Device Gait Belt Gait Deviations General Gait Pattern Antalgic,Ataxic,Decreased Feet Clearance,Lateral Trunk Lean, Narrow Based Gait Comments Gait Comments Pt ambulates with significant gait deviation, occasionally exhibits an almost ataxic/ scissoring gait, but not with any regularity. Antalgic L LE, with appears to often result in poor right foot clearance/ scuffing his right shoe on the floor. PT-OP-Q Treatments Start: 08/04/22 17:20 Freq: Status: Active Protocol: Document 08/26/22 14:53 SW (Rec: 08/26/22 16:56 [id number]) Cardio Equipment Recumbent Elliptical (Biodex) Duration (Minutes) 5 Resistance 5 Seat Position 12 Gym Equipment Shuttle Recovery Bilateral Squats Details bilateral squat Resistance 87# (three new) Shuttle Recovery Platform Stable Reps/Time 2x10 Unilateral Squats Details unilateral squat Resistance 50# (two new) Shuttle Recovery Platform Stable Reps/Time x10 each leg Therapeutic Exercises Standing Exercises Toe-taps Standing Exercise Name Toe-taps Side bilateral Resistance 7# Equipment Used 6 step Reps/Minutes x20 each Hamstring Curls Standing Exercise Name HS curls Side bilateral Resistance 7# Reps/Minutes 2x10 Hip Extension Standing Exercise Name Hip Extension Side bilateral Resistance Green loop Other Exercises Resisted Ambulation Other Exercise Name Side-stepping Resistance Green loop Neuro Re-Education Treatment Balance Activities Corner balance Details Weight shifts, perturbations Surface stable Equipment Corner Comments perturbations- reactionary response training for balance Step taps Surface stable Equipment // bars Reps/Duration x 10 ea Hurdles Details Hurdles Equipment // bars Comments Fwd, Side-stepping heavy cues required for weight shifting Foam Stance Details Foam stance Surface Blue Balance Tandem Stance Details Tandem Stance Equipment // bars PT-OP-T Assessment and Plan Start: 08/04/22 17:20 Freq: Status: Active Protocol: Document 08/26/22 14:53 SW (Rec: 08/26/22 16:56 [id number]) Physical Therapy Assessment Impairments Impairments Activity Tolerance,Balance, Functional Activities, Functional Mobility,Gait, Posture,Strength Goals Two Impairment Pt presents with increased falls risk, per Stone (43/56) and DGI () Short Term Goal (STG) Pt to demonstrate decreased risk of falls by increasing Stone Balance score by at least 4 points to 47/56 STG Duration 09/04/22 Health Diagnostics Teacher Goal (LTG) Pt to demonstrate decreased risk of falls by increasing DGI score by at least 4 points to LTG Duration 11/02/22 One Impairment Pt does not have an appropriate home exercise program Short Term Goal (STG) Pt to be independent and compliant with an appropriate HEP STG Duration 09/04/22 Assessment Summary Assessment Pt challenged with balance activities, difficulty maintaining stability and evenly shifting weight into LEs, multiple LOB toward left side throughout session today. Required multiple seated rest breaks d/t fatigue, vc for nose over toes when ascending from sit to stand to avoid LOB back into chair. Physical Therapy Plan Frequency and Duration Frequency of Treatment 2x/Week Plan of Care Start Date 08/04/22 Plan of Care End Date 11/02/22 Therapeutic Interventions Therapeutic Interventions Balance Training,Coordination Training,Gait Training,Home Exercise Program,Joint Mobilizations,Manual Therapy, Neuromuscular Re-education, Patient/Caregiver Education, Self-Care/Home Management,Soft Tissue Mobilization, Therapeutic Activities, Therapeutic Exercises Modalities Cold Pack/Ice Massage,Electric Stimulation,Hot Packs, Ultrasound Next Visit Focus/Plan Next Note Type Treatment Note Next Visit Plan Gait training, balance training, LE strengthening
--- NOTE | 2022-09-16 11:43 | PT.OTN ---
Current Diagnoses Ataxic gait (09/16/22) Unsteadiness on feet (09/16/22) Other abnormalities of gait and mobility (09/16/22) Other reduced mobility (09/16/22) History of falling (09/16/22) Physical Therapy Treatment Note PT-OP-A Visit Information Start: 08/04/22 17:20 Freq: Status: Active Protocol: Document 09/16/22 11:00 DCW (Rec: 09/16/22 11:43 DCW [id number]) Out-Patient Physical Therapy Visit Information Visit Information Visit Type Treatment Note Visit Start Time 11:00 Visit Stop Time 11:45 Total Visit Minutes 45 Visit Number 6 Number of HEADER DOCK Visits 0 Evaluation Information Evaluation Date 08/04/22 PT-OP-B Current Condition Start: 08/04/22 17:20 Freq: Status: Active Protocol: Document 08/04/22 12:45 DCW (Rec: 08/04/22 17:36 DCW [id number]) Current Condition History of Current Condition Onset Date Multi-year history Current Complaints Poor balance, fear of falling, gait disturbances History of Current Condition Pt is an 87 year old male presenting with a multi-year history of poor balance, gait difficulty, and instability. Pt does have a history of falling, but admits it has been a few years since the last fall, I've become quite cautious. Notes he uses his cane most of the time, although he did not bring it today. Was previously seen at this clinic for instability and hip pain, discharged ~2.5 years ago, and I've just gotten worse since then. Notes he struggles with walking faster due to increased fear of falling, and feels very unstable when walking. Is planning to go on a family trip with his grandkids after his granddaughter gets out of school this year, hoping to drive to [facility] and the [place], is worried about his balance during this trip. PT-OP-C Subjective Start: 08/04/22 17:20 Freq: Status: Active Protocol: Document 09/16/22 11:00 DCW (Rec: 09/16/22 11:43 DCW [id number]) OP-PT Subjective Patient Comments Patient Comments I was at my [employer] exercise class this morning, so I already got some workout. PT-OP-D Balance Start: 08/04/22 17:20 Freq: Status: Active Protocol: Document 08/04/22 12:45 DCW (Rec: 08/04/22 17:36 [facility] [id number]) Balance Tests Stone Balance Test Stone Balance Test Score 43/56 Stone Impairment Rating 20 to 39% Impaired (Score 34- 44) Stone Balance Assessment Evaluation Sitting to Standing Ability Independent w/out Hands Unsupported Stance Safely- 2 minutes Sitting Unsupported, Feet on Floor Safely- 2 minutes Standing to Sitting Ability Safely, Minimal Hand Use Transfer Ability Safely, Minimal Hand Use Unsupported Stance- Eyes Closed Supervision, 10 seconds Unsupported Stance- Eyes Open Independent, <30 seconds Reaching Forward Standing Safely, 5 inches Pick- Up Object From Floor Supervision Look Behind Shoulder - Standing Shifts Weight Unilateral Turning 360 Degrees Turns slowly, but safely Unsupported Stance, Alternating Feet on 4 Steps w/Supervision Stair Unsupported Tandem Stance Holds Tandem- 30 seconds Unilateral Leg Stance Lifts Leg/Holds > 3 secs Total Score Stone Total Score (out of 56 points) 43 Stone Impairment Rating 20 to 39% Impaired (Score 34- 44) PT-OP-E Functional Tests Start: 08/04/22 17:20 Freq: Status: Active Protocol: Document 08/04/22 12:45 DCW (Rec: 08/04/22 17:36 [facility] [id number]) Functional Tests 2 Minute Walk Test Distance 313' Device Used None Comments 2.61 ft/sec Timed Up and Go (TUG) Score 11.74 Comments Three-trial average (12.68, 11 .02, 11.52) TUG Impairment Rating 1 to <20% Impaired (Score 11) PT-OP-G Mobility & Gait Start: 08/04/22 17:20 Freq: Status: Active Protocol: Document 08/04/22 12:45 DCW (Rec: 08/04/22 17:36 [facility] [id number]) OP Gait Assessment Gait Gait Assistance Required: Standby Assistance Distance (Feet) 313 Assistive Devices Assistive Device Gait Belt Gait Deviations General Gait Pattern Antalgic,Ataxic,Decreased Feet Clearance,Lateral Trunk Lean, Narrow Based Gait Comments Gait Comments Pt ambulates with significant gait deviation, occasionally exhibits an almost ataxic/ scissoring gait, but not with any regularity. Antalgic L LE, with appears to often result in poor right foot clearance/ scuffing his right shoe on the floor. PT-OP-Q Treatments Start: 08/04/22 17:20 Freq: Status: Active Protocol: Document 09/16/22 11:00 DCW (Rec: 09/16/22 11:43 DCW [id number]) Cardio Equipment Recumbent Elliptical (Biodex) Duration (Minutes) 5 Resistance 5 Seat Position 12 Gym Equipment Shuttle Recovery Bilateral Squats Details bilateral squat Resistance 100# (three new) Shuttle Recovery Platform Stable Reps/Time 2x10 Unilateral Squats Details unilateral squat Resistance 50# (two new) Shuttle Recovery Platform Stable Reps/Time x10 each leg Therapeutic Exercises Standing Exercises Hip Extension Standing Exercise Name Hip Extension Side bilateral Resistance Green loop Other Exercises Resisted Ambulation Other Exercise Name Side-stepping Resistance Green loop Neuro Re-Education Treatment Balance Activities Hurdles Details Hurdles Equipment @rail Comments Fwd, Side-stepping SLS Details SLS Equipment @Rail Foam Stance Details Foam stance Surface Blue Tandem Stance Details Tandem Stance Equipment // bars PT-OP-T Assessment and Plan Start: 08/04/22 17:20 Freq: Status: Active Protocol: Document 09/16/22 11:00 DCW (Rec: 09/16/22 11:43 DCW [id number]) Physical Therapy Assessment Impairments Impairments Activity Tolerance,Balance, Functional Activities, Functional Mobility,Gait, Posture,Strength Goals Two Impairment Pt presents with increased falls risk, per Stone (43/56) and DGI () Short Term Goal (STG) Pt to demonstrate decreased risk of falls by increasing Stone Balance score by at least 4 points to 47/56 STG Duration 09/04/22 Skilled Nursing Goal (LTG) Pt to demonstrate decreased risk of falls by increasing DGI score by at least 4 points to 24 LTG Duration 11/02/22 One Impairment Pt does not have an appropriate home exercise program Short Term Goal (STG) Pt to be independent and compliant with an appropriate HEP STG Duration 09/04/22 Assessment Summary Assessment Pt continues to required repeated instruction, mildly impulsive with some of his activities, but does put in good effort over the course of his PT session. Physical Therapy Plan Frequency and Duration Frequency of Treatment 2x/Week Plan of Care Start Date 08/04/22 Plan of Care End Date 11/02/22 Therapeutic Interventions Therapeutic Interventions Balance Training,Coordination Training,Gait Training,Home Exercise Program,Joint Mobilizations,Manual Therapy, Neuromuscular Re-education, Patient/Caregiver Education, Self-Care/Home Management,Soft Tissue Mobilization, Therapeutic Activities, Therapeutic Exercises Modalities Cold Pack/Ice Massage,Electric Stimulation,Hot Packs, Ultrasound Next Visit Focus/Plan Next Note Type Treatment Note Next Visit Plan Gait training, balance training, LE strengthening
--- NOTE | 2022-09-18 12:59 | PT.OTN ---
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 Pt does have a history of falling, but admits it has been a few years since the last fall, I've become quite cautious. Notes he uses his cane most of the time, although he did not bring it today. Was previously seen at this clinic for instability and hip pain, discharged ~2.5 years ago, and I've just gotten worse since then. Notes he struggles with walking faster due to increased fear of falling, and feels very unstable when walking. Is planning to go on a family trip with his grandkids after his granddaughter gets out of school this year, hoping to drive to [facility] and the [place], is worried about his balance during this trip. PT-OP-C Subjective Start: 08/04/22 17:20 Freq: Status: Active Protocol: Document 09/18/22 12:15 DCW (Rec: 09/18/22 12:59 DCW [id number]) OP-PT Subjective Patient Comments Patient Comments Pt feeling pretty good today , denies any recent falls. PT-OP-D Balance Start: 08/04/22 17:20 Freq: Status: Active Protocol: Document 08/04/22 12:45 DCW (Rec: 08/04/22 17:36 [facility] [id number]) Balance Tests Stone Balance Test Stone Balance Test Score 43/56 Stone Impairment Rating 20 to 39% Impaired (Score 34- 44) Stone Balance Assessment Evaluation Sitting to Standing Ability Independent w/out Hands Unsupported Stance Safely- 2 minutes Sitting Unsupported, Feet on Floor Safely- 2 minutes Standing to Sitting Ability Safely, Minimal Hand Use Transfer Ability Safely, Minimal Hand Use Unsupported Stance- Eyes Closed Supervision, 10 seconds Unsupported Stance- Eyes Open Independent, <30 seconds Reaching Forward Standing Safely, 5 inches Pick- Up Object From Floor Supervision Look Behind Shoulder - Standing Shifts Weight Unilateral Turning 360 Degrees Turns slowly, but safely Unsupported Stance, Alternating Feet on 4 Steps w/Supervision Stair Unsupported Tandem Stance Holds Tandem- 30 seconds Unilateral Leg Stance Lifts Leg/Holds > 3 secs Total Score Stone Total Score (out of 56 points) 43 Stone Impairment Rating 20 to 39% Impaired (Score 34- 44) PT-OP-E Functional Tests Start: 08/04/22 17:20 Freq: Status: Active Protocol: Document 08/04/22 12:45 DCW (Rec: 08/04/22 17:36 [facility] [id number]) Functional Tests 2 Minute Walk Test Distance 313' Device Used None Comments 2.61 ft/sec Timed Up and Go (TUG) Score 11.74 Comments Three-trial average (12.68, 11 .02, 11.52) TUG Impairment Rating 1 to <20% Impaired (Score 11) PT-OP-G Mobility & Gait Start: 08/04/22 17:20 Freq: Status: Active Protocol: Document 08/04/22 12:45 DCW (Rec: 08/04/22 17:36 [facility] [id number]) OP Gait Assessment Gait Gait Assistance Required: Standby Assistance Distance (Feet) 313 Assistive Devices Assistive Device Gait Belt Gait Deviations General Gait Pattern Antalgic,Ataxic,Decreased Feet Clearance,Lateral Trunk Lean, Narrow Based Gait Comments Gait Comments Pt ambulates with significant gait deviation, occasionally exhibits an almost ataxic/ scissoring gait, but not with any regularity. Antalgic L LE, with appears to often result in poor right foot clearance/ scuffing his right shoe on the floor. PT-OP-Q Treatments Start: 08/04/22 17:20 Freq: Status: Active Protocol: Document 09/18/22 12:15 DCW (Rec: 09/18/22 12:59 DCW [id number]) Cardio Equipment Recumbent Stepper (Sci-Fit) Duration (Minutes) 6 Resistance 4 Seat Position 11 Gym Equipment Shuttle Recovery Bilateral Squats Details bilateral squat Resistance 100# (three new) Shuttle Recovery Platform Stable Reps/Time 2x10 Unilateral Squats Details unilateral squat Resistance 50# (two new) Shuttle Recovery Platform Stable Reps/Time x10 each leg Therapeutic Exercises Standing Exercises Toe-taps Standing Exercise Name Toe-taps Side bilateral Resistance 7# Equipment Used 6 step Reps/Minutes x20 each Hamstring Curls Standing Exercise Name HS curls Side bilateral Resistance 7# Reps/Minutes 2x10 Hip Extension Standing Exercise Name Hip Extension Side bilateral Resistance Green loop Other Exercises Resisted Ambulation Other Exercise Name Side-stepping Resistance Green loop Neuro Re-Education Treatment Balance Activities Foam Stance Details Foam stance Surface Blue Tandem Stance Details Tandem Stance Equipment // bars PT-OP-T Assessment and Plan Start: 08/04/22 17:20 Freq: Status: Active Protocol: Document 09/18/22 12:15 DCW (Rec: 09/18/22 12:59 DCW [id number]) Physical Therapy Assessment Impairments Impairments Activity Tolerance,Balance, Functional Activities, Functional Mobility,Gait, Posture,Strength Goals Two Impairment Pt presents with increased falls risk, per Stone (43/56) and DGI (/24) Short Term Goal (STG) Pt to demonstrate decreased risk of falls by increasing Stone Balance score by at least 4 points to 47/56 STG Duration 09/04/22 Skilled Nursing Goal (LTG) Pt to demonstrate decreased risk of falls by increasing DGI score by at least 4 points to 21/24 LTG Duration 11/02/22 One Impairment Pt does not have an appropriate home exercise program Short Term Goal (STG) Pt to be independent and compliant with an appropriate HEP STG Duration 09/04/22 Assessment Summary Assessment Added hamstring curls for HEP, pt did well with them today, balance still very challenging for him. Physical Therapy Plan Frequency and Duration Frequency of Treatment 2x/Week Plan of Care Start Date 08/04/22 Plan of Care End Date 11/02/22 Therapeutic Interventions Therapeutic Interventions Balance Training,Coordination Training,Gait Training,Home Exercise Program,Joint Mobilizations,Manual Therapy, Neuromuscular Re-education, Patient/Caregiver Education, Self-Care/Home Management,Soft Tissue Mobilization, Therapeutic Activities, Therapeutic Exercises Modalities Cold Pack/Ice Massage,Electric Stimulation,Hot Packs, Ultrasound Next Visit Focus/Plan Next Note Type Treatment Note Next Visit Plan Gait training, balance training, LE strengthening
--- NOTE | 2022-09-23 15:14 | PT.OTN ---
Current Diagnoses Ataxic gait (09/23/22) Unsteadiness on feet (09/23/22) Other abnormalities of gait and mobility (09/23/22) Other reduced mobility (09/23/22) History of falling (09/23/22) Physical Therapy Treatment Note PT-OP-A Visit Information Start: 08/04/22 17:20 Freq: Status: Active Protocol: Document 09/23/22 10:56 SW (Rec: 09/23/22 11:50 SW [id number]) Out-Patient Physical Therapy Visit Information Visit Information Visit Type Treatment Note Visit Start Time 11:00 Visit Stop Time 11:45 Total Visit Minutes 45 Visit Number 8 Number of PSYCHOLOGIST SOCIAL Visits 1 PT-OP-B Current Condition Start: 08/04/22 17:20 Freq: Status: Active Protocol: Document 08/04/22 12:45 DCW (Rec: 08/04/22 17:36 DCW [id number]) Current Condition History of Current Condition Onset Date Multi-year history Current Complaints Poor balance, fear of falling, gait disturbances History of Current Condition Pt is an 87 year old male presenting with a multi-year history of poor balance, gait difficulty, and instability. Pt does have a history of falling, but admits it has been a few years since the last fall, I've become quite cautious. Notes he uses his cane most of the time, although he did not bring it today. Was previously seen at this clinic for instability and hip pain, discharged ~2.5 years ago, and I've just gotten worse since then. Notes he struggles with walking faster due to increased fear of falling, and feels very unstable when walking. Is planning to go on a family trip with his grandkids after his granddaughter gets out of school this year, hoping to drive to [facility] and the [place], is worried about his balance during this trip. PT-OP-C Subjective Start: 08/04/22 17:20 Freq: Status: Active Protocol: Document 09/23/22 10:56 SW (Rec: 09/23/22 11:50 SW [id number]) OP-PT Subjective Patient Comments Patient Comments Pt he is doing pretty good today. Reports balance is a little bit off today. PT-OP-D Balance Start: 08/04/22 17:20 Freq: Status: Active Protocol: Document 08/04/22 12:45 DCW (Rec: 08/04/22 17:36 [facility] [id number]) Balance Tests Stone Balance Test Stone Balance Test Score 43/56 Stone Impairment Rating 20 to 39% Impaired (Score 34- 44) Stone Balance Assessment Evaluation Sitting to Standing Ability Independent w/out Hands Unsupported Stance Safely- 2 minutes Sitting Unsupported, Feet on Floor Safely- 2 minutes Standing to Sitting Ability Safely, Minimal Hand Use Transfer Ability Safely, Minimal Hand Use Unsupported Stance- Eyes Closed Supervision, 10 seconds Unsupported Stance- Eyes Open Independent, <30 seconds Reaching Forward Standing Safely, 5 inches Pick- Up Object From Floor Supervision Look Behind Shoulder - Standing Shifts Weight Unilateral Turning 360 Degrees Turns slowly, but safely Unsupported Stance, Alternating Feet on 4 Steps w/Supervision Stair Unsupported Tandem Stance Holds Tandem- 30 seconds Unilateral Leg Stance Lifts Leg/Holds > 3 secs Total Score Stone Total Score (out of 56 points) 43 Stone Impairment Rating 20 to 39% Impaired (Score 34- 44) PT-OP-E Functional Tests Start: 08/04/22 17:20 Freq: Status: Active Protocol: Document 08/04/22 12:45 DCW (Rec: 08/04/22 17:36 [facility] [id number]) Functional Tests 2 Minute Walk Test Distance 313' Device Used None Comments 2.61 ft/sec Timed Up and Go (TUG) Score 11.74 Comments Three-trial average (12.68, 11 .02, 11.52) TUG Impairment Rating 1 to <20% Impaired (Score 11) PT-OP-G Mobility & Gait Start: 08/04/22 17:20 Freq: Status: Active Protocol: Document 08/04/22 12:45 DCW (Rec: 08/04/22 17:36 [facility] [id number]) OP Gait Assessment Gait Gait Assistance Required: Standby Assistance Distance (Feet) 313 Assistive Devices Assistive Device Gait Belt Gait Deviations General Gait Pattern Antalgic,Ataxic,Decreased Feet Clearance,Lateral Trunk Lean, Narrow Based Gait Comments Gait Comments Pt ambulates with significant gait deviation, occasionally exhibits an almost ataxic/ scissoring gait, but not with any regularity. Antalgic L LE, with appears to often result in poor right foot clearance/ scuffing his right shoe on the floor. PT-OP-Q Treatments Start: 08/04/22 17:20 Freq: Status: Active Protocol: Document 09/23/22 10:56 SW (Rec: 09/23/22 11:50 SW [id number]) Cardio Equipment Recumbent Stepper (Sci-Fit) Duration (Minutes) 8 Resistance 4 Seat Position 11 Gym Equipment Shuttle Recovery Bilateral Squats Details bilateral squat Resistance 100# (three new) Shuttle Recovery Platform Stable Reps/Time 2x10 Unilateral Squats Details unilateral squat Resistance 50# (two new) Shuttle Recovery Platform Stable Reps/Time x10 each leg Therapeutic Exercises Standing Exercises Side steps Side bilateral Resistance Green loop Reps/Minutes 2 x 6 ft Toe-taps Standing Exercise Name Toe-taps Side bilateral Resistance 7# Equipment Used 6 step Reps/Minutes x20 each Hamstring Curls Standing Exercise Name HS curls Side bilateral Resistance 7# Reps/Minutes 2x10 Hip Extension Standing Exercise Name Hip Extension Side bilateral Resistance Green loop Neuro Re-Education Treatment Balance Activities Hurdles Details Hurdles Equipment // bars Comments Fwd, Side-stepping Foam Stance Details Foam stance NBOS, head turns Tandem Stance Details Tandem Stance Equipment // bars PT-OP-T Assessment and Plan Start: 08/04/22 17:20 Freq: Status: Active Protocol: Document 09/23/22 10:56 SW (Rec: 09/23/22 11:50 SW [id number]) Physical Therapy Assessment Goals Two Impairment Pt presents with increased falls risk, per Stone (43/56) and DGI () Short Term Goal (STG) Pt to demonstrate decreased risk of falls by increasing [place] Balance score by at least 4 points to 47/56 STG Duration 09/04/22 Personal Chef Goal (LTG) Pt to demonstrate decreased risk of falls by increasing DGI score by at least 4 points to 21/24 LTG Duration 11/02/22 One Impairment Pt does not have an appropriate home exercise program Short Term Goal (STG) Pt to be independent and compliant with an appropriate HEP STG Duration 09/04/22 Assessment Summary Assessment Pt had difficulty with balance challenges today, frequent LOB to left posterior/lateral. Frequent verbal cues required for postural awareness to prevent LOB. Discussed use of cane and reccommended patient use for safety. Physical Therapy Plan Frequency and Duration Frequency of Treatment 2x/Week Plan of Care Start Date 08/04/22 Plan of Care End Date 11/02/22 Therapeutic Interventions Therapeutic Interventions Balance Training,Coordination Training,Gait Training,Home Exercise Program,Joint Mobilizations,Manual Therapy, Neuromuscular Re-education, Patient/Caregiver Education, Self-Care/Home Management,Soft Tissue Mobilization, Therapeutic Activities, Therapeutic Exercises Modalities Cold Pack/Ice Massage,Electric Stimulation,Hot Packs, Ultrasound Next Visit Focus/Plan Next Note Type Treatment Note Next Visit Plan Gait training, balance training, LE strengthening
--- NOTE | 2022-11-17 11:16 | PT.OPDS ---
Current Diagnoses Ataxic gait (09/23/22) Unsteadiness on feet (09/23/22) Other abnormalities of gait and mobility (09/23/22) Other reduced mobility (09/23/22) History of falling (09/23/22) Visit Care Team Role Provider Type Tenisha Gutierrez MD Attending Provider Non-Staff Family Provider Primary Care Provider Referring Provider Specialty: Internal Medicine Address: [address] [place] [address],[address], [place], [address] Email: Visit Number Visit Number 8 Discharge Summary PT-OP-B Current Condition Start: 08/04/22 17:20 Freq: Status: Active Protocol: Document 08/04/22 12:45 DCW (Rec: 08/04/22 17:36 DCW [id number]) Current Condition History of Current Condition Onset Date Multi-year history Current Complaints Poor balance, fear of falling, gait disturbances History of Current Condition Pt is an 87 year old male presenting with a multi-year history of poor balance, gait difficulty, and instability. Pt does have a history of falling, but admits it has been a few years since the last fall, I've become quite cautious. Notes he uses his cane most of the time, although he did not bring it today. Was previously seen at this clinic for instability and hip pain, discharged ~2.5 years ago, and I've just gotten worse since then. Notes he struggles with walking faster due to increased fear of falling, and feels very unstable when walking. Is planning to go on a family trip with his grandkids after his granddaughter gets out of school this year, hoping to drive to [facility] and the [place], is worried about his balance during this trip. PT-OP-C Subjective Start: 08/04/22 17:20 Freq: Status: Active Protocol: Document 09/23/22 10:56 SW (Rec: 09/23/22 11:50 SW [id number]) OP-PT Subjective Patient Comments Patient Comments Pt he is doing pretty good today. Reports balance is a little bit off today. PT-OP-D Balance Start: 08/04/22 17:20 Freq: Status: Active Protocol: Document 08/04/22 12:45 DCW (Rec: 08/04/22 17:36 [facility] [id number]) Balance Tests Stone Balance Test Stone Balance Test Score 43/56 Stone Impairment Rating 20 to 39% Impaired (Score 34- 44) Stone Balance Assessment Evaluation Sitting to Standing Ability Independent w/out Hands Unsupported Stance Safely- 2 minutes Sitting Unsupported, Feet on Floor Safely- 2 minutes Standing to Sitting Ability Safely, Minimal Hand Use Transfer Ability Safely, Minimal Hand Use Unsupported Stance- Eyes Closed Supervision, 10 seconds Unsupported Stance- Eyes Open Independent, <30 seconds Reaching Forward Standing Safely, 5 inches Pick- Up Object From Floor Supervision Look Behind Shoulder - Standing Shifts Weight Unilateral Turning 360 Degrees Turns slowly, but safely Unsupported Stance, Alternating Feet on 4 Steps w/Supervision Stair Unsupported Tandem Stance Holds Tandem- 30 seconds Unilateral Leg Stance Lifts Leg/Holds > 3 secs Total Score Stone Total Score (out of 56 points) 43 Stone Impairment Rating 20 to 39% Impaired (Score 34- 44) PT-OP-E Functional Tests Start: 08/04/22 17:20 Freq: Status: Active Protocol: Document 08/04/22 12:45 DCW (Rec: 08/04/22 17:36 [facility] [id number]) Functional Tests 2 Minute Walk Test Distance 313' Device Used None Comments 2.61 ft/sec Timed Up and Go (TUG) Score 11.74 Comments Three-trial average (12.68, 11 .02, 11.52) TUG Impairment Rating 1 to <20% Impaired (Score 11) PT-OP-G Mobility & Gait Start: 08/04/22 17:20 Freq: Status: Active Protocol: Document 08/04/22 12:45 DCW (Rec: 08/04/22 17:36 [facility] [id number]) OP Gait Assessment Gait Gait Assistance Required: Standby Assistance Distance (Feet) 313 Assistive Devices Assistive Device Gait Belt Gait Deviations General Gait Pattern Antalgic,Ataxic,Decreased Feet Clearance,Lateral Trunk Lean, Narrow Based Gait Comments Gait Comments Pt ambulates with significant gait deviation, occasionally exhibits an almost ataxic/ scissoring gait, but not with any regularity. Antalgic L LE, with appears to often result in poor right foot clearance/ scuffing his right shoe on the floor. PT-OP-T Assessment and Plan Start: 08/04/22 17:20 Freq: Status: Active Protocol: Document 11/17/22 11:14 DCW (Rec: 11/17/22 11:16 DCW [id number]) Physical Therapy Assessment Goals Two Impairment Pt presents with increased falls risk, per Stone (43/56) and DGI () Short Term Goal (STG) Pt to demonstrate decreased risk of falls by increasing Stone Balance score by at least 4 points to 47/56 STG Duration 09/04/22 Electronics Engineering Technician Goal (LTG) Pt to demonstrate decreased risk of falls by increasing DGI score by at least 4 points to LTG Duration 11/02/22 One Impairment Pt does not have an appropriate home exercise program Short Term Goal (STG) Pt to be independent and compliant with an appropriate HEP STG Duration 09/04/22 Assessment Summary Assessment Pt unfortunately suffered a fall at some point following his last PT visit, which resulted in multiple rib fractures. Due to this change in medical status, pt is discharged from skilled PT, will require a new referral in order to return to therapy at a later date. Physical Therapy Plan Frequency and Duration Frequency of Treatment 2x/Week Plan of Care Start Date 08/04/22 Plan of Care End Date 11/02/22 Discharge Physical Therapy Discharge Reasons Change in Medical Status Next Visit Focus/Plan Next Note Type Discharge Summary
== END 2022-11-19 15:44 | disposition home or self-care (01) ==
LOC: PHYS 11:00
PROVIDERS: Family Provider Internal Medicine; PCP Internal Medicine; Referring Provider Internal Medicine; Visit Provider Internal Medicine
DX: Z74.09 Other reduced mobility (principal); Z91.81 History of falling; R26.89 Other abnormalities of gait and mobility; R26.0 Ataxic gait; R26.81 Unsteadiness on feet
CPT/HCPCS: 97110; 97112; 97162

== ENCOUNTER 2022-09-25 15:14 | Emergency (ER) | payer OTHER, MEDICARE, SELFPAY ==
[2022-09-25 15:32] VITALS: BP 120/58; PULSE 68; RESP 16; TEMP 37.2; O2SAT 97; BMI 24.7
--- NOTE | 2022-09-25 15:36 | DI.RAD.S_ITS ---
PROCEDURE: XR HIP W PEL IF DONE RT 2V INDICATIONS: fall with pain TECHNIQUE: AP pelvis with lateral view(s) of the right hip(s). COMPARISON: [facility], CT, CT CHEST ABD PEL WO CON, 09/25/2022, 16:26. [facility], CR, XR HIP W PEL IF DONE LT 2V, 02/13/2018, 16:45. FINDINGS: Bones: No fractures or dislocations. Pelvic ring appears intact. 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 No suspicious bony lesions. Soft tissues: The visualized bowel gas pattern is normal. No suspicious soft tissue calcifications. IMPRESSION: No acute osseous abnormality. Dictated by: Colin Mercedes M.D. on 09/25/2022 at 16:37 Approved by: Colin Mercedes M.D. on 09/25/2022 at 16:39
--- NOTE | 2022-09-25 15:36 | DI.RAD.S_ITS ---
PROCEDURE: XR RIBS RT MIN 3V W CXR 1V INDICATIONS: fall with pain TECHNIQUE: 2 views of the right ribs were acquired, along with a single view chest. COMPARISON: [facility], CT, CT CHEST ABD PEL WO CON, 09/25/2022, 16:26. FINDINGS: Surgical changes and devices: None. Bones and chest wall: Nondisplaced right posterior lateral 5th rib fracture. No dislocations. No suspicious bony lesions. Overlying soft tissues appear unremarkable. Lungs and pleura: No pleural effusions or pneumothorax. Lungs appear clear. Mediastinum: Mediastinal contours appear normal. Heart size is normal. IMPRESSION: Nondisplaced right posterior lateral 5th rib fracture. Dictated by: Colin Mercedes M.D. on 09/25/2022 at 16:39 Approved by: Colin Mercedes M.D. on 09/25/2022 at 16:41
--- NOTE | 2022-09-25 15:54 | ED_ITS ---
HPI - Fall <Lucero ROSITA GeP - Last Filed: 09/25/22 17:03> General Chief Complaint: Fall Stated Complaint: Fall Time Seen by Provider: 09/25/22 15:54 Source: patient and family Mode of arrival: Wheelchair History of Present Illness HPI Narrative: This is a 87-year-old gentleman who presents to the emergency department reporting a fall between 10 and 1030 onto concrete, did not hit his head, complains of right-sided pain and hip pain, sided rib pain. Denies difficulty walking, denies loss of consciousness, vomiting or neck pain. Complains of right-sided rib pain, midthoracic pain right hip pain states that he landed on his hip, denies any back pain. Denies hitting his head, he is not anticoagulated, denies shortness of breath, difficulty breathing or wheezing. States painful with deep inspiration, and if he pushes into his right-sided ribs. Related Data Home Medications Medication Instructions Recorded Confirmed amlodipine 5 mg tablet (Norvasc) 10 mg PO QDAY #0 tabs 03/30/18 05/29/22 atorvastatin 10 mg tablet 10 mg PO DAILY 03/30/18 05/29/22 carvedilol 12.5 mg tablet 12.5 mg PO BID 03/30/18 05/29/22 losartan 50 mg tablet 50 mg PO BID 03/30/18 05/29/22 terbinafine HCl 250 mg tablet 250 mg PO DAILY 03/30/18 05/29/22 venlafaxine 37.5 mg 37.5 mg PO BID 03/30/18 05/29/22 capsule,extended release 24 hr epinephrine 0.3 mg/0.3 mL 0.3 mg IM ONCE PRN 08/10/18 05/29/22 injection, auto-injector (EpiPen) omeprazole 20 mg capsule,delayed 20 mg PO BID 02/28/20 05/29/22 release Previous Rx's Medication Instructions Recorded sulconazole 1 % topical cream 1 applictn topical BID #60 grams 11/06/19 hydroxyzine pamoate 25 mg capsule 25 mg PO TID PRN pain (scale score 02/28/20 (Vistaril) 4-6) #60 caps piroxicam 20 mg capsule (Feldene) 20 mg PO DAILY #30 caps 10/23/20 hydrocodone 5 mg-acetaminophen 325 1 tab PO Q6H PRN pain #14 tabs 09/25/22 mg tablet lidocaine 5 % topical patch 2 patch topical DAILY PRN pain #30 09/25/22 (Lidoderm) ea polyethylene glycol 3350 17 17 g PO DAILY PRN constipation 09/25/22 gram/dose oral powder (Miralax) #238 grams Allergies Allergy/AdvReac Type Severity Reaction Status Date / Time bee venom protein (honey bee) Allergy Severe Anaphylaxis Verified 09/25/22 15:32 Sulfa (Sulfonamide Allergy Severe Difficulty Verified 09/25/22 15:32 Antibiotics) Breathing iodine [IODINE] Allergy Unknown Verified 09/25/22 15:32 morphine [MORPHINE] Allergy Unknown Verified 09/25/22 15:32 shellfish derived Allergy Unknown Verified 09/25/22 15:32 [SHELLFISH DERIVED] bupropion [From Wellbutrin] AdvReac Intermediate Depression Verified 09/25/22 15:32 hydrochlorothiazide AdvReac Unknown Verified 09/25/22 15:32 [From Dyazide] triamterene [From Dyazide] AdvReac Unknown Verified 09/25/22 15:32 Celecoxib Allergy N/V Uncoded 05/29/22 08:43 Review of Systems <GRABIEL Mccoy - Last Filed: 09/25/22 17:03> Review of Systems ROS Unobtainable: All systems reviewed & are unremarkable except as noted in HPI and below Patient History <GRABIEL Mccoy - Last Filed: 09/25/22 17:03> Medical History Acid reflux Biceps muscle tear Facet arthropathy, lumbosacral Hernia Hypertension Intramural diverticulosis of esophagus PTSD (post-traumatic stress disorder) Surgical History History of lumbar surgery Family History Father Hypertension Grandfather Cancer Social History marital status: lives independently: Yes Smoking Status: Former smoker Smoking Status: Former smoker tobacco type: cigarettes alcohol intake frequency: holidays/special occasions only Substance Use Type: does not use Exam <GRABIEL Mccoy - Last Filed: 09/25/22 17:03> Narrative Exam Narrative: Reviewed vitals signs and nursing notes. General: Pleasant, sitting upright, in no acute distress, well groomed, afebrile HEENT: symmetrical facial expressions, moist mucous membranes, neck is supple CV: regular rate and rhythm, warm extremities Respiratory: normal work of breathing, without tachypnea or hypoxia. Patient has tenderness over the 5th and 6th ribs on the right lateral side and tenderness to the upper thoracic spine to palpation, no other vertebral point tenderness on palpation normal range of motion of his neck and his head is atraumatic. Patient is ambulatory with steady gait. GI: abdomen soft, nondistended, without CVA tenderness bilaterally. MSK: moves all extremities, no weakness, normal tone, ambulatory without deficit Skin: brisk capillary refill, without rash or wound Neuro: clear speech and normal cognition, A&O x3, GCS 15, no focal motor or sens ation deficits Initial Vital Signs Initial Vital Signs: Vital Signs Temperature 98.9 F 09/25/22 15:32 Pulse Rate 68 09/25/22 15:32 Respiratory Rate 16 09/25/22 15:32 Blood Pressure 120/58 L 09/25/22 15:32 Pulse Oximetry 97 09/25/22 15:32 Oxygen Delivery Method Room Air 09/25/22 15:32 <Elisa Lamas DO - Last Filed: 09/25/22 19:51> Initial Vital Signs Initial Vital Signs: Vital Signs Temperature 98.9 F 09/25/22 15:32 Pulse Rate 68 09/25/22 15:32 Respiratory Rate 16 09/25/22 15:32 Blood Pressure 120/58 L 09/25/22 15:32 Pulse Oximetry 97 09/25/22 15:32 Oxygen Delivery Method Room Air 09/25/22 15:32 Course <GRABIEL Mccoy - Last Filed: 09/25/22 17:03> Orders Ordered: ED Orders 09/25/22 15:36 XR hip w pel if done RT 2V Stat XR ribs RT min 3V w CXR1V Stat 09/25/22 16:17 CT chest abd pel wo con Stat Discontinued Medications Lidocaine (Lidocaine Patch 1 Each Adh..Patch) 1 each TOP NOW ONE Stop: 09/25/22 16:16 Last Admin: 09/25/22 16:34 Dose: 1 each Documented By: RLS Vital Signs Vital signs: Vital Signs - 8 hr 09/25/22 15:32 09/25/22 16:56 09/25/22 16:10 Temperature 98.9 F Pulse Rate 68 64 55 L Respiratory Rate 16 16 14 Blood Pressure 120/58 L 167/72 H 159/76 H Pulse Oximetry 97 99 98 Oxygen Delivery Method Room Air Room Air Room Air <Elisa Lamas DO - Last Filed: 09/25/22 19:51> Orders Ordered: ED Orders 09/25/22 15:36 XR hip w pel if done RT 2V Stat XR ribs RT min 3V w CXR1V Stat 09/25/22 16:17 CT chest abd pel wo con Stat Discontinued Medications Lidocaine (Lidocaine Patch 1 Each Adh..Patch) 1 each TOP NOW ONE Stop: 09/25/22 16:16 Last Admin: 09/25/22 16:34 Dose: 1 each Documented By: RLS Vital Signs Vital signs: Vital Signs - 8 hr 09/25/22 15:32 09/25/22 16:56 09/25/22 16:10 Temperature 98.9 F Pulse Rate 68 64 55 L Respiratory Rate 16 16 14 Blood Pressure 120/58 L 167/72 H 159/76 H Pulse Oximetry 97 99 98 Oxygen Delivery Method Room Air Room Air Room Air MDM - Fall <Lucero Li [facility] - Last Filed: 09/25/22 17:03> Imaging Data Extremity x-ray #1: Radiologist's Impression: PROCEDURE:? XR HIP W PEL IF DONE RT 2V ? INDICATIONS:? fall with pain ? TECHNIQUE:? AP pelvis with lateral view(s) of the right hip(s).? ? COMPARISON:? [facility], CT, CT CHEST ABD PEL WO CON, 09/25/2022, 16:26.? [facility], CR, XR HIP W PEL IF DONE LT 2V, 02/13/2018, 16:45. ? FINDINGS:? ? Bones:? No fractures or dislocations.? Pelvic ring appears intact.? 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 No suspicious bony lesions.? ? Soft tissues:? The visualized bowel gas pattern is normal.? No suspicious soft tissue calcifications.? ? ? IMPRESSION:? No acute osseous abnormality. ? ? Dictated by: Colin Mercedes M.D. on 09/25/2022 at 16:37 ? ? Approved by: Colin Mercedes M.D. on 09/25/2022 at 16:39 ? CT C/A/P: Radiologist's Impression: [address] [address] [address] Scan Report Signed Patient: Pa Zuniga MR#: [id number] : 1935 Acct:[id number] Age/Sex: 87 / M Date of Service: 09/25/22 Loc: ED Accession Number: [id number] ?? Procedure: CT chest abd pel wo con Ordering Provider: Luecro Li PROCEDURE:? CT CHEST ABD PEL WO CON ? INDICATIONS:? Trauma, left-sided upper rib pain, midthoracic tenderness ? TECHNIQUE:? After the administration of oral contrast, 5 mm thick sections acquired from the lung apices to the symphysis pubis.? 5 mm thick coronal and sagittal reformats acquired, with additional 7 mm coronal MIP reformats through the lungs.? For radiation dose reduction, the following was used:? automated exposure control, adjustment of mA and/or kV according to patient size.? ? COMPARISON:? None. ? FINDINGS:? Image quality:? Excellent.? ? CHEST:? Lungs and pleura:? No acute pulmonary opacities.? No pleural effusions or pneumothorax.? Central and peripheral airways are patent are normal in caliber.? A few solid pulmonary nodules, largest measuring 5 millimeters in the anterior right middle lobe (series 5, image 173).? ? Mediastinum:? Heart size is enlarged.? Three-vessel coronary calcifications.? No pericardial effusion.? No mediastinal adenopathy by CT size criteria.? Thoracic aorta and central pulmonary arteries are normal in size.? Esophagus is normal in caliber.? Small hiatal hernia.? ? Chest wall:? No axillary or supraclavicular adenopathy by size criteria.? Thyroid gland is unremarkable .? ? ? ABDOMEN:? Solid organs:? Liver is normal in size. Scattered subcentimeter hepatic hypoattenuating lesions, too small to characterize by CT but probably small cysts.? Gallbladder is unremarkable .? Pancreas is normal in contours.? Spleen is normal in size.? No adrenal nodules.? Both kidneys are normal in size, without hydronephrosis or nephrolithiasis.? Cystic lesion with thin internal septation on the inferior pole of the left kidney, likely benign. ? Peritoneum and bowel:? Small and large bowel loops are normal in caliber and wall thickness.? No free fluid or air.? Colonic diverticulosis without evidence of diverticulitis.? Fecal debris within the small bowel. ? Nodes and vessels:? No retroperitoneal or mesenteric adenopathy by size criteria.? Aorta and inferior vena cava are normal in size.? ? Miscellaneous:? No ventral hernias.? ? ? PELVIS:? Genitourinary:? Bladder wall thickness is normal.? ? Miscellaneous:? No inguinal hernias or adenopathy.? ? Bones:? Mildly displaced right lateral 4th, 5th and 6th rib fractures.? Healed right inferior rib fracture deformities.? Chronic vertebral body height loss at T4, without endplate retropulsion.? No hip fracture. ? IMPRESSION:? Mildly displaced right lateral 4th through 6th rib fractures.? No pneumothorax or effusions. ? No hip fracture. ? A few solid pulmonary nodules, largest measuring 5 millimeters.? Consider 12 month follow-up if at high risk for developing lung cancer, per Fleischner Society guidelines. ? Fecal debris within the small-bowel, usually indicating small intestinal b acterial overgrowth versus slow transit. ? Dictated by: Werner Sagastume M.D. on 09/25/2022 at 16:40 ? ? Approved by: Werner Sagastume M.D. on 09/25/2022 at 16:45 ? Chest x-ray: Radiologist's Impression: XRay Report Signed Patient: Pa Zuniga MR#: [id number] : 1935 Acct:[id number] Age/Sex: 87 / M Date of Service: 09/25/22 Loc: ED Accession Number: [id number] ?? Procedure: XR ribs RT min 3V w CXR1V Ordering Provider: Elisa Lamas D.O. PROCEDURE:? XR RIBS RT MIN 3V W CXR 1V ? INDICATIONS:? fall with pain ? TECHNIQUE:? 2 views of the right ribs were acquired, along with a single view chest.? ? COMPARISON:? [facility], CT, CT CHEST ABD PEL WO CON, 09/25/2022, 16:26. ? FINDINGS:? ? Surgical changes and devices:? None.? ? Bones and chest wall:? Nondisplaced right posterior lateral 5th rib fracture.? No dislocations.? No suspicious bony lesions.? Overlying soft tissues appear u nremarkable.? ? Lungs and pleura:? No pleural effusions or pneumothorax.? Lungs appear clear.? ? Mediastinum:? Mediastinal contours appear normal.? Heart size is normal.? ? IMPRESSION:? Nondisplaced right posterior lateral 5th rib fracture. ? ? Dictated by: Colin Mercedes M.D. on 09/25/2022 at 16:39 ? ? Approved by: Colin Mercedes M.D. on 09/25/2022 at 16:41 ? MDM Narrative Medical decision making narrative: Chief Complaint: Fall with right rib pain and right hip pain Multiple etiologies for patient's complaint considered including, but not limited to: Rib fractures, pulmonary contusion, hip fracture, lumbar radiculopathy, herniated disc, contusion compression fracture I have independently reviewed the patient's vital signs and nursing notes as well as prior records if available. Plan: Triage ordered chest with ribs and hip x-ray, chest x-ray shows a lateral 5th rib fracture of the right side, right hip is negative for acute abnormality. Due to patient's mechanism, tenderness on exam and concern for more rib fractures than 1, ordered CT chest abdomen pelvis with bone windows, patient also had thoracic spine tenderness to palpation. CT shows mildly displaced right lateral 4th through 6th rib fractures, no pneumothorax or effusions, no hip fracture, a few solid pulmonary nodules, fecal debris within the small bowel suggesting small intestinal bacterial overgrowth. Patient endorses feeling constipated and having distention. He does not have shortness of breath, breath sounds are clear throughout all bah, no pneumothorax or pleural effusion. He was treated with lidocaine patch, denies the need for any pain medication. He was given an incentive spirometer, taught how it and encouraged to follow-up with his primary care provider in 2-3 days for recheck. He states that he feels comfortable enough to go home. Was given hydrocodone to use for pain as needed. Understands to follow-up with primary care and will return to the emergency department for worsening pain come shortness of breath or other acute change. Social considerations that may affect disposition: none Questions are addressed and there is agreement with the plan and for follow-up. I consulted with the ED attending physician Dr. Lamas as needed for higher level of care considerations and they were available for discussion and recommendations regarding plan of care and diagnostic testing. Patient is appropriate for outpatient management. Discharge Plan Departure Patient Disposition: Home Clinical Impression: Rib pain on right side, Incidental pulmonary nodule, Small intestinal bacterial overgrowth Fall Qualifiers: Encounter type: initial encounter Qualified Code(s): W19.XXXA - Unspecified fall, initial encounter Fracture of rib Qualifiers: Encounter type: initial encounter Rib fracture type: multiple ribs Fracture type: closed Laterality: right Qualified Code(s): S22.41XA - Multiple fractures of ribs, right side, initial encounter for closed fracture Instructions: How to Use an Incentive Spirometer, Rib Fracture, Constipation, How to Prevent Falls Activity Restrictions/Additional Instructions: *You have been diagnosed with right-sided rib fractures 4., 5, and 6. There is no pneumothorax or fluid in your lung. This is painful and will take some time to heal. Please use the incentive spirometer to help endplate your lungs and prevent pneumonia over the course your injury. Please use lidocaine patches both on your hip and your ribs space as needed for pain. Please take hydrocodone as needed, okay to take Tylenol 650 mg up to 3 times a day in addition to hydrocodone as needed. Please drink plenty of water, if you have worsening symptoms, feel short of breath or start getting worse, please come back to the hospital for another evaluation. Your moderately constipated, I have given you some MiraLax to use with your pain pills to hopefully help you move some stool so that you do not feel bloated. Please schedule follow-up appointment with your primary care provider for recheck. This is a painful injury, and it take some time before it is better. Try to stay out of trouble, enjoy yourself, and I hope your pain improves quickly. *What to do: *Please continue to take your regular medications as directed. [ x] New medication prescriptions sent to your pharmacy: [ [facility]] [ ] New medication written as a paper prescription [ ] No new medications given *Please call and schedule follow up with your primary care provider in 2-3 days, at least for an update. Let them know you were seen in the Emergency Department for the above problem. We will electronically transmit a record of today's note if your PCP or specialist is in our system. *If you do not have a primary care provider please contact [phone] to establish care with one of the [facility] primary care providers. *Return to the Emergency Department for worsening symptoms, inability to keep liquids down, fever greater than 101F, chills, or other concerning symptom. Prescriptions: New hydrocodone-acetaminophen 5-325 mg tablet 1 tab PO Q6H PRN (Reason: pain) Qty: 14 0RF lidocaine [Lidoderm] 5 % adhesive patch,medicated 2 patch topical DAILY PRN (Reason: pain) Qty: 30 0RF Rx Instructions: leave on most painful area for up to 12 hrs polyethylene glycol 3350 [Miralax] 17 gram/dose powder 17 g PO DAILY PRN (Reason: constipation) Qty: 238 0RF No Action amlodipine [Norvasc] 5 mg tablet 10 mg PO QDAY Qty: 0 venlafaxine 37.5 mg capsule,extended release 24hr 37.5 mg PO BID terbinafine HCl 250 mg tablet 250 mg PO DAILY losartan 50 mg tablet 50 mg PO BID carvedilol 12.5 mg tablet 12.5 mg PO BID atorvastatin 10 mg tablet 10 mg PO DAILY sulconazole 1 % cream 1 applictn TOP BID Qty: 60 0RF epinephrine [EpiPen] 0.3 mg/0.3 mL auto-injector 0.3 mg IM ONCE PRN omeprazole 20 mg capsule,delayed release(DR/EC) 20 mg PO BID hydroxyzine pamoate [Vistaril] 25 mg capsule 25 mg PO TID PRN (Reason: pain (scale score 4-6)) Qty: 60 1RF piroxicam [Feldene] 20 mg capsule 20 mg PO DAILY Qty: 30 2RF Referrals: Tenisha Gutierrez MD [Primary Care Provider] - Stand Alone Forms: Patient Portal/API <Elisa Lamas DO - Last Filed: 09/25/22 19:51> Cosign ED Attending Owenature Attestation: I was immediately available in the department for consultation. Documentation has been reviewed. Case was discussed.
[2022-09-25 16:10] VITALS: BP 159/76; PULSE 55; RESP 14; O2SAT 98
--- NOTE | 2022-09-25 16:17 | DI.CT.S_ITS ---
PROCEDURE: CT CHEST ABD PEL WO CON INDICATIONS: Trauma, left-sided upper rib pain, midthoracic tenderness TECHNIQUE: After the administration of oral contrast, 5 mm thick sections acquired from the lung apices to the symphysis pubis. 5 mm thick coronal and sagittal reformats acquired, with additional 7 mm coronal MIP reformats through the lungs. For radiation dose reduction, the following was used: automated exposure control, adjustment of mA and/or kV according to patient size. COMPARISON: None. FINDINGS: Image quality: Excellent. CHEST: Lungs and pleura: No acute pulmonary opacities. No pleural effusions or pneumothorax. Central and peripheral airways are patent are normal in caliber. A few solid pulmonary nodules, largest measuring 5 millimeters in the anterior right middle lobe (series 5, image 173). Mediastinum: Heart size is enlarged. Three-vessel coronary calcifications. No pericardial effusion. No mediastinal adenopathy by CT size criteria. Thoracic aorta and central pulmonary arteries are normal in size. Esophagus is normal in caliber. Small hiatal hernia. Chest wall: No axillary or supraclavicular adenopathy by size criteria. Thyroid gland is unremarkable . ABDOMEN: Solid organs: Liver is normal in size. Scattered subcentimeter hepatic hypoattenuating lesions, too small to characterize by CT but probably small cysts. Gallbladder is unremarkable . Pancreas is normal in contours. Spleen is normal in size. No adrenal nodules. Both kidneys are normal in size, without hydronephrosis or nephrolithiasis. Cystic lesion with thin internal septation on the inferior pole of the left kidney, likely benign. Peritoneum and bowel: Small and large bowel loops are normal in caliber and wall thickness. No free fluid or air. Colonic diverticulosis without evidence of diverticulitis. Fecal debris within the small bowel. Nodes and vessels: No retroperitoneal or mesenteric adenopathy by size criteria. Aorta and inferior vena cava are normal in size. Miscellaneous: No ventral hernias. PELVIS: Genitourinary: Bladder wall thickness is normal. Miscellaneous: No inguinal hernias or adenopathy. Bones: Mildly displaced right lateral 4th, 5th and 6th rib fractures. Healed right inferior rib fracture deformities. Chronic vertebral body height loss at T4, without endplate retropulsion. No hip fracture. IMPRESSION: Mildly displaced right lateral 4th through 6th rib fractures. No pneumothorax or effusions. No hip fracture. A few solid pulmonary nodules, largest measuring 5 millimeters. Consider 12 month follow-up if at high risk for developing lung cancer, per Fleischner Society guidelines. Fecal debris within the small-bowel, usually indicating small intestinal bacterial overgrowth versus slow transit. Dictated by: Werner Sagastume M.D. on 09/25/2022 at 16:40 Approved by: Werner Sagastume M.D. on 09/25/2022 at 16:45
[2022-09-25] MEDS: LIDOCAINE PATCH 1 EACH ADH..PATCH TOP (16:34)
[2022-09-25 16:56] VITALS: BP 167/72; PULSE 64; RESP 16; O2SAT 99
== END 2022-09-25 17:34 | disposition home or self-care (01) ==
PROVIDERS: Emergency Provider Nurse Practitioner Critical Care Medicine; Family Provider Internal Medicine; PCP Internal Medicine
DX: S22.41XA Multiple fractures of ribs, right side, initial encounter for closed fracture (principal); M25.551 Pain in right hip; R91.1 Solitary pulmonary nodule; K63.89 Other specified diseases of intestine; W18.30XA Fall on same level, unspecified, initial encounter
CPT/HCPCS: 71101; 71250; 73502; 74176; 99284

== ENCOUNTER → 2023-04-10 12:49 | Outpatient (CLI) | payer OTHER, SELFPAY ==
--- NOTE | 2023-04-10 | DI.MRI.S_ITS ---
PROCEDURE: MR LUMBAR SPINE WO CON INDICATIONS: Radiculopathy, lumbar region TECHNIQUE: Noncontrast sagittal T1 spin echo and T2 fast echo, sagittal STIR, and T2 fast spin echo through the lumbar spine. In cases with scoliosis, additional coronal T2 fast spin echo may be performed. COMPARISON: [facility], MR, MR LUMBAR SPINE WO CON, 02/13/2021, 11:17. FINDINGS: Image quality: Excellent. Alignment and Curvature: Trace anterolisthesis of L4 on L5. Trace anterolisthesis of L5 on S1. Bone Marrow: Marrow is of normal overall signal. No acute vertebral body compression fractures. Spinal Cord: Conus medullaris terminates at the L2 level. Visualized cord demonstrates normal signal and size. Paraspinous Soft Tissues: No paravertebral masses. T12-L1: No canal stenosis or foraminal stenosis. L1-L2: No canal stenosis or foraminal stenosis. L2-L3: Mild facet hypertrophy. No canal stenosis or foraminal stenosis. L3-L4: Interval progressive findings. Development of mild disc height loss. Disc bulge. Facet and ligament hypertrophy. Development of hdwj-lq-nvgwgowz canal stenosis. Development of moderate right foraminal narrowing with mild flattening deformity on the exiting right L3 nerve root. There is mild left foraminal narrowing. L4-L5: As before, prominent bilateral facet arthropathy. Trace anterolisthesis of L4 on L5. Disc bulge. No canal stenosis tfxk-wo-voxcipbq bilateral foraminal stenosis. L5-S1: As before, prominent facet hypertrophy. Trace anterolisthesis of L5 on S1. Disc bulge. No canal stenosis. No significant right foraminal narrowing. Moderate left foraminal narrowing with mild flattening deformity on the exiting left L5 nerve root. IMPRESSION: 1. There is multilevel underlying facet arthropathy. 2. Progressive findings at L3-L4. Development of iwaz-ae-pzxqphyu canal stenosis and worsening of right foraminal stenosis, now moderate. 3. No canal stenosis at other levels. 4. Multilevel foraminal narrowing as described above. Findings include moderate right foraminal narrowing at L3-L4 and moderate left foraminal narrowing at L5-S1. Dictated by: Jung Lorenzana M.D. on 04/12/2023 at 14:28 Approved by: Jung Lorenzana M.D. on 04/12/2023 at 14:35
== END ==
PROVIDERS: Family Provider Internal Medicine; PCP Internal Medicine; Referring Provider Internal Medicine; Visit Provider Internal Medicine
DX: M47.26 Other spondylosis with radiculopathy, lumbar region; M47.27 Other spondylosis with radiculopathy, lumbosacral region; M48.061 Spinal stenosis, lumbar region without neurogenic claudication; M48.07 Spinal stenosis, lumbosacral region
CPT/HCPCS: 72148

== ENCOUNTER 2023-06-30 11:15 | Outpatient (RCR) | payer OTHER, SELFPAY ==
--- NOTE | 2023-05-10 17:51 | PT.OIE ---
Current Diagnoses Pain in left hip (05/10/23) Unsteadiness on feet (05/10/23) Other abnormalities of gait and mobility (05/10/23) Past Medical History (Last Reviewed 10/16/22 @ 13:26 by Lali Ledezma PA-C) Acid reflux Biceps muscle tear Facet arthropathy, lumbosacral Hernia Hypertension Intramural diverticulosis of esophagus PTSD (post-traumatic stress disorder) Past Surgical History (Last Reviewed 10/16/22 @ 13:26 by Lali Ledezma PA-C) History of lumbar surgery Visit Care Team Role Provider Type Tenisha Gutierrez MD Family Provider Non-Staff Primary Care Provider Specialty: Internal Medicine Address: [address] [place] [address],[address], [place], [address] Email: Daysi Mendoza DO Attending Provider Non-Staff Referring Provider Specialty: Geriatrics Address: [facility], [address] [place] [address], [id number] Email: Physical Therapy Initial Evaluation PT-OP-A Visit Information Start: 05/10/23 16:43 Freq: Status: Active Protocol: Document 05/10/23 11:25 DCW (Rec: 05/10/23 17:41 DCW [id number]) Out-Patient Physical Therapy Visit Information Visit Information Visit Type Initial Evaluation Visit Note Late arrival Visit Start Time 11:25 Visit Stop Time 12:00 Visit Number 1 Number of CARDIAC MONITOR TECHNICIAN Visits 0 Evaluation Information Evaluation Date 05/10/23 PT-OP-B Current Condition Start: 05/10/23 16:43 Freq: Status: Active Protocol: Document 05/10/23 11:25 DCW (Rec: 05/10/23 17:51 DCW [id number]) Current Condition History of Current Condition Onset Date Long-standing history Current Complaints left posterior hip pain, poor balance, gait difficulty History of Current Condition Pt is an 88 year old male presenting with a long- standing history of left posterior hip pain. 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 I should get shots for it , so until that happens, I don 't know what can be done. Also notes that prior hip MRI showed I got a good hip. Has not had any falls, but is very cautious due to ongoing instability. Pt's hip pain and radicular symptoms greatly impact his gait and stability in standing. PT-OP-C Subjective Start: 05/10/23 16:43 Freq: Status: Active Protocol: Document 05/10/23 11:25 DCW (Rec: 05/10/23 17:41 DCW [id number]) OP-PT Subjective Patient Comments Patient Comments I's been this way for years. I can't say if it's gotten better or not over time. PT-OP-F Manual Assessment Start: 05/10/23 16:43 Freq: Status: Active Protocol: Document 05/10/23 11:25 DCW (Rec: 05/10/23 17:41 DCW [id number]) Manual Assessments Soft Tissue Assessment Soft Tissue Mobility Assessment Moderate-severe tone L piriformis PT-OP-L Special Tests Start: 05/10/23 16:43 Freq: Status: Active Protocol: Document 05/10/23 11:25 DCW (Rec: 05/10/23 17:41 DCW [id number]) Special Tests Hip Special Tests Piriformis Test Results Positive Left CARLEE Test Results Negative Straight Leg Raise Test Results Negative Scour Test Test Results Negative PT-OP-M Strength Start: 05/10/23 16:43 Freq: Status: Active Protocol: Document 05/10/23 11:25 DCW (Rec: 05/10/23 17:41 DCW [id number]) Hip Strength Hip Manual Muscle Testing Right Flexion (L2) 4+ Good+ Extension (S1) 3+ Fair+ Abduction 5 Normal Adduction 5 Normal External Rotation 4+ Good+ Internal Rotation 4+ Good+ Left Flexion (L2) 4+ Good+ Extension (S1) 3+ Fair+ Abduction 5 Normal Adduction 5 Normal External Rotation 4+ Good+ Internal Rotation 4+ Good+ Knee Strength Knee Manual Muscle Testing Right Flexion (S2) 4+ Good+ Extension (L3) 4+ Good+ Left Flexion (S2) 4+ Good+ Extension (L3) 4+ Good+ PT-OP-Q Treatments Start: 05/10/23 16:43 Freq: Status: Active Protocol: Document 05/10/23 11:25 DCW (Rec: 05/10/23 17:41 DCW [id number]) Therapeutic Exercises Supine Exercises Piriformis Supine Exercise Name Figure-4, knee to opposite shoulder Side left Sitting Exercises Self-STM Sitting Exercise Name Self-STM of piriformis /c tennis ball Piriformis Sitting Exercise Name Seated figure-4 Side left PT-OP-T Assessment and Plan Start: 05/10/23 16:43 Freq: Status: Active Protocol: Document 05/10/23 11:25 DCW (Rec: 05/10/23 17:47 DCW [id number]) Physical Therapy Assessment Rehab Potential Rehabilitation Potential Good Evaluation Complexity Number of Personal Factors/Comorbidities 3 or More Number of Body Systems Impaired 3 Clinical Presentation at Evaluation Unstable Impairments Impairments Activity Tolerance,Balance, Functional Activities, Functional Mobility,Gait,Soft Tissue Mobility,Strength,Tone Goals Two Impairment Left radicular pain creating instability with gait Receiver Goal (LTG) Pt to demonstrate decreased soft tissue tone in posterior left hip to mild in order to improve quality of gait and decrease radicular symptoms to decrease falls risk LTG Duration 07/09/23 One Impairment Pt does not have an appropriate home exercise program Short Term Goal (STG) Pt to be independent and compliant with an appropriate HEP STG Duration 06/08/23 Assessment Summary Assessment Pt presents with signs and symptoms consistent with likely left piriformis syndrome, causing increased pain and instability down left leg. Pt also appears to exhibit instability/ unsteadiness on his feet during gait, luikely at an increased falls risk, however was unable to properly test balance today due to late arrival to initial evaluation. Will benefit from further balance testing and gait assessment at follow-up in order to properly assess falls risk. Pt should benefit from skilled therapy focusing on improving strength and flexibility through left hip to decrease radicular symptoms and improve gait. Physical Therapy Plan Frequency and Duration Frequency of Treatment 2x/Week Plan of Care Start Date 05/10/23 Plan of Care End Date 07/09/23 Therapeutic Interventions Therapeutic Interventions Balance Training,Coordination Training,Gait Training,Home Exercise Program,Joint Mobilizations,Manual Therapy, Neuromuscular Re-education, Patient/Caregiver Education, Self-Care/Home Management,Soft Tissue Mobilization, Therapeutic Activities, Therapeutic Exercises Modalities Cold Pack/Ice Massage,Electric Stimulation,Hot Packs, Ultrasound Next Visit Focus/Plan Next Note Type Treatment Note Next Visit Plan Static/dynamic balance testing , STM, stretching
--- NOTE | 2023-05-10 17:52 | PT.OPPOC ---
Physical, Occupational & Speech Therapy At [facility] Current Diagnoses Pain in left hip (05/10/23) Unsteadiness on feet (05/10/23) Other abnormalities of gait and mobility (05/10/23) Visit Care Team Role Provider Type Tenisha Gutierrez MD Family Provider Non-Staff Primary Care Provider Specialty: Internal Medicine Address: [address] [place] [address],[address], [place], [address] Email: Daysi Mendoza DO Attending Provider Non-Staff Referring Provider Specialty: Geriatrics Address: [facility], [address] [place], [address] Email: Plan Of Care PT-OP-T Assessment and Plan Start: 05/10/23 16:43 Freq: Status: Active Protocol: Document 05/10/23 11:25 DCW (Rec: 05/10/23 17:47 DCW [id number]) Physical Therapy Assessment Rehab Potential Rehabilitation Potential Good Evaluation Complexity Number of Personal Factors/Comorbidities 3 or More Number of Body Systems Impaired 3 Clinical Presentation at Evaluation Unstable Impairments Impairments Activity Tolerance,Balance, Functional Activities, Functional Mobility,Gait,Soft Tissue Mobility,Strength,Tone Goals Two Impairment Left radicular pain creating instability with gait Manager Strategic Alliances Goal (LTG) Pt to demonstrate decreased soft tissue tone in posterior left hip to mild in order to improve quality of gait and decrease radicular symptoms to decrease falls risk LTG Duration 07/09/23 One Impairment Pt does not have an appropriate home exercise program Short Term Goal (STG) Pt to be independent and compliant with an appropriate HEP STG Duration 06/08/23 Assessment Summary Assessment Pt presents with signs and symptoms consistent with likely left piriformis syndrome, causing increased pain and instability down left leg. Pt also appears to exhibit instability/ unsteadiness on his feet during gait, luikely at an increased falls risk, however was unable to properly test balance today due to late arrival to initial evaluation. Will benefit from further balance testing and gait assessment at follow-up in order to properly assess falls risk. Pt should benefit from skilled therapy focusing on improving strength and flexibility through left hip to decrease radicular symptoms and improve gait. Physical Therapy Plan Frequency and Duration Frequency of Treatment 2x/Week Plan of Care Start Date 05/10/23 Plan of Care End Date 07/09/23 Therapeutic Interventions Therapeutic Interventions Balance Training,Coordination Training,Gait Training,Home Exercise Program,Joint Mobilizations,Manual Therapy, Neuromuscular Re-education, Patient/Caregiver Education, Self-Care/Home Management,Soft Tissue Mobilization, Therapeutic Activities, Therapeutic Exercises Modalities Cold Pack/Ice Massage,Electric Stimulation,Hot Packs, Ultrasound Next Visit Focus/Plan Next Note Type Treatment Note Next Visit Plan Static/dynamic balance testing , STM, stretching Plan of Care Dates Plan of Care Start Date 05/10/23 Plan of Care End Date 07/09/23 Electronically Signed by: Rodrigue Crocker, PT 05/10/23 8450 If you are in agreement with this Plan of Care, please return a signed and dated copy. I have reviewed this Plan of Care and certify that the skilled therapy services above are required to meet the patient?s needs. Physician Signature Date Printed Name and Credentials Clinical Instructor Signature Printed Name and Credentials
--- NOTE | 2023-05-14 11:14 | PT.OTN ---
Current Diagnoses Pain in left hip (05/14/23) Unsteadiness on feet (05/14/23) Other abnormalities of gait and mobility (05/14/23) Physical Therapy Treatment Note PT-OP-A Visit Information Start: 05/10/23 16:43 Freq: Status: Active Protocol: Document 05/14/23 10:35 DCW (Rec: 05/14/23 11:14 DCW [id number]) Out-Patient Physical Therapy Visit Information Visit Information Visit Type Treatment Note Visit Start Time 10:35 Visit Stop Time 11:15 Visit Number 2 Number of APPLICATION SUPPORT CONSULTANT Visits 0 Evaluation Information Evaluation Date 05/10/23 PT-OP-B Current Condition Start: 05/10/23 16:43 Freq: Status: Active Protocol: Document 05/10/23 11:25 DCW (Rec: 05/10/23 17:51 DCW [id number]) Current Condition History of Current Condition Onset Date Long-standing history Current Complaints left posterior hip pain, poor balance, gait difficulty History of Current Condition Pt is an 88 year old male presenting with a long- standing history of left posterior hip pain. 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 I should get shots for it , so until that happens, I don 't know what can be done. Also notes that prior hip MRI showed I got a good hip. Has not had any falls, but is very cautious due to ongoing instability. Pt's hip pain and radicular symptoms greatly impact his gait and stability in standing. PT-OP-C Subjective Start: 05/10/23 16:43 Freq: Status: Active Protocol: Document 05/14/23 10:35 DCW (Rec: 05/14/23 11:14 DCW [id number]) OP-PT Subjective Patient Comments Patient Comments It's about the same. PT-OP-F Manual Assessment Start: 05/10/23 16:43 Freq: Status: Active Protocol: Document 05/10/23 11:25 DCW (Rec: 05/10/23 17:41 DCW [id number]) Manual Assessments Soft Tissue Assessment Soft Tissue Mobility Assessment Moderate-severe tone L piriformis PT-OP-L Special Tests Start: 05/10/23 16:43 Freq: Status: Active Protocol: Document 05/10/23 11:25 DCW (Rec: 05/10/23 17:41 DCW [id number]) Special Tests Hip Special Tests Piriformis Test Results Positive Left CARLEE Test Results Negative Straight Leg Raise Test Results Negative Scour Test Test Results Negative PT-OP-M Strength Start: 05/10/23 16:43 Freq: Status: Active Protocol: Document 05/10/23 11:25 DCW (Rec: 05/10/23 17:41 DCW [id number]) Hip Strength Hip Manual Muscle Testing Right Flexion (L2) 4+ Good+ Extension (S1) 3+ Fair+ Abduction 5 Normal Adduction 5 Normal External Rotation 4+ Good+ Internal Rotation 4+ Good+ Left Flexion (L2) 4+ Good+ Extension (S1) 3+ Fair+ Abduction 5 Normal Adduction 5 Normal External Rotation 4+ Good+ Internal Rotation 4+ Good+ Knee Strength Knee Manual Muscle Testing Right Flexion (S2) 4+ Good+ Extension (L3) 4+ Good+ Left Flexion (S2) 4+ Good+ Extension (L3) 4+ Good+ PT-OP-Q Treatments Start: 05/10/23 16:43 Freq: Status: Active Protocol: Document 05/14/23 10:35 DCW (Rec: 05/14/23 11:14 DCW [id number]) Therapeutic Exercises Supine Exercises Single KtC Supine Exercise Name Single KtC Side bilateral Piriformis Supine Exercise Name Figure-4, knee to opposite shoulder Side bilateral Manual Therapy Treatment Soft Tissue Mobilization Piriformis Body Location B Piriformis Mobilization Type Strumming,Sustained Pressure Intensity/Depth Moderate Body Position Sidelying Neuro Re-Education Treatment Balance Activities Tandem Details Tandem Stance Equipment // bars Other Activities DGI Details DGI () PT-OP-T Assessment and Plan Start: 05/10/23 16:43 Freq: Status: Active Protocol: Document 05/14/23 10:35 DCW (Rec: 05/14/23 11:14 DC [id number]) Physical Therapy Assessment Impairments Impairments Activity Tolerance,Balance, Functional Activities, Functional Mobility,Gait,Soft Tissue Mobility,Strength,Tone Goals Two Impairment Left radicular pain creating instability with gait Cyber Software Engineer Goal (LTG) Pt to demonstrate decreased soft tissue tone in posterior left hip to mild in order to improve quality of gait and decrease radicular symptoms to decrease falls risk LTG Duration 07/09/23 One Impairment Pt does not have an appropriate home exercise program Short Term Goal (STG) Pt to be independent and compliant with an appropriate HEP STG Duration 06/08/23 Assessment Summary Assessment Dynamic Gait testing shows clear increase in falls risk, scoring 15/24. Likely somewhat affected by hip pain, but overall pt should strongly benefit from continued focus on improving both hip pain/ mobility and challenging balance to help decrease falls risk. Physical Therapy Plan Frequency and Duration Frequency of Treatment 2x/Week Plan of Care Start Date 05/10/23 Plan of Care End Date 07/09/23 Therapeutic Interventions Therapeutic Interventions Balance Training,Coordination Training,Gait Training,Home Exercise Program,Joint Mobilizations,Manual Therapy, Neuromuscular Re-education, Patient/Caregiver Education, Self-Care/Home Management,Soft Tissue Mobilization, Therapeutic Activities, Therapeutic Exercises Modalities Cold Pack/Ice Massage,Electric Stimulation,Hot Packs, Ultrasound Next Visit Focus/Plan Next Note Type Treatment Note Next Visit Plan Static/dynamic balance testing , STM, stretching
--- NOTE | 2023-05-20 15:46 | PT.OTN ---
Current Diagnoses Pain in left hip (05/20/23) Unsteadiness on feet (05/20/23) Other abnormalities of gait and mobility (05/20/23) Physical Therapy Treatment Note PT-OP-A Visit Information Start: 05/10/23 16:43 Freq: Status: Active Protocol: Document 05/20/23 13:23 SW (Rec: 05/20/23 13:46 [id number]) Out-Patient Physical Therapy Visit Information Visit Information Visit Type Treatment Note Visit Start Time 13:00 Visit Stop Time 13:40 Visit Number 3 Number of SUPERVISOR POULTRY PROCESSING Visits 1 PT-OP-B Current Condition Start: 05/10/23 16:43 Freq: Status: Active Protocol: Document 05/10/23 11:25 DCW (Rec: 05/10/23 17:51 DCW [id number]) Current Condition History of Current Condition Onset Date Long-standing history Current Complaints left posterior hip pain, poor balance, gait difficulty History of Current Condition Pt is an 88 year old male presenting with a long- standing history of left posterior hip pain. 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 I should get shots for it , so until that happens, I don 't know what can be done. Also notes that prior hip MRI showed I got a good hip. Has not had any falls, but is very cautious due to ongoing instability. Pt's hip pain and radicular symptoms greatly impact his gait and stability in standing. PT-OP-C Subjective Start: 05/10/23 16:43 Freq: Status: Active Protocol: Document 05/20/23 13:23 SW (Rec: 05/20/23 13:46 [id number]) OP-PT Subjective Patient Comments Patient Comments Pt ambulated into session without SPC, forgot in car. No new changes to report from last session PT-OP-F Manual Assessment Start: 05/10/23 16:43 Freq: Status: Active Protocol: Document 05/10/23 11:25 DCW (Rec: 05/10/23 17:41 DCW [id number]) Manual Assessments Soft Tissue Assessment Soft Tissue Mobility Assessment Moderate-severe tone L piriformis PT-OP-L Special Tests Start: 05/10/23 16:43 Freq: Status: Active Protocol: Document 05/10/23 11:25 DCW (Rec: 05/10/23 17:41 DCW [id number]) Special Tests Hip Special Tests Piriformis Test Results Positive Left CARLEE Test Results Negative Straight Leg Raise Test Results Negative Scour Test Test Results Negative PT-OP-M Strength Start: 05/10/23 16:43 Freq: Status: Active Protocol: Document 05/10/23 11:25 DCW (Rec: 05/10/23 17:41 DCW [id number]) Hip Strength Hip Manual Muscle Testing Right Flexion (L2) 4+ Good+ Extension (S1) 3+ Fair+ Abduction 5 Normal Adduction 5 Normal External Rotation 4+ Good+ Internal Rotation 4+ Good+ Left Flexion (L2) 4+ Good+ Extension (S1) 3+ Fair+ Abduction 5 Normal Adduction 5 Normal External Rotation 4+ Good+ Internal Rotation 4+ Good+ Knee Strength Knee Manual Muscle Testing Right Flexion (S2) 4+ Good+ Extension (L3) 4+ Good+ Left Flexion (S2) 4+ Good+ Extension (L3) 4+ Good+ PT-OP-Q Treatments Start: 05/10/23 16:43 Freq: Status: Active Protocol: Document 05/20/23 13:23 SW (Rec: 05/20/23 13:49 [id number]) Therapeutic Exercises Supine Exercises Single KtC Supine Exercise Name Single KtC Side bilateral Piriformis Supine Exercise Name Figure-4, knee to opposite shoulder Side bilateral Manual Therapy Treatment Soft Tissue Mobilization Piriformis Body Location B Piriformis Mobilization Type Strumming,Sustained Pressure Intensity/Depth Moderate Body Position Sidelying Comments IASTM-sustained pressure, mod- deep Neuro Re-Education Treatment Balance Activities Foam Details WBOS Surface unstable, airex Equipment @ rail Comments with weight shifts NBOS Details NBOS Equipment @ rail right side Comments verbal/visual feedback for righting posture Tandem Details Tandem Stance Equipment // bars Comments verbal and visual feedback for righting posture PT-OP-T Assessment and Plan Start: 05/10/23 16:43 Freq: Status: Active Protocol: Document 05/20/23 13:23 SW (Rec: 05/20/23 13:46 [id number]) Physical Therapy Assessment Goals Two Impairment Left radicular pain creating instability with gait Custodial Goal (LTG) Pt to demonstrate decreased soft tissue tone in posterior left hip to mild in order to improve quality of gait and decrease radicular symptoms to decrease falls risk LTG Duration 07/09/23 One Impairment Pt does not have an appropriate home exercise program Short Term Goal (STG) Pt to be independent and compliant with an appropriate HEP STG Duration 06/08/23 Assessment Summary Assessment Pt ambulated into session without SPC, forgot in the car , retrieved PT cane for patient for safe ambulation into and around the clinic, and assist to car. Pt demonstrated veering to the right with use of wall for near LOB into session today. Continued STM to piriformis this session to decrease soft tissue tone toward pt goals. Initiated balance with use of mirror for visual feedback to upright posture, improved with feedback though pt still required cueing to shift weight to the leftside. Physical Therapy Plan Frequency and Duration Frequency of Treatment 2x/Week Plan of Care Start Date 05/10/23 Plan of Care End Date 07/09/23 Therapeutic Interventions Therapeutic Interventions Balance Training,Coordination Training,Gait Training,Home Exercise Program,Joint Mobilizations,Manual Therapy, Neuromuscular Re-education, Patient/Caregiver Education, Self-Care/Home Management,Soft Tissue Mobilization, Therapeutic Activities, Therapeutic Exercises Modalities Cold Pack/Ice Massage,Electric Stimulation,Hot Packs, Ultrasound Next Visit Focus/Plan Next Note Type Treatment Note Next Visit Plan Static/dynamic balance testing , STM, stretching
--- NOTE | 2023-05-25 12:45 | PT.OTN ---
Current Diagnoses Pain in left hip (05/25/23) Unsteadiness on feet (05/25/23) Other abnormalities of gait and mobility (05/25/23) Physical Therapy Treatment Note PT-OP-A Visit Information Start: 05/10/23 16:43 Freq: Status: Active Protocol: Document 05/25/23 09:50 NBM (Rec: 05/25/23 11:24 NB [id number]) Out-Patient Physical Therapy Visit Information Visit Information Visit Type Treatment Note Visit Start Time 09:50 Visit Stop Time 10:30 Visit Number 4 Number of ENGLISH AS A SECOND LANGUAGE TEACHER Visits 3 Evaluation Information Evaluation Date 05/10/23 PT-OP-B Current Condition Start: 05/10/23 16:43 Freq: Status: Active Protocol: Document 05/10/23 11:25 DCW (Rec: 05/10/23 17:51 DCW [id number]) Current Condition History of Current Condition Onset Date Long-standing history Current Complaints left posterior hip pain, poor balance, gait difficulty History of Current Condition Pt is an 88 year old male presenting with a long- standing history of left posterior hip pain. 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 I should get shots for it , so until that happens, I don 't know what can be done. Also notes that prior hip MRI showed I got a good hip. Has not had any falls, but is very cautious due to ongoing instability. Pt's hip pain and radicular symptoms greatly impact his gait and stability in standing. PT-OP-C Subjective Start: 05/10/23 16:43 Freq: Status: Active Protocol: Document 05/25/23 09:50 NBM (Rec: 05/25/23 11:24 NBM [id number]) OP-PT Subjective Patient Comments Patient Comments Rafael reports his L hip is hurting today. It felt better for about two days after last appointment. It's hard to do seated stretching from his soft couch and he has hard stools. PT-OP-F Manual Assessment Start: 05/10/23 16:43 Freq: Status: Active Protocol: Document 05/10/23 11:25 DCW (Rec: 05/10/23 17:41 DCW [id number]) Manual Assessments Soft Tissue Assessment Soft Tissue Mobility Assessment Moderate-severe tone L piriformis PT-OP-L Special Tests Start: 05/10/23 16:43 Freq: Status: Active Protocol: Document 05/10/23 11:25 DCW (Rec: 05/10/23 17:41 DCW [id number]) Special Tests Hip Special Tests Piriformis Test Results Positive Left CARLEE Test Results Negative Straight Leg Raise Test Results Negative Scour Test Test Results Negative PT-OP-M Strength Start: 05/10/23 16:43 Freq: Status: Active Protocol: Document 05/10/23 11:25 DCW (Rec: 05/10/23 17:41 DCW [id number]) Hip Strength Hip Manual Muscle Testing Right Flexion (L2) 4+ Good+ Extension (S1) 3+ Fair+ Abduction 5 Normal Adduction 5 Normal External Rotation 4+ Good+ Internal Rotation 4+ Good+ Left Flexion (L2) 4+ Good+ Extension (S1) 3+ Fair+ Abduction 5 Normal Adduction 5 Normal External Rotation 4+ Good+ Internal Rotation 4+ Good+ Knee Strength Knee Manual Muscle Testing Right Flexion (S2) 4+ Good+ Extension (L3) 4+ Good+ Left Flexion (S2) 4+ Good+ Extension (L3) 4+ Good+ PT-OP-Q Treatments Start: 05/10/23 16:43 Freq: Status: Active Protocol: Document 05/25/23 09:50 NBM (Rec: 05/25/23 11:24 NBM [id number]) Therapeutic Exercises Supine Exercises Single KtC Supine Exercise Name Single KtC Side bilateral Piriformis Supine Exercise Name Figure-4, knee to opposite shoulder Side bilateral Sitting Exercises Hamstring stretch Side bilateral Comments cues for gentle stretch, no bouncing Piriformis Sitting Exercise Name Seated figure-4 Side bilateral Reps/Minutes 2x30s Comments Pt i/s to use supine at home when L hip tight, cues for no bouncing Gait Training Gait Activity SPC Description Ambulation in clinic w/ Hurrycane in RUE. Level of Assistance SBA>CGA Surface carpet, tile Distance/Duration 60' Treatment Focus upright posture, safety, sequencing. Comments Gait improves end of session after balance practice w/ mirror for uprighting improves self-awareness, Hurrycane increased one level and STM. Manual Therapy Treatment Soft Tissue Mobilization L QL Body Location L QL Mobilization Type Rolling,Sustained Pressure, Other Intensity/Depth Moderate Body Position Sidelying Comments pillow supports between LEs manual pin and stretch 2 x30s Piriformis Body Location L Piriformis Mobilization Type Cross-Friction,Strumming, Sustained Pressure,Trigger Point Release Intensity/Depth Moderate Body Position Sidelying Comments pillow supports between LEs sustained pressure, mod-deep Neuro Re-Education Treatment Balance Activities Foam Details WBOS Surface foam Equipment // bars, mirror, GB Reps/Duration trials Comments EO, 27s max NBOS Details NBOS Surface firm, foam Equipment // bars, mirror, GB Reps/Duration trials Comments EO/EC, head turns/nods - CGA> modA verbal/visual feedback for righting posture Tandem Details Tandem Stance Equipment // bars, mirror, GB Reps/Duration trials Comments EO - CGA>minaA verbal and visual/tactile feedback for righting posture Self-Care/Home Management Treatment Education Patient Education Home Exercise Program,Pain Management,Posture Other Education -Edu to pt to use hip stretches and self-STM to manage L hip pain/tightness. -Hurrycane increased one level to improve upright posture with ambulation. PT-OP-T Assessment and Plan Start: 05/10/23 16:43 Freq: Status: Active Protocol: Document 05/25/23 09:50 NBM (Rec: 05/25/23 11:24 NBM [id number]) Physical Therapy Assessment Goals Two Impairment Left radicular pain creating instability with gait Fpc Goal (LTG) Pt to demonstrate decreased soft tissue tone in posterior left hip to mild in order to improve quality of gait and decrease radicular symptoms to decrease falls risk LTG Duration 07/09/23 One Impairment Pt does not have an appropriate home exercise program Short Term Goal (STG) Pt to be independent and compliant with an appropriate HEP STG Duration 06/08/23 Assessment Summary Assessment Rafael presents w/ Hurrycane in RUE today and antalgic gait, complaint of 6/10 L hip pain which improves to 2/10 end of session. Treatment focus on balance, gait and manual therapy. Pt is not able to maintaing balance for 30s independently on firm surface with NBOS; max 27s today; and about 2-3s in tandem bilaterally, R foot back most challenging. Pt is educated to use supine hip stretches and self-STM to manage L hip pain and tightness. Hurrycane is increased by one level to improve upright posture w/ ambulation. Palpable tension to L QL and L piriformis improves with manual therapy and patient demonstrates improved gait end of session. Physical Therapy Plan Frequency and Duration Frequency of Treatment 2x/Week Plan of Care Start Date 05/10/23 Plan of Care End Date 07/09/23 Therapeutic Interventions Therapeutic Interventions Balance Training,Coordination Training,Gait Training,Home Exercise Program,Joint Mobilizations,Manual Therapy, Neuromuscular Re-education, Patient/Caregiver Education, Self-Care/Home Management,Soft Tissue Mobilization, Therapeutic Activities, Therapeutic Exercises Modalities Cold Pack/Ice Massage,Electric Stimulation,Hot Packs, Ultrasound Next Visit Focus/Plan Next Note Type Treatment Note Next Visit Plan Static/dynamic balance testing , STM, stretching
--- NOTE | 2023-06-03 11:14 | PT.OTN ---
Current Diagnoses Pain in left hip (06/03/23) Unsteadiness on feet (06/03/23) Other abnormalities of gait and mobility (06/03/23) Physical Therapy Treatment Note PT-OP-A Visit Information Start: 05/10/23 16:43 Freq: Status: Active Protocol: Document 06/03/23 10:30 DCW (Rec: 06/03/23 11:14 DCW [id number]) Out-Patient Physical Therapy Visit Information Visit Information Visit Type Treatment Note Visit Start Time 10:30 Visit Stop Time 11:15 Visit Number 5 Number of ENGINEER SOILS Visits 0 Evaluation Information Evaluation Date 05/10/23 PT-OP-B Current Condition Start: 05/10/23 16:43 Freq: Status: Active Protocol: Document 05/10/23 11:25 DCW (Rec: 05/10/23 17:51 DCW [id number]) Current Condition History of Current Condition Onset Date Long-standing history Current Complaints left posterior hip pain, poor balance, gait difficulty History of Current Condition Pt is an 88 year old male presenting with a long- standing history of left posterior hip pain. 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 I should get shots for it , so until that happens, I don 't know what can be done. Also notes that prior hip MRI showed I got a good hip. Has not had any falls, but is very cautious due to ongoing instability. Pt's hip pain and radicular symptoms greatly impact his gait and stability in standing. PT-OP-C Subjective Start: 05/10/23 16:43 Freq: Status: Active Protocol: Document 06/03/23 10:30 DCW (Rec: 06/03/23 11:14 DCW [id number]) OP-PT Subjective Patient Comments Patient Comments I had a difficult time with my hip yesterday. I have a patch on today, which helps. PT-OP-F Manual Assessment Start: 05/10/23 16:43 Freq: Status: Active Protocol: Document 05/10/23 11:25 DCW (Rec: 05/10/23 17:41 DCW [id number]) Manual Assessments Soft Tissue Assessment Soft Tissue Mobility Assessment Moderate-severe tone L piriformis PT-OP-L Special Tests Start: 05/10/23 16:43 Freq: Status: Active Protocol: Document 05/10/23 11:25 DCW (Rec: 05/10/23 17:41 DCW [id number]) Special Tests Hip Special Tests Piriformis Test Results Positive Left CARLEE Test Results Negative Straight Leg Raise Test Results Negative Scour Test Test Results Negative PT-OP-M Strength Start: 05/10/23 16:43 Freq: Status: Active Protocol: Document 05/10/23 11:25 DCW (Rec: 05/10/23 17:41 [facility] [id number]) Hip Strength Hip Manual Muscle Testing Right Flexion (L2) 4+ Good+ Extension (S1) 3+ Fair+ Abduction 5 Normal Adduction 5 Normal External Rotation 4+ Good+ Internal Rotation 4+ Good+ Left Flexion (L2) 4+ Good+ Extension (S1) 3+ Fair+ Abduction 5 Normal Adduction 5 Normal External Rotation 4+ Good+ Internal Rotation 4+ Good+ Knee Strength Knee Manual Muscle Testing Right Flexion (S2) 4+ Good+ Extension (L3) 4+ Good+ Left Flexion (S2) 4+ Good+ Extension (L3) 4+ Good+ PT-OP-Q Treatments Start: 05/10/23 16:43 Freq: Status: Active Protocol: Document 06/03/23 10:30 DCW (Rec: 06/03/23 11:14 DCW [id number]) Therapeutic Exercises Supine Exercises Hamstring Supine Exercise Name Hamstring stretch Side bilateral Single KtC Supine Exercise Name Single KtC Side bilateral Piriformis Supine Exercise Name Figure-4, knee to opposite shoulder Side bilateral Sidelying Exercises Reverse Clamshell Sidelying Exercise Name Reverse Clamshell Side bilateral Clamshell Sidelying Exercise Name Clamshell Side bilateral Manual Therapy Treatment Soft Tissue Mobilization L QL Body Location L QL Mobilization Type Rolling,Sustained Pressure, Other Intensity/Depth Moderate Body Position Sidelying Comments pillow supports between LEs manual pin and stretch 2 x30s Piriformis Body Location B Piriformis Mobilization Type Cross-Friction,Strumming, Sustained Pressure,Trigger Point Release Intensity/Depth Moderate Body Position Sidelying Comments pillow supports between LEs sustained pressure, mod-deep Neuro Re-Education Treatment Balance Activities NBOS Details SLS Surface Firm Equipment // bars Comments verbal/visual feedback for righting posture Tandem Details Tandem Stance Equipment // bars Comments verbal and visual feedback for righting posture PT-OP-T Assessment and Plan Start: 05/10/23 16:43 Freq: Status: Active Protocol: Document 06/03/23 10:30 DCW (Rec: 06/03/23 11:14 DCW [id number]) Physical Therapy Assessment Impairments Impairments Activity Tolerance,Balance, Functional Activities, Functional Mobility,Gait,Soft Tissue Mobility,Strength,Tone Goals Two Impairment Left radicular pain creating instability with gait Chcf Goal (LTG) Pt to demonstrate decreased soft tissue tone in posterior left hip to mild in order to improve quality of gait and decrease radicular symptoms to decrease falls risk LTG Duration 07/09/23 One Impairment Pt does not have an appropriate home exercise program Short Term Goal (STG) Pt to be independent and compliant with an appropriate HEP STG Duration 06/08/23 Assessment Summary Assessment Pt noted increased hip pain yesterday after a lot of walking the previous day. Doing better today, but still having more hip pain than usual. Good response to STM and stretching today, felt better after session. [place] good about addition of clamshells/reverse clamshells. Physical Therapy Plan Frequency and Duration Frequency of Treatment 2x/Week Plan of Care Start Date 05/10/23 Plan of Care End Date 07/09/23 Therapeutic Interventions Therapeutic Interventions Balance Training,Coordination Training,Gait Training,Home Exercise Program,Joint Mobilizations,Manual Therapy, Neuromuscular Re-education, Patient/Caregiver Education, Self-Care/Home Management,Soft Tissue Mobilization, Therapeutic Activities, Therapeutic Exercises Modalities Cold Pack/Ice Massage,Electric Stimulation,Hot Packs, Ultrasound Next Visit Focus/Plan Next Note Type Treatment Note Next Visit Plan Static/dynamic balance challenges, STM, stretching
--- NOTE | 2023-06-08 11:20 | PT.OTN ---
Current Diagnoses Pain in left hip (06/08/23) Unsteadiness on feet (06/08/23) Other abnormalities of gait and mobility (06/08/23) Physical Therapy Treatment Note PT-OP-A Visit Information Start: 05/10/23 16:43 Freq: Status: Active Protocol: Document 06/08/23 10:42 NBM (Rec: 06/08/23 11:19 NBM [id number]) Out-Patient Physical Therapy Visit Information Visit Information Visit Type Treatment Note Visit Start Time 10:38 Visit Stop Time 11:16 Visit Number 6 Number of RELAY OPERATOR Visits 1 PT-OP-B Current Condition Start: 05/10/23 16:43 Freq: Status: Active Protocol: Document 05/10/23 11:25 DCW (Rec: 05/10/23 17:51 DCW [id number]) Current Condition History of Current Condition Onset Date Long-standing history Current Complaints left posterior hip pain, poor balance, gait difficulty History of Current Condition Pt is an 88 year old male presenting with a long- standing history of left posterior hip pain. 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 I should get shots for it , so until that happens, I don 't know what can be done. Also notes that prior hip MRI showed I got a good hip. Has not had any falls, but is very cautious due to ongoing instability. Pt's hip pain and radicular symptoms greatly impact his gait and stability in standing. PT-OP-C Subjective Start: 05/10/23 16:43 Freq: Status: Active Protocol: Document 06/08/23 10:42 NBM (Rec: 06/08/23 11:19 NBM [id number]) OP-PT Subjective Patient Comments Patient Comments Rafael reports L hip pain 06/22 today. It felt much better last it was pressed on. PT-OP-F Manual Assessment Start: 05/10/23 16:43 Freq: Status: Active Protocol: Document 05/10/23 11:25 DCW (Rec: 05/10/23 17:41 DCW [id number]) Manual Assessments Soft Tissue Assessment Soft Tissue Mobility Assessment Moderate-severe tone L piriformis PT-OP-L Special Tests Start: 05/10/23 16:43 Freq: Status: Active Protocol: Document 05/10/23 11:25 DCW (Rec: 05/10/23 17:41 DCW [id number]) Special Tests Hip Special Tests Piriformis Test Results Positive Left CARLEE Test Results Negative Straight Leg Raise Test Results Negative Scour Test Test Results Negative PT-OP-M Strength Start: 05/10/23 16:43 Freq: Status: Active Protocol: Document 05/10/23 11:25 DCW (Rec: 05/10/23 17:41 DCW [id number]) Hip Strength Hip Manual Muscle Testing Right Flexion (L2) 4+ Good+ Extension (S1) 3+ Fair+ Abduction 5 Normal Adduction 5 Normal External Rotation 4+ Good+ Internal Rotation 4+ Good+ Left Flexion (L2) 4+ Good+ Extension (S1) 3+ Fair+ Abduction 5 Normal Adduction 5 Normal External Rotation 4+ Good+ Internal Rotation 4+ Good+ Knee Strength Knee Manual Muscle Testing Right Flexion (S2) 4+ Good+ Extension (L3) 4+ Good+ Left Flexion (S2) 4+ Good+ Extension (L3) 4+ Good+ PT-OP-Q Treatments Start: 05/10/23 16:43 Freq: Status: Active Protocol: Document 06/08/23 10:42 NBM (Rec: 06/08/23 11:19 NB [id number]) Therapeutic Exercises Supine Exercises Hamstring Supine Exercise Name Hamstring stretch Side bilateral Single KtC Supine Exercise Name Single KtC Side bilateral Piriformis Supine Exercise Name Figure-4, knee to opposite shoulder Side bilateral Sidelying Exercises Reverse Clamshell Sidelying Exercise Name Reverse Clamshell Side bilateral Clamshell Sidelying Exercise Name Clamshell Side bilateral Manual Therapy Treatment Soft Tissue Mobilization L QL Body Location L QL Mobilization Type Rolling,Sustained Pressure, Other Intensity/Depth Moderate Body Position Sidelying Comments pillow supports between LEs manual pin and stretch 3 x30s Piriformis Body Location L Piriformis Mobilization Type Cross-Friction,Strumming, Sustained Pressure,Trigger Point Release Intensity/Depth Moderate Body Position Sidelying Comments pillow supports between LEs sustained pressure, mod-deep PT-OP-T Assessment and Plan Start: 05/10/23 16:43 Freq: Status: Active Protocol: Document 06/08/23 10:42 NBM (Rec: 06/08/23 11:19 NBM [id number]) Physical Therapy Assessment Goals Two Impairment Left radicular pain creating instability with gait Play Writer Goal (LTG) Pt to demonstrate decreased soft tissue tone in posterior left hip to mild in order to improve quality of gait and decrease radicular symptoms to decrease falls risk LTG Duration 07/09/23 One Impairment Pt does not have an appropriate home exercise program Short Term Goal (STG) Pt to be independent and compliant with an appropriate HEP STG Duration 06/08/23 Assessment Summary Assessment Treatment focus on stretching HEP and manual therapy to L QL and L hip. Rafael presents with 4/10 L hip pain which improves to 3/10 end of session. He presents without Hurrycane and is educated to use it for safety as his balance is noticeably worse without; pt to stop home for cane before proceeding to [place]. He lacks carryover for remembering LE stretches except for knee to chest stretch. He requires cues for eccentric control with reverse clamshells. Physical Therapy Plan Frequency and Duration Frequency of Treatment 2x/Week Plan of Care Start Date 05/10/23 Plan of Care End Date 07/09/23 Therapeutic Interventions Therapeutic Interventions Balance Training,Coordination Training,Gait Training,Home Exercise Program,Joint Mobilizations,Manual Therapy, Neuromuscular Re-education, Patient/Caregiver Education, Self-Care/Home Management,Soft Tissue Mobilization, Therapeutic Activities, Therapeutic Exercises Modalities Cold Pack/Ice Massage,Electric Stimulation,Hot Packs, Ultrasound Next Visit Focus/Plan Next Note Type Treatment Note Next Visit Plan Static/dynamic balance challenges, STM, stretching
--- NOTE | 2023-06-15 11:16 | PT.OTN ---
Current Diagnoses Pain in left hip (06/15/23) Unsteadiness on feet (06/15/23) Other abnormalities of gait and mobility (06/15/23) Physical Therapy Treatment Note PT-OP-A Visit Information Start: 05/10/23 16:43 Freq: Status: Active Protocol: Document 06/15/23 10:30 DCW (Rec: 06/15/23 11:16 DCW [id number]) Out-Patient Physical Therapy Visit Information Visit Information Visit Type Treatment Note Visit Start Time 10:30 Visit Stop Time 11:15 Visit Number 7 Number of SUPPORT TECHNICIAN Visits 0 Evaluation Information Evaluation Date 05/10/23 PT-OP-B Current Condition Start: 05/10/23 16:43 Freq: Status: Active Protocol: Document 05/10/23 11:25 DCW (Rec: 05/10/23 17:51 DCW [id number]) Current Condition History of Current Condition Onset Date Long-standing history Current Complaints left posterior hip pain, poor balance, gait difficulty History of Current Condition Pt is an 88 year old male presenting with a long- standing history of left posterior hip pain. 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 I should get shots for it , so until that happens, I don 't know what can be done. Also notes that prior hip MRI showed I got a good hip. Has not had any falls, but is very cautious due to ongoing instability. Pt's hip pain and radicular symptoms greatly impact his gait and stability in standing. PT-OP-C Subjective Start: 05/10/23 16:43 Freq: Status: Active Protocol: Document 06/08/23 10:42 NBM (Rec: 06/08/23 11:19 NBM [id number]) OP-PT Subjective Patient Comments Patient Comments Rafael reports L hip pain 4/10 today. It felt much better last it was pressed on. PT-OP-F Manual Assessment Start: 05/10/23 16:43 Freq: Status: Active Protocol: Document 05/10/23 11:25 DCW (Rec: 05/10/23 17:41 DCW [id number]) Manual Assessments Soft Tissue Assessment Soft Tissue Mobility Assessment Moderate-severe tone L piriformis PT-OP-L Special Tests Start: 05/10/23 16:43 Freq: Status: Active Protocol: Document 05/10/23 11:25 DCW (Rec: 05/10/23 17:41 DCW [id number]) Special Tests Hip Special Tests Piriformis Test Results Positive Left CARLEE Test Results Negative Straight Leg Raise Test Results Negative Scour Test Test Results Negative PT-OP-M Strength Start: 05/10/23 16:43 Freq: Status: Active Protocol: Document 05/10/23 11:25 DCW (Rec: 05/10/23 17:41 DCW [id number]) Hip Strength Hip Manual Muscle Testing Right Flexion (L2) 4+ Good+ Extension (S1) 3+ Fair+ Abduction 5 Normal Adduction 5 Normal External Rotation 4+ Good+ Internal Rotation 4+ Good+ Left Flexion (L2) 4+ Good+ Extension (S1) 3+ Fair+ Abduction 5 Normal Adduction 5 Normal External Rotation 4+ Good+ Internal Rotation 4+ Good+ Knee Strength Knee Manual Muscle Testing Right Flexion (S2) 4+ Good+ Extension (L3) 4+ Good+ Left Flexion (S2) 4+ Good+ Extension (L3) 4+ Good+ PT-OP-Q Treatments Start: 05/10/23 16:43 Freq: Status: Active Protocol: Document 06/15/23 10:30 DCW (Rec: 06/15/23 11:16 DCW [id number]) Therapeutic Exercises Supine Exercises Hamstring Supine Exercise Name Hamstring stretch Side bilateral Single KtC Supine Exercise Name Single KtC Side bilateral Piriformis Supine Exercise Name Figure-4, knee to opposite shoulder Side bilateral Manual Therapy Treatment Soft Tissue Mobilization L QL Body Location L QL Mobilization Type Rolling,Sustained Pressure, Other Intensity/Depth Moderate Body Position Sidelying Comments pillow supports between LEs manual pin and stretch 3 x30s Piriformis Body Location L Piriformis Mobilization Type Cross-Friction,Strumming, Sustained Pressure,Trigger Point Release Intensity/Depth Moderate Body Position Sidelying Comments pillow supports between LEs sustained pressure, mod-deep PT-OP-T Assessment and Plan Start: 05/10/23 16:43 Freq: Status: Active Protocol: Document 06/15/23 10:30 DCW (Rec: 06/15/23 11:16 DCW [id number]) Physical Therapy Assessment Impairments Impairments Activity Tolerance,Balance, Functional Activities, Functional Mobility,Gait,Soft Tissue Mobility,Strength,Tone Goals Two Impairment Left radicular pain creating instability with gait Planning Official Goal (LTG) Pt to demonstrate decreased soft tissue tone in posterior left hip to mild in order to improve quality of gait and decrease radicular symptoms to decrease falls risk LTG Duration 07/09/23 One Impairment Pt does not have an appropriate home exercise program Short Term Goal (STG) Pt to be independent and compliant with an appropriate HEP STG Duration 06/08/23 Assessment Summary Assessment Pt doing well today, feeling like he is moving better, but still quite tight in his LEs, specifically in his hamstrings today. Physical Therapy Plan Frequency and Duration Frequency of Treatment 2x/Week Plan of Care Start Date 05/10/23 Plan of Care End Date 07/09/23 Therapeutic Interventions Therapeutic Interventions Balance Training,Coordination Training,Gait Training,Home Exercise Program,Joint Mobilizations,Manual Therapy, Neuromuscular Re-education, Patient/Caregiver Education, Self-Care/Home Management,Soft Tissue Mobilization, Therapeutic Activities, Therapeutic Exercises Modalities Cold Pack/Ice Massage,Electric Stimulation,Hot Packs, Ultrasound Next Visit Focus/Plan Next Note Type Treatment Note Next Visit Plan Static/dynamic balance challenges, STM, stretching
--- NOTE | 2023-06-22 12:08 | PT.OTN ---
Current Diagnoses Pain in left hip (06/22/23) Unsteadiness on feet (06/22/23) Other abnormalities of gait and mobility (06/22/23) Physical Therapy Treatment Note PT-OP-A Visit Information Start: 05/10/23 16:43 Freq: Status: Active Protocol: Document 06/22/23 11:20 SW (Rec: 06/22/23 12:08 [id number]) Out-Patient Physical Therapy Visit Information Visit Information Visit Type Treatment Note Visit Start Time 11:16 Visit Stop Time 11:55 Visit Number 39 Number of WEB PRESS OPERATOR HELPER OFFSET Visits 1 PT-OP-B Current Condition Start: 05/10/23 16:43 Freq: Status: Active Protocol: Document 05/10/23 11:25 DCW (Rec: 05/10/23 17:51 DCW [id number]) Current Condition History of Current Condition Onset Date Long-standing history Current Complaints left posterior hip pain, poor balance, gait difficulty History of Current Condition Pt is an 88 year old male presenting with a long- standing history of left posterior hip pain. 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 I should get shots for it , so until that happens, I don 't know what can be done. Also notes that prior hip MRI showed I got a good hip. Has not had any falls, but is very cautious due to ongoing instability. Pt's hip pain and radicular symptoms greatly impact his gait and stability in standing. PT-OP-C Subjective Start: 05/10/23 16:43 Freq: Status: Active Protocol: Document 06/22/23 11:20 SW (Rec: 06/22/23 12:08 [id number]) OP-PT Subjective Patient Comments Patient Comments Pt reports pain 6/10 today. Pt reports a lot of walking increases pain. PT-OP-F Manual Assessment Start: 05/10/23 16:43 Freq: Status: Active Protocol: Document 05/10/23 11:25 DCW (Rec: 05/10/23 17:41 DCW [id number]) Manual Assessments Soft Tissue Assessment Soft Tissue Mobility Assessment Moderate-severe tone L piriformis PT-OP-L Special Tests Start: 05/10/23 16:43 Freq: Status: Active Protocol: Document 05/10/23 11:25 DCW (Rec: 05/10/23 17:41 DCW [id number]) Special Tests Hip Special Tests Piriformis Test Results Positive Left CARLEE Test Results Negative Straight Leg Raise Test Results Negative Scour Test Test Results Negative PT-OP-M Strength Start: 05/10/23 16:43 Freq: Status: Active Protocol: Document 05/10/23 11:25 DCW (Rec: 05/10/23 17:41 DCW [id number]) Hip Strength Hip Manual Muscle Testing Right Flexion (L2) 4+ Good+ Extension (S1) 3+ Fair+ Abduction 5 Normal Adduction 5 Normal External Rotation 4+ Good+ Internal Rotation 4+ Good+ Left Flexion (L2) 4+ Good+ Extension (S1) 3+ Fair+ Abduction 5 Normal Adduction 5 Normal External Rotation 4+ Good+ Internal Rotation 4+ Good+ Knee Strength Knee Manual Muscle Testing Right Flexion (S2) 4+ Good+ Extension (L3) 4+ Good+ Left Flexion (S2) 4+ Good+ Extension (L3) 4+ Good+ PT-OP-Q Treatments Start: 05/10/23 16:43 Freq: Status: Active Protocol: Document 06/22/23 11:20 SW (Rec: 06/22/23 12:08 [id number]) Therapeutic Exercises Supine Exercises Hamstring Supine Exercise Name Hamstring stretch Side bilateral Single KtC Supine Exercise Name Single KtC Side bilateral Piriformis Supine Exercise Name Figure-4, knee to opposite shoulder Side bilateral Sidelying Exercises Reverse Clamshell Sidelying Exercise Name Reverse Clamshell Side bilateral Clamshell Sidelying Exercise Name Clamshell Side bilateral Manual Therapy Treatment Soft Tissue Mobilization L QL Body Location L QL Mobilization Type Rolling,Sustained Pressure, Other Intensity/Depth Moderate Body Position Sidelying Comments pillow supports between LEs manual pin and stretch 3 x30s Piriformis Body Location L Piriformis Mobilization Type Cross-Friction,Strumming, Sustained Pressure,Trigger Point Release Intensity/Depth Moderate Body Position Sidelying Comments pillow supports between LEs sustained pressure, mod-deep PT-OP-T Assessment and Plan Start: 05/10/23 16:43 Freq: Status: Active Protocol: Document 06/22/23 11:20 SW (Rec: 06/22/23 12:08 [id number]) Physical Therapy Assessment Goals Two Impairment Left radicular pain creating instability with gait Beading Machine Operator Goal (LTG) Pt to demonstrate decreased soft tissue tone in posterior left hip to mild in order to improve quality of gait and decrease radicular symptoms to decrease falls risk LTG Duration 07/09/23 One Impairment Pt does not have an appropriate home exercise program Short Term Goal (STG) Pt to be independent and compliant with an appropriate HEP STG Duration 06/08/23 Assessment Summary Assessment Continued focus on stretching LE and manual therapy to relax tissues and decrease pain. Initiated hip strength this session to increase strength and mobilty for carryover into gait and balance. Pt required frequent verbal cues for carryover of HEP. Physical Therapy Plan Frequency and Duration Frequency of Treatment 2x/Week Plan of Care Start Date 05/10/23 Plan of Care End Date 07/09/23 Therapeutic Interventions Therapeutic Interventions Balance Training,Coordination Training,Gait Training,Home Exercise Program,Joint Mobilizations,Manual Therapy, Neuromuscular Re-education, Patient/Caregiver Education, Self-Care/Home Management,Soft Tissue Mobilization, Therapeutic Activities, Therapeutic Exercises Modalities Cold Pack/Ice Massage,Electric Stimulation,Hot Packs, Ultrasound Next Visit Focus/Plan Next Note Type Treatment Note Next Visit Plan Static/dynamic balance challenges, STM, stretching
--- NOTE | 2023-06-30 12:55 | PT.OTN ---
Current Diagnoses Pain in left hip (06/30/23) Unsteadiness on feet (06/30/23) Other abnormalities of gait and mobility (06/30/23) Physical Therapy Treatment Note PT-OP-A Visit Information Start: 05/10/23 16:43 Freq: Status: Active Protocol: Document 06/30/23 09:39 AB (Rec: 06/30/23 12:17 AB [id number]) Out-Patient Physical Therapy Visit Information Visit Information Visit Type Treatment Note Visit Note Access Code [email or web address] Visit Start Time 11:21 Visit Stop Time 12:04 Visit Number 9 Number of MANAGEMENT TECH Visits 2 Evaluation Information Evaluation Date 05/10/23 PT-OP-B Current Condition Start: 05/10/23 16:43 Freq: Status: Active Protocol: Document 05/10/23 11:25 DCW (Rec: 05/10/23 17:51 DCW [id number]) Current Condition History of Current Condition Onset Date Long-standing history Current Complaints left posterior hip pain, poor balance, gait difficulty History of Current Condition Pt is an 88 year old male presenting with a long- standing history of left posterior hip pain. 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 I should get shots for it , so until that happens, I don 't know what can be done. Also notes that prior hip MRI showed I got a good hip. Has not had any falls, but is very cautious due to ongoing instability. Pt's hip pain and radicular symptoms greatly impact his gait and stability in standing. PT-OP-C Subjective Start: 05/10/23 16:43 Freq: Status: Active Protocol: Document 06/30/23 09:39 AB (Rec: 06/30/23 12:17 AB [id number]) OP-PT Subjective Patient Comments Patient Comments Patient rates pain 4/10 right hip ambulating into session with SPC. Patient reports performing HEP 5X a week. PT-OP-F Manual Assessment Start: 05/10/23 16:43 Freq: Status: Active Protocol: Document 05/10/23 11:25 DCW (Rec: 05/10/23 17:41 DCW [id number]) Manual Assessments Soft Tissue Assessment Soft Tissue Mobility Assessment Moderate-severe tone L piriformis PT-OP-L Special Tests Start: 05/10/23 16:43 Freq: Status: Active Protocol: Document 05/10/23 11:25 DCW (Rec: 05/10/23 17:41 DCW [id number]) Special Tests Hip Special Tests Piriformis Test Results Positive Left CARLEE Test Results Negative Straight Leg Raise Test Results Negative Scour Test Test Results Negative PT-OP-M Strength Start: 05/10/23 16:43 Freq: Status: Active Protocol: Document 05/10/23 11:25 DCW (Rec: 05/10/23 17:41 DCW [id number]) Hip Strength Hip Manual Muscle Testing Right Flexion (L2) 4+ Good+ Extension (S1) 3+ Fair+ Abduction 5 Normal Adduction 5 Normal External Rotation 4+ Good+ Internal Rotation 4+ Good+ Left Flexion (L2) 4+ Good+ Extension (S1) 3+ Fair+ Abduction 5 Normal Adduction 5 Normal External Rotation 4+ Good+ Internal Rotation 4+ Good+ Knee Strength Knee Manual Muscle Testing Right Flexion (S2) 4+ Good+ Extension (L3) 4+ Good+ Left Flexion (S2) 4+ Good+ Extension (L3) 4+ Good+ PT-OP-Q Treatments Start: 05/10/23 16:43 Freq: Status: Active Protocol: Document 06/30/23 09:39 AB (Rec: 06/30/23 12:17 AB [id number]) Therapeutic Exercises Supine Exercises Piriformis Supine Exercise Name opposite knee to shoulder from hooklying Side bilateral Reps/Minutes 60 seconds X 2 each Sitting Exercises seated hip abduction with band Side bilateral Resistance light blue band Reps/Minutes one minute X 1 Standing Exercises side stepping Equipment Used 10 feet left and right X 4 Comments repeated verbal cues to avoid toeing out Therapeutic Activity Therapeutic Activity supine to sit Reps/Minutes throughout session, multiple trials Comments verbal cues to roll fully onto side prior to sitting upright , and for timing ie to push LE 's of mat then immediately use UE's to push up into seated postion. sit to stand Name from raised seat height Reps/Minutes X9 Comments Pt ed mechanics of sit to stand, and use of self tactile cues for hip hinge, verbal cues of noes over toes Manual Therapy Treatment Soft Tissue Mobilization Piriformis Body Location L and right Piriformis Mobilization Type Cross-Friction,Rolling Intensity/Depth Moderate Body Position Sidelying Comments pillow supports between LEs sustained pressure, mod Manual Techniques MET for right AI left PI and pubic shotgun Reps/Duration 6 X 6 seconds PT-OP-T Assessment and Plan Start: 05/10/23 16:43 Freq: Status: Active Protocol: Document 06/30/23 09:39 AB (Rec: 06/30/23 12:17 AB [id number]) Physical Therapy Assessment Goals Two Impairment Left radicular pain creating instability with gait Jail Officer Goal (LTG) Pt to demonstrate decreased soft tissue tone in posterior left hip to mild in order to improve quality of gait and decrease radicular symptoms to decrease falls risk AROM left hip IR 35 deg right 06/20/2023 hip 34 deg seated, LTG Duration 07/09/23 One Impairment Pt does not have an appropriate home exercise program Short Term Goal (STG) Pt to be independent and compliant with an appropriate HEP 06/30/2023 reports performing HEP 5 X a week STG Duration 06/08/23 Assessment Summary Assessment SLS right LE one second left LE 2 seconds without UE use, no change post seated glute med activation. Patient reports hip feels better end of session. Physical Therapy Plan Frequency and Duration Frequency of Treatment 2x/Week Plan of Care Start Date 05/10/23 Plan of Care End Date 07/09/23 Next Visit Focus/Plan Next Note Type Progress Note Next Visit Plan Static/dynamic balance challenges, STM, stretching
--- NOTE | 2023-06-30 15:33 | PT.OPPN ---
Current Diagnoses Pain in left hip (06/30/23) Unsteadiness on feet (06/30/23) Other abnormalities of gait and mobility (06/30/23) Physical Therapy Progress Note PT-OP-A Visit Information Start: 05/10/23 16:43 Freq: Status: Active Protocol: Document 06/30/23 09:39 AB (Rec: 06/30/23 12:17 AB [id number]) Out-Patient Physical Therapy Visit Information Visit Information Visit Type Treatment Note Visit Note Access Code [email or web address] Visit Start Time 11:21 Visit Stop Time 12:04 Visit Number 9 Number of MANAGEMENT PSYCHOLOGIST Visits 2 Evaluation Information Evaluation Date 05/10/23 PT-OP-B Current Condition Start: 05/10/23 16:43 Freq: Status: Active Protocol: Document 05/10/23 11:25 DCW (Rec: 05/10/23 17:51 DCW [id number]) Current Condition History of Current Condition Onset Date Long-standing history Current Complaints left posterior hip pain, poor balance, gait difficulty History of Current Condition Pt is an 88 year old male presenting with a long- standing history of left posterior hip pain. 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 I should get shots for it , so until that happens, I don 't know what can be done. Also notes that prior hip MRI showed I got a good hip. Has not had any falls, but is very cautious due to ongoing instability. Pt's hip pain and radicular symptoms greatly impact his gait and stability in standing. PT-OP-C Subjective Start: 05/10/23 16:43 Freq: Status: Active Protocol: Document 06/30/23 09:39 AB (Rec: 06/30/23 12:17 AB [id number]) OP-PT Subjective Patient Comments Patient Comments Patient rates pain 4/10 right hip ambulating into session with SPC. Patient reports performing HEP 5X a week. PT-OP-F Manual Assessment Start: 05/10/23 16:43 Freq: Status: Active Protocol: Document 05/10/23 11:25 DCW (Rec: 05/10/23 17:41 DCW [id number]) Manual Assessments Soft Tissue Assessment Soft Tissue Mobility Assessment Moderate-severe tone L piriformis PT-OP-L Special Tests Start: 05/10/23 16:43 Freq: Status: Active Protocol: Document 05/10/23 11:25 DCW (Rec: 05/10/23 17:41 DCW [id number]) Special Tests Hip Special Tests Piriformis Test Results Positive Left CARLEE Test Results Negative Straight Leg Raise Test Results Negative Scour Test Test Results Negative PT-OP-M Strength Start: 05/10/23 16:43 Freq: Status: Active Protocol: Document 05/10/23 11:25 DCW (Rec: 05/10/23 17:41 DCW [id number]) Hip Strength Hip Manual Muscle Testing Right Flexion (L2) 4+ Good+ Extension (S1) 3+ Fair+ Abduction 5 Normal Adduction 5 Normal External Rotation 4+ Good+ Internal Rotation 4+ Good+ Left Flexion (L2) 4+ Good+ Extension (S1) 3+ Fair+ Abduction 5 Normal Adduction 5 Normal External Rotation 4+ Good+ Internal Rotation 4+ Good+ Knee Strength Knee Manual Muscle Testing Right Flexion (S2) 4+ Good+ Extension (L3) 4+ Good+ Left Flexion (S2) 4+ Good+ Extension (L3) 4+ Good+ PT-OP-T Assessment and Plan Start: 05/10/23 16:43 Freq: Status: Active Protocol: Document 06/30/23 15:32 DCW (Rec: 06/30/23 15:33 DCW [id number]) Physical Therapy Assessment Impairments Impairments Activity Tolerance,Balance, Functional Activities, Functional Mobility,Gait,Soft Tissue Mobility,Strength,Tone Goals Two Impairment Left radicular pain creating instability with gait Skilled Nursing Goal (LTG) Pt to demonstrate decreased soft tissue tone in posterior left hip to mild in order to improve quality of gait and decrease radicular symptoms to decrease falls risk AROM left hip IR 35 deg right 06/20/2023 hip 34 deg seated, LTG Duration 07/09/23 One Impairment Pt does not have an appropriate home exercise program Short Term Goal (STG) Pt to be independent and compliant with an appropriate HEP 06/30/2023 reports performing HEP 5 X a week STG Duration 06/08/23 Assessment Summary Assessment Pt demonstrating some improvement overall with functional mobility and gait, less overall pain. Has been compliant so far with HEP. New POC next visit Physical Therapy Plan Frequency and Duration Frequency of Treatment 2x/Week Plan of Care Start Date 05/10/23 Plan of Care End Date 07/09/23 Therapeutic Interventions Therapeutic Interventions Balance Training,Coordination Training,Gait Training,Home Exercise Program,Joint Mobilizations,Manual Therapy, Neuromuscular Re-education, Patient/Caregiver Education, Self-Care/Home Management,Soft Tissue Mobilization, Therapeutic Activities, Therapeutic Exercises Modalities Cold Pack/Ice Massage,Electric Stimulation,Hot Packs, Ultrasound Next Visit Focus/Plan Next Note Type Progress Note Next Visit Plan Static/dynamic balance challenges, STM, stretching
--- NOTE | 2023-06-30 16:44 | PT-OP ANOTE ---
Left message on cell number in Demographic of this chart, that Physical therapist cannot request more physical therapy and patient must return to MD at [facility] himself. Attempted to leave message on home phone, but mailbox was full.
--- NOTE | 2023-12-10 12:34 | PT.OPDS ---
Current Diagnoses Pain in left hip (06/30/23) Unsteadiness on feet (06/30/23) Other abnormalities of gait and mobility (06/30/23) Visit Care Team Role Provider Type Tenisha Gutierrez MD Family Provider Non-Staff Primary Care Provider Specialty: Internal Medicine Address: [address] [place] [address],[address], [place], [address] Email: Daysi Mendoza DO Attending Provider Non-Staff Referring Provider Specialty: Geriatrics Address: [facility], [address] [place] [address], [id number] Email: Visit Number Visit Number 9 Discharge Summary PT-OP-B Current Condition Start: 05/10/23 16:43 Freq: Status: Active Protocol: Document 05/10/23 11:25 DCW (Rec: 05/10/23 17:51 DCW [id number]) Current Condition History of Current Condition Onset Date Long-standing history Current Complaints left posterior hip pain, poor balance, gait difficulty History of Current Condition Pt is an 88 year old male presenting with a long- standing history of left posterior hip pain. 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 I should get shots for it , so until that happens, I don 't know what can be done. Also notes that prior hip MRI showed I got a good hip. Has not had any falls, but is very cautious due to ongoing instability. Pt's hip pain and radicular symptoms greatly impact his gait and stability in standing. PT-OP-C Subjective Start: 05/10/23 16:43 Freq: Status: Active Protocol: Document 06/30/23 09:39 AB (Rec: 06/30/23 12:17 AB [id number]) OP-PT Subjective Patient Comments Patient Comments Patient rates pain 4/10 right hip ambulating into session with SPC. Patient reports performing HEP 5X a week. PT-OP-F Manual Assessment Start: 05/10/23 16:43 Freq: Status: Active Protocol: Document 05/10/23 11:25 DCW (Rec: 05/10/23 17:41 DCW [id number]) Manual Assessments Soft Tissue Assessment Soft Tissue Mobility Assessment Moderate-severe tone L piriformis PT-OP-L Special Tests Start: 05/10/23 16:43 Freq: Status: Active Protocol: Document 05/10/23 11:25 DCW (Rec: 05/10/23 17:41 DCW [id number]) Special Tests Hip Special Tests Piriformis Test Results Positive Left CARLEE Test Results Negative Straight Leg Raise Test Results Negative Scour Test Test Results Negative PT-OP-M Strength Start: 05/10/23 16:43 Freq: Status: Active Protocol: Document 05/10/23 11:25 DCW (Rec: 05/10/23 17:41 [facility] [id number]) Hip Strength Hip Manual Muscle Testing Right Flexion (L2) 4+ Good+ Extension (S1) 3+ Fair+ Abduction 5 Normal Adduction 5 Normal External Rotation 4+ Good+ Internal Rotation 4+ Good+ Left Flexion (L2) 4+ Good+ Extension (S1) 3+ Fair+ Abduction 5 Normal Adduction 5 Normal External Rotation 4+ Good+ Internal Rotation 4+ Good+ Knee Strength Knee Manual Muscle Testing Right Flexion (S2) 4+ Good+ Extension (L3) 4+ Good+ Left Flexion (S2) 4+ Good+ Extension (L3) 4+ Good+ PT-OP-T Assessment and Plan Start: 05/10/23 16:43 Freq: Status: Active Protocol: Document 12/10/23 12:33 DCW (Rec: 12/10/23 12:34 DCW [id number]) Physical Therapy Assessment Assessment Summary Assessment Pt no-showed last scheduled visit, has not called for follow-up. Pt has now not been seen in more than 5 months, will be discharged from skilled therapy at this time. Physical Therapy Plan Discharge Physical Therapy Discharge Reasons No Longer Attending PT
== END 2023-12-16 14:52 | disposition home or self-care (01) ==
LOC: PHYS 11:15
PROVIDERS: Family Provider Internal Medicine; PCP Internal Medicine; Referring Provider Internal Medicine Geriatric Medicine; Visit Provider Internal Medicine Geriatric Medicine
DX: M25.552 Pain in left hip (principal); R26.81 Unsteadiness on feet; R26.89 Other abnormalities of gait and mobility
CPT/HCPCS: 97110; 97112; 97140; 97162; 97530

== ENCOUNTER 2023-11-09 12:39 | Emergency (ER) | payer OTHER, SELFPAY ==
[2023-11-09 12:42] VITALS: BP 145/65; PULSE 63; RESP 16; TEMP 36.5; O2SAT 97; BMI 24.7
[2023-11-09] MEDS: PROPARACAINE 0.5% OPHTH SOL 1 DROPS EYE-LEFT (12:57)
[2023-11-09] MEDS: FLUORESCEIN 1 MG STRIP EYE-LEFT (12:57)
[2023-11-09 13:07] VITALS: BP 165/75; PULSE 65; O2SAT 96
--- NOTE | 2023-11-09 13:57 | ED.EYEPROB ---
HPI - Eye Problem General Chief complaint: Eye Problems Stated complaint: BI Eye Pain Time Seen by Provider: 11/09/23 13:42 History of Present Illness HPI Narrative: 88-year-old male with left sided eye irritation, scant discharge, also now right-sided eye irritation. He wears glasses, no change in prescription, denies use of contacts. Denies any foreign body sensation or injury. No associated eyelid swelling, hives, itching. No swelling symptoms of the tongue. No direct blow injuries. No use of welding or other eye exposures known. No visual field deficits. Related Data Home Medications Medication Instructions Recorded Confirmed amlodipine 5 mg tablet (Norvasc) 10 mg PO QDAY #0 tabs 03/30/18 10/16/22 atorvastatin 10 mg tablet 10 mg PO DAILY 03/30/18 10/16/22 carvedilol 12.5 mg tablet 12.5 mg PO BID 03/30/18 10/16/22 losartan 50 mg tablet 50 mg PO BID 03/30/18 10/16/22 terbinafine HCl 250 mg tablet 250 mg PO DAILY 03/30/18 10/16/22 venlafaxine 37.5 mg 37.5 mg PO BID 03/30/18 10/16/22 capsule,extended release 24 hr epinephrine 0.3 mg/0.3 mL 0.3 mg IM ONCE PRN 08/10/18 10/16/22 injection, auto-injector (EpiPen) omeprazole 20 mg capsule,delayed 20 mg PO BID 02/28/20 10/16/22 release Previous Rx's Medication Instructions Recorded sulconazole 1 % topical cream 1 applictn topical BID #60 grams 11/06/19 hydroxyzine pamoate 25 mg capsule 25 mg PO TID PRN pain (scale score 02/28/20 (Vistaril) 4-6) #60 caps piroxicam 20 mg capsule (Feldene) 20 mg PO DAILY #30 caps 10/23/20 hydrocodone 5 mg-acetaminophen 325 1 tab PO Q6H PRN pain #14 tabs 09/25/22 mg tablet lidocaine 5 % topical patch 2 patch topical DAILY PRN pain #30 09/25/22 (Lidoderm) ea polyethylene glycol 3350 17 17 g PO DAILY PRN constipation 09/25/22 gram/dose oral powder (Miralax) #238 grams erythromycin 5 mg/gram (0.5 %) eye 1 applic EYE-BOTH TID eye 11/09/23 ointment infection 7 days #3.5 grams Allergies Allergy/AdvReac Type Severity Reaction Status Date / Time bee venom protein (honey bee) Allergy Severe Anaphylaxis Verified 10/16/22 12:54 Sulfa (Sulfonamide Allergy Severe Difficulty Verified 10/16/22 12:54 Antibiotics) Breathing iodine [IODINE] Allergy Unknown Verified 10/16/22 12:54 morphine [MORPHINE] Allergy Unknown Verified 10/16/22 12:54 shellfish derived Allergy Unknown Verified 10/16/22 12:54 [SHELLFISH DERIVED] bupropion [From Wellbutrin] AdvReac Intermediate Depression Verified 10/16/22 12:54 hydrochlorothiazide AdvReac Unknown Verified 10/16/22 12:54 [From Dyazide] triamterene [From Dyazide] AdvReac Unknown Verified 10/16/22 12:54 celecoxib AdvReac Vomiting Verified 11/09/23 12:52 Review of Systems Review of Systems Narrative: see HPI Patient History Medical History Acid reflux Biceps muscle tear Facet arthropathy, lumbosacral Hernia Hypertension Intramural diverticulosis of esophagus PTSD (post-traumatic stress disorder) Surgical History History of lumbar surgery Family History Father Hypertension Grandfather Cancer Social History marital status: lives independently: Yes Smoking Status: Former smoker Smoking Status: Former smoker tobacco type: cigarettes alcohol intake frequency: holidays/special occasions only Substance Use Type: does not use Exam Narrative Exam Narrative: GENERAL: Well-developed patient, in mild distress. HEAD: Atraumatic. Normocephalic. EYES: Pupils equal round and reactive. Extraocular motions intact. No scleral icterus. No injection or drainage. Fluorescein exam after proparacaine left eye, small uptake 8 o'clock position cornea, small corneal abrasion possible, no flow of aqueous fluid on was lamp examination. ENT: Nose without bleeding, purulent drainage. Throat without erythema, tonsillar hypertrophy or exudate. Airway patent. NECK: Trachea midline. Non tender CARDIOVASCULAR: Regular rate and rhythm without murmurs, gallops, or rubs. RESPIRATORY: Clear to auscultation. Breath sounds equal bilaterally. No wheezes, rales, or rhonchi. GASTROINTESTINAL: Abdomen soft, non-tender, nondistended. EXTREMITIES: No edema or joint tenderness. BACK: Nontender without deformity or crepitance. No flank tenderness. NEURO: AOx3. Grossly nonfocal exam SKIN: No rash or erythema of visible areas Initial Vital Signs Initial Vital Signs: Vital Signs Temperature 97.7 F 11/09/23 12:42 Pulse Rate 63 11/09/23 12:42 Respiratory Rate 16 11/09/23 12:42 Blood Pressure 145/65 H 11/09/23 12:42 Pulse Oximetry 97 11/09/23 12:42 Oxygen Delivery Method Room Air 11/09/23 12:42 Course Orders Ordered: Discontinued Medications Erythromycin (Erythromycin Ophth 1 Gm Oint) 1 applic EYE-BOTH NOW ONE Stop: 11/09/23 14:08 Last Admin: 11/09/23 14:19 Dose: 1 applic Documented By: MIKI Fluorescein Sodium (Fluorescein 1 Mg Strip) 1 mg EYE-LEFT NOW ONE Stop: 11/09/23 12:52 Last Admin: 11/09/23 12:57 Dose: 1 mg Documented By: RL Proparacaine HCl (Proparacaine 0.5% Ophth [place]) 1 drops EYE-LEFT PRN PRN PRN Reason: Pain, Mild (1-3) Last Admin: 11/09/23 12:57 Dose: 1 drop Documented By: RL Vital Signs Vital signs: Vital Signs - 8 hr 11/09/23 12:42 11/09/23 13:07 11/09/23 13:07 Temperature 97.7 F Pulse Rate 63 65 Respiratory Rate 16 Blood Pressure 145/65 H 165/75 H Pulse Oximetry 97 96 Oxygen Delivery Method Room Air Room Air 11/09/23 14:33 11/09/23 14:34 11/09/23 14:34 Temperature Pulse Rate 66 63 Respiratory Rate 16 Blood Pressure 179/84 H Pulse Oximetry 100 96 Oxygen Delivery Method Room Air MDM - Eye Problem MDM Narrative Medical decision making narrative: Elderly male with left eye irritation, also some right eye irritation, bilateral nature of symptoms consider viral/allergic cause. Predominance of symptoms left-sided. Proparacaine topical anesthetic then fluorescein evaluation with Wood's lamp, there is a small area of corneal uptake 8 o'clock position, no obvious flow of aqueous fluid, suspected left corneal abrasion. Topical erythromycin ointment prescribed from the emergency department 1st dose, then use of repeat doses, prescription sent to his pharmacy. Advised eye clinic evaluation in 1 or 2 days. Contact information given for local [facility]. Return precautions discussed. Home, stable, discharged with . Discharge Plan Departure Patient Disposition: Home Clinical Impression: Acute bacterial conjunctivitis, Corneal abrasion Instructions: DI for Eye Pain Activity Restrictions/Additional Instructions: Left-sided eye discomfort with some tearing this morning, no foreign body or injury recalled. Also some irritation of the right eye. By history of bilateral symptoms this often is allergic or viral in etiology. However on contrast fluorescein examination there seemed to be a tiny area of possible abrasion to the 8 o'clock position right eye cornea. No obvious puncture. Consider use of topical antibiotic to help prevent infection, also consider use on the left eye in case you actually have early bacterial infection of both eyes. Consider recheck in eye Clinic in 1-2 days, with [facility]. Local non-[facility] eye provider clinic contact information provided. Topical antibiotic prescribed for use. Return earlier to this/nearest emergency department for any change worsening symptoms or any concerns prior Prescriptions: New erythromycin 5 mg/gram (0.5 %) ointment 1 applic EYE-BOTH TID 7 Days Qty: 3.5 0RF No Action amlodipine [Norvasc] 5 mg tablet 10 mg PO QDAY Qty: 0 venlafaxine 37.5 mg capsule,extended release 24hr 37.5 mg PO BID terbinafine HCl 250 mg tablet 250 mg PO DAILY losartan 50 mg tablet 50 mg PO BID carvedilol 12.5 mg tablet 12.5 mg PO BID atorvastatin 10 mg tablet 10 mg PO DAILY hydrocodone-acetaminophen 5-325 mg tablet 1 tab PO Q6H PRN (Reason: pain) Qty: 14 0RF lidocaine [Lidoderm] 5 % adhesive patch,medicated 2 patch topical DAILY PRN (Reason: pain) Qty: 30 0RF Rx Instructions: leave on most painful area for up to 12 hrs polyethylene glycol 3350 [Miralax] 17 gram/dose powder 17 g PO DAILY PRN (Reason: constipation) Qty: 238 0RF sulconazole 1 % cream 1 applictn TOP BID Qty: 60 0RF epinephrine [EpiPen] 0.3 mg/0.3 mL auto-injector 0.3 mg IM ONCE PRN omeprazole 20 mg capsule,delayed release(DR/EC) 20 mg PO BID hydroxyzine pamoate [Vistaril] 25 mg capsule 25 mg PO TID PRN (Reason: pain (scale score 4-6)) Qty: 60 1RF piroxicam [Feldene] 20 mg capsule 20 mg PO DAILY Qty: 30 2RF Referrals: Lucila Vicente MD [Physician] - Tenisha Gutierrez MD [Primary Care Provider] - Stand Alone Forms: Patient Portal/API
[2023-11-09] MEDS: ERYTHROMYCIN OPHTH 1 GM OINT 1 APPLIC EYE-BOTH (14:19)
[2023-11-09 14:33] VITALS: PULSE 66; O2SAT 100
[2023-11-09 14:34] VITALS: BP 179/84; PULSE 63; RESP 16; O2SAT 96
== END 2023-11-09 14:56 | disposition home or self-care (01) ==
PROVIDERS: Emergency Provider Emergency Medicine; Family Provider Internal Medicine; PCP Internal Medicine
DX: S05.02XA Injury of conjunctiva and corneal abrasion without foreign body, left eye, initial encounter (principal); H10.89 Other conjunctivitis
CPT/HCPCS: 99282

== ENCOUNTER 2024-09-23 05:26 | Emergency (ER) | payer OTHER, SELFPAY ==
[2024-09-23] VITALS (13 sets, daily range): BP systolic 146–203; BP diastolic 66–100; PULSE 57–68; RESP 16–32; TEMP 36.6; O2SAT 93–98
--- NOTE | 2024-09-23 05:36 | ED.CHESTPAIN ---
HPI - Chest Pain <Ramez Hernández, DO - Last Filed: 09/24/24 18:00> General Chief Complaint: Chest Pain Stated Complaint: Chest pain Time Seen by Provider: 09/23/24 05:33 History of Present Illness HPI narrative: 89y M history of CVA, dementia,HTN, HLD, presents with lower left leg pain started earlier tonight and radiated up towards his chest started having midsternal chest pain described as dull intermittent pain 4/10 for which he took 2 baby aspirins prior to arrival here. Denies fever, chills, cough, nausea, diaphoresis, shortness of breath, dyspnea on exertion. Other than what is stated 14 point review of system is negative. Related Data Home Medications ?Medication ?Instructions ?Recorded ?Confirmed epinephrine 0.3 mg/0.3 mL 0.3 mg IM ONCE PRN anaphylaxis 08/10/18 09/23/24 injection, auto-injector (EpiPen) atorvastatin 10 mg tablet 10 mg PO DAILY 09/23/24 09/23/24 carvedilol 12.5 mg tablet 12.5 mg PO BID 09/23/24 09/23/24 cholecalciferol (vitamin D3) 25 25 mcg PO DAILY 09/23/24 09/23/24 mcg (1,000 unit) capsule cyanocobalamin (vitamin B-12) 1,000 mcg PO DAILY 09/23/24 09/23/24 1,000 mcg capsule finasteride 5 mg tablet 5 mg PO DAILY 09/23/24 09/23/24 losartan 50 mg tablet 50 mg PO DAILY 09/23/24 09/23/24 multivitamin 1 tab PO DAILY 09/23/24 09/23/24 omeprazole 20 mg capsule,delayed 20 mg PO DAILY 09/23/24 09/23/24 release sertraline 100 mg tablet 50 mg PO DAILY 09/23/24 09/23/24 tamsulosin 0.4 mg capsule 0.4 mg PO DAILY 09/23/24 09/23/24 Previous Rx's ?Medication ?Instructions ?Recorded azelastine 0.05 % eye drops 1 drp EYE-BOTH BID Allergic 02/19/24 conjunctivitis #6 mL Allergies Allergy/AdvReac Type Severity Reaction Status Date / Time bee venom protein (honey bee) Allergy Severe Anaphylaxis Verified 02/19/24 11:05 Sulfa (Sulfonamide Allergy Severe Difficulty Verified 02/19/24 11:05 Antibiotics) Breathing iodine (IODINE) Allergy Unknown Verified 02/19/24 11:05 morphine (MORPHINE) Allergy Unknown Verified 02/19/24 11:05 shellfish derived (SHELLFISH Allergy Unknown Verified 02/19/24 11:05 DERIVED) bupropion (From Wellbutrin) AdvReac Intermediate Depression Verified 02/19/24 11:05 hydrochlorothiazide (From AdvReac Unknown Verified 02/19/24 11:05 Dyazide) triamterene (From Dyazide) AdvReac Unknown Verified 02/19/24 11:05 celecoxib AdvReac Vomiting Verified 02/19/24 11:05 Review of Systems <Ramez Hernández, DO - Last Filed: 09/24/24 18:00> Review of Systems ROS Unobtainable: All systems reviewed & are unremarkable except as noted in HPI and below Patient History <Ramez Hernández, DO - Last Filed: 09/24/24 18:00> Medical History Biceps muscle tear Facet arthropathy, lumbosacral Intramural diverticulosis of esophagus Hernia PTSD (post-traumatic stress disorder) Acid reflux Hypertension Surgical History History of lumbar surgery Family History Father Hypertension Grandfather Cancer Social History marital status: lives independently: Yes tobacco type: cigarettes alcohol intake frequency: holidays/special occasions only Exam <Ramez Hernández, DO - Last Filed: 09/24/24 18:00> Narrative Exam Narrative: GENERAL: [89] year old patient appears stated age. Well-developed patient, in mild distress. HEAD: Atraumatic. Normocephalic. EYES: Pupils equal round and reactive. Extraocular motions intact. No scleral icterus. No injection or drainage. ENT: Nose without bleeding, purulent drainage. Throat without erythema, tonsillar hypertrophy or exudate. Airway patent. NECK: Trachea midline. Non tender CARDIOVASCULAR: Regular rate and rhythm without murmurs, gallops, or rubs. RESPIRATORY: Clear to auscultation. Breath sounds equal bilaterally. No wheezes, rales, or rhonchi. GASTROINTESTINAL: Abdomen soft, non-tender, nondistended. EXTREMITIES: No edema or joint tenderness. BACK: Nontender without deformity or crepitance. No flank tenderness. NEURO: AOx3. SKIN: No rash or erythema of visible areas Initial Vital Signs Initial Vital Signs: Vital Signs Pulse Rate 60 09/23/24 05:48 Respiratory Rate 20 09/23/24 05:48 Blood Pressure 197/88 H 09/23/24 05:48 Pulse Oximetry 98 09/23/24 05:48 Oxygen Delivery Method Room Air 09/23/24 05:48 <Simon Pena MD - Last Filed: 09/23/24 08:52> Initial Vital Signs Initial Vital Signs: Vital Signs Pulse Rate 60 09/23/24 05:48 Respiratory Rate 20 09/23/24 05:48 Blood Pressure 197/88 H 09/23/24 05:48 Pulse Oximetry 98 09/23/24 05:48 Oxygen Delivery Method Room Air 09/23/24 05:48 Scores <Ramez Hernández DO - Last Filed: 09/24/24 18:00> HEART Score Heart Score history: Moderately Suspicious Heart Score EKG: Non-Specific repolarization disturbance Heart Score Age: > or = 65 years old Heart Score risk factors: > 3 risk factors or hx of atherosclerotic disease Heart Score troponin: < or = to normal limit Heart Score Total: 6 <Simon Pena MD - Last Filed: 09/23/24 08:52> HEART Score Heart Score Total: 6 Course <Ramez Hernández DO - Last Filed: 09/24/24 18:00> Orders Ordered: Discontinued Medications Nitroglycerin (Nitroglycerin 0.4 Mg Sl Tab) 0.4 mg SL [id number] PRN PRN Reason: chest pain Last Admin: 09/23/24 06:15 Dose: 0.4 mg Documented By: AB Vital Signs Vital signs: Vital Signs - 8 hr 09/23/24 05:48 09/23/24 05:49 09/23/24 06:00 Pulse Rate 60 61 Respiratory Rate 20 25 H Blood Pressure 197/88 H 203/88 H Pulse Oximetry 98 98 Oxygen Delivery Method Room Air 09/23/24 06:00 09/23/24 06:24 09/23/24 06:24 Pulse Rate 59 L 60 Respiratory Rate 25 H 26 H Blood Pressure 146/66 H Pulse Oximetry 98 93 Oxygen Delivery Method 09/23/24 06:30 09/23/24 06:30 Pulse Rate 57 L Respiratory Rate 21 Blood Pressure 164/79 H Pulse Oximetry 96 Oxygen Delivery Method <Simon Pena MD - Last Filed: 09/23/24 08:52> Course Course Narrative: ALOK: I assumed care of this patient at 7:00 a.m. today. At that point he was awaiting results of his lower extremity Doppler ultrasound, D-dimer, 2nd troponin. All of these were negative. Thus cardiopulmonary cause of his chest pain is extremely unlikely at this time. The patient was advised to return to the hospital for any change or worsening in his condition especially new or worsening chest pain especially if it is accompanied by diaphoresis, nausea, lightheadedness, shortness of breath, palpitations. Otherwise, I advised him to follow up with his PCP as soon as possible. The patient is agreement with this plan. Orders Ordered: Discontinued Medications Nitroglycerin (Nitroglycerin 0.4 Mg Sl Tab) 0.4 mg SL [id number] PRN PRN Reason: chest pain Last Admin: 09/23/24 06:15 Dose: 0.4 mg Documented By: AB Vital Signs Vital signs: Vital Signs - 8 hr 09/23/24 05:48 09/23/24 05:49 09/23/24 06:00 Pulse Rate 60 61 Respiratory Rate 20 25 H Blood Pressure 197/88 H 203/88 H Pulse Oximetry 98 98 Oxygen Delivery Method Room Air 09/23/24 06:00 09/23/24 06:24 09/23/24 06:24 Pulse Rate 59 L 60 Respiratory Rate 25 H 26 H Blood Pressure 146/66 H Pulse Oximetry 98 93 Oxygen Delivery Method 09/23/24 06:30 09/23/24 06:30 Pulse Rate 57 L Respiratory Rate 21 Blood Pressure 164/79 H Pulse Oximetry 96 Oxygen Delivery Method MDM - Chest Pain <Ramez Hernández DO - Last Filed: 09/24/24 18:00> Lab Data 09/23/24 05:40 09/23/24 05:40 Labs: Lab Results 09/23/24 09/23/24 Range/Units 05:40 07:25 WBC 8.0 (4.5-11.0) X10^3/uL RBC 4.14 L (4.5-5.9) X10^6/uL Hgb 12.7 L (13.5-17.5) g/dL Hct 36.9 L (41-53) % MCV 89.1 (80-100) fL MCH 30.7 (26-34) PG MCHC 34.4 (30-36) % RDW 13.5 (11.6-14.8) % Plt Count 291 (150-400) X10^3/uL Neut % (Auto) 57.8 (50-75) % Lymph % (Auto) 27.7 (25-40) % Waller % (Auto) 11.2 (3-14) % Eos % (Auto) 2.7 (2-4) % Baso % (Auto) 0.6 (0-2) % Neut # (Auto) 4600 (3495-5332) /uL Lymph # (Auto) 2200 (2974-3627) /uL Waller # (Auto) 900 (0-900) /uL Eos # (Auto) 200 (0-450) /uL Baso # (Auto) 0 (0-100) /uL D-Dimer 783 H (<500) ng/ml Sodium 139 (137-145) mmol/L Potassium 3.9 (3.4-5.1) mmol/L Chloride 110 H (98-107) mmol/L Carbon Dioxide 24 (22-32) mmol/L BUN 20 (9-20) mg/dL Creatinine 0.78 (0.66-1.25) mg/dL Estimated GFR > 60 (>60) mL/min BUN/Creatinine Ratio 25.6 H (6-22) Glucose 90 (70-99) mg/dL Calcium 8.7 (8.4-10.2) mg/dL Total Bilirubin 0.5 (0.2-1.3) mg/dL AST 34 (17-59) IU/L ALT 20 (<50) IU/L Alkaline Phosphatase 99 (38-126) U/L Total Creatine Kinase 33 L (55-170) U/L Troponin I < 0.012 < 0.012 (0.01-0.034) ng/mL Total Protein 6.7 (6.3-8.2) g/dL Albumin 4.1 (3.5-5.0) g/dL Globulin 2.6 (1.7-4.1) g/dL Albumin/Globulin Ratio 1.6 (1.0-2.8) Lipase 27 (23-300) U/L ECG Data Interpretation: Sinus Rhythm with PAC LAD HR 62 NJ [address] QRS [address]-t wave change No previous ekg to compare MDM Narrative Medical decision making narrative: Patient signed out to at shift change pending final disposition. <Simon Pena MD - Last Filed: 09/23/24 08:52> Differential Diagnosis Differential diagnosis: Likely pneumothorax, stable angina, unstable angina pectoris, atypical chest pain, st elevation myocardial infarction, costochondritis and chest pain Lab Data Labs: Lab Results 09/23/24 09/23/24 Range/Units 05:40 07:25 WBC 8.0 (4.5-11.0) X10^3/uL RBC 4.14 L (4.5-5.9) X10^6/uL Hgb 12.7 L (13.5-17.5) g/dL Hct 36.9 L (41-53) % MCV 89.1 (80-100) fL MCH 30.7 (26-34) PG MCHC 34.4 (30-36) % RDW 13.5 (11.6-14.8) % Plt Count 291 (150-400) X10^3/uL Neut % (Auto) 57.8 (50-75) % Lymph % (Auto) 27.7 (25-40) % Waller % (Auto) 11.2 (3-14) % Eos % (Auto) 2.7 (2-4) % Baso % (Auto) 0.6 (0-2) % Neut # (Auto) 4600 (9634-3333) /uL Lymph # (Auto) 2200 (1855-0164) /uL Waller # (Auto) 900 (0-900) /uL Eos # (Auto) 200 (0-450) /uL Baso # (Auto) 0 (0-100) /uL D-Dimer 783 H (<500) ng/ml Sodium 139 (137-145) mmol/L Potassium 3.9 (3.4-5.1) mmol/L Chloride 110 H (98-107) mmol/L Carbon Dioxide 24 (22-32) mmol/L BUN 20 (9-20) mg/dL Creatinine 0.78 (0.66-1.25) mg/dL Estimated GFR > 60 (>60) mL/min BUN/Creatinine Ratio 25.6 H (6-22) Glucose 90 (70-99) mg/dL Calcium 8.7 (8.4-10.2) mg/dL Total Bilirubin 0.5 (0.2-1.3) mg/dL AST 34 (17-59) IU/L ALT 20 (<50) IU/L Alkaline Phosphatase 99 (38-126) U/L Total Creatine Kinase 33 L (55-170) U/L Troponin I < 0.012 < 0.012 (0.01-0.034) ng/mL Total Protein 6.7 (6.3-8.2) g/dL Albumin 4.1 (3.5-5.0) g/dL Globulin 2.6 (1.7-4.1) g/dL Albumin/Globulin Ratio 1.6 (1.0-2.8) Lipase 27 (23-300) U/L Discharge Plan Departure Patient Disposition: Home Clinical Impression: Chest pain Qualifiers: Chest pain type: unspecified Qualified Code(s): R07.9 - Chest pain, unspecified Instructions: DI for Chest Pain Activity Restrictions/Additional Instructions: If there is any change or worsening of condition such as new or worsening chest pain or chest pain accompanied by nausea, vomiting, shortness of breath, sweating, lightheadedness then please return to the ER or call 911 right away for further evaluation. Otherwise, please call your doctor as soon as possible and see your doctor as soon as possible. Prescriptions: No Action azelastine 0.05 % drops 1 drp EYE-BOTH BID Qty: 6 0RF atorvastatin 10 mg tablet 10 mg PO DAILY losartan 50 mg tablet 50 mg PO DAILY carvedilol 12.5 mg tablet 12.5 mg PO BID Rx Instructions: must administer with a meal/food sertraline 100 mg tablet 50 mg PO DAILY tamsulosin 0.4 mg capsule 0.4 mg PO DAILY omeprazole 20 mg capsule,delayed release(DR/EC) 20 mg PO DAILY finasteride 5 mg tablet 5 mg PO DAILY cholecalciferol (vitamin D3) 25 mcg (1,000 unit) capsule 25 mcg PO DAILY multivitamin Tablet 1 tab PO DAILY Patient Comments: no vitamin k cyanocobalamin (vitamin B-12) 1,000 mcg capsule 1,000 mcg PO DAILY epinephrine [EpiPen] 0.3 mg/0.3 mL auto-injector 0.3 mg IM ONCE PRN (Reason: anaphylaxis) Referrals: Tenisha Gutierrez MD [Family Provider, Internal Medicine] Stand Alone Forms: Patient Portal/API
--- NOTE | 2024-09-23 05:38 | EKG_ITS ---
[address] [address] [place] [address] Test Date: 2024-09-23 Pat Name: Pa Zuniga Department: [facility] Room: Gender: Male Shared Services Manager: ASHLEY : 1935 Requested By: Order Number: [id number] Reading MD: Measurements Intervals [place] Rate: 61 P: [place]: 164 QRS: 220 QRSD: 88 T: 131 QT: 432 QTc: 434 Interpretive Statements Suspect arm lead reversal, interpretation assumes no reversal Normal sinus rhythm Anterolateral infarct , age undetermined
--- NOTE | 2024-09-23 05:57 | PC.NURSE ---
pt aao x 3 talking without difficulty, resp even and unlabored pt states he took 2 ASA about 0400 this
--- NOTE | 2024-09-23 06:00 | DI.RAD.S_ITS ---
PROCEDURE: XR CHEST 1V INDICATIONS: chest pain TECHNIQUE: One view of the chest was acquired. COMPARISON: [facility], CHEST 2 VIEW, 07/23/2015, 13:33. [facility], CHEST 1 VIEW, 07/23/2015, 8:56. FINDINGS: Surgical changes and devices: None. Lungs and pleura: Lungs are clear. No pleural effusions or pneumothorax. Mediastinum: Mediastinal contours appear normal. Heart size is normal. Bones and chest wall: No suspicious bony lesions. Overlying soft tissues appear unremarkable. IMPRESSION: No acute cardiopulmonary abnormality is seen. This report is concordant with the overnight preliminary interpretation. Dictated by: Colin Mercedes M.D. on 09/23/2024 at 7:06 Approved by: Colin Mercedes M.D. on 09/23/2024 at 7:07
--- NOTE | 2024-09-23 06:01 | DI.US.S_ITS ---
PROCEDURE: US PERIP VENOUS LOW EXTREM LT INDICATIONS: PAIN TECHNIQUE: Real-time imaging, as well as color and pulse Doppler interrogation, were performed of the lower extremity deep veins from the inguinal ligament to the popliteal fossa, with documentation of the visualized calf veins. COMPARISON: [facility], , [facility] VENOUS LOW EXTREM LT, 10/11/2020, 12:32. FINDINGS: The common femoral, femoral, popliteal, and the visualized calf veins are normally compressible, and free of intraluminal thrombus. Color and pulse Doppler demonstrate normal phasic intraluminal flow. There is normal augmentation response to distal compression maneuver. IMPRESSION: No findings of lower extremity deep venous thrombosis. Dictated by: Colin Mercedes M.D. on 09/23/2024 at 7:10 Approved by: Colin Mercedes M.D. on 09/23/2024 at 7:11
[2024-09-23] MEDS: NITROGLYCERIN 0.4 MG SL TAB SL (06:15)
[2024-09-23 06:17] LABS: Add Manual Diff / Slide Review NO; Hematocrit 36.9 % (41-53); Hemoglobin 12.7 g/dL (13.5-17.5); Lymphocytes Absolute Auto 2200 /uL (1100-4500); Mean Corpuscular HGB Conc 34.4 % (30-36); Mean Corpuscular Hemoglobin 30.7 PG (26-34); Mean Corpuscular Volume 89.1 fL (80-100); Platelet Count 291 X10^3/uL (150-400)
--- NOTE | 2024-09-23 06:20 | PC.NURSE ---
pt states heaviness realieved BP 146/66
[2024-09-23 06:23] LABS: Alanine Aminotransferase 20 IU/L (<50); Albumin 4.1 g/dL (3.5-5.0); Albumin Globulin Ratio 1.6 (1.0-2.8); Alkaline Phosphatase 99 U/L (38-126); Blood Urea Nitrogen 20 mg/dL (9-20); Calcium 8.7 mg/dL (8.4-10.2); Carbon Dioxide 24 mmol/L (22-32); Chloride 110 mmol/L (98-107); Creatine Kinase 33 U/L (55-170); Estimated Glomerular Filt Rate > 60 mL/min (>60); Globulin 2.6 g/dL (1.7-4.1); Glucose 90 mg/dL (70-99); HEMOLYSIS 19 (0-50); Lipase 27 U/L (23-300); Potassium 3.9 mmol/L (3.4-5.1); Sodium 139 mmol/L (137-145); Total Protein 6.7 g/dL (6.3-8.2)
[2024-09-23 06:35] LABS: Troponin I < 0.012 ng/mL (0.01-0.034)
[2024-09-23 08:41] LABS: Troponin I < 0.012 ng/mL (0.01-0.034)
== END 2024-09-23 09:05 | disposition home or self-care (01) ==
PROVIDERS: Family Medicine; Emergency Provider Emergency Medicine; Family Provider Internal Medicine; PCP Internal Medicine Geriatric Medicine
DX: R07.9 Chest pain, unspecified (principal); Z86.73 Personal history of transient ischemic attack (TIA), and cerebral infarction without residual deficits
CPT/HCPCS: 36415; 71045; 80053; 82550; 83690; 84484; 85025; 85379; 93005; 93010; 93971; 99284